=== PATIENT | male | born 1935 | race Caucasian/White ===

== ENCOUNTER 2023-11-26 15:30 | Emergency (ER) | payer MEDICARE, BC, SELFPAY ==
[2023-11-26 15:32] VITALS: BP 153/55
[2023-11-26 15:53] LABS: % Basophils 0.3 % (0-2); % Immature Granulocytes 0.7 % (0-0.5); % Lymphocytes 18.7 % (20.5-51.1); % Monocytes 9.3 % (1.7-9.3); Absolute Eosinophils 0.1 10^3/uL (0-0.7); Absolute Immature Granulocytes 0.1 10^3/uL (0-0.05); Absolute Lymphocytes 1.3 10^3/uL (1.2-3.4); Absolute Monocytes 0.7 10^3/uL (0.1-0.6); Absolute Neutrophils 4.8 10^3/uL (1.4-6.5); Hematocrit 31.2 % (39.0-52.0); Hemoglobin 10.6 g/dL (13.0-18.0); Mean Corpuscular Hgb 34.6 pg (27.0-31.0); Mean Platelet Volume 9.7 fL (7.4-10.4); Nucleated Red Blood Cells % 0 % (-); Platelet Count 159 10^3/uL (130-400); Red Blood Cell Count 3.06 10^6/uL (4.70-6.10); Red Cell Dist. Width 16.3 % (11.5-14.5)
[2023-11-26 16:00] LABS: INR 0.99; PT 12.9 Sec (11.4-14.6)
[2023-11-26 16:01] LABS: APTT 29.1 Sec (23.4-35.0)
[2023-11-26 16:04] LABS: ALT (SGPT) 14 U/L (0-50); AST (SGOT) 22 U/L (17-59); Albumin 3.4 g/dl (3.5-5.0); Alkaline Phosphatase 82 U/L (38-126); Blood Urea Nitrogen 34 mg/dl (9-20); Calcium 9.4 mg/dl (8.4-10.2); Carbon Dioxide 27 mmol/L (22-30); Chloride 105 mmol/L (98-107); Glucose 132 mg/dl (70-99); Potassium 5.3 mmol/L (3.5-5.1); Sodium 138 mmol/L (135-145); Total Bilirubin 0.6 mg/dl (0.2-1.3); Total Protein 5.8 g/dl (6.3-8.2); eGFR > 60.00
--- NOTE | 2023-11-26 17:25 | ED.GENMED ---
History of Present Illness
General
Chief Complaint: Male Genito-Urinary Symptoms
Source: patient
Exam Limitations: none
Time Seen by Provider: 11/26/23 17:23
Nursing documentation reviewed up to this point in time: agreed with
Travel History
Have you had any contact with someone who has COVID-19?: No
Do you have any symptoms of coronavirus? Fever > 100 degrees, chills, cough, shortness of breath, sore throat, loss of taste or smell, muscle aches, or headache?: No
History of Present Illness
History of Present Illness:
The patient is an 88-year-old man who reports he has had ongoing blood in his urine for months. He reports that the bleeding became more consistent and he called his urologist who recommended that he come to the ED. Patient denies dizziness, chest
pain or shortness of breath. He is on Plavix but no other blood thinners. He denies burning or any discomfort with urination. He denies urinary retention.
Past History
Past History
ED Past Medical History: Cancer (Prostate), GERD, HTN, NIDDM, Psychiatric (Anxiety) and Other (Anemia, PVD, BPH)
ED Past Surgical History: Cardiac (CABG, Stents) and Tonsilectomy
Social History
Tobacco: Former smoker
Alcohol: None
Drug: None
Personal:
Living: with family
Employment: Retired
Family History
Family History: Negative Early CAD
Review of Systems
Review of Systems
Allergies reviewed?: Yes
All Other Systems: ROS reviewed and negative except as documented in HPI and ROS
Constitutional: Reports no symptoms
EENT: Reports no symptoms
Respiratory: Reports no symptoms
Cardiac: Reports no symptoms
ABD/GI: Reports no symptoms
: Reports bleeding
Musculoskeletal: Reports no symptoms
Skin: Reports no symptoms
Neurological: Reports no symptoms
Endocrine: Reports no symptoms
Hematologic/Lymphatic: Reports no symptoms
Psychiatric: Reports no symptoms
Phy Exam
Physical Exam
Physical Exam:
Physical Exam
General: no apparent distress, not acutely ill
Neck: supple. no meningeal signs. normal psoterior pharynx
Heart: s1/s2 regular rate and rhythm, no murmur. equal radial pulses.
Lungs: no acute respiratory distress. clear bilaterally
Abdomen: normal bowel sounds. not tender. no CVAT
Neuro: alert and oriented. no focal neurological deficits
Skin: no rash
Psychiatric: well kept. interactive and cooperative
Extremities: no edema. no calf tenderness. negative homans. good distal pulses
Course
Orders/Labs/Results
Orders:
Orders
11/26/23 15:41
Complete Blood Count/With Diff Urgent
Comprehensive Metabolic Panel Urgent
PT/INR [Prothrombin Time] Urgent
PTT Urgent
11/26/23 17:21
Urinalysis Reflex To Culture Urgent
Date Specimen was Collected: 11/26/23
Time Specimen was Collected: 17:19
Urine Microscopic Reflex Cult Urgent
Urine Culture Urgent
FANNIE Source: U
Specimen Description:
Date Specimen was Collected: 11/26/23
Time Specimen was Collected: 17:19
11/26/23 18:38
US Kidneys and US Bladder [US Renal With Bladder] Urgent
Comment:
Reason For Exam: hematuria
Abnormal Lab Results
11/26/23 11/26/23
15:41 17:21
RBC 3.06 L 10^6/uL
(4.70-6.10)
Hgb 10.6 L g/dL
(13.0-18.0)
Hct 31.2 L %
(39.0-52.0)
MCV 102.0 H fL
(80.0-94.0)
MCH 34.6 H pg
(27.0-31.0)
RDW 16.3 H %
(11.5-14.5)
Abs Immat Gran (auto) 0.1 H 10^3/uL
(0-0.05)
Absolute Monos (auto) 0.7 H 10^3/uL
(0.1-0.6)
Immature Gran % 0.7 H %
(0-0.5)
Lymphocytes % 18.7 L %
(20.5-51.1)
Potassium 5.3 H mmol/L
(3.5-5.1)
BUN 34 H mg/dl
(9-20)
Glucose 132 H mg/dl
(70-99)
Total Protein 5.8 L g/dl
(6.3-8.2)
Albumin 3.4 L g/dl
(3.5-5.0)
Ur Occult Blood Reflex 4+ A
(Negative)
Urine Bilirubin 1+ A
(Negative)
Leukocyte Esterase Rfl 1+ A
(Negative)
Urine RBC >100 A /HPF
(0-2)
Urine Bacteria (Reflex) Many A
(Negative)
Urine Albumin (Reflex) 2+ A
(Neg - Trace)
11/26/23 15:41
11/26/23 15:41
Vital Signs
Initial and Last Documented VS:
Initial Vital Signs
Temp Pulse Resp BP Pulse Ox
97.8 F 76 16 153/55 93
11/26/23 15:32 11/26/23 15:32 11/26/23 15:32 11/26/23 15:32 11/26/23 15:32
Last Documented Vital Signs
Temp Pulse Resp BP Pulse Ox
97.8 F 60 16 141/70 93
11/26/23 15:32 11/26/23 18:15 11/26/23 18:15 11/26/23 18:00 11/26/23 18:00
MDM/Problems Addressed
Differential Diagnosis Includes:
Kidney stone, UTI, bladder mass
MDM/Problems Addressed:
Patient presents with subacute hematuria
Chronic conditions affecting care: Cancer (Prostate cancer in the past)
Acute Exacerbation and/or Progression of Chronic Illness: HTN
*Radiology
Radiology exam reviewed: radiology read reviewed
*Pulse Oximetry
Patient hypoxic: no
*EKG
Interpreted by ED Provider?: NA
*Auto Parts Clerk Interpretation
Rate: normal
Interpretation: normal
Rhythm: sinus
*Critical Care Note
Total Time (30-74mins, 75-104mins- exclusive of procedures): Not Applicable
Data Reviewed
Source: patient
Patient Management
Social determinants of health affecting care: Living situation and Strong social support
Escalation/DeEscalation of care consider admission/obs:
Patient is hemodynamically stable and appears well and comfortable. He has no signs or concerns for retention. His urine does not look like there is an infection. His renal function is stable. Case discussed with Dr. Samuel who assured me that
he will make sure that Dr. Pardo is aware that patient is having more frequent bleeding and will make sure to arrange prompt outpatient follow-up. He recommended that the patient hold off on taking Plavix in case he needs an upcoming urological
procedure.
ED Attending Note
-
Portions of this chart may have been created with voice recognition software.� Occasional wrong word or��sound alike� substitutions may have occurred due to the inherent limitations of voice recognition software.
Discharge Plan
Departure
Patient Disposition: Home (Routine Discharge)
Date of Disposition: 11/26/23
Time of Disposition: 20:58
Patient with high blood pressure during this ER visit?: Yes
Condition: Good
Covid-19: Not Applicable
Discharge Problem:
Hematuria
Instructions: Blood in Urine (Hematuria), Adult ED
Prescriptions:
No Action
atorvastatin 40 MG tablet
40 mg PO QPM
clopidogrel 75 MG tablet
75 mg PO DAILY@1500
metformin 500 mg Tablet
500 mg PO TID
omeprazole magnesium [Prilosec OTC] 20 mg Tablet,Delayed Release (Dr/Ec)
40 mg PO DAILY
cholecalciferol (vitamin D3) 50 mcg (2,000 unit) Tablet
50 mcg PO DAILY
polyethylene glycol 3350 [Miralax] 17 gram powder in packet
17 g PO HS
Referrals:
Arturo Pardo MD [Active] - (Call tomorrow to see as soon as possible.)
UNKNOWN - PT DOES,NOT KNOW [Unknown Provider] -
Activity Restrictions/Additional Instructions:
Return for fever or vomiting. Return for dizziness or trouble breathing. It is very important that you DO NOT take your plavix because you may need a urological procedure done with Dr Pardo. Please call Dr Pardo's office tomorrow to see him
within 2-3 days
Interventions
Interventions:
*Risk Screen - Suicide Last Done: 11/26/23 17:22
*General Assessment Last Done: 11/26/23 17:22
*Neglect/Abuse Screening Last Done: 11/26/23 17:22
*ED COVID-19 Vaccine History Last Done: 11/26/23 17:22
ED-Male Genitourinary Assessment Last Done: 11/26/23 17:22
[2023-11-26 17:26] VITALS: BP 151/63
[2023-11-26 17:37] LABS: Urine Albumin 2+ (Neg - Trace); Urine Bilirubin 1+ (Negative); Urine Character Slightly Cloudy (Clear); Urine Color Amber; Urine Glucose Negative (Negative); Urine Ketone Negative (Negative); Urine Leukocyte 1+ (Negative); Urine Nitrite Negative (Negative); Urine Occult Blood 4+ (Negative); Urine Specific Gravity 1.015 (<1.030); Urine Urobilinogen Negative (Neg - 1+)
[2023-11-26 17:46] LABS: Urine Red Blood Cell >100 /HPF (0-2)
[2023-11-26 17:47] LABS: Urine Bacteria Many (Negative)
[2023-11-26 18:00] VITALS: BP 141/70
== END 2023-11-26 23:10 | disposition home or self-care (01) ==
LOC: EMR 15:30
PROVIDERS: Emergency Medicine; EMERGENCY PHYSICIAN Emergency Medicine; FAMILY PHYSICIAN Family Medicine
DX: R31.9 Hematuria, unspecified (principal); K59.00 Constipation, unspecified; E11.51 Type 2 diabetes mellitus with diabetic peripheral angiopathy without gangrene; K21.9 Gastro-esophageal reflux disease without esophagitis; I25.10 Atherosclerotic heart disease of native coronary artery without angina pectoris; E78.5 Hyperlipidemia, unspecified; I34.0 Nonrheumatic mitral (valve) insufficiency; I12.9 Hypertensive chronic kidney disease with stage 1 through stage 4 chronic kidney disease, or unspecified chronic kidney disease; E11.22 Type 2 diabetes mellitus with diabetic chronic kidney disease; N18.9 Chronic kidney disease, unspecified; N40.0 Benign prostatic hyperplasia without lower urinary tract symptoms; F41.9 Anxiety disorder, unspecified; D64.9 Anemia, unspecified; Z95.1 Presence of aortocoronary bypass graft; Z95.5 Presence of coronary angioplasty implant and graft; Z85.46 Personal history of malignant neoplasm of prostate; Z92.3 Personal history of irradiation; Z87.891 Personal history of nicotine dependence; Z79.02 Long term (current) use of antithrombotics/antiplatelets; Z79.84 Long term (current) use of oral hypoglycemic drugs
CPT/HCPCS: 99284; 76770; 80053; 81003; 81015; 85025; 85610; 85730; 87086

== ENCOUNTER 2024-01-25 21:57 | Inpatient (IN) | payer MEDICARE, BC, SELFPAY ==
[2024-01-25] VITALS (16 sets, daily range): BP systolic 64–107; BP diastolic 26–55; BMI 34.1
[2024-01-25 19:53] LABS: % Basophils 0.3 % (0-2); % Eosinophils 1.8 % (0-6); % Immature Granulocytes 1.1 % (0-0.5); % Lymphocytes 12.7 % (20.5-51.1); % Monocytes 11.8 % (1.7-9.3); % Neutrophils 72.3 % (42.2-75.2); Absolute Eosinophils 0.1 10^3/uL (0-0.7); Absolute Immature Granulocytes 0.1 10^3/uL (0-0.05); Absolute Lymphocytes 0.9 10^3/uL (1.2-3.4); Absolute Monocytes 0.9 10^3/uL (0.1-0.6); Absolute Neutrophils 5.3 10^3/uL (1.4-6.5); Mean Corp Hgb Conc. 31.1 g/dL (33.0-37.0); Mean Corpuscular Hgb 30.3 pg (27.0-31.0); Mean Corpuscular Volume 97.6 fL (80.0-94.0); Mean Platelet Volume 9.5 fL (7.4-10.4); Nucleated Red Blood Cells % 0.5 % (-); Platelet Count 223 10^3/uL (130-400); Red Blood Cell Count 1.65 10^6/uL (4.70-6.10); Red Cell Dist. Width 16.4 % (11.5-14.5); White Blood Cell Count 7.4 10^3/uL (4.8-10.8)
[2024-01-25 19:57] LABS: Hematocrit 16.1 % (39.0-52.0)
[2024-01-25 20:05] LABS: ALT (SGPT) 17 U/L (0-50); AST (SGOT) 21 U/L (17-59); Albumin 3.8 g/dl (3.5-5.0); Alkaline Phosphatase 97 U/L (38-126); Blood Urea Nitrogen 37 mg/dl (9-20); Calcium 9.2 mg/dl (8.4-10.2); Carbon Dioxide 22 mmol/L (22-30); Chloride 106 mmol/L (98-107); Glucose 130 mg/dl (70-99); Potassium 5.7 mmol/L (3.5-5.1); Sodium 135 mmol/L (135-145); Total Bilirubin 0.5 mg/dl (0.2-1.3)
--- NOTE | 2024-01-25 21:00 | ED.GENMED ---
History of Present Illness
General
Chief Complaint: Male Genito-Urinary Symptoms
Source: patient
Time Seen by Provider: 01/25/24 20:48
Travel History
Have you had any contact with someone who has COVID-19?: No
Do you have any symptoms of coronavirus? Fever > 100 degrees, chills, cough, shortness of breath, sore throat, loss of taste or smell, muscle aches, or headache?: No
History of Present Illness
History of Present Illness:
88-year-old male presents emergency department with complaints of hematuria that is been going on for some time. He had a cystoscopy about 3 to 4 weeks ago that was essentially unremarkable. Since then, he notes that he has had hematuria with
clots on and off. He presents today because he has not urinated since last night and has a sense of an urge to go. He did pass 2 small clots before arrival here. He also thought he might be constipated although he did have a small 'dark'
nonbloody bowel movement this morning. He denies abdominal pain, chest pain, dyspnea. He does note overall fatigue. He denies fever, chills, severe headache. He denies bleeding elsewhere. Patient was previously on Plavix, was told to
discontinue it which he did. However, yesterday he took a dose because he thought it might help him given his hematuria. He takes an 81 mg aspirin each day, otherwise no anticoagulant/antiplatelet agents.
Past History
Past History
ED Past Medical History: Cancer (Prostate), GERD, HTN, NIDDM, Psychiatric (Anxiety) and Other (Anemia, PVD, BPH)
ED Past Surgical History: Cardiac (CABG, Stents) and Tonsilectomy
Social History
Tobacco: Former smoker
Alcohol: None
Drug: None
Personal:
Living: with family
Employment: Retired
Family History
Family History: Negative Early CAD
Phy Exam
Physical Exam
Physical Exam:
GENERAL: Alert , in no apparent distress
EYE: pupils equal and reactive, conjunctive a pale
NECK: Supple, no significant adenopathy.
ENT: o/p clr, mmm.
CARDIAC: Regular rate and rhythm, systolic murmur noted.
LUNGS: Clear breath sounds bilaterally, no acute respiratory distress, no wheezes/rales/rhonchi
ABDOMEN: Soft, without focal tenderness except discomfort with palpation in the suprapubic area because he feels the need to urinate, no r/g, no cvat
NEUROLOGICAL: Alert and oriented, no focal neuro deficits
SKIN: Warm and dry, skin intact.
MUSCULOSKELETAL: No edema, well perfused.
PSYCH: Normal and appropriate interaction.
Course
Orders/Labs/Results
Orders:
Orders
01/25/24 19:44
Type+Screen Urgent
Complete Blood Count/With Diff Urgent
Comprehensive Metabolic Panel Urgent
01/25/24 20:58
* Blood Bank Products Urgent
Blood Bank Products: *Packed RBC Leuko(PRBC's)
Quantity: 2
Transfuse Today: Yes
Reason: Bleeding
Sams Placement- Treatment ONCE
Reason for insertion: Acute Retention
IV Insert/Care/Rem.- Treatment PRN
US Kidneys and US Bladder [US Renal With Bladder] Urgent
Comment:
Reason For Exam: HEMATURIA
01/25/24 21:25
0.9% Sodium Chloride 250 ml [Nss] 250 ml IV BOLUS
01/25/24 21:40
Admit/Transfer Patient As Directed
Co-Sign Provider:
Level of Care: Inpatient admission
Assign to:: ICU
Physician / Group: [email or web address]
Diagnosis: hematuria complicated with acute clot urinary retentiin
Reason for Hospitalization: Intermittent subacute hematuria complicated with acute clot urinary retention and
ACBLA
Suspect hemorrgaic shock
Expected length of stay greater than two midnights?: Yes
ELOS- Estimated Length of Stay in days: 3
I certify the patient meets the requirements for IP care: Yes
01/25/24 21:41
Code Status As Directed
Resuscitation Status: Full Code
01/26/24 00:00
CefTRIAXone [Rocephin] 1,000 mg IV Q24H
01/26/24 00:14
0.9% Sodium Chloride 1000 ml [Nss] 1,000 ml IV 60 mls/hr
Acetaminophen [Tylenol] 650 mg PO Q4HPRN PRN
Bisacodyl [Dulcolax] 10 mg RECTAL [id number] PRN
Dextrose 50%-Water [Dextrose 50% Syringe] 12.5 grams IV [id number] PRN
Docusate W/Senna [Senokot-S] 1 tablet PO BIDPRN PRN
Glucagon [GlucaGen] 1 mg IM PRN PRN
Polyethylene Glycol Powder [Miralax] 17 grams PO DAILYPRN PRN
01/26/24 00:14
UROLOGY CONSULT Routine
Consulting Provider: Omari Garza
Was physician already notified: Yes
Comment: KERWIN - obstructive nephropathy , Hematuria with clot, ACBLA, hypotension
Activity As Directed
Activity Level: With Assistance
Bedside Glucose Monitoring As Directed
Frequency: AC&HS
Comment: Change to q6h if pt on TPN, tube feeding or not eating
Intake/ Output As Directed
Frequency: Per unit guidelines
Pneumatic Compression Sleeves As Directed
Type: Knee high
Vital Signs As Directed
Frequency: Per unit guidelines
Weight As Directed
Frequency: Daily
DX Deep Vein Thrombosis Video Routine
01/26/24 04:10
Basic Metabolic Panel IN AM
Complete Blood Count/No Diff IN AM
Ferritin IN AM
Glycohemoglobin (HgbA1c) IN AM
TSH IN AM
Vitamin B12 IN AM
01/26/24 Breakfast
Clear Liquid
At Your Request: Full Participation
01/26/24 07:30
Insulin Aspart Corrective Low [Novolog Flexpen-Low Resistance] See Protocol SC AC
01/27/24 04:30
Basic Metabolic Panel IN AM
Complete Blood Count/No Diff IN AM
01/28/24 08:45
Basic Metabolic Panel IN AM
Complete Blood Count/No Diff IN AM
Abnormal Lab Results
01/25/24
19:44
RBC 1.65 L 10^6/uL
(4.70-6.10)
Hgb 5.0 L* g/dL
(13.0-18.0)
Hct 16.1 L* %
(39.0-52.0)
MCV 97.6 H fL
(80.0-94.0)
MCHC 31.1 L g/dL
(33.0-37.0)
RDW 16.4 H %
(11.5-14.5)
Abs Immat Gran (auto) 0.1 H 10^3/uL
(0-0.05)
Absolute Lymphs (auto) 0.9 L 10^3/uL
(1.2-3.4)
Absolute Monos (auto) 0.9 H 10^3/uL
(0.1-0.6)
Immature Gran % 1.1 H %
(0-0.5)
Lymphocytes % 12.7 L %
(20.5-51.1)
Monocytes % 11.8 H %
(1.7-9.3)
Potassium 5.7 H mmol/L
(3.5-5.1)
BUN 37 H mg/dl
(9-20)
Creatinine 1.6 H mg/dL
(0.7-1.3)
Glucose 130 H mg/dl
(70-99)
Total Protein 6.0 L g/dl
(6.3-8.2)
Crossmatch IS Only See Detail
01/25/24 19:44
01/25/24 19:44
Vital Signs
Initial and Last Documented VS:
Initial Vital Signs
Temp Pulse Resp BP Pulse Ox
98.5 F 68 18 107/45 98
01/25/24 19:35 01/25/24 19:35 01/25/24 19:35 01/25/24 19:35 01/25/24 19:35
Last Documented Vital Signs
Temp Pulse Resp BP Pulse Ox
98.9 F 65 20 130/46 94
02/01/24 07:55 02/01/24 07:55 02/01/24 07:55 02/01/24 07:55 02/01/24 07:55
*Critical Care Note
Total Time (30-74mins, 75-104mins- exclusive of procedures): Not Applicable
Update Note
Update Note:
Patient presents to the Emergency Department with ____urinary retention, hematuria
Number and Complexity of Problems Addressed at the Encounter
� Chronic conditions affecting care:
� Acute Exacerbation and/or Progression of Chronic Illness:
� Differential Diagnosis includes: But not limited limited to UTI, bleeding disorder, bladder mass kidney stone, etc. etc.
Amount and/or Complexity of Data to be Reviewed and Analyzed
� I performed an independent evaluation of and my interpretation is:
EKG:
CT:
Xrays:
Laboratory Studies: Hemoglobin 5 today was 10.6 in November, new renal insufficiency noted with a GFR 41.7 today, in November was within normal limits. Mild hyperkalemia noted which has been noted in the past as well
Other:
� Review of other/old records reveals: December 2022 patient admitted with ambulatory dysfunction and low back pain
� Clinical information was obtained by an independent historian: Before patient arrival [place] text from Dr. garza reviewed.
� Prescriptions/Medications Considered but not given:
� Further testing considered but not performed:
Risk of Complications and/or Morbidity or Mortality of Patient Management
� Social determinants of health affecting care:
� Discussion with other providers (PCP, Hospitalists, Consultants, etc):
� Escalation of care including admission/observation vs risk of discharge considered: 9:11 PM RN began to prepare for Sams catheter placement with CBI when patient spontaneously urinated blood-tinged urine, postvoid residual
only 180 mL. Will pause on Sams catheter placement at this time given he is no longer in retention or acutely bleeding. Transfusion ordered, I will discussed with patient risks and benefits and have consent signed. Case discussed with Dr. KENYETTA Sierra
for admission. Dr. Garza updated as well via tt.
ED Attending Note
-
Portions of this chart may have been created with voice recognition software.� Occasional wrong word or��sound alike� substitutions may have occurred due to the inherent limitations of voice recognition software.
Discharge Plan
Departure
Patient Disposition: Admit
Date of Disposition: 01/25/24
Time of Disposition: 21:11
Admit to: ICU
Admit to doctor: mckenzie
Presentation/result/management discussed w/ accepting MD/DO: Hospitalist
Condition: Fair
Discharge Problem:
Hematuria, Anemia, Acute urinary retention
Interventions
Interventions:
*Risk Screen - Suicide Last Done: 01/26/24 00:16
*General Assessment Last Done: 01/25/24 19:35
*Neglect/Abuse Screening Last Done: 01/25/24 19:35
ED- Fall Risk Assessment Last Done: 01/25/24 23:35
*ED COVID-19 Vaccine History Last Done: 01/26/24 00:16
*Nursing Disposition Last Done: 01/25/24 23:35
ED-Male Genitourinary Assessment Last Done: 01/25/24 20:33
Discharge Date and Time
Discharge Date/Time: 01/25/24 23:35
--- NOTE | 2024-01-25 21:34 | HPS.HSE ---
Addendum entered and electronically signed by Clay Wallace MD 01/25/24 23:51:
Renal US
1. Moderate chronic bilateral renal disease.
2. Large postvoid residual in the urinary bladder (203 mL).
3. 3.6 cm layering hyperechoic hemorrhage or debris in the urinary bladder.
Addendum entered and electronically signed by Clay Wallace MD 01/25/24 23:47:
Dump Operator consult ordered
Original Note:
Family Physician
-
Family Physician: NOT KNOW UNKNOWN - PT DOES
Chief Complaint
-
hematuria with clots and unable to pass urine since last night
History of Present Illness
88M HX Prostate CA, BPH, CABG seen at ER for evaluation for hematuria and no urine output
Hematuria:
Today hematuria with intermittent passage of 2 small clots
Urgency last night and unable to pass urine
No lower abdominal pain, N/V
POS Fatigue
Ongoing intermittent hematuria since Nov 2023
Reports unremarkable OP cystoscopy 4 weeks ago
On daily ASA
Prior HX Plavix which was DC'd per Dr sarkar however he took one dose last night to help dissolving clots
Medical History
Past Medical History
Past Medical History: Reports Other ((CAD status post CABG, hypertension, diabetes, GERD, anxiety, anemia, BPH, prostate cancer))
Past Surgical History: Reports None
Social History
Tobacco: Non-smoker
Alcohol: None
Drug: None
Family History
Family History: Not pertinent
Allergies / Home Medications
Allergies reflects when Allergies were last updated in Apprion.
Home Medications with original date entered in Apprion
Allergy/Medication List:
Allergies
Allergy/AdvReac Type Severity Reaction Status Date / Time
No Known Allergies Allergy Verified 11/26/23 15:32
Home Medications
atorvastatin 40 mg tablet 40 mg PO QPM High cholesterol 02/05/17
clopidogrel 75 mg tablet 75 mg PO DAILY@1500 Blood clot prevention/tx 02/05/17
cholecalciferol (vitamin D3) 50 mcg (2,000 unit) tablet 50 mcg PO DAILY 11/26/23
metformin 500 mg tablet 500 mg PO TID 11/26/23
omeprazole magnesium 20 mg tablet,delayed release (Prilosec OTC) 40 mg PO DAILY 11/26/23
polyethylene glycol 3350 17 gram oral powder packet (Miralax) 17 g PO HS 11/26/23
Review of Systems
-
Constitutional: Reports Fatigue
EENT: Reports No Symptoms
Respiratory: Reports No Symptoms
Cardiac: Reports No Symptoms
Abdomen/GI: Reports No Symptoms
: Reports See HPI, Dysuria, Difficulty Voiding and Bleeding
Musculoskeletal: Reports No Symptoms
Skin: Reports No Symptoms
Neurological: Reports No Symptoms
Endocrine: Reports No Symptoms
Hematologic/Lymphatic: Reports No Symptoms
Psych: Reports No Symptoms
Physical Exam
Vital Signs
Vital Signs
Temp Pulse Resp BP Pulse Ox
98.5 F 68 18 107/45 98
01/25/24 19:35 01/25/24 19:35 01/25/24 19:35 01/25/24 19:35 01/25/24 19:35
Physical Exam
General: Well Developed and No Apparent Distress
HEENT: NormoCephalic, Anicteric and Moist mucous membranes
Respiratory: Clear; No Wheezes, Rales, Rhonchi or Crackles
Cardiac: S1/S2 and Regular Rhythm; No Tachycardia
Breast: Deferred by me
GI: Soft, Non Tender and Other (suprapubic disconfort on palpitation )
Rectal: Deferred by Provider
Genito-urinary: Bloody Urine and No costovertebral tender
Musculoskeletal: No Edema
Skin: Warm and Dry
Neuro: AO x 3 and Nonfocal/grossly intact
Psych: Calm
Laboratory Results
-
01/25/24 19:44
01/25/24 19:44
Laboratory Results
Total Bilirubin 0.5 mg/dl (0.2-1.3) 01/25/24 19:44
AST 21 U/L (17-59) 01/25/24 19:44
ALT 17 U/L (0-50) 01/25/24 19:44
Alkaline Phosphatase 97 U/L (38-126) 01/25/24 19:44
Data Reviewed
-
Lab Data: Labs Reviewed by me
Old Records: Reviewed
Impression/Plan
-
Reviewed VS: Afebrile Afebrile BP 107/45 HR 68
Data
nl WCC
Hgb 5.0 - bl 10s
MCV 97 - bl 100s
K 5.7
BUN 37
Cr 1.6 - bl 1.1
eGFR 41- bl > 60
US KUB pending report
Last hospitalist admission: 01/08- 12/31/22
DXS: Ambulatory dysfunction/falls secondary to subacute lower back pain/sciatica , Gum/lip inflammation secondary to recent root canal
ASSESSMENT & PLAN
Intermittent subacute hematuria complicated with acute clot urinary retention and ACBLA
Suspect hemorrhagic shock- with SBP as low as 70 s/p Fluid bolus
Spontaneously urinated and saurated the diaper at ER : felet relived from suprpubic disconfort per patient
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
Fatigue - due to symptomatic anemia
DDX: XRT related cystitis ??
- Held ASA and Plavix
- Blood consented , T & C
- Agree with 2 PRBCs - trend post Tx Hgb
- Empiric IV CFTX
- IVF and Clear in case indication for Urological intervention in AM
- Uro consulted
Associated KERWIN - obstructive nephropathy due to clot urinary retention
Remote HX Prostate CA s/p 40 XRTs then
BPH HX
- Trend Cr
- cont. tamsulosin
T2DM
- Held metformin
- add ISS low
Essential hypertension
- on metoprolol
CAD HX status post CABG
- Held aspirin, Plavix
Hyperlipidemia
- on statin
HX Ambulatory dysfunction/falls s
DVT Px: SCD
Full code
ICU
Total Critical Care Time__45___ minutes.
I was immediately available to the patient and staff. I personally examined, reviewed labs, diagnostic images/reports, interpretations, treatment plans, discussed patient care with other providers and family or caregivers (if patient is unable to
make decisions), entered orders as appropriate and documented the medical record.
[2024-01-25] MEDS: NSS 250 IV (21:53)
[2024-01-26] VITALS (47 sets, daily range): BP systolic 106–142; BP diastolic 52–90; PULSE 67–76; BMI 33.7
--- NOTE | 2024-01-26 00:29 | PTCARENOTE ---
pt received from er via stretcher- pt aox4, able to make needs known. on 2LNC. nsr to sb with 1st degree block and pvcs. unit of blood infusing from er- pt tolerating. bp improved 120s systolic. pt complains of numbness in hands. pt right eye with
difficulty seeing at times at baseline. skin intact. scds on. resting comfortably at this time- denies pain. plan of care discussed with khadar garcia. all safety precautions in place, call lawler within reach.
[2024-01-26] MEDS: ROCEPHIN 1000 MG IV ×2 (01:00→23:10)
[2024-01-26] MEDS: STERILE WATER FOR INJECTION 10 ML IV ×2 (01:00→23:10)
[2024-01-26] MEDS: NSS 1000 IV ×2 (01:00→19:14)
--- NOTE | 2024-01-26 03:55 | PTCARENOTE ---
pt tolerated second unit of blood. able to turn and reposition self in bed. ivf infusing. vitals stable. no change in assessment.
--- NOTE | 2024-01-26 04:27 | PTCARENOTE ---
pt incontinent large amount, hematuria noted. no clots at this time. am care provided. labs sent.
[2024-01-26 04:30] LABS: Hematocrit 21.2 % (39.0-52.0); Mean Corpuscular Hgb 30.4 pg (27.0-31.0); Mean Corpuscular Volume 92.2 fL (80.0-94.0); Mean Platelet Volume 9.7 fL (7.4-10.4); Platelet Count 187 10^3/uL (130-400); Red Cell Dist. Width 17.7 % (11.5-14.5)
[2024-01-26 04:32] LABS: INR 1.13; PT 14.3 Sec (11.4-14.6)
[2024-01-26 04:33] LABS: APTT 29.7 Sec (23.4-35.0)
[2024-01-26 04:49] LABS: Blood Urea Nitrogen 33 mg/dl (9-20); Calcium 8.8 mg/dl (8.4-10.2); Carbon Dioxide 24 mmol/L (22-30); Chloride 108 mmol/L (98-107); Estimated Creatinine Clearance 42 ml/min; Glucose 97 mg/dl (70-99); Phosphorus 4.3 mg/dl (2.5-4.5); Potassium 5.2 mmol/L (3.5-5.1); Sodium 135 mmol/L (135-145); eGFR 45.06
[2024-01-26 05:19] LABS: TSH 1.12 uIU/ml (0.47-4.68)
[2024-01-26 05:24] LABS: Ferritin 17.5 ng/ml (17.9-464.0)
[2024-01-26 05:39] LABS: Vitamin B12 354 pg/ml (239-931)
--- NOTE | 2024-01-26 06:30 | W.PN.HOSP.TC ---
Today's Communication/Plan
-
Monitor H&H
maintain Sams
potassium restricted diet
monitor renal function
trend potassium
Assessment / Plan
Assessment / Plan
Physical Exam
General: Well Developed and No Apparent Distress
HEENT: NormoCephalic, Anicteric and Moist mucous membranes
Respiratory: Clear; No Wheezes, Rales, Rhonchi or Crackles
Cardiac: S1/S2 and Regular Rhythm; No Tachycardia
GI: Soft, Non Tender Bowel Sounds present
Genito-urinary: Bloody Urine and No costovertebral tenderness
Musculoskeletal: No Edema
Skin: Warm and Dry
Neuro: AO x 3
Psych: Calm
88M Prostate Ca BPH CABG p/w with severe anemia hematuria retention.
Intermittent subacute hematuria complicated with acute clot urinary retention and ACBLA
Suspect hemorrhagic shock- with SBP as low as 70 resolved with Fluid bolus and blood transfusions 2PRBC
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
Fatigue - due to symptomatic anemia
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
- Held ASA and Plavix
- s/p 3 PRBCs Hgb 5.0 with subsequent improvement to 8.0
- cont Empiric IV CFTX
- Uro consult appreciated conservative mgmt, diet advanced to Regular with 2g K restriction
Associated KERWIN - obstructive nephropathy due to clot urinary retention
Remote HX Prostate CA s/p 40 XRTs then
BPH HX
- Trend Cr
- cont. tamsulosin
T2DM
- Held metformin
- low dose sliding scale
-A1c 5.7 but unreliable following transfusion
Essential hypertension
- on metoprolol
CAD HX status post CABG
- Held aspirin, Plavix d/t hematuria above
Hyperlipidemia
- on statin
HX Ambulatory dysfunction/falls s
DVT Px: SCD
Full code
Total Critical Care Time__40___ minutes. I was immediately available to the patient and staff. I personally examined, reviewed labs, diagnostic images/reports, interpretations, treatment plans, discussed patient care with other providers and
family or caregivers (if patient is unable to make decisions), entered orders as appropriate and documented the medical record.
Anticipated Discharge: 24 - 48 hours
Subjective/Interval History
-
Date of Service: January 26, 2024
No acute distress resting comfortably in bed. Reports pain free at rest. Tolerating Sams placed earlier. Gross Hematuria noted. Denies nausea vomiting. Requesting advancement in diet from clear liquid.
Objective Data
-
Labs:
Laboratory Results
01/25/24 01/26/24 01/26/24
19:44 04:10 10:00
WBC 7.4 6.0
Hgb 5.0 L* 7.0 L D Pending
Hct 16.1 L* 21.2 L Pending
Plt Count 223 187
PT 14.3
INR 1.13
APTT 29.7
Sodium 135 135
Potassium 5.7 H 5.2 H
Chloride 106 108 H
Carbon Dioxide 22 24
BUN 37 H 33 H
Creatinine 1.6 H 1.5 H
Glucose 130 H 97
Calcium 9.2 8.8
Total Bilirubin 0.5
AST 21
ALT 17
Alkaline Phosphatase 97
01/26/24
18:00
WBC
Hgb Pending
Hct Pending
Plt Count
PT
INR
APTT
Sodium
Potassium
Chloride
Carbon Dioxide
BUN
Creatinine
Glucose
Calcium
Total Bilirubin
AST
ALT
Alkaline Phosphatase
Vital Signs:
Vital Signs
Temp Pulse Resp BP Pulse Ox
98.5 F 62 22 125/72 98
01/26/24 06:00 01/26/24 06:00 01/26/24 06:00 01/26/24 06:00 01/26/24 05:45
I&O
01/24/24 01/25/24 01/26/24
06:59 06:59 06:59
Intake Total 1240 / 1240
Output Total 500 / 500
Balance 740 / 740
--- NOTE | 2024-01-26 06:52 | CON.INTV ---
Consultation
Consultation Request
Date/Time Consultation Requested: 01-26-24
Date/Time Consultation Performed: 01-26-24
Requesting Provider: Hospitalist ad
Performing Provider: Dr Thomason
Reason for Consultation: hematuria
Medical History
-
Chief Complaint: hematuria
History of Present Illness:
Mr Adriel Christensen is an 88/M adm 04-14 h/o hematuria since Nov 2023, received outpatient cystoscopy 3-4 wks HAMMER ADJUSTER reportedly unremarkable.
Urinary retention since night before adm, passed 2 small blood clots HAMMER ADJUSTER to ER.
Previously on plavix, recommended to discontinue, however took one dose on d HAMMER ADJUSTER
Past Medical History
Past Medical History: CAD (CABG, stents), Cancer (prostate), GERD, HTN, NIDDM, Psychiatric (anxiety) and Other (PVD, anemia, BPH)
Social History
Tobacco: Former Smoker
Alcohol: None
Drug: None
Personal:
Living: With Family
Employment: Retired
Family History
Family History: Early CAD
Allergies / Home Medications
Allergies
Allergy/AdvReac Type Severity Reaction Status Date / Time
No Known Allergies Allergy Verified 11/26/23 15:32
Home Medications
�Medication �Instructions �Recorded �Confirmed �Last Taken �Type
atorvastatin 40 mg tablet 40 mg PO QPM High cholesterol 02/05/17 01/26/24 01/24/24 History
clopidogrel 75 mg tablet 75 mg PO DAILY@1500 Blood clot 02/05/17 01/26/24 01/23/24 History
prevention/tx
cholecalciferol (vitamin D3) 50 50 mcg PO DAILY 11/26/23 01/26/24 01/25/24 History
mcg (2,000 unit) tablet
metformin 500 mg tablet 500 mg PO TID 11/26/23 01/26/24 01/25/24 History
omeprazole magnesium 20 mg 40 mg PO DAILY 11/26/23 01/26/24 01/25/24 History
tablet,delayed release (Prilosec
OTC)
polyethylene glycol 3350 17 gram 17 g PO HS 11/26/23 01/26/24 01/25/24 History
oral powder packet (Miralax)
Review of Systems
-
History Source: Patient
All other systems: Negative unless noted
Abdomen/GI: Constipated
: Difficulty Voiding and Bleeding
Vitals / Labs / Diagnostic Testing
Vital Signs
Temp Pulse Resp BP Pulse Ox
98.5 F 62 22 125/72 98
01/26/24 06:00 01/26/24 06:00 01/26/24 06:00 01/26/24 06:00 01/26/24 05:45
Lab Data
01/26/24 04:10
Laboratory Results
01/26/24
04:10
PT 14.3
INR 1.13
APTT 29.7
Diagnostic Testing:
Physical Exam
-
HEENT: Normocephalic and Moist Mucous Membranes
Cardiovascular: Regular Rhythm, Murmur (n), Peripheral Edema (n), Calf Tenderness and JVD
Respiratory: Clear and Non-Labored Respirations
GI: Soft, Non Distended and Non Tender
Neurology: Awake, AO x 3 and No Motor Deficits
Skin: Warm
General: Respiratory Distress (n)
Assessment
-
Assessment:
Mr Adriel Christensen is an 88/M adm 04-14 h/o hematuria since Nov 2023, received outpatient cystoscopy 3-4 wks HAMMER ADJUSTER reportedly unremarkable. Urinary retention since night before adm, passed 2 small blood clots HAMMER ADJUSTER to ER. Previously on plavix,
recommended to discontinue, however took one dose on d HAMMER ADJUSTER
Impression:
Hematuria
Severe anemia
Interim hypotension after adm, resolved
Conditions HAMMER ADJUSTER:
Prostate cancer
HTN
NIDDM
GERD
CAD s/p CABG and stents
Former smoker
Plan:
Subacute unexplained hematuria, negative cystoscopy 3-4 wks HAMMER ADJUSTER
Instructed to hold clopidogrel by urology, but took a dose on d HAMMER ADJUSTER
Severe anemia
Completing 3rd U PRBCs this morning, responding well to PRBCs, Hgb from 5.0 to 8 by mid this morning
Urology consulted
Check UA
Renal/bladder US with large postvoid residual but no HN
Place Sams
Did not require pressors
Follow Hgb
IS
Asp precs
Interim hypotension since adm, now resolved
If remains hemodynamically stable can transfer to [facility] today, will sign off then
Critical care time: 35 min
[2024-01-26] MEDS: NOVOLOG FLEXPEN-LOW RESISTANCE SC ×3 (08:04→17:04)
[2024-01-26 08:15] LABS: Glucose - Point of Care 102 mg/dl (70-99)
--- NOTE | 2024-01-26 08:18 | PTCARENOTE ---
pt wakes to name. states no pain or sob. inc of blood tinged urine with min small clots. no abd pain. prbc running as ordered. skin intact. unable to place condom cath due to anatomy.
[2024-01-26 09:52] LABS: Glycohemoglobin (HgbA1c) 5.7 % (4.0-5.6)
[2024-01-26 10:33] LABS: Hematocrit 24.3 % (39.0-52.0)
--- NOTE | 2024-01-26 11:14 | PTCARENOTE ---
place lion cath as ordered. bloody urine with small clots noted. sample sent. ivf running as ordered.
[2024-01-26 11:22] LABS: Urine Albumin 3+ (Neg - Trace); Urine Bilirubin Negative (Negative); Urine Character Bloody (Clear); Urine Color Red; Urine Glucose Negative (Negative); Urine Ketone Trace (Negative); Urine Leukocyte Trace (Negative); Urine Nitrite Negative (Negative); Urine Occult Blood 4+ (Negative); Urine Specific Gravity 1.015 (<1.030); Urine Urobilinogen Negative (Neg - 1+)
--- NOTE | 2024-01-26 11:47 | CM ---
CM met with pt bedside
Pt resides with his spouse in a [place] with 0STE
Pt notes independence normally with ADLs with use of a WW
Pt has a WC which family push when in the community
Pt is not on home oxygen at home
For the past few months, pt notes increasing weakness/falls at home and requiring assistance
Pt has hx with [facility] and hx at [facility] and [facility]
PCP- Arturo Simpson
Rx- Tonya Fofana
Pt will likely benefit from PT/OT once medically appropriate
CM consult for advanced directives- reviewed with pt
Paperwork and form provided to pt
Discharge Disposition- anticipate home, likely with needs (VN and watch home O2)
[2024-01-26 11:49] LABS: Urine Red Blood Cell >100 /HPF (0-2)
[2024-01-26 11:52] LABS: Urine Bacteria Few (Negative)
[2024-01-26 12:49] LABS: Glucose - Point of Care 120 mg/dl (70-99)
[2024-01-26] MEDS: DILAUDID 0.25 MG IV ×2 (17:04→20:55)
[2024-01-26] MEDS: LIPITOR 40 MG PO (17:04)
[2024-01-26 17:11] LABS: Glucose - Point of Care 119 mg/dl (70-99)
--- NOTE | 2024-01-26 17:13 | PTCARENOTE ---
assisted MD with insertion of three way lion. MD irrigated for multiple small clots. cbi started. draining pink
[2024-01-26 17:18] LABS: Hematocrit 23.2 % (39.0-52.0); Hemoglobin 7.6 g/dL (13.0-18.0)
--- NOTE | 2024-01-26 17:41 | PTCARENOTE ---
latest hgb reported to dr corbett. wants to keep hgb above 7
[2024-01-26] MEDS: MIRALAX 17 GRAMS PO (19:14)
[2024-01-26 19:36] LABS: Glucose - Point of Care 144 mg/dl (70-99)
--- NOTE | 2024-01-26 20:15 | PTCARENOTE ---
pt received from previous rn- aox3, forgetful at times. sinus to sinus paulette on monitor with 1st degree block and pvcs at times. on 2LNC. denies pain at this time. able to turn and reposition self. 3 way lion with cbi- pt with blood clots and pink
to punch color urine. all safety precautions in place. call lawler within reach. able to make needs known.
[2024-01-26 23:17] LABS: Hematocrit 22.3 % (39.0-52.0); Hemoglobin 7.5 g/dL (13.0-18.0)
--- NOTE | 2024-01-26 23:22 | PTCARENOTE ---
pt anxious- mari garcia at bedside. complaints of some discomfort- diluadid given as per order. cbi continues- see flowsheet for i and o. remains punch color. denies bladder spasms or pain. assessment unchanged.
[2024-01-27] VITALS (18 sets, daily range): BP systolic 110–140; BP diastolic 51–86; PULSE 61; O2SAT 95; BMI 33.9
--- NOTE | 2024-01-27 04:35 | PTCARENOTE ---
assessment unchanged. pt resting comfortably at this time.
[2024-01-27 04:44] LABS: Hematocrit 25.2 % (39.0-52.0); Hemoglobin 8.2 g/dL (13.0-18.0); Mean Corp Hgb Conc. 32.5 g/dL (33.0-37.0); Mean Corpuscular Hgb 29.3 pg (27.0-31.0); Mean Platelet Volume 9.6 fL (7.4-10.4); Platelet Count 193 10^3/uL (130-400); Red Cell Dist. Width 18.7 % (11.5-14.5); White Blood Cell Count 7.9 10^3/uL (4.8-10.8)
[2024-01-27 05:05] LABS: Blood Urea Nitrogen 24 mg/dl (9-20); Calcium 8.6 mg/dl (8.4-10.2); Carbon Dioxide 25 mmol/L (22-30); Chloride 107 mmol/L (98-107); Estimated Creatinine Clearance 57 ml/min; Glucose 105 mg/dl (70-99); Potassium 4.7 mmol/L (3.5-5.1); Sodium 134 mmol/L (135-145); eGFR > 60.00
--- NOTE | 2024-01-27 07:05 | W.PN.URO.CBU ---
Today's Communication / Plan
-
pRBC transfusion per Hospital Medicine
Hold ASA 81 mg daily
Continue CBI today - wean as tolerated
Maintain Sams catheter to drainage
OF NOTE - patient took Plavix 75 mg x1 @home before admission to 'help dissolve clots' against medical advice
Will need washout period for clopidogrel and ASA to allow hematuria to improve.
Assessment / Plan
-
Hematuria with clot retention
Acute blood loss anemia
Radiation cystitis
H/o prostate cancer s/p XRT (>15 yrs ago)
Severe phimosis
Hgb improving after pRBC transfusions
14Fr Sams catheter exchanged by Urology @bedside evening of 01/25
New 20Fr 3-way catheter placed after dilation of phimotic foreskin => immediate output of peach-tinged UOP w/ initiation of CBI
Diagnosis
-
Date of Service: January 27, 2024
-
Patient Diagnosis:
Hematuria with clot retention
Acute blood loss anemia
Radiation cystitis
H/o prostate cancer s/p XRT (>15 yrs ago)
Severe phimosis
Subjective
-
Feeling improved after blood transfusions.
Denies penile/suprapubic pain.
Sams catheter with intermittent clots and frankly blood urine.
Objective
-
Vital Signs
Temp Pulse Resp BP Pulse Ox
98.1 F 60 22 124/60 95
01/27/24 04:33 01/27/24 06:00 01/27/24 06:00 01/27/24 06:00 01/27/24 06:00
Intake and Output
01/26/24 01/27/24 01/28/24
06:59 06:59 06:59
Intake Total 1240 / 1240 2009
Output Total 500 / 500 3400 / 3400
Balance 740 / 740 -1390 / -1390
Intake:
Oral fluids 440 / 440
IV fluids (Total) 240 / 240 1320 / 1320
Nss 1,000 ml @ 60 mls/hr IV . 240 / 240 1320 / 1320
[id number] [facility] Rx#:[id number]
Blood Products 500 / 500
Packed red blood cells 500 / 500
Blood Product Amount Infused ( 500 / 500 250 / 250
mL)
Packed Rbc Leukoreduced Unit 250 / 250
[id number]
Packed Rbc Leukoreduced Unit 0 / 0 250 / 250
[id number]
Packed Rbc Leukoreduced Unit 250 / 250
[id number]
Output:
Urine, Sams 900 / 900
Urine, Voided 500 / 500
True Urine Output from CBI 2500 / 2500
Other:
How many times incontinent 2
How many times incontinent 1
MODERATE amount urine
How many times incontinent 1
SATURATED amount urine
Laboratory Results
01/27/24 04:30
Physical Exam
-
General - well developed, well nourished, no acute distress
Abdomen - soft, non-tender
Genitalia - 14Fr Sams catheter with grossly blood drainage
Rectal - deferred
Skin - warm & dry with no rash
Neuro - AOx3, no motor deficits
Extremities - no clubbing, no cyanosis, no edema
Care Review
Data Reviewed
Discussed with: Hospitalist and Nursing
Ultrasound: Report Pers Reviewed and Image Pers Reviewed
Total Time Spent with Patient (in minutes): 55
[2024-01-27 07:49] LABS: Glucose - Point of Care 99 mg/dl (70-99)
--- NOTE | 2024-01-27 07:56 | W.PN.INTV ---
Today's Communication / Plan
Recommendations
Monitor Hgb and hematuria
Reconsult prn
Assessment
-
Assessment:
Mr Adriel Christensen is an 88/M adm 04-14 h/o hematuria since Nov 2023, received outpatient cystoscopy 3-4 wks TRUCK MANAGER reportedly unremarkable. Urinary retention since night before adm, passed 2 small blood clots TRUCK MANAGER to ER. Previously on plavix,
recommended to discontinue, however took one dose on d TRUCK MANAGER
Impression:
Hematuria
Severe anemia
Interim hypotension after adm, resolved
Conditions TRUCK MANAGER:
Prostate cancer
HTN
NIDDM
GERD
CAD s/p CABG and stents
Former smoker
Plan:
Subacute unexplained hematuria, negative cystoscopy 3-4 wks TRUCK MANAGER
Instructed to hold chronic clopidogrel by urology (on plavix after CABG several y ago), but took a dose on d TRUCK MANAGER
Severe anemia
Completed 3 U PRBCs 04-15 AM, responded well to PRBCs, Hgb from 5.0 to 8, interim decrease to 7.5 recovered to 8.2 this morning
Urology consulted and following
Check UA: hematuria, albuminuria, UCx pending
Renal/bladder US with large postvoid residual but no HN
Placed 3-way Sams and started CBI 01-25, continue
Did not require pressors
IS
Asp precs
Interim hypotension since adm, now resolved
Stable can transfer to [facility] today, will sign off
Subjective Dataa
Subjective Data
Date of Service:
Date of Service: January 27, 2024
Chief Complaint: Specimen Preparation Assistant Follow Up
Subjective:
No major events reported
Denies major complaints
Review of Systems
General: Fever (n), Sweats (n), Chills and Satisfactory Appetite
HEENT: Epistaxis (n) and Dysphagia
Cardiopulmonary: Dyspnea (n), Cough, Wheezing (n) and Chest Pain (n)
GI: Abdominal Pain (n), Nausea (n) and Vomiting (n)
Neuro: Weakness
Genitourinary: Hematuria
Objective Data
Data Reviewed
Vital Signs / I&O / Oxygen:
Vital Signs
Temp Pulse Resp BP Pulse Ox
98.1 F 60 22 124/60 95
01/27/24 07:55 01/27/24 06:00 01/27/24 06:00 01/27/24 06:00 01/27/24 06:00
Intake and Output
01/26/24 01/27/24 01/28/24
06:59 06:59 06:59
Intake Total 1240 / 1240 2009
Output Total 500 / 500 3400 / 3400
Balance 740 / 740 -1390 / -1390
SaO2 95
Nasal Cannula flow liters per 2
minute
Physical Exam
General: Comfortable
HEENT: Normocephalic and Moist Mucous Membranes
Cardiovascular: Regular Rhythm, Murmur (n) and Peripheral Edema (n)
Respiratory: Clear and Non-Labored Respirations
GI: Soft, Non Distended and Non Tender
Neurology: Awake, AO x 3 and No Motor Deficits
Skin: Warm
Labs/Micro/Reports
Lab Data
01/27/24 04:30
--- NOTE | 2024-01-27 07:58 | W.PN.HOSP.TC ---
Today's Communication/Plan
-
Stable for Downgrade to Tele
continue antibiotics
monitor H&H
CBI as per urology
ativan prn anxiety
PT/OT
wean O2 supplementation as tolerated
Assessment / Plan
Assessment / Plan
Physical Exam
General: Well Developed and No Apparent Distress
HEENT: NormoCephalic, Anicteric and Moist mucous membranes
Respiratory: Clear; No Wheezes, Rales, Rhonchi or Crackles
Cardiac: S1/S2 and Regular Rhythm; No Tachycardia. Systolic murmur noted 3/6
GI: Soft, Non Tender Bowel Sounds present
Genito-urinary: Bloody Urine and No costovertebral tenderness
Musculoskeletal: No Edema
Skin: Warm and Dry
Neuro: AO x 3
Psych: Calm
88M Prostate Ca BPH CABG p/w with severe anemia hematuria retention.
Intermittent subacute hematuria complicated with acute clot urinary retention and ACBLA
Suspect hemorrhagic shock- with SBP as low as 70 resolved with Fluid bolus and blood transfusions 2PRBC
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
Fatigue - due to symptomatic anemia
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
Severe Phimosis
- Antiplatelet on hold
- s/p 3 PRBCs Hgb 5.0 with subsequent improvement to 8.0
- cont Empiric IV CFTX
- Uro consult appreciated started on CBI, cont, IV transexamic acid 1000 mg once
-Plastic Extrusion Operator eval appreciated
Acute Hypoxic Insufficiency
-wean O2 supplementation as tolerated
Associated KERWIN - obstructive nephropathy due to clot urinary retention
Mild hyperkalemia likely 2/2 to obstruction
Remote HX Prostate CA s/p 40 XRTs then
BPH HX
- Trend Cr resolving
- cont. tamsulosin
-Hyperkalemia resolved, potassium diet restriction lifted
T2DM
- Held metformin
- low dose sliding scale
-A1c 5.7 but unreliable following transfusion
Essential hypertension
- on metoprolol
CAD HX status post CABG
- Antiplatelet on hold d/t severe hematuria as above
Hyperlipidemia
- on statin
Anxiety
po Ativan 0.5 mg TIDPRN
Possible Afib noted on telemonitor self-limited
-discussed with cardio who reviewed monitor strips and ruled out presence of afib
systolic murmur possibly d/t anemia
-check ECHO
HX Ambulatory dysfunction/falls s
PT/OT appreciated SNF rehab
DVT Px: SCD
Full code
Medically stable for downgrade Tele
Discussed with patient at bedside, patient's Mehreen and son Celestine over phone
I spent a total of 50 minutes with the patient or on the floor. More than 50% of this time involved counseling and coordination of care.
Anticipated Discharge: 24 - 48 hours
Subjective/Interval History
-
Date of Service: January 27, 2024
Seen and examined at bedside appears comfortable but anxious. reporting sensations urinary urgency/discomfort while on CBI
Objective Data
-
Labs:
Laboratory Results
01/26/24 01/27/24 01/27/24
23:13 02:00 04:30
WBC 7.9
Hgb 7.5 L Cancelled 8.2 L
Hct 22.3 L Cancelled 25.2 L
Plt Count 193
Sodium 134 L
Potassium 4.7
Chloride 107
Carbon Dioxide 25
BUN 24 H
Creatinine 1.1
Glucose 105 H
Calcium 8.6
01/27/24
10:00
WBC
Hgb Pending
Hct Pending
Plt Count
Sodium
Potassium
Chloride
Carbon Dioxide
BUN
Creatinine
Glucose
Calcium
Vital Signs:
Vital Signs
Temp Pulse Resp BP Pulse Ox
98.1 F 60 22 124/60 95
01/27/24 07:55 01/27/24 06:00 01/27/24 06:00 01/27/24 06:00 01/27/24 06:00
I&O
01/26/24 01/27/24 01/28/24
06:59 06:59 06:59
Intake Total 1240 / 1240 2009
Output Total 500 / 500 3400 / 3400
Balance 740 / 740 -1390 / -1390
[2024-01-27] MEDS: NOVOLOG FLEXPEN-LOW RESISTANCE SC ×3 (08:07→18:18)
[2024-01-27] MEDS: VITAMIN D3 (cholecalciferol) 50 MCG PO (08:07)
[2024-01-27] MEDS: PROTONIX 40 MG PO (08:07)
--- NOTE | 2024-01-27 08:30 | PTCARENOTE ---
Assumed care of pt at 0715 following shift report. Pt awake and resting quietly in bed. Anxious and requiring frequent reassurance, education and emotional support. Pt stating 'I'm going to .' When asked to elaborate what is making him feel this
way, pt stated 'My numbers don't look good'- looking at the monitoring and evaluation advisor. When asked to be specific about what numbers are concerning to him, pt stated 'well, my BP is 129/62'. Attempted to reassure pt that his BP is WNL- pt then began talking
about his Sams 'I can't even pee on my own. I don't know why this happened to me. I always did everything right, every day of my life. I think I need the financial services agent'. Will notify hospital bending press operator of pt's request and pt's need for spiritual support.
Continued emotional support, reassurance and education provided by this RN. CBI running freely w/ punch colored urine w/ occasional blood clot noted. Physical assessment completed and as documented. Menu provided and pt encouraged to order
breakfast. Call nuris w/in pt reach and safe environment maintained. Dr Escobar in room to evaluate pt and aware of pt's anxiety- orders received.
[2024-01-27] MEDS: ATIVAN 0.5 MG PO ×2 (08:58→22:10)
--- NOTE | 2024-01-27 10:50 | PTCARENOTE ---
Pt OOB to chair w/ assist of two staff and use of rolling walker. POx 97% on 2l/min O2 via NC. PT placed on RA w/ POx down to 87% when asleep. O2 replaced at 2l/min via NCand POx improved to mid 90's. Pt denies SOB. PT/OT in room to work w/ pt.
Phone call received from pt's 'Daughter Mini'- updated on pt's present condition/plan of care- questions answered.
--- NOTE | 2024-01-27 11:13 | CM ---
Addendum entered by Klarissa Gannon 01/27/24 14:45:
PT/OT recommending SNF at this time.
Addendum entered by Klarissa Gannon 01/27/24 14:44:
Patient for transfer to [facility] per nursing.
Original Note:
Patient seen at bedside, Patient indicated that he was needing adaptive devices for eating and anticipates seeing PT/OT. Patient plan continues to be going home with VN needs. CM awaiting PT/OT assessment to determine level of care needs. CM will
continue to follow for discharge planning needs.
Plan; home with VN vs SNF; pending PT/OT assessment.
[2024-01-27 12:38] LABS: NT-proBNP 4560 pg/ml
[2024-01-27 12:53] LABS: Hematocrit 25.5 % (39.0-52.0); Hemoglobin 8.2 g/dL (13.0-18.0)
[2024-01-27 12:54] LABS: Glucose - Point of Care 126 mg/dl (70-99)
--- NOTE | 2024-01-27 14:40 | PTCARENOTE ---
Report called to 'Muna' on 4W. Pt to transfer to Rm [id number] w/ personal belongings. No changes noted or complaints received prior to transfer. Pt's and daughter here to visit and present at time of transfer.
--- NOTE | 2024-01-27 16:11 | W.PN.UPDATE ---
Update Note
Progress Note Update
Gross hematuria w/ clot retention
Acute blood loss anemia
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
Severe phimosis
01/25: 14Fr catheter upsized to 20Fr 3-way catheter (by Urology) after dilation of phimotic foreskin
CBI initiated in evening 01/25 => hand irrigation w/ small clots evacuated, immediate lightening of urine to 'punchy'
01/26 AM: Punch-colored urine output w/ intermittent small clots
OF NOTE - patient on ASA until admission, self-administered Plavix x1 dose prior to ER evaluation to 'help dissolve clots'
Plan:
- Continue CBI today pending washout of DAPT required
- Wean CBI as tolerated - expect permissive but improved hematuria in next 24-48 hrs given radiation cystitis
- No indication for surgical intervention at this time
- IV transexamic acid 1000 mg x1 ordered
[2024-01-27 16:12] LABS: Glucose - Point of Care 111 mg/dl (70-99)
[2024-01-27] MEDS: FLUSH (NSS) 1 FLUSH IV (18:18)
[2024-01-27] MEDS: TRANEXAMIC ACID 110 MG IV (18:19)
[2024-01-27] MEDS: LIPITOR 40 MG PO (18:29)
[2024-01-27] MEDS: MIRALAX 17 GRAMS PO (21:10)
[2024-01-27] MEDS: SENOKOT-S 1 TABLET PO (21:10)
[2024-01-27 21:56] LABS: Glucose - Point of Care 262 mg/dl (70-99)
[2024-01-27] MEDS: STERILE WATER FOR INJECTION 10 ML IV (23:07)
[2024-01-27] MEDS: ROCEPHIN 1000 MG IV (23:08)
--- NOTE | 2024-01-28 04:53 | DOWNTIME ---
There was a [employer] Client Compressed Gas Tester Downtime on 01/28/2024 from 0100 to 01/28/2024 at 0439. Downtime documentation of patient's care, including medication administrations, has been reconciled in the electronic record per guidelines. Refer to the
patient's paper chart under the miscellaneous tab to see printed paper medication records and downtime forms.
[2024-01-28 04:55] VITALS: BP 136/59
[2024-01-28 05:03] VITALS: BMI 33.0
--- NOTE | 2024-01-28 07:45 | W.PN.URO.CBU ---
Today's Communication / Plan
-
Discontinue CBI
Maintain Sams catheter to drainage on discharge
F/U for outpatient voiding trial in 1 week (given foreskin/meatal dilation)
Assessment / Plan
-
Hematuria with clot retention
Acute blood loss anemia
Radiation cystitis
H/o prostate cancer s/p XRT (>15 yrs ago)
Severe phimosis
Hgb stable last 24 hrs
Hematuria resolved this AM - CBI clamped
14Fr Sams catheter exchanged by Urology @bedside evening of 01/25
New 20Fr 3-way catheter placed after dilation of phimotic foreskin => immediate output of peach-tinged UOP w/ initiation of CBI
Diagnosis
-
Date of Service: January 28, 2024
-
Patient Diagnosis:
Hematuria with clot retention
Acute blood loss anemia
Radiation cystitis
H/o prostate cancer s/p XRT (>15 yrs ago)
Severe phimosis
Subjective
-
Denies suprapubic pain.
Sams catheter draining clear this AM off CBI.
Objective
-
Vital Signs
Temp Pulse Resp BP Pulse Ox
97.8 F 66 16 112/52 93
01/28/24 07:55 01/28/24 07:55 01/28/24 07:55 01/28/24 07:55 01/28/24 07:55
Intake and Output
01/27/24 01/28/24 01/29/24
06:59 06:59 06:59
Intake Total 2009 1800 / 1800
Output Total 3400 / 3400 1125 / 1125
Balance -1390 / -1330 675 / 675
Intake:
Oral fluids 440 / 440 1680 / 1680
IV fluids (Total) 1320 / 1380 120 / 120
Nss 1,000 ml @ 60 mls/hr IV . 1320 / 1380 120 / 120
[id number] Rx#:[id number]
Blood Product Amount Infused ( 250 / 250
mL)
Packed Rbc Leukoreduced Unit 250 / 250
[id number]
Output:
Urine, Sams 900 / 900
Urine, Voided 150 / 150
True Urine Output from CBI 2500 / 2500 975 / 975
Other:
Number of approximated LARGE 1
amounts of urine
How many times incontinent 1
MODERATE amount urine
Physical Exam
-
General - well developed, well nourished, no acute distress
Abdomen - soft, non-tender
Genitalia - normal, 20Fr 3-way catheter w/ clear UOP (CBI discontinued)
Skin - warm & dry with no rash
Neuro - AOx3, no motor deficits
Extremities - no clubbing, no cyanosis, no edema
Care Review
Data Reviewed
Discussed with: Hospitalist and Nursing
Total Time Spent with Patient (in minutes): 25
[2024-01-28 07:55] VITALS: BP 112/52
[2024-01-28 08:21] LABS: Glucose - Point of Care 116 mg/dl (70-99)
--- NOTE | 2024-01-28 08:39 | W.PN.HOSP.TC ---
Today's Communication/Plan
-
continue antibiotics
monitor H&H
CBI clamp as per urology
ativan prn anxiety
PT/OT
Assessment / Plan
Assessment / Plan
Physical Exam
General: Well Developed and No Apparent Distress
HEENT: NormoCephalic, Anicteric and Moist mucous membranes
Respiratory: Clear; No Wheezes, Rales, Rhonchi or Crackles
Cardiac: S1/S2 and Regular Rhythm; No Tachycardia. Systolic murmur noted 3/6
GI: Soft, Non Tender Bowel Sounds present
Genito-urinary: Bloody Urine and No costovertebral tenderness
Musculoskeletal: No Edema
Skin: Warm and Dry
Neuro: AO x 3
Psych: Calm
88M Prostate Ca BPH CABG p/w with severe anemia hematuria retention.
Intermittent subacute hematuria complicated with acute clot urinary retention and ACBLA
Suspect hemorrhagic shock- with SBP as low as 70 resolved with Fluid bolus and blood transfusions 2PRBC
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
Fatigue - due to symptomatic anemia
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
Severe Phimosis
- Antiplatelet on hold
- s/p 3 PRBCs Hgb 5.0 with subsequent improvement to 8.0
- cont Empiric IV CFTX
- Uro consult appreciated started on CBI, cont, IV transexamic acid 1000 mg once, CBI since discontinued 01/27 monitoring off, con Sams
-Battery Test Engineer eval appreciated
Acute Hypoxic Insufficiency
-wean O2 supplementation as tolerated
-weaned off
Associated KERWIN - obstructive nephropathy due to clot urinary retention
Mild hyperkalemia likely 2/2 to obstruction
Remote HX Prostate CA s/p 40 XRTs then
BPH HX
- Trend Cr resolved
- cont. tamsulosin
-Hyperkalemia resolved, potassium diet restriction lifted
T2DM
- Held metformin
- low dose sliding scale
-A1c 5.7 but unreliable following transfusion
Essential hypertension
- on metoprolol
CAD HX status post CABG
- Antiplatelet on hold d/t severe hematuria as above
Hyperlipidemia
- on statin
Anxiety
po Ativan 0.5 mg TIDPRN
Possible Afib noted on telemonitor [facility]
-discussed with cardio who reviewed monitor strips and ruled out presence of afib
systolic murmur possibly d/t anemia vs moderate aortic stenosis
-ECHO appreciated preserved EF 60-65%, moderate aortic stenosis, noted similar to report of an echocardiogram from [facility] dated 07/09/23
HX Ambulatory dysfunction/falls s
PT/OT appreciated SNF rehab
DVT Px: SCD
Full code
I spent a total of 50 minutes with the patient or on the floor. More than 50% of this time involved counseling and coordination of care.
Anticipated Discharge: 24 - 48 hours
Subjective/Interval History
-
Date of Service: January 28, 2024
Hematuria persists, patient otherwise appears comfortable at this time on room air, stable respiratory status.
Objective Data
-
Labs:
Laboratory Results
01/28/24
06:00
WBC Pending
Hgb Pending
Hct Pending
Plt Count Pending
Sodium Pending
Potassium Pending
Chloride Pending
Carbon Dioxide Pending
BUN Pending
Creatinine Pending
Glucose Pending
Calcium Pending
Vital Signs:
Vital Signs
Temp Pulse Resp BP Pulse Ox
98.5 F 68 18 136/59 92
01/28/24 04:55 01/28/24 04:55 01/28/24 04:55 01/28/24 04:55 01/28/24 04:55
I&O
01/27/24 01/28/24 01/29/24
06:59 06:59 06:59
Intake Total 2009 1800 / 1800
Output Total 3400 / 3400 1125 / 1125
Balance -1390 / -1330 675 / 675
[2024-01-28] MEDS: NOVOLOG FLEXPEN-LOW RESISTANCE SC ×2 (08:40→17:26)
[2024-01-28 08:59] LABS: Hematocrit 24.9 % (39.0-52.0); Mean Corp Hgb Conc. 32.1 g/dL (33.0-37.0); Mean Corpuscular Hgb 29.9 pg (27.0-31.0); Mean Corpuscular Volume 92.9 fL (80.0-94.0); Mean Platelet Volume 9.5 fL (7.4-10.4); Platelet Count 194 10^3/uL (130-400); Red Blood Cell Count 2.68 10^6/uL (4.70-6.10); Red Cell Dist. Width 18.2 % (11.5-14.5)
[2024-01-28] MEDS: VITAMIN D3 (cholecalciferol) 50 MCG PO (09:22)
[2024-01-28] MEDS: PROTONIX 40 MG PO (09:22)
[2024-01-28] MEDS: SENOKOT-S 1 TABLET PO ×2 (09:22→21:07)
[2024-01-28 09:27] LABS: Blood Urea Nitrogen 25 mg/dl (9-20); Calcium 8.6 mg/dl (8.4-10.2); Carbon Dioxide 27 mmol/L (22-30); Chloride 106 mmol/L (98-107); Estimated Creatinine Clearance 57 ml/min; Glucose 101 mg/dl (70-99); Potassium 4.6 mmol/L (3.5-5.1); Sodium 135 mmol/L (135-145); eGFR > 60.00
[2024-01-28 11:00] VITALS: BP 104/56
[2024-01-28 12:45] LABS: Glucose - Point of Care 204 mg/dl (70-99)
[2024-01-28] MEDS: NOVOLOG FLEXPEN-LOW RESISTANCE 2 UNITS SC (12:55)
[2024-01-28 15:27] VITALS: BP 121/62
--- NOTE | 2024-01-28 15:56 | CM ---
Patient seen bedside.
s/p CBI, still with Sams cath.
PT/OT recommending skilled rehab.
Patient has been in [facility] home recently and would like to return there.
Patient had [facility] at home post Skilled rehab.
Plan: skilled rehab when stable.
referral to [facility].
[2024-01-28 17:17] LABS: Glucose - Point of Care 108 mg/dl (70-99)
[2024-01-28] MEDS: LIPITOR 40 MG PO (17:29)
[2024-01-28 19:00] VITALS: BP 111/51
[2024-01-28] MEDS: MIRALAX 17 GRAMS PO (21:07)
[2024-01-28] MEDS: ATIVAN 0.5 MG PO (21:09)
[2024-01-28 21:49] LABS: Glucose - Point of Care 163 mg/dl (70-99)
[2024-01-28 23:00] VITALS: BP 123/51
[2024-01-28] MEDS: ROCEPHIN 1000 MG IV (23:18)
[2024-01-28] MEDS: STERILE WATER FOR INJECTION 10 ML IV (23:18)
[2024-01-29] VITALS (9 sets, daily range): BP systolic 100–148; BP diastolic 48–68; PULSE 62; O2SAT 95; BMI 32.4
[2024-01-29] MEDS: ATIVAN 0.5 MG PO ×2 (01:15→21:40)
--- NOTE | 2024-01-29 07:29 | W.PN.HOSP.TC ---
Today's Communication/Plan
-
continue antibiotics
monitor H&H
maintain Sams
Check nocturnal oxygenation study
PT/OT
Assessment / Plan
Assessment / Plan
Physical Exam
General: Well Developed and No Apparent Distress
HEENT: NormoCephalic, Anicteric and Moist mucous membranes
Respiratory: Clear; No Wheezes, Rales, Rhonchi or Crackles
Cardiac: S1/S2 and Regular Rhythm; No Tachycardia. Systolic murmur noted 3/
GI: Soft, Non Tender Bowel Sounds present
Genito-urinary: Bloody Urine and No costovertebral tenderness
Musculoskeletal: No Edema
Skin: Warm and Dry
Neuro: Lethargic but arousable
Psych: Calm
88M Prostate Ca BPH CABG p/w with severe anemia hematuria retention.
Intermittent subacute hematuria complicated with acute clot urinary retention and ACBLA
Suspect hemorrhagic shock- with SBP as low as 70 resolved with Fluid bolus and blood transfusions 2PRBC
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
Fatigue - due to symptomatic anemia
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
Severe Phimosis
- Antiplatelet on hold
- s/p 3 PRBCs Hgb 5.0 with subsequent improvement to 8.0
- cont Empiric IV CFTX completed 4 days, will completed after 5 days and monitor off
- Uro consult appreciated started on CBI, cont, IV transexamic acid 1000 mg once, CBI since discontinued 01/27 monitoring off, cont Sams
-Concreter eval appreciated patient downgraded from ICU after initial admission for low pressures since resolved without need for pressors
-01/28 stable for discharge from Urologic perspective, maintain Sams, outpt follow up for Trial of Void in 1 week recommended.
Acute Hypoxic Insufficiency
-wean O2 supplementation as tolerated
-weaned off
Lethargy noted during day
01/28 VBG appreciated Respiratory Acidosis with compensated Metabolic Alkalosis
Likely would benefit from OP sleep study
Checking Nocturnal oxygenation study
Associated KERWIN - obstructive nephropathy due to clot urinary retention
Mild hyperkalemia likely 2/2 to obstruction
Remote HX Prostate CA s/p 40 XRTs then
BPH HX
- Trend Cr resolved
- cont. tamsulosin
-Hyperkalemia resolved, potassium diet restriction lifted
T2DM
- Held metformin
- low dose sliding scale
-A1c 5.7 but unreliable following transfusion
Essential hypertension
- on metoprolol
CAD HX status post CABG
- Antiplatelet on hold d/t severe hematuria as above
Hyperlipidemia
- on statin
Anxiety
po Ativan 0.5 mg TIDPRN
Possible Afib noted on telemonitor [facility]
-discussed with cardio who reviewed monitor strips and ruled out presence of afib
systolic murmur possibly d/t anemia vs moderate aortic stenosis
-ECHO appreciated preserved EF 60-65%, moderate aortic stenosis, noted similar to report of an echocardiogram from [facility] dated 07/09/23
HX Ambulatory dysfunction/falls s
PT/OT appreciated SNF rehab
DVT Px: SCD
Full code
Discussed with patient's son Celestine and Mehreen at bedside
I spent a total of 53 minutes with the patient or on the floor. More than 50% of this time involved counseling and coordination of care.
Anticipated Discharge: 24 - 48 hours
Subjective/Interval History
-
Date of Service: January 29, 2024
Lethargic but arousable. Reports poor sleep. Son Celestine and Mehreen present during evaluation
Objective Data
-
Labs:
Laboratory Results
01/29/24
06:00
WBC Pending
Hgb Pending
Hct Pending
Plt Count Pending
Sodium Pending
Potassium Pending
Chloride Pending
Carbon Dioxide Pending
BUN Pending
Creatinine Pending
Glucose Pending
Calcium Pending
Vital Signs:
Vital Signs
Temp Pulse Resp BP Pulse Ox
98.4 F 74 16 142/61 90
01/29/24 03:00 01/29/24 03:00 01/29/24 03:00 01/29/24 03:00 01/29/24 03:00
I&O
01/28/24 01/29/24 01/30/24
06:59 06:59 06:59
Intake Total 1800 / 1800 1200 / 1200
Output Total 1125 / 1125 1600 / 1600
Balance 675 / 675 -400 / -400
--- NOTE | 2024-01-29 08:10 | W.PN.URO.CBU ---
Today's Communication / Plan
-
OK to discharge home from urologic perspective
MAINTAIN Sams catheter on discharge
F/U in 1 week as outpatient for TOV w/ Urology RN in office
Assessment / Plan
-
Hematuria with clot retention
Acute blood loss anemia
Radiation cystitis
H/o prostate cancer s/p XRT (>15 yrs ago)
Severe phimosis
Hgb stable: 8.0 => 8.2
Hematuria resolved 01/27 - CBI clamped x24 hrs
14Fr Sams catheter exchanged by Urology @bedside evening of 01/25
New 20Fr 3-way catheter placed after dilation of phimotic foreskin => immediate output of peach-tinged UOP w/ initiation of CBI
Diagnosis
-
Date of Service: January 29, 2024
-
Patient Diagnosis:
Hematuria with clot retention
Acute blood loss anemia
Radiation cystitis
H/o prostate cancer s/p XRT (>15 yrs ago)
Severe phimosis
Subjective
-
Sams draining clear urine x24 hrs off CBI.
Tolerating diet.
Energy level improved since admission.
Objective
-
Vital Signs
Temp Pulse Resp BP Pulse Ox
98.4 F 74 16 142/61 90
01/29/24 03:00 01/29/24 03:00 01/29/24 03:00 01/29/24 03:00 01/29/24 03:00
Intake and Output
01/28/24 01/29/24 01/30/24
06:59 06:59 06:59
Intake Total 1800 / 1800 1200 / 1200
Output Total 1125 / 1125 1600 / 1600
Balance 675 / 675 -400 / -400
Intake:
Oral fluids 1680 / 1680 1200 / 1200
IV fluids (Total) 120 / 120
Nss 1,000 ml @ 60 mls/hr IV . 120 / 120
[id number] INOCENCIO Rx#:[id number]
Output:
Urine, Sams 800 / 800
Urine, Voided 150 / 150 800 / 800
True Urine Output from CBI 975 / 975
Other:
Number of approximated LARGE 1
amounts of urine
Laboratory Results
01/29/24 07:58
Physical Exam
-
General - well developed, well nourished, no acute distress
Abdomen - soft, non-tender, non-tender
Genitalia - normal, 3-way catheter draining clear urine
Skin - warm & dry with no rash
Neuro - AOx3, no motor deficits
Extremities - no clubbing, no cyanosis, no edema
Care Review
Data Reviewed
Discussed with: Family
Total Time Spent with Patient (in minutes): 25
[2024-01-29 08:26] LABS: Hematocrit 25.4 % (39.0-52.0); Hemoglobin 8.2 g/dL (13.0-18.0); Mean Corp Hgb Conc. 32.3 g/dL (33.0-37.0); Mean Corpuscular Hgb 29.7 pg (27.0-31.0); Mean Platelet Volume 9.6 fL (7.4-10.4); Platelet Count 210 10^3/uL (130-400); Red Blood Cell Count 2.76 10^6/uL (4.70-6.10); Red Cell Dist. Width 17.6 % (11.5-14.5); White Blood Cell Count 8.4 10^3/uL (4.8-10.8)
[2024-01-29 09:17] LABS: Glucose - Point of Care 125 mg/dl (70-99)
[2024-01-29] MEDS: NOVOLOG FLEXPEN-LOW RESISTANCE SC ×2 (09:22→12:26)
[2024-01-29] MEDS: SENOKOT-S 1 TABLET PO (09:23)
[2024-01-29] MEDS: VITAMIN D3 (cholecalciferol) 50 MCG PO (09:23)
[2024-01-29] MEDS: PROTONIX 40 MG PO (09:23)
[2024-01-29 09:28] LABS: Blood Urea Nitrogen 25 mg/dl (9-20); Calcium 8.9 mg/dl (8.4-10.2); Carbon Dioxide 28 mmol/L (22-30); Chloride 103 mmol/L (98-107); Estimated Creatinine Clearance 56 ml/min; Glucose 111 mg/dl (70-99); Magnesium 1.9 mg/dl (1.6-2.3); Phosphorus 3.5 mg/dl (2.5-4.5); Potassium 4.7 mmol/L (3.5-5.1); Sodium 133 mmol/L (135-145); eGFR > 60.00
[2024-01-29 12:26] LABS: Glucose - Point of Care 137 mg/dl (70-99)
[2024-01-29 14:13] LABS: Venous Blood Gas B.E. 3.3 mmol/L (-4 to +4); Venous Blood Gas HCO3 29.4 mmol/L (22-27); Venous Blood Gas pCO2 52 mmHg (35-48); Venous Blood Gas pH 7.36 (7.32-7.43); Venous Blood Gas pO2 32 mmHg (30-50)
--- NOTE | 2024-01-29 15:35 | CM ---
PT/OT recommending skilled rehab.
await skilled bed.
Plan: Skilled rehab when bed available.
[2024-01-29 17:34] LABS: Glucose - Point of Care 191 mg/dl (70-99)
[2024-01-29] MEDS: LIPITOR 40 MG PO (17:44)
[2024-01-29] MEDS: NOVOLOG FLEXPEN-LOW RESISTANCE 1 UNITS SC (17:44)
[2024-01-29] MEDS: SENOKOT-S PO (20:20)
[2024-01-29] MEDS: MIRALAX PO (21:00)
[2024-01-29 21:21] LABS: Glucose - Point of Care 174 mg/dl (70-99)
[2024-01-29] MEDS: ROCEPHIN 1000 MG IV (23:41)
[2024-01-29] MEDS: STERILE WATER FOR INJECTION 10 ML IV (23:41)
[2024-01-30 03:45] VITALS: BP 127/54
[2024-01-30 06:00] VITALS: BMI 32.6
[2024-01-30 07:56] LABS: Hematocrit 25.3 % (39.0-52.0); Hemoglobin 8.1 g/dL (13.0-18.0); Mean Corpuscular Hgb 29.3 pg (27.0-31.0); Mean Corpuscular Volume 91.7 fL (80.0-94.0); Mean Platelet Volume 9.4 fL (7.4-10.4); Platelet Count 222 10^3/uL (130-400); Red Blood Cell Count 2.76 10^6/uL (4.70-6.10); Red Cell Dist. Width 17.4 % (11.5-14.5)
[2024-01-30 07:57] LABS: Glucose - Point of Care 108 mg/dl (70-99)
[2024-01-30 08:18] VITALS: BP 121/55
[2024-01-30 08:38] LABS: Blood Urea Nitrogen 31 mg/dl (9-20); Calcium 8.7 mg/dl (8.4-10.2); Carbon Dioxide 29 mmol/L (22-30); Chloride 103 mmol/L (98-107); Estimated Creatinine Clearance 52 ml/min; Glucose 99 mg/dl (70-99); Magnesium 2.1 mg/dl (1.6-2.3); Phosphorus 4.3 mg/dl (2.5-4.5); Potassium 4.7 mmol/L (3.5-5.1); Sodium 134 mmol/L (135-145); eGFR 58.89
--- NOTE | 2024-01-30 09:37 | W.PN.HOSP.TC ---
Today's Communication/Plan
-
maintain Sams
ativan prn switched to seroquel prn d/t concern oversedation contributing to confusion
possible restart antiplatelet therapy (ASA) in 24-48H
discharge planning SNF rehab
Assessment / Plan
Assessment / Plan
Physical Exam
General: Well Developed and No Apparent Distress
HEENT: NormoCephalic, Anicteric and Moist mucous membranes
Respiratory: Clear; No Wheezes, Rales, Rhonchi or Crackles
Cardiac: S1/S2 and Regular Rhythm; No Tachycardia. Systolic murmur noted 3/6
GI: Soft, Non Tender Bowel Sounds present
Genito-urinary: Bloody Urine and No costovertebral tenderness
Musculoskeletal: No Edema
Skin: Warm and Dry
Neuro: Lethargic but arousable conversant some confusion noted speech some times tangential
Psych: Calm
88M Prostate Ca BPH CABG p/w with severe anemia hematuria retention.
Intermittent subacute hematuria complicated with acute clot urinary retention and ACBLA
Suspect hemorrhagic shock- with SBP as low as 70 resolved with Fluid bolus and blood transfusions 2PRBC
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
Fatigue - due to symptomatic anemia
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
Severe Phimosis
- s/p 3 PRBCs Hgb 5.0 with subsequent improvement to 8.0
- cont Empiric IV CFTX completed 5 days monitor off
- Uro consult appreciated started on CBI, cont, IV transexamic acid 1000 mg once, CBI since discontinued 01/27 monitoring off, cont Sams
-Archives Technician binh appreciated patient downgraded from ICU after initial admission for low pressures since resolved without need for pressors
-stable for discharge from Urologic perspective, maintain Sams, outpt follow up for Trial of Void in 1 week recommended.
Acute Hypoxic Insufficiency
-wean O2 supplementation as tolerated
-weaned off
Lethargy noted during day
Anxiety
po Ativan 0.5 mg TIDPRN discontinued due to concern oversedation contributing to confusion, seroquel prn ordered instead
01/28 VBG appreciated Respiratory Acidosis with compensated Metabolic Alkalosis
Likely would benefit from OP sleep study
Nocturnal oxygenation study appreciated
Associated KERWIN - obstructive nephropathy due to clot urinary retention
Mild hyperkalemia likely 2/2 to obstruction
Remote HX Prostate CA s/p 40 XRTs then
BPH HX
- Trend Cr resolved
- cont. tamsulosin
-Hyperkalemia resolved, potassium diet restriction lifted
T2DM
- Held metformin
- low dose sliding scale
-A1c 5.7 but unreliable following transfusion
Essential hypertension
- on metoprolol
CAD HX status post CABG
- Antiplatelet on held d/t severe hematuria as above
- 01/29 As per Urology, cont to hold home Plavix while Sams is in place, ok to start ASA 24-48H
Hyperlipidemia
- on statin
Possible Afib noted on telemonitor [facility]
-discussed with cardio who reviewed monitor strips and ruled out presence of afib
-EKG 01/29 AM, incongruity in report noting both sinus rhythm with PAC and afib was also discussed with cardio who clarified sinus no afib noted
systolic murmur possibly d/t anemia vs moderate aortic stenosis
-ECHO appreciated preserved EF 60-65%, moderate aortic stenosis, noted similar to report of an echocardiogram from [facility] dated 07/09/23
HX Ambulatory dysfunction/falls s
PT/OT appreciated SNF rehab
DVT Px: SCD
Full code
I spent a total of 55 minutes with the patient or on the floor. More than 50% of this time involved counseling and coordination of care.
Anticipated Discharge: 24 - 48 hours
Subjective/Interval History
-
Date of Service: January 30, 2024
Lethargic but arousable conversant. Some confusion noted. Speech appears tangential at times.
Objective Data
-
Labs:
Laboratory Results
01/30/24
07:39
WBC 7.0
Hgb 8.1 L
Hct 25.3 L
Plt Count 222
Sodium 134 L
Potassium 4.7
Chloride 103
Carbon Dioxide 29
BUN 31 H
Creatinine 1.2
Glucose 99
Calcium 8.7
Vital Signs:
Vital Signs
Temp Pulse Resp BP Pulse Ox
97.6 F 65 16 121/55 92
01/30/24 08:18 01/30/24 08:18 01/30/24 08:18 01/30/24 08:18 01/30/24 08:18
I&O
01/29/24 01/30/24 01/31/24
06:59 06:59 06:59
Intake Total 1200 / 1200 600 / 600 240 / 240
Output Total 1600 / 1600 1200 / 1200 900 / 900
Balance -400 / -400 -600 / -600 -660 / -660
[2024-01-30] MEDS: NOVOLOG FLEXPEN-LOW RESISTANCE SC ×2 (09:42→12:28)
[2024-01-30] MEDS: VITAMIN D3 (cholecalciferol) 50 MCG PO (09:43)
[2024-01-30] MEDS: SENOKOT-S PO (09:44)
[2024-01-30] MEDS: PROTONIX 40 MG PO (09:44)
--- NOTE | 2024-01-30 10:29 | CM ---
Addendum entered by Kirsty Loaiza 01/30/24 14:59:
Transport forms on chart.
Addendum entered by Kirsty Loaiza 01/30/24 14:58:
IMM completed.
Addendum entered by Kirsty Loaiza 01/30/24 14:22:
TC from [facility], updated re d/c tomorrow.
Patient will require ambulance transport.
[facility]
Report# [phone]

Patient will need a Covid test.
Addendum entered by Kirsty Loaiza 01/30/24 14:06:
TT to [facility] to update re no d/c today, should be ready tomrrow.
Original Note:
Patient seen bedside.
Patient accepted by [facility] with skilled rehab.
Plan: [facility] when stable, pending bed availability.
--- NOTE | 2024-01-30 11:36 | PN.CDI ---
CDI
- -
CDI:
Physician Documentation Request
Admit Date: 01/25/24 21:57
Dear Doctor Shawn,
Please review the following and provide your response in the progress notes.
Clinical Indicators:
- Progress notes 'Intermittent subacute hematuria'
- 'Suspect hemorrhagic shock'
- 'Antiplatelet on hold'
- Urology 'OF NOTE - patient took Plavix 75 mg x1 @home before admission to 'help dissolve clots' against medical advice'
- 'washout period for clopidogrel and ASA to allow hematuria to improve'
Laboratory Tests
01/25/24 01/26/24 01/26/24
19:44 10:14 23:13
Hgb 5.0 L* 8.0 L 7.5 L
01/27/24 01/29/24 01/30/24
12:45 07:58 07:39
Hgb 8.2 L 8.2 L 8.1 L
Please clarify the relationship between these conditions:
Yes, _hematuria_ is related to/associated with/exacerbated by _ASA/Plavix__.
No, _hematuria__ is not related to/associated with/due to _ASA/Plavix__ but it is due to . (Please specify)
Unable to determine
Use of terms such as suspected, likely, concern for, or probable (associated with a specific diagnosis that is being evaluated, monitored, or treated as if it exists) are acceptable and can be coded in the inpatient setting, when documented at the
time of discharge.
Thank you,
Kris Cararnza RN
CDI Specialist
Please use your independent medical judgment in providing your response.
[2024-01-30 11:56] VITALS: BP 112/59
--- NOTE | 2024-01-30 12:03 | W.PN.UPDATE ---
Update Note
Progress Note Update
Hematuria with clot retention
Acute blood loss anemia
Radiation cystitis
H/o prostate cancer s/p XRT (>15 yrs ago)
Severe phimosis
14Fr Sams catheter exchanged by Urology @bedside evening of 01/25
New 20Fr 3-way catheter placed after dilation of phimotic foreskin => immediate output of peach-tinged UOP w/ initiation of CBI
Hgb stable x72 hrs
Hematuria resolved 01/27 - CBI clamped x24 hrs
Plan:
- Maintain Sams catheter on discharge
- OK to resume aspirin (not Plavix) in 24-48 hrs
- F/U with Urology RN in 1 week for TOV in office
- Will d/w Dr. Pardo next week
D/w Dr. Escobar.
[2024-01-30 12:07] LABS: Glucose - Point of Care 137 mg/dl (70-99)
[2024-01-30 16:02] VITALS: BP 118/63
[2024-01-30 16:25] LABS: Glucose - Point of Care 162 mg/dl (70-99)
[2024-01-30] MEDS: NOVOLOG FLEXPEN-LOW RESISTANCE 1 UNITS SC (17:32)
[2024-01-30] MEDS: LIPITOR 40 MG PO (17:33)
[2024-01-30 19:00] VITALS: BP 125/59
[2024-01-30] MEDS: MIRALAX 17 GRAMS PO (21:35)
[2024-01-30] MEDS: SENOKOT-S 1 TABLET PO (21:36)
[2024-01-30 21:40] LABS: Glucose - Point of Care 255 mg/dl (70-99)
[2024-01-30 23:00] VITALS: BP 136/49
[2024-01-31] VITALS (12 sets, daily range): BP systolic 106–135; BP diastolic 50–61; BMI 32.2
--- NOTE | 2024-01-31 07:02 | W.PN.HOSP.TC ---
Today's Communication/Plan
-
2L oxygen at bedside
detrol
maintain lion
1PRBC transfusion for goal Hgb 8
follow up post-transfusion H&H with AM lab
Assessment / Plan
Assessment / Plan
Physical Exam
General: Well Developed and No Apparent Distress
HEENT: NormoCephalic, Anicteric and Moist mucous membranes
Respiratory: Clear; No Wheezes, Rales, Rhonchi or Crackles
Cardiac: S1/S2 and Regular Rhythm; No Tachycardia. Systolic murmur noted 3/
GI: Soft, Non Tender Bowel Sounds present
Genito-urinary: Bloody Urine and No costovertebral tenderness
Musculoskeletal: No Edema
Skin: Warm and Dry
Neuro: Alert Conversant Coherent
Psych: Calm
88M Prostate Ca BPH CABG p/w with severe anemia hematuria retention.
Intermittent subacute hematuria complicated with acute clot urinary retention and ACBLA
Suspect hemorrhagic shock- with SBP as low as 70 resolved with Fluid bolus and blood transfusions 2PRBC
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
Fatigue - due to symptomatic anemia
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
Severe Phimosis
- s/p 3 PRBCs Hgb 5.0 with subsequent improvement to 8.0
- cont Empiric IV CFTX completed 5 days monitor off
- Uro consult appreciated started on CBI, cont, IV transexamic acid 1000 mg once, CBI since discontinued 01/27 monitoring off, cont Lion
-Wood Shingle Roofer eval appreciated patient downgraded from ICU after initial admission for low pressures since resolved without need for pressors
-stable for discharge from Urologic perspective, maintain Lion, outpt follow up for Trial of Void in 1 week recommended.
01/30 mild anemia drop Hgb 7.7 transfused 1PRBC for goal 8 due to cardiac history
-Follow up urology eval appreciated no evidence of ongoing bleeding at this time
-Detrol started d/t reports dysuria on Lion suspect overactive bladder
Acute Hypoxic Insufficiency
-wean O2 supplementation as tolerated
-weaned off
Lethargy noted during day
Anxiety
po Ativan 0.5 mg TIDPRN discontinued due to concern oversedation contributing to confusion, seroquel prn ordered instead
01/28 VBG appreciated Respiratory Acidosis with compensated Metabolic Alkalosis
Likely would benefit from OP sleep study
Nocturnal oxygenation study appreciated accumulated desaturation time >5 min, 2L bedtime oxygen recommended
Associated KERWIN - obstructive nephropathy due to clot urinary retention
Mild hyperkalemia likely 2/2 to obstruction
Remote HX Prostate CA s/p 40 XRTs then
BPH HX
- Trend Cr resolved
- cont. tamsulosin
-Hyperkalemia resolved, potassium diet restriction lifted
T2DM
- Held metformin
- low dose sliding scale
-A1c 5.7 but unreliable following transfusion
Essential hypertension
- on metoprolol
CAD HX status post CABG
- Antiplatelet on held d/t severe hematuria as above
- 01/29 As per Urology, cont to hold home Plavix while Lion is in place, ok to start ASA 24-48H
Hyperlipidemia
- on statin
Possible Afib noted on telemonitor [facility]
-discussed with cardio who reviewed monitor strips and ruled out presence of afib
-EKG 01/29 AM, incongruity in report noting both sinus rhythm with PAC and afib was also discussed with cardio who clarified sinus no afib noted
systolic murmur possibly d/t anemia vs moderate aortic stenosis
-ECHO appreciated preserved EF 60-65%, moderate aortic stenosis, noted similar to report of an echocardiogram from [facility] dated 07/09/23
HX Ambulatory dysfunction/falls s
PT/OT appreciated SNF rehab
DVT Px: SCD
Full code
I spent a total of 55 minutes with the patient or on the floor. More than 50% of this time involved counseling and coordination of care.
Anticipated Discharge: Within 24 hours
Subjective/Interval History
-
Date of Service: January 31, 2024
More alert awake. reports dysuria burning sensation with Lion. Overnight events noted required hand irrigation to expel clots
Objective Data
-
Labs:
Laboratory Results
01/31/24
06:00
WBC Pending
Hgb Pending
Hct Pending
Plt Count Pending
Sodium Pending
Potassium Pending
Chloride Pending
Carbon Dioxide Pending
BUN Pending
Creatinine Pending
Glucose Pending
Calcium Pending
Vital Signs:
Vital Signs
Temp Pulse Resp BP Pulse Ox
98.1 F 72 20 135/58 95
01/31/24 03:00 01/31/24 03:00 01/31/24 03:00 01/31/24 03:00 01/31/24 03:00
I&O
01/30/24 01/31/24 02/01/24
06:59 06:59 06:59
Intake Total 600 / 600 480 / 480
Output Total 1200 / 1200 2750 / 2750
Balance -600 / -600 -2270 / -2270
[2024-01-31 08:10] LABS: Glucose - Point of Care 131 mg/dl (70-99)
[2024-01-31 08:30] LABS: Hemoglobin 7.7 g/dL (13.0-18.0); Mean Corp Hgb Conc. 32.1 g/dL (33.0-37.0); Mean Corpuscular Hgb 29.2 pg (27.0-31.0); Mean Corpuscular Volume 90.9 fL (80.0-94.0); Mean Platelet Volume 9.4 fL (7.4-10.4); Platelet Count 243 10^3/uL (130-400); Red Blood Cell Count 2.64 10^6/uL (4.70-6.10); Red Cell Dist. Width 17.3 % (11.5-14.5); White Blood Cell Count 7.9 10^3/uL (4.8-10.8)
[2024-01-31 08:38] LABS: Blood Urea Nitrogen 33 mg/dl (9-20); Calcium 8.8 mg/dl (8.4-10.2); Carbon Dioxide 27 mmol/L (22-30); Chloride 103 mmol/L (98-107); Estimated Creatinine Clearance 56 ml/min; Glucose 113 mg/dl (70-99); Magnesium 2.1 mg/dl (1.6-2.3); Phosphorus 3.9 mg/dl (2.5-4.5); Potassium 4.8 mmol/L (3.5-5.1); Sodium 134 mmol/L (135-145); eGFR > 60.00
[2024-01-31] MEDS: NOVOLOG FLEXPEN-LOW RESISTANCE SC ×2 (08:54→17:30)
[2024-01-31] MEDS: SENOKOT-S 1 TABLET PO ×2 (08:55→21:25)
[2024-01-31] MEDS: VITAMIN D3 (cholecalciferol) 50 MCG PO (08:55)
[2024-01-31] MEDS: PROTONIX 40 MG PO (08:55)
[2024-01-31 10:06] LABS: COVID-19 Antigen Negative (Negative)
--- NOTE | 2024-01-31 11:26 | W.PN.URO.CBU ---
Today's Communication / Plan
-
continue lion
Assessment / Plan
-
Hematuria with clot retention
Acute blood loss anemia
Radiation cystitis
H/o prostate cancer s/p XRT (>15 yrs ago)
Severe phimosis
Hgb stable: 8.0 => 8.2
Hematuria resolved 01/27 - CBI clamped x24 hrs
14Fr Lion catheter exchanged by Urology @bedside evening of 01/25
New 20Fr 3-way catheter placed after dilation of phimotic foreskin => immediate output of peach-tinged UOP w/ initiation of CBI
pt's urine by report has generally been clear- now with some old clot- hand irrigated- urine appears clear-NO EVIDENCE OF ONGOING BLEEDING AT THIS TIME
pt is being transfused for slight drop in hgb
continue observation and prn hand irrigation- but suspect last night and this am represents old lysing clot and not active bleeding
eventual plan is for discharge with lion- hold of blood thinners- and outpt follow up with dr russell
Diagnosis
-
Date of Service: January 31, 2024
-
Patient Diagnosis:
Hematuria with clot retention
Acute blood loss anemia
Radiation cystitis
H/o prostate cancer s/p XRT (>15 yrs ago)
Severe phimosis
Subjective
-
pt has been off cbi
had episode of bladder spasms last night- cath hand irrigated with some clot
cath has been draining- urine jorge- some old clot sediment in tube
cath hand irrigated- small capacity bladder/ some old clot/no evid of active bleeding
Objective
-
Vital Signs
Temp Pulse Resp BP Pulse Ox
97.5 F 69 18 127/52 95
01/31/24 07:06 01/31/24 07:06 01/31/24 07:06 01/31/24 07:06 01/31/24 07:06
Intake and Output
01/30/24 01/31/24 02/01/24
06:59 06:59 06:59
Intake Total 600 / 600 480 / 480
Output Total 1200 / 1200 2750 / 2750
Balance -600 / -600 -2270 / -2270
Intake:
Oral fluids 600 / 600 480 / 480
Output:
Urine, Lion 1200 / 1200 2750 / 2750
Laboratory Results
01/31/24 07:38
01/31/24 07:38
Physical Exam
-
General - no acute distress
Abdomen - obese- nontender
Genitalia - buried penis with phimotic foreskin/small [address]
[2024-01-31 11:55] LABS: Glucose - Point of Care 188 mg/dl (70-99)
[2024-01-31] MEDS: NOVOLOG FLEXPEN-LOW RESISTANCE 1 UNITS SC (12:33)
[2024-01-31 16:57] LABS: Glucose - Point of Care 105 mg/dl (70-99)
[2024-01-31] MEDS: LIPITOR 40 MG PO (17:29)
[2024-01-31] MEDS: DETROL 2 MG PO (17:29)
[2024-01-31] MEDS: GLUCOPHAGE 500 MG PO (17:29)
[2024-01-31] MEDS: SEROQUEL 25 MG PO (21:25)
[2024-01-31] MEDS: MIRALAX 17 GRAMS PO (21:25)
[2024-01-31 22:07] LABS: Glucose - Point of Care 148 mg/dl (70-99)
[2024-02-01 03:32] VITALS: BP 121/57
[2024-02-01 06:00] VITALS: BMI 31.8
--- NOTE | 2024-02-01 06:35 | W.PN.HOSP.TC ---
Today's Communication/Plan
-
lion exchange CBI as per Urology
monitor H&H
diet as per Urology
possible Cystoscopy Tue
Assessment / Plan
Assessment / Plan
Physical Exam
General: Well Developed and No Apparent Distress
HEENT: NormoCephalic, Anicteric and Moist mucous membranes
Respiratory: Clear; No Wheezes, Rales, Rhonchi or Crackles
Cardiac: S1/S2 and Regular Rhythm; No Tachycardia. Systolic murmur noted 3/6
GI: Soft, Non Tender Bowel Sounds present
Genito-urinary: Bloody Urine and No costovertebral tenderness
Musculoskeletal: No Edema
Skin: Warm and Dry
Neuro: Alert Conversant Coherent
Psych: Calm
88M Prostate Ca BPH CABG p/w with severe anemia hematuria retention.
Intermittent subacute hematuria complicated with acute clot urinary retention, acute blood loss anemia, exacerbated by antiplatelet use
Suspect hemorrhagic shock- with SBP as low as 70 resolved with Fluid bolus and blood transfusions 2PRBC
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
Fatigue - due to symptomatic anemia
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
Severe Phimosis
- s/p 3 PRBCs Hgb 5.0 with subsequent improvement to 8.0
- cont Empiric IV CFTX completed 5 days monitor off
- Uro consult appreciated started on CBI, cont, IV transexamic acid 1000 mg once, CBI since discontinued 01/27 monitoring off, cont Lion
-Needle Punch Machine Operator eval appreciated patient downgraded from ICU after initial admission for low pressures since resolved without need for pressors
-stable for discharge from Urologic perspective, maintain Lion, outpt follow up for Trial of Void in 1 week recommended.
01/30 mild anemia drop Hgb 7.7 transfused 1PRBC for goal 8 due to cardiac history
-Follow up urology eval appreciated no evidence of ongoing bleeding at this time
-Detrol started d/t reports dysuria on Lion suspect overactive bladder
01/31 Patient exhibited good transfusion response Hgb 7.7 to 9.2
However new hematuria, patient's Lion Exchanged and CBI restarted as per Urology, possible Cysto Tues
Acute Hypoxic Insufficiency
-wean O2 supplementation as tolerated
-weaned off
Lethargy noted during day
Anxiety
po Ativan 0.5 mg TIDPRN discontinued due to concern oversedation contributing to confusion, seroquel prn ordered instead
01/28 VBG appreciated Respiratory Acidosis with compensated Metabolic Alkalosis
Likely would benefit from OP sleep study
Nocturnal oxygenation study appreciated accumulated desaturation time >5 min, 2L bedtime oxygen recommended
Associated KERWIN - obstructive nephropathy due to clot urinary retention
Mild hyperkalemia likely 2/2 to obstruction
Remote HX Prostate CA s/p 40 XRTs then
BPH HX
- Trend Cr resolved
- cont. tamsulosin
-Hyperkalemia resolved, potassium diet restriction lifted
T2DM
- Held metformin
- low dose sliding scale
-A1c 5.7 but unreliable following transfusion
Essential hypertension
- on metoprolol
CAD HX status post CABG
- Antiplatelet on hold d/t severe hematuria as above
- 01/29 As per Urology, cont to hold home Plavix while Lion is in place, can consider substitution with ASA when clear as per Urology
Hyperlipidemia
- on statin
Possible Afib noted on telemonitor self-limited
-discussed with cardio who reviewed monitor strips and ruled out presence of afib
-EKG 01/29 AM, incongruity in report noting both sinus rhythm with PAC and afib was also discussed with cardio who clarified sinus no afib noted
systolic murmur possibly d/t anemia vs moderate aortic stenosis
-ECHO appreciated preserved EF 60-65%, moderate aortic stenosis, noted similar to report of an echocardiogram from [facility] dated 07/09/23
HX Ambulatory dysfunction/falls s
PT/OT appreciated SNF rehab
DVT Px: SCD
Full code
Discussed with patient's son Celestine over phone
I spent a total of 55 minutes with the patient or on the floor. More than 50% of this time involved counseling and coordination of care.
Anticipated Discharge: 24 - 48 hours
Subjective/Interval History
-
Date of Service: February 01, 2024
New onset hematuria. Patient no acute distress resting comfortably in bed. Urology at bedside in preparations to change Lion and restart CBI
Objective Data
-
Labs:
Laboratory Results
02/01/24
06:00
WBC Pending
Hgb Pending
Hct Pending
Plt Count Pending
Sodium Pending
Potassium Pending
Chloride Pending
Carbon Dioxide Pending
BUN Pending
Creatinine Pending
Glucose Pending
Calcium Pending
Vital Signs:
Vital Signs
Temp Pulse Resp BP Pulse Ox
97.4 F 77 18 121/57 93
02/01/24 03:32 02/01/24 03:32 02/01/24 03:32 02/01/24 03:32 02/01/24 03:32
I&O
01/30/24 01/31/24 02/01/24
06:59 06:59 06:59
Intake Total 600 / 600 480 / 480 730 / 730
Output Total 1200 / 1200 2750 / 2750
Balance -600 / -600 -2270 / -2270 730 / 730
[2024-02-01 07:45] LABS: Hematocrit 28.4 % (39.0-52.0); Hemoglobin 9.2 g/dL (13.0-18.0); Mean Corp Hgb Conc. 32.4 g/dL (33.0-37.0); Mean Corpuscular Hgb 29.3 pg (27.0-31.0); Mean Corpuscular Volume 90.4 fL (80.0-94.0); Mean Platelet Volume 9.4 fL (7.4-10.4); Platelet Count 234 10^3/uL (130-400); Red Blood Cell Count 3.14 10^6/uL (4.70-6.10); Red Cell Dist. Width 17.2 % (11.5-14.5); White Blood Cell Count 7.3 10^3/uL (4.8-10.8)
[2024-02-01 07:55] VITALS: BP 130/46
[2024-02-01 08:15] LABS: Blood Urea Nitrogen 37 mg/dl (9-20); Carbon Dioxide 25 mmol/L (22-30); Chloride 104 mmol/L (98-107); Estimated Creatinine Clearance 51 ml/min; Glucose 106 mg/dl (70-99); Iron 45 ug/dl (49-181); Magnesium 2.1 mg/dl (1.6-2.3); Phosphorus 3.7 mg/dl (2.5-4.5); Sodium 134 mmol/L (135-145); eGFR 58.89
[2024-02-01 08:25] LABS: Percent Saturation 13 % (20-50); Total Iron Binding Capacity 330 ug/dl (261-462)
[2024-02-01 08:28] LABS: Glucose - Point of Care 99 mg/dl (70-99)
[2024-02-01] MEDS: NOVOLOG FLEXPEN-LOW RESISTANCE SC ×3 (08:42→17:14)
[2024-02-01] MEDS: VITAMIN D3 (cholecalciferol) 50 MCG PO (09:30)
[2024-02-01] MEDS: DETROL 2 MG PO ×2 (09:30→21:23)
[2024-02-01] MEDS: SENOKOT-S 1 TABLET PO ×2 (09:30→21:23)
[2024-02-01] MEDS: GLUCOPHAGE 500 MG PO (09:30)
[2024-02-01] MEDS: PROTONIX 40 MG PO (09:31)
[2024-02-01] MEDS: DILAUDID 0.5 MG IV (09:37)
--- NOTE | 2024-02-01 10:21 | W.PN.URO.CBU ---
Today's Communication / Plan
-
resume cbi
track hgb
Assessment / Plan
-
Hematuria with clot retention
Acute blood loss anemia
Radiation cystitis
H/o prostate cancer s/p XRT (>15 yrs ago)
Severe phimosis
Hgb stable: 8.0 => 8.2
Hematuria resolved 01/27 - CBI clamped x24 hrs
14Fr Sams catheter exchanged by Urology @bedside evening of 01/25
over this weekend- urine has become bloody- cath exchanged to [address]- old clot irrigated/cbi restarted
hgb stable after 1 unit yesterday
my sense it that current hematuria due to lysing clot
will continue cbi today and reassess- if urine not clear- then possible OR on friday for cysto
Diagnosis
-
Date of Service: February 01, 2024
-
Patient Diagnosis:
Hematuria with clot retention
Acute blood loss anemia
Radiation cystitis
H/o prostate cancer s/p XRT (>15 yrs ago)
Severe phimosis
Subjective
-
pt's urine became bloody overnight
[address] would not irrigate
[address] without difficulty
old clot irrigated out- cbi restarted- clear to light pink on light drip cbi
hgb stable
more comfortable after cath exchange
Objective
-
Vital Signs
Temp Pulse Resp BP Pulse Ox
98.9 F 65 20 130/46 94
02/01/24 07:55 02/01/24 07:55 02/01/24 07:55 02/01/24 07:55 02/01/24 07:55
Intake and Output
01/31/24 02/01/2424
06:59 06:59 06:59
Intake Total 480 / 480 730 / 730 480 / 480
Output Total 2750 / 2750 1100 / 1100
Balance -2270 / -2270 730 / 730 -620 / -620
Intake:
Oral fluids 480 / 480 480 / 480 480 / 480
Blood Product Amount Infused ( 250 / 250
mL)
Packed Rbc Leukoreduced Unit 250 / 250
[id number]
Output:
Urine, Sams 2750 / 2750 1100 / 1100
Other:
How many times incontinent 2
MODERATE amount urine
Laboratory Results
02/01/24 07:06
02/01/24 07:06
Physical Exam
-
General - no acute distress
Abdomen - soft, non-tender
Genitalia - buried penis with phimosis- but gland and meatus visualize
[2024-02-01 11:43] VITALS: BP 111/63
[2024-02-01 11:52] LABS: Glucose - Point of Care 92 mg/dl (70-99)
[2024-02-01 15:04] VITALS: BP 129/68
[2024-02-01 17:10] LABS: Glucose - Point of Care 108 mg/dl (70-99)
[2024-02-01] MEDS: LIPITOR 40 MG PO (17:25)
[2024-02-01 19:46] VITALS: BP 122/61
[2024-02-01 21:20] LABS: Glucose - Point of Care 120 mg/dl (70-99)
[2024-02-01] MEDS: MIRALAX 17 GRAMS PO (21:23)
[2024-02-01 23:19] VITALS: BP 127/67
[2024-02-02 03:58] VITALS: BP 116/47
[2024-02-02 03:59] VITALS: BMI 32.2
[2024-02-02 07:43] LABS: Glucose - Point of Care 115 mg/dl (70-99)
[2024-02-02] MEDS: NOVOLOG FLEXPEN-LOW RESISTANCE SC ×2 (07:44→17:16)
[2024-02-02 07:56] VITALS: BP 123/96
[2024-02-02] MEDS: SENOKOT-S 1 TABLET PO ×2 (08:56→22:05)
[2024-02-02] MEDS: VITAMIN D3 (cholecalciferol) 50 MCG PO (08:56)
[2024-02-02] MEDS: DETROL 2 MG PO ×2 (08:56→22:10)
[2024-02-02] MEDS: PROTONIX 40 MG PO (08:56)
--- NOTE | 2024-02-02 08:56 | W.PN.URO.CBU ---
Today's Communication / Plan
-
OR tomorrow
Assessment / Plan
-
Hematuria with clot retention
Acute blood loss anemia
Radiation cystitis
H/o prostate cancer s/p XRT (>15 yrs ago)
Severe phimosis
Hgb stable: 8.0 => 8.2
Hematuria resolved 01/27 - CBI clamped x24 hrs
14Fr Sams catheter exchanged by Urology @bedside evening of 01/25
over this weekend- urine has become bloody- cath exchanged to [address]- old clot irrigated/cbi restarted
hgb stable after 1 unit yesterday
reviewed with dr russell
plan for OR tomorrow for cysto and possible dorsal sli
ct today
npo after midnight
dr russell to review with pt and family today
Diagnosis
-
Date of Service: February 02, 2024
-
Patient Diagnosis:
Hematuria with clot retention
Acute blood loss anemia
Radiation cystitis
H/o prostate cancer s/p XRT (>15 yrs ago)
Severe phimosis
Subjective
-
pt asleep
urine generally clear on cbi- but hematuria recurrs when stopped
Objective
-
Vital Signs
Temp Pulse Resp BP Pulse Ox
97.8 F 80 18 123/96 96
02/02/24 07:56 02/02/24 07:56 02/02/24 07:56 02/02/24 07:56 02/02/24 07:56
Intake and Output
02/01/24 02/02/24 02/03/24
06:59 06:59 06:59
Intake Total 730 / 730 480 / 480
Output Total 3725 / 3725
Balance 730 / 730 -3245 / -3245
Intake:
Oral fluids 480 / 480 480 / 480
Blood Product Amount Infused ( 250 / 250
mL)
Packed Rbc Leukoreduced Unit 250 / 250
[id number]
Output:
Urine, Sams 1100 / 1100
True Urine Output from CBI 2624 / 2624
Other:
How many times incontinent 2
MODERATE amount urine
Physical Exam
-
General - no acute distress
[2024-02-02 09:23] LABS: Hematocrit 30.3 % (39.0-52.0); Hemoglobin 9.7 g/dL (13.0-18.0); Mean Corpuscular Hgb 29.9 pg (27.0-31.0); Mean Corpuscular Volume 93.5 fL (80.0-94.0); Mean Platelet Volume 9.5 fL (7.4-10.4); Platelet Count 245 10^3/uL (130-400); Red Blood Cell Count 3.24 10^6/uL (4.70-6.10); White Blood Cell Count 7.5 10^3/uL (4.8-10.8)
[2024-02-02 10:06] LABS: Blood Urea Nitrogen 30 mg/dl (9-20); Calcium 9.3 mg/dl (8.4-10.2); Carbon Dioxide 29 mmol/L (22-30); Chloride 101 mmol/L (98-107); Estimated Creatinine Clearance 51 ml/min; Glucose 103 mg/dl (70-99); Magnesium 2.1 mg/dl (1.6-2.3); Phosphorus 3.9 mg/dl (2.5-4.5); Potassium 4.9 mmol/L (3.5-5.1); Sodium 135 mmol/L (135-145); eGFR 58.89
--- NOTE | 2024-02-02 11:07 | CM ---
Patient seen bedside.
Patient back on CBI.
For CT scan today, probable cysto tomorrow.
Patient would like to go to [facility]'s home when stable.
Plan: probable skilled rehab when medically stable.
--- NOTE | 2024-02-02 11:43 | W.PN.HOSP.TC ---
Today's Communication/Plan
-
Or tomm
CBI
Urology recs
npo pmn
ct abd/pelvis pending
Assessment / Plan
Assessment / Plan
Physical Exam
General: Well Developed and No Apparent Distress
HEENT: NormoCephalic, Anicteric and Moist mucous membranes
Respiratory: Clear; No Wheezes, Rales, Rhonchi or Crackles
Cardiac: S1/S2 and Regular Rhythm; No Tachycardia. Systolic murmur noted 3/6
GI: Soft, Non Tender Bowel Sounds present
Genito-urinary: Bloody Urine and CBI restarted
Musculoskeletal: No Edema
Skin: Warm and Dry
Neuro: Alert Conversant Coherent
Psych: Calm
88M Prostate Ca BPH CABG p/w with severe anemia hematuria retention.
Intermittent subacute hematuria complicated with acute clot urinary retention, acute blood loss anemia, exacerbated by antiplatelet use
Suspect hemorrhagic shock- with SBP as low as 70 resolved with Fluid bolus and blood transfusions 2PRBC
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
Fatigue - due to symptomatic anemia
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
Severe Phimosis
- s/p 3 PRBCs Hgb 5.0 with subsequent improvement to 8.0
- cont Empiric IV CFTX completed 5 days monitor off
- Uro consult appreciated started on CBI, cont, IV transexamic acid 1000 mg once, CBI since discontinued 01/27 monitoring off, cont Sams
-Patent Solicitor eval appreciated patient downgraded from ICU after initial admission for low pressures since resolved without need for pressors
-stable for discharge from Urologic perspective, maintain Sams, outpt follow up for Trial of Void in 1 week recommended.
01/30 mild anemia drop Hgb 7.7 transfused 1PRBC for goal 8 due to cardiac history
-Follow up urology eval appreciated no evidence of ongoing bleeding at this time
-Detrol started d/t reports dysuria on Sams suspect overactive bladder
Patient exhibited good transfusion response Hgb 7.7 to 9.7
However new hematuria, patient's Sams Exchanged and CBI restarted as per Urology
OR tomm
CT abd/pelvis ordered per urology-pending
Acute Hypoxic Insufficiency
-wean O2 supplementation as tolerated
-weaned off
Lethargy noted during day
Anxiety
po Ativan 0.5 mg TIDPRN discontinued due to concern oversedation contributing to confusion, seroquel prn ordered instead
01/28 VBG appreciated Respiratory Acidosis with compensated Metabolic Alkalosis
Likely would benefit from OP sleep study
Nocturnal oxygenation study appreciated accumulated desaturation time >5 min, 2L bedtime oxygen recommended
Associated KERWIN - obstructive nephropathy due to clot urinary retention
Mild hyperkalemia likely 2/2 to obstruction
Remote HX Prostate CA s/p 40 XRTs then
BPH HX
- Trend Cr resolved
- cont. tamsulosin
-Hyperkalemia resolved, potassium diet restriction lifted
T2DM
- Held metformin
- low dose sliding scale
-A1c 5.7 but unreliable following transfusion
Essential hypertension
- on metoprolol
CAD HX status post CABG
- Antiplatelet on hold d/t severe hematuria as above
- 01/29 As per Urology, cont to hold home Plavix while Sams is in place, can consider substitution with ASA when clear as per Urology
Hyperlipidemia
- on statin
Possible Afib noted on telemonitor self-limited
-discussed with cardio who reviewed monitor strips and ruled out presence of afib
-EKG 01/29 AM, incongruity in report noting both sinus rhythm with PAC and afib was also discussed with cardio who clarified sinus no afib noted
systolic murmur possibly d/t anemia vs moderate aortic stenosis
-ECHO appreciated preserved EF 60-65%, moderate aortic stenosis, noted similar to report of an echocardiogram from [facility] dated 07/09/23
HX Ambulatory dysfunction/falls s
PT/OT appreciated SNF rehab
DVT Px: SCD in setting of hematuria
Full code
Anticipated Discharge: > 48 hours
Subjective/Interval History
-
Date of Service: February 02, 2024
calm this morning
Objective Data
-
Labs:
Laboratory Results
02/02/24
08:39
WBC 7.5
Hgb 9.7 L
Hct 30.3 L
Plt Count 245
Sodium 135
Potassium 4.9
Chloride 101
Carbon Dioxide 29
BUN 30 H
Creatinine 1.2
Glucose 103 H
Calcium 9.3
Vital Signs:
Vital Signs
Temp Pulse Resp BP Pulse Ox
97.8 F 80 18 123/96 96
02/02/24 07:56 02/02/24 07:56 02/02/24 07:56 02/02/24 07:56 02/02/24 07:56
I&O
02/01/24 02/02/24 02/03/24
06:59 06:59 06:59
Intake Total 730 / 730 480 / 480
Output Total 3725 / 3725
Balance 730 / 730 -3245 / -3245
Data Reviewed
-
Total Time Spent with Patient (in minutes): 56
[2024-02-02 12:14] LABS: Glucose - Point of Care 227 mg/dl (70-99)
[2024-02-02 12:22] VITALS: BP 129/63
[2024-02-02] MEDS: NOVOLOG FLEXPEN-LOW RESISTANCE 2 UNITS SC (13:31)
[2024-02-02 16:12] VITALS: BP 118/63
[2024-02-02 16:49] LABS: Glucose - Point of Care 146 mg/dl (70-99)
[2024-02-02] MEDS: LIPITOR 40 MG PO (17:37)
[2024-02-02 19:15] VITALS: BP 116/53
[2024-02-02 21:20] LABS: Glucose - Point of Care 135 mg/dl (70-99)
[2024-02-02] MEDS: MIRALAX 17 GRAMS PO (22:05)
[2024-02-02] MEDS: SEROQUEL 25 MG PO (22:24)
[2024-02-02 23:40] VITALS: BP 139/73
[2024-02-03] VITALS (15 sets, daily range): BP systolic 102–147; BP diastolic 45–81; BMI 31.3
[2024-02-03 08:35] LABS: Hematocrit 30.1 % (39.0-52.0); Hemoglobin 9.5 g/dL (13.0-18.0); Mean Corp Hgb Conc. 31.6 g/dL (33.0-37.0); Mean Corpuscular Hgb 28.9 pg (27.0-31.0); Mean Corpuscular Volume 91.5 fL (80.0-94.0); Mean Platelet Volume 9.3 fL (7.4-10.4); Platelet Count 246 10^3/uL (130-400); Red Blood Cell Count 3.29 10^6/uL (4.70-6.10); Red Cell Dist. Width 16.7 % (11.5-14.5); White Blood Cell Count 6.5 10^3/uL (4.8-10.8)
[2024-02-03 09:25] LABS: Blood Urea Nitrogen 26 mg/dl (9-20); Calcium 9.3 mg/dl (8.4-10.2); Carbon Dioxide 28 mmol/L (22-30); Chloride 103 mmol/L (98-107); Estimated Creatinine Clearance 50 ml/min; Glucose 97 mg/dl (70-99); Magnesium 2.2 mg/dl (1.6-2.3); Potassium 4.7 mmol/L (3.5-5.1); Sodium 135 mmol/L (135-145); eGFR 58.89
[2024-02-03] MEDS: NOVOLOG FLEXPEN-LOW RESISTANCE SC ×3 (10:01→17:59)
[2024-02-03 10:02] LABS: Glucose - Point of Care 104 mg/dl (70-99)
[2024-02-03] MEDS: VITAMIN D3 (cholecalciferol) 50 MCG PO (10:02)
[2024-02-03] MEDS: PROTONIX 40 MG PO (10:02)
[2024-02-03] MEDS: DETROL 2 MG PO ×2 (10:02→21:29)
[2024-02-03] MEDS: SENOKOT-S 1 TABLET PO ×2 (10:02→20:22)
--- NOTE | 2024-02-03 11:12 | W.PN.HOSP.TC ---
Today's Communication/Plan
-
OR today
urology recs
CBI in the interim
Assessment / Plan
Assessment / Plan
Physical Exam
General: Well Developed and No Apparent Distress
HEENT: NormoCephalic, Anicteric and Moist mucous membranes
Respiratory: Clear; No Wheezes, Rales, Rhonchi or Crackles
Cardiac: S1/S2 and Regular Rhythm; No Tachycardia. Systolic murmur noted 3/
GI: Soft, Non Tender Bowel Sounds present
Genito-urinary: Bloody Urine and CBI restarted
Musculoskeletal: No Edema
Skin: Warm and Dry
Neuro: Alert Conversant Coherent
Psych: Calm
88M Prostate Ca BPH CABG p/w with severe anemia hematuria retention.
Intermittent subacute hematuria complicated with acute clot urinary retention, acute blood loss anemia, exacerbated by antiplatelet use
Suspect hemorrhagic shock- with SBP as low as 70 resolved with Fluid bolus and blood transfusions 2PRBC
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
Fatigue - due to symptomatic anemia
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
Severe Phimosis
- s/p 3 PRBCs Hgb 5.0 with subsequent improvement to 8.0
- cont Empiric IV CFTX completed 5 days monitor off
- Uro consult appreciated started on CBI, cont, IV transexamic acid 1000 mg once, CBI since discontinued 01/27 monitoring off, cont Sasm
-Shift Engineer eval appreciated patient downgraded from ICU after initial admission for low pressures since resolved without need for pressors
-stable for discharge from Urologic perspective, maintain Sams, outpt follow up for Trial of Void in 1 week recommended.
01/30 mild anemia drop Hgb 7.7 transfused 1PRBC for goal 8 due to cardiac history
-Follow up urology eval appreciated no evidence of ongoing bleeding at this time
-Detrol started d/t reports dysuria on Sams suspect overactive bladder
Patient exhibited good transfusion response Hgb 7.7 to 9.5
However new hematuria, patient's Sams Exchanged and CBI restarted as per Urology
OR today. Started on Levaquin per urology.
Acute Hypoxic Insufficiency
-wean O2 supplementation as tolerated
-weaned off
Lethargy noted during day
Anxiety
po Ativan 0.5 mg TIDPRN discontinued due to concern oversedation contributing to confusion, seroquel prn ordered instead
01/28 VBG appreciated Respiratory Acidosis with compensated Metabolic Alkalosis
Likely would benefit from OP sleep study
Nocturnal oxygenation study appreciated accumulated desaturation time >5 min, 2L bedtime oxygen recommended
Associated KERWIN - obstructive nephropathy due to clot urinary retention
Mild hyperkalemia likely 2/2 to obstruction
Remote HX Prostate CA s/p 40 XRTs then
BPH HX
- Trend Cr resolved
- cont. tamsulosin
-Hyperkalemia resolved, potassium diet restriction lifted
T2DM
- Held metformin
- low dose sliding scale
-A1c 5.7 but unreliable following transfusion
Essential hypertension
- on metoprolol
CAD HX status post CABG
- Antiplatelet on hold d/t severe hematuria as above
- 01/29 As per Urology, cont to hold home Plavix while Sams is in place, can consider substitution with ASA when clear as per Urology
Hyperlipidemia
- on statin
Possible Afib noted on telemonitor self-limited
-discussed with cardio who reviewed monitor strips and ruled out presence of afib
-EKG 01/29 AM, incongruity in report noting both sinus rhythm with PAC and afib was also discussed with cardio who clarified sinus no afib noted
systolic murmur possibly d/t anemia vs moderate aortic stenosis
-ECHO appreciated preserved EF 60-65%, moderate aortic stenosis, noted similar to report of an echocardiogram from [facility] dated 07/09/23
HX Ambulatory dysfunction/falls s
PT/OT appreciated SNF rehab
DVT Px: SCD in setting of hematuria
Full code
Anticipated Discharge: > 48 hours
Subjective/Interval History
-
Date of Service: February 03, 2024
remains on CBI
Urine color clear on cbi
Objective Data
-
Labs:
Laboratory Results
02/03/24
07:40
WBC 6.5
Hgb 9.5 L
Hct 30.1 L
Plt Count 246
Sodium 135
Potassium 4.7
Chloride 103
Carbon Dioxide 28
BUN 26 H
Creatinine 1.2
Glucose 97
Calcium 9.3
Vital Signs:
Vital Signs
Temp Pulse Resp BP Pulse Ox
97.8 F 69 16 147/66 95
02/03/24 08:04 02/03/24 08:04 02/03/24 08:04 02/03/24 08:04 02/03/24 08:04
I&O
02/02/24 02/03/24 02/04/24
06:59 06:59 06:59
Intake Total 480 / 480 2580 / 2580
Output Total 3725 / 3725 2700 / 2700 1800 / 1800
Balance -3245 / -3245 -120 / -120 -1800 / -1800
[2024-02-03 11:29] LABS: Glucose - Point of Care 100 mg/dl (70-99)
--- NOTE | 2024-02-03 12:01 | CM ---
Addendum entered by Kirsty Loaiza 02/03/24 12:42:
Patient was accepted by [facility] if bed available day of d/c.
No auth needed.
Original Note:
Patient for Cysto today.
Plan: skilled rehab when stable.
[2024-02-03] MEDS: LEVAQUIN 100 IV (13:58)
--- NOTE | 2024-02-03 14:31 | W.SUR.POST ---
Surgical Immediate Post Op
Note
Pre Op Diagnosishematuria lot retntion phimosis:
Post Op Diagnosis: rdiation cystiis clot retention phimosis
Procedure Performedcysto vacuation clot dorsal slit circumcision:
Primary Surgeon: drew
Secondary Surgeons:
Anesthesia: genral wit 7 cc local 1/4 per cent marcaibr plain
Estimated Blood Loss: 5
Fluids: nss
Drains/Shunts:
[address] lion
Specimens/Cultures:
Doppler/Duplex/Angio (Y/N):
Complications: 0
Operative Findings:
lg clots in bladder multiple irradiatiobleeding sites fugeratedand clots emoved did dorsal slit
[2024-02-03 14:47] LABS: Glucose - Point of Care 119 mg/dl (70-99)
--- NOTE | 2024-02-03 15:55 | PTCARENOTE ---
Spoke to Sumi on 4W and patient's tele pack tubed back to 4W from OR/PACU. Patient to go to [address] [place] [id number]
[2024-02-03] MEDS: Pyridium 200 MG PO (15:58)
[2024-02-03 16:53] LABS: Glucose - Point of Care 115 mg/dl (70-99)
[2024-02-03] MEDS: TYLENOL 650 MG PO (18:03)
[2024-02-03] MEDS: LIPITOR 40 MG PO (18:04)
[2024-02-03] MEDS: MIRALAX 17 GRAMS PO (21:29)
[2024-02-03] MEDS: POLYSPORIN OINTMENT 1 APPLIC TOPICAL (21:29)
[2024-02-03 21:40] LABS: Glucose - Point of Care 221 mg/dl (70-99)
[2024-02-04] VITALS (7 sets, daily range): BP systolic 107–127; BP diastolic 46–63; PULSE 63–72; O2SAT 96; BMI 31.6
[2024-02-04] MEDS: EMLA CREAM 1 GRAM TOPICAL ×2 (01:25→19:20)
[2024-02-04] MEDS: TYLENOL 650 MG PO ×2 (01:33→19:23)
[2024-02-04] MEDS: SEROQUEL 25 MG PO ×2 (01:39→23:52)
[2024-02-04] MEDS: DILAUDID 0.5 MG IV (04:53)
[2024-02-04 07:02] LABS: Hematocrit 32.3 % (39.0-52.0); Hemoglobin 10.2 g/dL (13.0-18.0); Mean Corp Hgb Conc. 31.6 g/dL (33.0-37.0); Mean Corpuscular Hgb 29.4 pg (27.0-31.0); Mean Corpuscular Volume 93.1 fL (80.0-94.0); Mean Platelet Volume 9.5 fL (7.4-10.4); Platelet Count 280 10^3/uL (130-400); Red Blood Cell Count 3.47 10^6/uL (4.70-6.10); Red Cell Dist. Width 16.6 % (11.5-14.5); White Blood Cell Count 7.4 10^3/uL (4.8-10.8)
[2024-02-04 07:34] LABS: Blood Urea Nitrogen 34 mg/dl (9-20); Calcium 9.3 mg/dl (8.4-10.2); Carbon Dioxide 28 mmol/L (22-30); Chloride 102 mmol/L (98-107); Estimated Creatinine Clearance 44 ml/min; Glucose 140 mg/dl (70-99); Magnesium 2.3 mg/dl (1.6-2.3); Phosphorus 4.1 mg/dl (2.5-4.5); Potassium 5.4 mmol/L (3.5-5.1); Sodium 134 mmol/L (135-145); eGFR 48.95
[2024-02-04 07:44] LABS: Glucose - Point of Care 164 mg/dl (70-99)
[2024-02-04] MEDS: LOKELMA 10 GRAM PO (08:01)
[2024-02-04] MEDS: NOVOLOG FLEXPEN-LOW RESISTANCE 1 UNITS SC (08:15)
[2024-02-04] MEDS: POLYSPORIN OINTMENT 1 APPLIC TOPICAL ×3 (08:15→21:07)
--- NOTE | 2024-02-04 09:16 | W.PN.URO.CBU ---
Today's Communication / Plan
-
d/c foely voiding trial possible d/c to assisted of stable today
Assessment / Plan
-
Hematuria with clot retention
Acute blood loss anemia
Radiation cystitis
H/o prostate cancer s/p XRT (>15 yrs ago)
Severe phimosis
Hgb stable: 8.0 => 8.2
Hematuria resolved 01/27 - CBI clamped x24 hrs
14Fr Sams catheter exchanged by Urology @bedside evening of 01/25
over this weekend- urine has become bloody- cath exchanged to [address]- old clot irrigated/cbi restarted
hgb stable after 1 unit yesterday
hgb up today s/p fulgeration and clot evac and dorsal slit for voiding trial today possible nhp
Diagnosis
-
Date of Service: February 04, 2024
-
Patient Diagnosis:
Post Op Day:
Patient Diagnosis:
Hematuria with clot retention
Acute blood loss anemia
Radiation cystitis
H/o prostate cancer s/p XRT (>15 yrs ago)
Severe phimosis
Subjective
-
post op itching
Objective
-
Vital Signs
Temp Pulse Resp BP Pulse Ox
97.7 F 72 18 125/46 95
02/04/24 07:55 02/04/24 07:55 02/04/24 07:55 02/04/24 07:55 02/04/24 07:55
Intake and Output
02/03/24 02/04/24 02/05/24
06:59 06:59 06:59
Intake Total 2580 / 2580 340 / 340
Output Total 2700 / 2700 3600 / 3600 500 / 500
Balance -120 / -120 -3260 / -3260 -500 / -500
Intake:
Oral fluids 2580 / 2580 240 / 240
IV fluids (Total) 100 / 100
Normosol 100 / 100
Output:
True Urine Output from CBI 2700 / 2700 3600 / 3600 500 / 500
Laboratory Results
02/04/24 06:08
02/04/24 06:08
Review of Systems
-
: Dark Urine
Physical Exam
-
General - well developed, well nourished, no acute distress
Chest - clear bilaterally
Abdomen - soft, non-tender, positive bowel sounds, no CVAT, no incisional pain or distention
Genitalia - normal
Rectal - normal
Skin - warm & dry with no rash
Neuro - AOx3, no motor deficits
Extremities - no clubbing, no cyanosis, no edema
Incision - clean, dry
Dressing - clean, dry, intact
Counseling
-
voiding tril
Care Review
Data Reviewed
Discussed with: Internal Medicine and Nursing
[2024-02-04] MEDS: DETROL 2 MG PO (09:54)
[2024-02-04] MEDS: PROTONIX 40 MG PO (09:55)
[2024-02-04] MEDS: SENOKOT-S 1 TABLET PO ×2 (09:55→19:23)
[2024-02-04] MEDS: VITAMIN D3 (cholecalciferol) 50 MCG PO (09:55)
--- NOTE | 2024-02-04 11:40 | W.PN.HOSP.TC ---
Today's Communication/Plan
-
TOV today
lokelma
start dispo planning
Assessment / Plan
Assessment / Plan
Physical Exam
General: Well Developed and No Apparent Distress
HEENT: NormoCephalic, Anicteric and Moist mucous membranes
Respiratory: Clear; No Wheezes, Rales, Rhonchi or Crackles
Cardiac: S1/S2 and Regular Rhythm; No Tachycardia. Systolic murmur noted 3/6
GI: Soft, Non Tender Bowel Sounds present
Genito-urinary: Bloody Urine in lion bag noted
Musculoskeletal: No Edema
Skin: Warm and Dry
Neuro: Alert Conversant Coherent
Psych: Calm
88M Prostate Ca BPH CABG p/w with severe anemia hematuria retention.
Intermittent subacute hematuria complicated with acute clot urinary retention, acute blood loss anemia, exacerbated by antiplatelet use
Suspect hemorrhagic shock- with SBP as low as 70 resolved with Fluid bolus and blood transfusions 2PRBC
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
Fatigue - due to symptomatic anemia
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
Severe Phimosis
- s/p 4 PRBCs so far
- cont Empiric IV CFTX completed 5 days monitor off
- Uro consult appreciated started on CBI, cont, IV transexamic acid 1000 mg once, CBI since discontinued 01/27 monitoring off, cont Lion
-Scrum Project Manager binh appreciated patient downgraded from ICU after initial admission for low pressures since resolved without need for pressors
Patient exhibited good transfusion response. Hgb at 10.2
However new hematuria, patient's Lion Exchanged and CBI restarted as per Urology
Status post cystoscopy with evacuation of clot, fulguration of multiple bleeding sites dorsal slit circumcision. CBI stopped and plan to removee lion.
TOV today.
Acute Hypoxic Insufficiency
-wean O2 supplementation as tolerated
-weaned off
Lethargy noted during day
Anxiety
po Ativan 0.5 mg TIDPRN discontinued due to concern oversedation contributing to confusion, seroquel prn ordered instead
01/28 VBG appreciated Respiratory Acidosis with compensated Metabolic Alkalosis
Likely would benefit from OP sleep study
Nocturnal oxygenation study appreciated accumulated desaturation time >5 min, 2L bedtime oxygen recommended
Associated KERWIN - obstructive nephropathy due to clot urinary retention
Mild hyperkalemia likely 2/2 to obstruction
Remote HX Prostate CA s/p 40 XRTs then
BPH HX
- Trend Cr resolved
- cont. tamsulosin
--lokelma x 1 dose today. K restriction diet.
T2DM
- Held metformin
- low dose sliding scale
-A1c 5.7 but unreliable following transfusion
Essential hypertension
- on metoprolol
CAD HX status post CABG
- Antiplatelet on hold d/t severe hematuria as above
- 01/29 As per Urology, cont to hold home Plavix while Lion is in place, can consider substitution with ASA when clear as per Urology. Prior neurology significantly high risk to restart her Plavix as patient would be extremely high risk for
hematuria. Okay to be placed on aspirin till outpatient evaluation by urology.
Hyperlipidemia
- on statin
Possible Afib noted on telemonitor self-limited
-discussed with cardio who reviewed monitor strips and ruled out presence of afib
-EKG 01/29 AM, incongruity in report noting both sinus rhythm with PAC and afib was also discussed with cardio who clarified sinus no afib noted
systolic murmur possibly d/t anemia vs moderate aortic stenosis
-ECHO appreciated preserved EF 60-65%, moderate aortic stenosis, noted similar to report of an echocardiogram from [facility] dated 07/09/23
HX Ambulatory dysfunction/falls s
PT/OT appreciated SNF rehab
DVT Px: SCD in setting of hematuria
Full code
Anticipated Discharge: Within 24 hours
Subjective/Interval History
-
Date of Service: February 04, 2024
Lion catheter with mild.
Denies penile pain status post surgery yesterday
Objective Data
-
Labs:
Laboratory Results
02/04/24
06:08
WBC 7.4
Hgb 10.2 L
Hct 32.3 L
Plt Count 280
Sodium 134 L
Potassium 5.4 H
Chloride 102
Carbon Dioxide 28
BUN 34 H
Creatinine 1.4 H
Glucose 140 H
Calcium 9.3
Vital Signs:
Vital Signs
Temp Pulse Resp BP Pulse Ox
98.1 F 60 18 117/61 95
02/04/24 11:15 02/04/24 11:15 02/04/24 11:15 02/04/24 11:15 02/04/24 11:15
I&O
02/03/24 02/04/24 02/05/24
06:59 06:59 06:59
Intake Total 2580 / 2580 340 / 340
Output Total 2700 / 2700 3600 / 3600 500 / 500
Balance -120 / -120 -3260 / -3260 -500 / -500
Data Reviewed
-
Total Time Spent with Patient (in minutes): 55
[2024-02-04] MEDS: NOVOLOG FLEXPEN-LOW RESISTANCE 2 UNITS SC (12:58)
[2024-02-04 12:59] LABS: Glucose - Point of Care 208 mg/dl (70-99)
--- NOTE | 2024-02-04 15:40 | CM ---
Reviewed the chart notes and spoke with the patient at the bedside. IMM signed and placed on chart. CM spoke with Care Welfare Director [facility]. Admission will need to be tomorrow. Covid screen will be required. Patient's lion removed
and is due to due a trial void. Attending and RN updated on above. CM continues to be available to patient/family and is monitoring medical plan for needs at discharge.
Plan: Discharge to [facility] when medically stable. Covid Screen due day of d/c. No precert required.
[2024-02-04 16:57] LABS: Glucose - Point of Care 142 mg/dl (70-99)
[2024-02-04] MEDS: NOVOLOG FLEXPEN-LOW RESISTANCE SC (17:07)
[2024-02-04] MEDS: LIPITOR 40 MG PO (17:37)
--- NOTE | 2024-02-04 18:32 | PTCARENOTE ---
Patient was DTV by 1545. Bladder scna at 1600 was 25ml. Patient did not urge to urinate at that time. Patient given water to drink. At 1720 patient voided 50 ml of brownish red urine with no clots. PVR was [address] Pedroza made aware and
instructed RN to speak with Dr. Pardo. Relayed information to Dr. Pardo who stated to give the patient more time and if patient is have a lot of pain and can't pee or bladder scan exceeds 400 mls, replace lion catheter. Will let hourly shift
nurse know of this information.
[2024-02-04] MEDS: MIRALAX 17 GRAMS PO (21:07)
[2024-02-04 21:21] LABS: Glucose - Point of Care 158 mg/dl (70-99)
[2024-02-05 03:16] VITALS: BMI 31.3
--- NOTE | 2024-02-05 05:34 | PTCARENOTE ---
Addendum entered by Karsten Murillo RN 02/05/24 06:09:
Pt voided 200 ml of bloody tinged and pass two small clots. no pain voiding.
Original Note:
Pt voided ~575 ml with a few incontinence episodes of urine. Urine has been a bloody tinged color without any clots. No c/o pain when urinating.
[2024-02-05 06:41] LABS: Hematocrit 27.5 % (39.0-52.0); Hemoglobin 8.7 g/dL (13.0-18.0); Mean Corp Hgb Conc. 31.6 g/dL (33.0-37.0); Mean Corpuscular Hgb 29.5 pg (27.0-31.0); Mean Corpuscular Volume 93.2 fL (80.0-94.0); Mean Platelet Volume 9.7 fL (7.4-10.4); Platelet Count 249 10^3/uL (130-400); Red Blood Cell Count 2.95 10^6/uL (4.70-6.10); Red Cell Dist. Width 16.5 % (11.5-14.5); White Blood Cell Count 7.2 10^3/uL (4.8-10.8)
[2024-02-05 07:09] LABS: Blood Urea Nitrogen 44 mg/dl (9-20); Carbon Dioxide 30 mmol/L (22-30); Chloride 101 mmol/L (98-107); Estimated Creatinine Clearance 38 ml/min; Glucose 108 mg/dl (70-99); Magnesium 2.2 mg/dl (1.6-2.3); Phosphorus 4.2 mg/dl (2.5-4.5); Potassium 4.7 mmol/L (3.5-5.1); Sodium 135 mmol/L (135-145)
[2024-02-05 07:35] VITALS: BP 94/61
[2024-02-05 07:35] LABS: Glucose - Point of Care 114 mg/dl (70-99)
[2024-02-05] MEDS: NOVOLOG FLEXPEN-LOW RESISTANCE SC (07:46)
[2024-02-05] MEDS: POLYSPORIN OINTMENT 1 APPLIC TOPICAL ×3 (08:05→21:15)
[2024-02-05] MEDS: SENOKOT-S 1 TABLET PO ×2 (08:05→19:45)
[2024-02-05] MEDS: VITAMIN D3 (cholecalciferol) 50 MCG PO (08:05)
[2024-02-05] MEDS: PROTONIX 40 MG PO (08:05)
[2024-02-05 10:05] LABS: Urine Sodium 46 mmol/L (30-90)
--- NOTE | 2024-02-05 10:51 | CM ---
Reviewed the chart notes. Per attending, patient not ready for discharge today. Covid screen will be required. CM continues to be available to patient/family and is monitoring medical plan for needs at discharge.
Plan: Discharge to [facility] when medically stable. Covid Screen due day of d/c. No precert required.
--- NOTE | 2024-02-05 11:24 | PTCARENOTE ---
Last BM documented 01/30. PRN suppository encouraged, pt refusing. Education provided, pt continuing to decline. Dr Pedroza notified. See new orders.
[2024-02-05] MEDS: DULCOLAX 10 MG PO (12:04)
--- NOTE | 2024-02-05 12:05 | W.PN.URO.CBU ---
Today's Communication / Plan
-
home when ok by hpospitalist
Assessment / Plan
-
Hematuria with clot retention
Acute blood loss anemia
Radiation cystitis
H/o prostate cancer s/p XRT (>15 yrs ago)
Severe phimosis
Hgb stable: 8.0 => 8.2
Hematuria resolved 01/27 - CBI clamped x24 hrs
14Fr Sams catheter exchanged by Urology @bedside evening of 01/25
over this weekend- urine has become bloody- cath exchanged to 22[address] 3way- old clot irrigated/cbi restarted
hgb stable after 1 unit yesterday
hgb up today s/p fulgeration and clot evac and dorsal slit for voiding trial today possible nhp
Diagnosis
-
Date of Service: February 05, 2024
-
Patient Diagnosis:
Post Op Day:
Patient Diagnosis:
Post Op Day:
Patient Diagnosis:
Hematuria with clot retention
Acute blood loss anemia
Radiation cystitis
H/o prostate cancer s/p XRT (>15 yrs ago)
Severe phimosis
Subjective
-
voiding with urgency but to completion
Objective
-
Vital Signs
Temp Pulse Resp BP Pulse Ox
97.9 F 57 17 94/61 92
02/05/24 07:35 02/05/24 07:35 02/05/24 07:35 02/05/24 07:35 02/05/24 07:35
Intake and Output
02/04/24 02/05/24 02/06/24
06:59 06:59 06:59
Intake Total 340 / 340 840 / 840
Output Total 3600 / 3600 1275 / 1275
Balance -3260 / -3260 -435 / -435
Intake:
Oral fluids 240 / 240 840 / 840
IV fluids (Total) 100 / 100
Normosol 100 / 100
Output:
Urine, Voided 775 / 775
True Urine Output from CBI 3600 / 3600 500 / 500
Other:
How many times incontinent 1
SMALL amount urine
How many times incontinent 1
MODERATE amount urine
Laboratory Results
02/05/24 06:04
02/05/24 06:05
Review of Systems
-
: Frequency and Urgency
Physical Exam
-
General - well developed, well nourished, no acute distress
Chest - clear bilaterally
Abdomen - soft, non-tender, positive bowel sounds, no CVAT, no incisional pain or distention
Genitalia - normal
Rectal - normal
Skin - warm & dry with no rash
Neuro - AOx3, no motor deficits
Extremities - no clubbing, no cyanosis, no edema
Incision - clean, dry
Dressing - clean, dry, intact
Counseling
-
nhp when clear ed by hospitalist
Care Review
Data Reviewed
Discussed with: Nursing
--- NOTE | 2024-02-05 12:41 | W.PN.HOSP.TC ---
Today's Communication/Plan
-
bowel regimen
IVF x 1L
trend Cr
monitor BP
Assessment / Plan
Assessment / Plan
Physical Exam
General: Well Developed and No Apparent Distress
HEENT: NormoCephalic, Anicteric and Moist mucous membranes
Respiratory: Clear; No Wheezes, Rales, Rhonchi or Crackles
Cardiac: S1/S2 and Regular Rhythm; No Tachycardia. Systolic murmur noted 3/
GI: Soft, Non Tender Bowel Sounds present
Genito-urinary: no lion
Musculoskeletal: No Edema
Skin: Warm and Dry
Neuro: Alert Conversant Coherent
Psych: Calm
88M Prostate Ca BPH CABG p/w with severe anemia hematuria retention.
Intermittent subacute hematuria complicated with acute clot urinary retention, acute blood loss anemia, exacerbated by antiplatelet use
Suspect hemorrhagic shock- with SBP as low as 70 resolved with Fluid bolus and blood transfusions 2PRBC
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
Fatigue - due to symptomatic anemia
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
Severe Phimosis
- s/p 4 PRBCs so far
- cont Empiric IV CFTX completed 5 days monitor off
- Uro consult appreciated started on CBI, cont, IV transexamic acid 1000 mg once, CBI since discontinued 01/27 monitoring off, cont Lion
-Pediatric Urologist binh appreciated patient downgraded from ICU after initial admission for low pressures since resolved without need for pressors
However new hematuria, patient's Lion Exchanged and CBI restarted as per Urology
Status post cystoscopy with evacuation of clot, fulguration of multiple bleeding sites dorsal slit circumcision. CBI stopped and lion removed.
Voiding urine.
Acute Hypoxic Insufficiency
-wean O2 supplementation as tolerated
-weaned off
Lethargy noted during day
Anxiety
po Ativan 0.5 mg TIDPRN discontinued due to concern oversedation contributing to confusion, seroquel prn ordered instead
01/28 VBG appreciated Respiratory Acidosis with compensated Metabolic Alkalosis
Likely would benefit from OP sleep study
Nocturnal oxygenation study appreciated accumulated desaturation time >5 min, 2L bedtime oxygen recommended
Associated KERWIN - obstructive nephropathy due to clot urinary retention
Mild hyperkalemia likely 2/2 to obstruction
Remote HX Prostate CA s/p 40 XRTs then
BPH HX
- Trend Cr
- cont. tamsulosin
--k normalized.
-FENA with indeterminate. BUN elevated. Will give dose of IVF x 1L.
Mild soft BP
-IVF.
-trend for now. Not on any anti-htn meds
T2DM
- Held metformin
- low dose sliding scale
-A1c 5.7 but unreliable following transfusion
CAD HX status post CABG
- Antiplatelet on hold d/t severe hematuria as above
- 01/29 As per Urology, cont to hold home Plavix while Lion is in place, can consider substitution with ASA when clear as per Urology. Prior neurology significantly high risk to restart her Plavix as patient would be extremely high risk for
hematuria. Okay to be placed on aspirin till outpatient evaluation by urology.
Hyperlipidemia
- on statin
Possible Afib noted on telemonitor self-limited
-discussed with cardio who reviewed monitor strips and ruled out presence of afib
-EKG 01/29 AM, incongruity in report noting both sinus rhythm with PAC and afib was also discussed with cardio who clarified sinus no afib noted
systolic murmur possibly d/t anemia vs moderate aortic stenosis
-ECHO appreciated preserved EF 60-65%, moderate aortic stenosis, noted similar to report of an echocardiogram from [facility] dated 07/09/23
HX Ambulatory dysfunction/falls s
PT/OT appreciated SNF rehab
DVT Px: SCD in setting of hematuria
Full code
Anticipated Discharge: Within 24 hours
Subjective/Interval History
-
Date of Service: February 05, 2024
States of mild dysuria
Patient continued to be pass urine
Not with significant urinary retention
Objective Data
-
Labs:
Laboratory Results
02/05/24 02/05/24
06:04 06:05
WBC 7.2
Hgb 8.7 L
Hct 27.5 L
Plt Count 249
Sodium 135
Potassium 4.7
Chloride 101
Carbon Dioxide 30
BUN 44 H
Creatinine 1.6 H
Glucose 108 H
Calcium 9.0
Vital Signs:
Vital Signs
Temp Pulse Resp BP Pulse Ox
97.9 F 57 17 94/61 92
02/05/24 07:35 02/05/24 07:35 02/05/24 07:35 02/05/24 07:35 02/05/24 07:35
I&O
02/04/24 02/05/24 02/06/24
06:59 06:59 06:59
Intake Total 340 / 340 840 / 840
Output Total 3600 / 3600 1275 / 1275
Balance -3260 / -3260 -435 / -435
Data Reviewed
-
Total Time Spent with Patient (in minutes): 55
[2024-02-05 12:58] LABS: Glucose - Point of Care 154 mg/dl (70-99)
[2024-02-05] MEDS: LR 1000 IV (13:32)
[2024-02-05] MEDS: NOVOLOG FLEXPEN-LOW RESISTANCE 1 UNITS SC (13:32)
[2024-02-05] MEDS: DULCOLAX 10 MG RECTAL (15:42)
[2024-02-05 17:00] VITALS: BP 125/62
[2024-02-05 17:15] LABS: Glucose - Point of Care 257 mg/dl (70-99)
[2024-02-05] MEDS: NOVOLOG FLEXPEN-LOW RESISTANCE 3 UNITS SC (17:33)
[2024-02-05] MEDS: LIPITOR 40 MG PO (17:33)
[2024-02-05] MEDS: MILK OF MAGNESIA 30 ML PO (17:33)
[2024-02-05] MEDS: EMLA CREAM 1 GRAM TOPICAL (19:44)
[2024-02-05] MEDS: MIRALAX 17 GRAMS PO (21:15)
[2024-02-05 21:33] LABS: Glucose - Point of Care 148 mg/dl (70-99)
[2024-02-05] MEDS: SEROQUEL 25 MG PO (22:45)
[2024-02-05 23:30] VITALS: BP 124/59
[2024-02-06 03:37] VITALS: BMI 31.6
[2024-02-06 06:36] LABS: Blood Urea Nitrogen 50 mg/dl (9-20); Carbon Dioxide 30 mmol/L (22-30); Chloride 101 mmol/L (98-107); Estimated Creatinine Clearance 47 ml/min; Glucose 114 mg/dl (70-99); Potassium 4.8 mmol/L (3.5-5.1); Sodium 134 mmol/L (135-145)
[2024-02-06 07:37] LABS: Glucose - Point of Care 118 mg/dl (70-99)
[2024-02-06] MEDS: NOVOLOG FLEXPEN-LOW RESISTANCE SC (07:45)
[2024-02-06 08:02] VITALS: BP 134/65
[2024-02-06] MEDS: POLYSPORIN OINTMENT 1 APPLIC TOPICAL (08:16)
[2024-02-06] MEDS: PROTONIX 40 MG PO (08:17)
[2024-02-06] MEDS: VITAMIN D3 (cholecalciferol) 50 MCG PO (08:17)
[2024-02-06] MEDS: SENOKOT-S 1 TABLET PO (08:17)
[2024-02-06 11:02] LABS: COVID-19 Antigen Negative (Negative)
--- NOTE | 2024-02-06 11:37 | CM ---
Per Hospitalist, patient clear for discharge. CM spoke with Joanie from [facility] admissions, able to accept patient, requesting a covid test. Patient seen bedside, IMM signed placed in chart. CM spoke with patients Gopal, provided update with
ambulance transportation scheduled for 3:30 p.m. CM provided update to Joanie at SNF with transport time and nursing report number. TT sent to nurse and Hospitalist with transport time. CM will continue to follow for discharge planning needs.
Plan; [facility] SNF, 3:30 p.m. ambulance transport.
[facility]:
Report: [phone]
[2024-02-06 11:52] LABS: Glucose - Point of Care 170 mg/dl (70-99)
[2024-02-06] MEDS: NOVOLOG FLEXPEN-LOW RESISTANCE 1 UNITS SC (12:07)
--- NOTE | 2024-02-06 12:15 | W.PN.HOSP.TC ---
Today's Communication/Plan
-
dc to snf
op urology f/u
Hemoglobin stable
Assessment / Plan
Assessment / Plan
Physical Exam
General: Well Developed and No Apparent Distress
HEENT: NormoCephalic, Anicteric and Moist mucous membranes
Respiratory: Clear; No Wheezes, Rales, Rhonchi or Crackles
Cardiac: S1/S2 and Regular Rhythm; No Tachycardia. Systolic murmur noted 3/
GI: Soft, Non Tender Bowel Sounds present
Genito-urinary: no lion
Musculoskeletal: No Edema
Skin: Warm and Dry
Neuro: Alert Conversant Coherent
Psych: Calm
88M Prostate Ca BPH CABG p/w with severe anemia hematuria retention.
Intermittent subacute hematuria complicated with acute clot urinary retention, acute blood loss anemia, exacerbated by antiplatelet use
Suspect hemorrhagic shock- with SBP as low as 70 resolved with Fluid bolus and blood transfusions 2PRBC
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
Fatigue - due to symptomatic anemia
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
Severe Phimosis
s/p 4 PRBCs so far
cont Empiric IV CFTX completed 5 days monitor off
Uro consult appreciated started on CBI, cont, IV transexamic acid 1000 mg once, CBI since discontinued 01/27 monitoring off, cont Lion
Contract Administration Manager binh appreciated patient downgraded from ICU after initial admission for low pressures since resolved without need for pressors
However new hematuria, patient's Lion Exchanged and CBI restarted as per Urology
Status post cystoscopy with evacuation of clot, fulguration of multiple bleeding sites dorsal slit circumcision. CBI stopped and lion removed.
Voiding urine. Patient hemoglobin up trended to 9.2. Additional dose of TXA. Per, Dr. Pardo patient with chronic hematuria. Urology also recommended to stop all antiplatelet agent as significant risk of rebleeding. Even recommended against
restarting on aspirin.
DC to SNF with outpatient follow-up
Acute Hypoxic Insufficiency
-wean O2 supplementation as tolerated
-weaned off
Lethargy noted during day
Anxiety
po Ativan 0.5 mg TIDPRN discontinued due to concern oversedation contributing to confusion, seroquel prn ordered instead
01/28 VBG appreciated Respiratory Acidosis with compensated Metabolic Alkalosis
Likely would benefit from OP sleep study
Nocturnal oxygenation study appreciated accumulated desaturation time >5 min, 2L bedtime oxygen recommended
Associated KERWIN - obstructive nephropathy due to clot urinary retention
Mild hyperkalemia likely 2/2 to obstruction
Remote HX Prostate CA s/p 40 XRTs then
BPH HX
-Trend Cr
-cont. tamsulosin
-K normalized.
-FENA with indeterminate. Cr improved s/p NS 1L NS.
Mild soft BP
-IVF.
-trend for now. Not on any anti-htn meds
T2DM
- Held metformin
- low dose sliding scale
-A1c 5.7 but unreliable following transfusion
CAD HX status post CABG
- Antiplatelet on hold d/t severe hematuria as above
Carotid artery stenosis status post CEA
Hyperlipidemia
- on statin
Possible Afib noted on telemonitor self-limited
-discussed with cardio who reviewed monitor strips and ruled out presence of afib
-EKG 01/29 AM, incongruity in report noting both sinus rhythm with PAC and afib was also discussed with cardio who clarified sinus no afib noted
systolic murmur possibly d/t anemia vs moderate aortic stenosis
-ECHO appreciated preserved EF 60-65%, moderate aortic stenosis, noted similar to report of an echocardiogram from [facility] dated 07/09/23
HX Ambulatory dysfunction/falls s
PT/OT appreciated SNF rehab
DVT Px: SCD in setting of hematuria
Full code
d/w with urology.
More than 30 minutes spent in discharge including
Final examination of the patient
Summarizing hospital stay
Instructions for continuing care to all relevant caregivers
Preparation of discharge records, prescriptions, and referral forms
Total time spent (in minutes): 52
Anticipated Discharge: Today
Subjective/Interval History
-
Date of Service: February 06, 2024
No overnight events
afebrile
tolerating diet
had bm
Objective Data
-
Labs:
Laboratory Results
02/06/24
05:44
Sodium 134 L
Potassium 4.8
Chloride 101
Carbon Dioxide 30
BUN 50 H
Creatinine 1.3
Glucose 114 H
Calcium 9.0
Vital Signs:
Vital Signs
Temp Pulse Resp BP Pulse Ox
98.4 F 66 16 134/65 96
02/06/24 08:02 02/06/24 08:02 02/06/24 08:02 02/06/24 08:02 02/06/24 08:02
I&O
02/05/24 02/06/24 02/07/24
06:59 06:59 06:59
Intake Total 840 / 840 1920 / 1920
Output Total 1275 / 1275 950 / 950
Balance -435 / -435 970 / 970
--- NOTE | 2024-02-06 12:26 | PTCARENOTE ---
Pt saturating the bed with bloody urine and passing small clots. Dr Pedroza and Dr Pardo notified. Care remains ongoing.
--- NOTE | 2024-02-06 12:41 | W.PN.URO.CBU ---
Today's Communication / Plan
-
hgb and tanexamic acid
Assessment / Plan
-
Hematuria with clot retention
Acute blood loss anemia
Radiation cystitis
H/o prostate cancer s/p XRT (>15 yrs ago)
Severe phimosis
hematuria await am hgb but if droppoing will start tranexamic acid and transfuse prn hold asa
Diagnosis
-
Date of Service: February 06, 2024
-
Patient Diagnosis:
Post Op Day:
Patient Diagnosis:
Post Op Day:
Patient Diagnosis:
Post Op Day:
Patient Diagnosis:
Hematuria with clot retention
Acute blood loss anemia
Radiation cystitis
H/o prostate cancer s/p XRT (>15 yrs ago)
Severe phimosis
Subjective
-
feels like emptied but hematuria
Objective
-
Vital Signs
Temp Pulse Resp BP Pulse Ox
98.4 F 66 16 134/65 96
02/06/24 08:02 02/06/24 08:02 02/06/24 08:02 02/06/24 08:02 02/06/24 08:02
Intake and Output
02/05/24 02/06/24 02/07/24
06:59 06:59 06:59
Intake Total 840 / 840 1920 / 1920
Output Total 1275 / 1275 950 / 950
Balance -435 / -435 970 / 970
Intake:
Oral fluids 840 / 840 720 / 720
IV fluids (Total) 1200 / 1200
Output:
Urine, Voided 775 / 775 950 / 950
True Urine Output from CBI 500 / 500
Other:
Number of approximated MODERATE 1
amounts of urine
How many times incontinent 1
SMALL amount urine
How many times incontinent 1
MODERATE amount urine
How many times incontinent 4
SATURATED amount urine
Laboratory Results
02/06/24 05:44
Review of Systems
-
: Dysuria, Frequency, Urgency and Dark Urine
Physical Exam
-
General - well developed, well nourished, no acute distress
Chest - clear bilaterally
Abdomen - soft, non-tender, positive bowel sounds, no CVAT, no incisional pain or distention
Genitalia - normal
Rectal - normal
Skin - warm & dry with no rash
Neuro - AOx3, no motor deficits
Extremities - no clubbing, no cyanosis, no edema
Incision - clean, dry
Dressing - clean, dry, intact
Care Review
Data Reviewed
Discussed with: Hospitalist and Nursing
[2024-02-06 12:52] LABS: Hematocrit 29.4 % (39.0-52.0); Hemoglobin 9.2 g/dL (13.0-18.0)
[2024-02-06] MEDS: TRANEXAMIC ACID 100 IV (13:04)
--- NOTE | 2024-02-06 13:28 | W.DCSUMMARY ---
Discharge Summary
Discharge Data
Date of Admission: 01/25/24
Date of Discharge: 02/06/24
-
Pending Results: No
Hospital Course
88 male past medical history of prostate cancer, BPH, CAD status post CABG, anemia, diabetes mellitus, CAD status post CEA, diabetes mellitus, hyperlipidemia, chronic hematuria, ambulatory dysfunction who is presented with hematuria and retention.
Patient was found to be in severe hemorrhagic shock and received PRBC transfusion x 4 units. Patient with appropriate response to hemoglobin. Blood pressure stabilized. Patient was transferred out of medical ICU and did not require pressors.
Oxygen was weaned off. Patient required 2 L of oxygen at bedtime per nocturnal study. Patient also had KERWIN which resolved. Hyperkalemia resolved. Patient received 5 days of IV antibiotics and completed course. Patient was eval by urology.
Patient was started on CBI. Patient underwent to the operating room for cystoscopy with evacuation of clot, fulguration of multiple bleeding sites dorsal slit circumcision. CBI stopped and lion removed and was voiding. Patient received TXA and
by Dr. Pardo patient with chronic hematuria and post Lion catheter voiding with hematuria and clot is expectant management. Outpatient follow-up with urology. Patient with physical and Occupational Therapy evaluation.
Discharge Plan
-
Patient Disposition: Usp/SNF
Discharge Diagnosis/Procedures: Intermittent subacute hematuria complicated with acute clot urinary retention, acute blood loss anemia, exacerbated by antiplatelet use
Suspect hemorrhagic shock- with SBP as low as 70 resolved with Fluid bolus and blood transfusions 2PRBC
Associated acute blood loss anemia
Fatigue - due to symptomatic anemia
Possible radiation related cystitis
Severe Phimosis
status post cystoscopy, evacuation of clot, fulguration of multiple bleeding sites, dorsal slit circumcision.
Acute kidney injury
Hyperkalemia
Condition: Fair
Diet: As tolerated and Low Fat
Activity: With assistance and As tolerated
Driving Restrictions: Not until seen by your Dr
Blood Work: CBC and BMP in 1 week via primary doctor.
Activity Restrictions/Additional Instructions:
Also please call and follow-up to make appointment with Dr. Pardo in 2 to 3 weeks to look at circumcision site.
Nocturnal oxygenation study appreciated accumulated desaturation time >5 min, 2L bedtime oxygen recommended at bedtime and while asleep
Referrals:
Arturo Pardo MD [Active] - in two to three weeks
()
Arturo Simpson DO [Family Provider] - in less than 1 week
Additional Discharge Medication Instructions: Plavix was discontinued due to significant high risk of hematuria.
Prescriptions:
New
Polysporin 500-10,000 unit/gram Ointment In Packet
1 applic topical TID 10 Days Qty: 1 0RF
phenazopyridine 200 mg Tablet
200 mg PO Q8HPRN PRN (Reason: URETHRAL BURNING) 7 Days Qty: 21 0RF
Continued
atorvastatin 40 MG tablet
40 mg PO QPM
omeprazole magnesium [Prilosec OTC] 20 mg Tablet,Delayed Release (Dr/Ec)
40 mg PO DAILY
cholecalciferol (vitamin D3) 50 mcg (2,000 unit) Tablet
50 mcg PO DAILY
polyethylene glycol 3350 [Miralax] 17 gram powder in packet
17 g PO HS
Changed
metformin 500 mg Tablet
500 mg PO BID Qty: 0 0RF
Discontinued
clopidogrel 75 MG tablet
75 mg PO DAILY@1500
Discharge Orders:
Discharge Patient (As Directed); Ordered 02/06/24
Ordered By: Jose Ramon Pedroza
Discharge Date and Time
Print Language: [place]
[2024-02-06 15:00] VITALS: BP 131/57
--- NOTE | 2024-02-06 15:02 | WOUNDNOTE ---
[facility] RN NOTE: Patient visited for new right buttock stage 2 PI noted on HAP report. Chart reviewed prior to assessment. Sacrum and buttocks with frictions appearing skin and MASD likely caused by frequent incontinence. No open wound noted.Spoke to RN
Aylin who explained condom cath not possible due to patients anatomy and prior surgery. Patient is on a [employer] Accumax and turns with assistance. He ate 100% of lunch and will be discharged to SNF later today. Continue frequent continence care
and skin protective measures.
== END 2024-02-06 16:00 | DRG 662 ==
LOC: 2 SOUTH 21:57
PROVIDERS: Internal Medicine; Internal Medicine Critical Care Medicine; Nurse Practitioner Family; Specialist; Student in an Organized Health Care Education/Training Program; ADMITTING PHYSICIAN Internal Medicine; ATTENDING PHYSICIAN Hospitalist; EMERGENCY PHYSICIAN Emergency Medicine; FAMILY PHYSICIAN Family Medicine; OTHER PHYSICIAN Internal Medicine Pulmonary Disease
PROC: 30233N1 Transfusion of Nonautologous Red Blood Cells into Peripheral Vein, Percutaneous Approach (ICD-10-PCS; 2024-01-25)
PROC: 0VTTXZZ Resection of Prepuce, External Approach (ICD-10-PCS; 2024-02-03)
PROC: 0W3R8ZZ Control Bleeding in Genitourinary Tract, Via Natural or Artificial Opening Endoscopic (ICD-10-PCS; 2024-02-03)
PROC: 0TCD8ZZ Extirpation of Matter from Urethra, Via Natural or Artificial Opening Endoscopic (ICD-10-PCS; 2024-02-03)
DX: N30.41 Irradiation cystitis with hematuria (principal); R57.8 Other shock; D62 Acute posthemorrhagic anemia; N17.9 Acute kidney failure, unspecified; D68.32 Hemorrhagic disorder due to extrinsic circulating anticoagulants; N13.8 Other obstructive and reflux uropathy; Z79.82 Long term (current) use of aspirin; Z87.891 Personal history of nicotine dependence; N47.1 Phimosis; E11.51 Type 2 diabetes mellitus with diabetic peripheral angiopathy without gangrene; I10 Essential (primary) hypertension; I25.10 Atherosclerotic heart disease of native coronary artery without angina pectoris; Z95.1 Presence of aortocoronary bypass graft; E78.5 Hyperlipidemia, unspecified; C61 Malignant neoplasm of prostate; K21.9 Gastro-esophageal reflux disease without esophagitis; F41.9 Anxiety disorder, unspecified; E87.5 Hyperkalemia; N40.0 Benign prostatic hyperplasia without lower urinary tract symptoms
CPT/HCPCS: 71045; 74176; 76770; 80048; 80053; 81003; 81015; 82570; 82607; 82728; 82805; 82962; 83036; 83540; 83550; 83735; 83880; 84100; 84300; 84443; 85014; 85018; 85025; 85027; 85610; 85730; 86850; 86900; 86901; 86920; 87811; 93005; 93306; 94762; 97116; 97163; 97167; 97530; 97535; 99285; P9016

== ENCOUNTER 2024-02-10 23:33 | Inpatient (IN) | payer MEDICARE, BC, SELFPAY ==
[2024-02-10 19:13] VITALS: BMI 34.7
[2024-02-10 19:14] VITALS: BP 134/85
--- NOTE | 2024-02-10 20:07 | ED.GENMED ---
History of Present Illness
<Lee Chester MD - Last Filed: 02/12/24 12:35>
General
Chief Complaint: Male Genito-Urinary Symptoms
Source: patient
Exam Limitations: none
Time Seen by Provider: 02/10/24 19:24
Nursing documentation reviewed up to this point in time: agreed with
Travel History
Have you had any contact with someone who has COVID-19?: No
Do you have any symptoms of coronavirus? Fever > 100 degrees, chills, cough, shortness of breath, sore throat, loss of taste or smell, muscle aches, or headache?: No
History of Present Illness
History of Present Illness:
Patient status post cystoscopy with evacuation of clot, fulguration of multiple bleeding sites dorsal slit circumcision 1 week ago, presents to ED from skilled nursing secondary to continual penile pain after discharge with ongoing difficulty with
urination. In addition, patient has had difficult time with bowel movement despite receiving enema. Denies fever or chills. Denies abdominal pain. Denies nausea or vomiting. Denies loss of appetite.
Past History
<Lee Chester MD - Last Filed: 02/12/24 12:35>
Past History
ED Past Medical History: Cancer (Prostate), GERD, HTN, NIDDM, Psychiatric (Anxiety) and Other (Anemia, PVD, BPH)
ED Past Surgical History: Cardiac (CABG, Stents) and Tonsilectomy
Social History
Tobacco: Former smoker
Alcohol: None
Drug: None
Personal:
Living: with family
Employment: Retired
Family History
Family History: Negative Early CAD
Review of Systems
<Lee Chester MD - Last Filed: 02/12/24 12:35>
Review of Systems
Allergies reviewed?: Yes
All Other Systems: ROS reviewed and negative except as documented in HPI and ROS
Constitutional: Reports no symptoms; Denies fever
ABD/GI: Reports no symptoms; Denies abdominal pain
: Reports difficulty voiding
Musculoskeletal: Reports no symptoms
Skin: Reports no symptoms
Neurological: Reports no symptoms
Phy Exam
<Lee Chester MD - Last Filed: 02/12/24 12:35>
Physical Exam
Physical Exam:
Physical Exam
General: mild distress, not acutely ill. afebrile
Head: nc/at. eomi
Neck: supple. no meningeal signs.
Abdomen: normal bowel sounds. not tender.
: dorsal slit of penile shaft noted, without sig. swelling
Neuro: alert and oriented. no focal neurological deficits
Skin: no rash
Psychiatric: well kept. interactive and cooperative
Extremities: no edema. no calf tenderness.
Course
<Lee Chester MD - Last Filed: 02/12/24 12:35>
Orders/Labs/Results
Orders:
Orders
02/10/24 19:24
Bladder Scan- Treatment ONCE
02/10/24 19:54
Sams Placement- Treatment ONCE
Reason for insertion: Acute Retention
02/10/24 20:40
CR Abdomen - 1 View Urgent
Comment:
Reason For Exam: constipation
02/10/24 20:48
Basic Metabolic Panel Urgent
Complete Blood Count/With Diff Urgent
Urinalysis Reflex To Culture Urgent
Date Specimen was Collected: 02/10/24
Time Specimen was Collected: 20:47
Urine Microscopic Reflex Cult Urgent
Urine Culture Urgent
FANNIE Source: U
Specimen Description:
Date Specimen was Collected: 02/10/24
Time Specimen was Collected: 20:47
02/10/24 21:28
0.9% Sodium Chloride 500 ml [Nss] 500 ml IV BOLUS
02/10/24 21:44
Magnesium Citrate [Citroma] 300 ml PO ONCE ONE
02/10/24 21:47
Sodium Zirconium Cyclosilicate [Lokelma] 10 gram PO NOW STA
02/10/24 23:00
Flush (0.9% Sodium Chloride) [Flush (Nss)] See Dose Instructions IV PER PROTOCOL
02/10/24 23:04
Consult Urology [UROLOGY CONSULT] Routine
Consulting Provider: Omari Garza
Was physician already notified: Yes
02/10/24 23:30
Lidocaine 2% [Lidocaine Uro-Jet 2%] 1 syringe TOPICAL NOW STA
02/10/24 23:32
HYDROmorphone [Dilaudid] 0.5 mg IV Q4HPRN PRN
Ondansetron Injectable [Zofran] 4 mg IV Q6HPRN PRN
Abnormal Lab Results
02/10/24
20:48
RBC 3.13 L 10^6/uL
(4.70-6.10)
Hgb 9.2 L g/dL
(13.0-18.0)
Hct 28.7 L %
(39.0-52.0)
MCHC 32.1 L g/dL
(33.0-37.0)
RDW 16.7 H %
(11.5-14.5)
Abs Immat Gran (auto) 0.1 H 10^3/uL
(0-0.05)
Absolute Monos (auto) 0.7 H 10^3/uL
(0.1-0.6)
Immature Gran % 1.3 H %
(0-0.5)
Lymphocytes % 18.8 L %
(20.5-51.1)
Monocytes % 10.2 H %
(1.7-9.3)
Potassium 5.6 H mmol/L
(3.5-5.1)
BUN 43 H mg/dl
(9-20)
Glucose 110 H mg/dl
(70-99)
Urine Ketones 1+ A
(Negative)
Ur Occult Blood Reflex 4+ A
(Negative)
Urine Bilirubin 1+ A
(Negative)
Leukocyte Esterase Rfl Trace A
(Negative)
Urine RBC 90-100 A /HPF
(0-2)
Urine Bacteria (Reflex) Moderate A
(Negative)
Urine Albumin (Reflex) 3+ A
(Neg - Trace)
02/10/24 20:48
02/10/24 20:48
Vital Signs
Initial and Last Documented VS:
Initial Vital Signs
Pulse Resp BP Pulse Ox
66 16 134/85 98
02/10/24 19:14 02/10/24 19:14 02/10/24 19:14 02/10/24 19:14
Last Documented Vital Signs
Temp Pulse Resp BP Pulse Ox
98.2 F 57 16 135/67 95
02/12/24 11:33 02/12/24 11:33 02/12/24 11:33 02/12/24 11:33 02/12/24 11:33
<Alex Langley, DO - Last Filed: 02/10/24 23:08>
Orders/Labs/Results
Orders:
Orders
02/10/24 19:24
Bladder Scan- Treatment ONCE
02/10/24 19:54
Sams Placement- Treatment ONCE
Reason for insertion: Acute Retention
02/10/24 20:40
CR Abdomen - 1 View Urgent
Comment:
Reason For Exam: constipation
02/10/24 20:48
Basic Metabolic Panel Urgent
Complete Blood Count/With Diff Urgent
Urinalysis Reflex To Culture Urgent
Date Specimen was Collected: 02/10/24
Time Specimen was Collected: 20:47
Urine Microscopic Reflex Cult Urgent
Urine Culture Urgent
FANNIE Source: U
Specimen Description:
Date Specimen was Collected: 02/10/24
Time Specimen was Collected: 20:47
02/10/24 21:28
0.9% Sodium Chloride 500 ml [Nss] 500 ml IV BOLUS
02/10/24 21:44
Magnesium Citrate [Citroma] 300 ml PO ONCE ONE
02/10/24 21:47
Sodium Zirconium Cyclosilicate [Lokelma] 10 gram PO NOW STA
02/10/24 23:00
Flush (0.9% Sodium Chloride) [Flush (Nss)] See Dose Instructions IV PER PROTOCOL
02/10/24 23:04
Consult Urology [UROLOGY CONSULT] Routine
Consulting Provider: Omari Garza
Was physician already notified: Yes
02/10/24 23:30
Lidocaine 2% [Lidocaine Uro-Jet 2%] 1 syringe TOPICAL NOW STA
02/10/24 23:32
HYDROmorphone [Dilaudid] 0.5 mg IV Q4HPRN PRN
Ondansetron Injectable [Zofran] 4 mg IV Q6HPRN PRN
Abnormal Lab Results
02/10/24
20:48
RBC 3.13 L 10^6/uL
(4.70-6.10)
Hgb 9.2 L g/dL
(13.0-18.0)
Hct 28.7 L %
(39.0-52.0)
MCHC 32.1 L g/dL
(33.0-37.0)
RDW 16.7 H %
(11.5-14.5)
Abs Immat Gran (auto) 0.1 H 10^3/uL
(0-0.05)
Absolute Monos (auto) 0.7 H 10^3/uL
(0.1-0.6)
Immature Gran % 1.3 H %
(0-0.5)
Lymphocytes % 18.8 L %
(20.5-51.1)
Monocytes % 10.2 H %
(1.7-9.3)
Potassium 5.6 H mmol/L
(3.5-5.1)
BUN 43 H mg/dl
(9-20)
Glucose 110 H mg/dl
(70-99)
Urine Ketones 1+ A
(Negative)
Ur Occult Blood Reflex 4+ A
(Negative)
Urine Bilirubin 1+ A
(Negative)
Leukocyte Esterase Rfl Trace A
(Negative)
Urine RBC 90-100 A /HPF
(0-2)
Urine Bacteria (Reflex) Moderate A
(Negative)
Urine Albumin (Reflex) 3+ A
(Neg - Trace)
02/10/24 20:48
02/10/24 20:48
Vital Signs
Initial and Last Documented VS:
Initial Vital Signs
Pulse Resp BP Pulse Ox
66 16 134/85 98
02/10/24 19:14 02/10/24 19:14 02/10/24 19:14 02/10/24 19:14
Last Documented Vital Signs
Temp Pulse Resp BP Pulse Ox
98.2 F 57 16 135/67 95
02/12/24 11:33 02/12/24 11:33 02/12/24 11:33 02/12/24 11:33 02/12/24 11:33
<Lee Chester MD - Last Filed: 02/12/24 12:35>
MDM/Problems Addressed
MDM/Problems Addressed:
Discussed with , on-call urology. Recommends insertion of 20 Armenian three-way Sams catheter for CBI. If afterwards, urine is draining freely, patient can be discharged back to skilled nursing on leg bag, with outpatient follow-up at urology
office.
Abdominal x-ray noted. Will administer magnesium citrate.
<Lee Chester MD - Last Filed: 02/12/24 12:35>
*Critical Care Note
Total Time (30-74mins, 75-104mins- exclusive of procedures): Not Applicable
<Alex Langley DO - Last Filed: 02/10/24 23:08>
Update Note
Update Note:
11 PM care of patient was transitioned pending evaluation of urine after beginning of CBI. After 1 bag of CBI, patient still has dark red urine. Urology made aware again. Urology believes this is related to his friable urine from prior radiation.
Plan is to hold any anticoagulation, continue CBI overnight and admit
ED Attending Note
<Lee Chester MD - Last Filed: 02/12/24 12:35>
-
Portions of this chart may have been created with voice recognition software.� Occasional wrong word or��sound alike� substitutions may have occurred due to the inherent limitations of voice recognition software.
Discharge Plan
Departure
Patient Disposition: Admit
Date of Disposition: 02/10/24
Time of Disposition: 23:08
Admit to: Med/Surg
Presentation/result/management discussed w/ accepting MD/DO: Hospitalist
Discharge Problem:
Hyperkalemia, Hematuria, Acute urinary retention
Interventions
Interventions:
*Risk Screen - Suicide Last Done: 02/10/24 19:14
*General Assessment Last Done: 02/10/24 19:14
*Neglect/Abuse Screening Last Done: 02/10/24 19:14
ED- Fall Risk Assessment Last Done: 02/10/24 19:14
*ED COVID-19 Vaccine History Last Done: 02/10/24 19:14
*Nursing Disposition Last Done: 02/11/24 01:45
ED-Male Genitourinary Assessment Last Done: 02/10/24 23:25
Discharge Date and Time
Discharge Date/Time: 02/11/24 01:45
[2024-02-10 20:54] LABS: % Basophils 0.6 % (0-2); % Eosinophils 2.9 % (0-6); % Immature Granulocytes 1.3 % (0-0.5); % Lymphocytes 18.8 % (20.5-51.1); % Monocytes 10.2 % (1.7-9.3); % Neutrophils 66.2 % (42.2-75.2); Absolute Eosinophils 0.2 10^3/uL (0-0.7); Absolute Immature Granulocytes 0.1 10^3/uL (0-0.05); Absolute Lymphocytes 1.3 10^3/uL (1.2-3.4); Absolute Monocytes 0.7 10^3/uL (0.1-0.6); Absolute Neutrophils 4.6 10^3/uL (1.4-6.5); Hematocrit 28.7 % (39.0-52.0); Hemoglobin 9.2 g/dL (13.0-18.0); Mean Corp Hgb Conc. 32.1 g/dL (33.0-37.0); Mean Corpuscular Hgb 29.4 pg (27.0-31.0); Mean Corpuscular Volume 91.7 fL (80.0-94.0); Mean Platelet Volume 9.5 fL (7.4-10.4); Nucleated Red Blood Cells % 0 % (-); Platelet Count 290 10^3/uL (130-400); Red Blood Cell Count 3.13 10^6/uL (4.70-6.10); Red Cell Dist. Width 16.7 % (11.5-14.5)
[2024-02-10 20:58] LABS: Urine Albumin 3+ (Neg - Trace); Urine Bilirubin 1+ (Negative); Urine Character Slightly Cloudy (Clear); Urine Color Brown; Urine Glucose Negative (Negative); Urine Ketone 1+ (Negative); Urine Leukocyte Trace (Negative); Urine Nitrite Negative (Negative); Urine Occult Blood 4+ (Negative); Urine Specific Gravity 1.015 (<1.030); Urine Urobilinogen Negative (Neg - 1+); Urine pH 6.5 (5.0-9.0)
[2024-02-10 21:17] LABS: Blood Urea Nitrogen 43 mg/dl (9-20); Calcium 9.2 mg/dl (8.4-10.2); Carbon Dioxide 26 mmol/L (22-30); Chloride 101 mmol/L (98-107); Estimated Creatinine Clearance 48 ml/min; Glucose 110 mg/dl (70-99); Potassium 5.6 mmol/L (3.5-5.1); Sodium 135 mmol/L (135-145)
[2024-02-10 21:20] LABS: Urine Red Blood Cell 90-100 /HPF (0-2); Urine Squamous Cell 0-2 /LPF (Few); Urine White Cell 0-2 /HPF (0-5)
[2024-02-10 21:21] LABS: Urine Bacteria Moderate (Negative)
[2024-02-10] MEDS: CITROMA 300 ML PO (21:54)
[2024-02-10] MEDS: NSS 500 IV (21:55)
[2024-02-10 22:06] VITALS: BP 156/61
[2024-02-10] MEDS: LOKELMA 10 GRAM PO (22:18)
[2024-02-10 23:00] VITALS: BP 120/55
--- NOTE | 2024-02-10 23:17 | HPS.HSE ---
Family Physician
-
Family Physician: Logan Burks MD
Chief Complaint
-
Debility urinate, constipation
History of Present Illness
88-year-old male from senior care with inability to urinate and constipation despite receiving enema. He required Sams catheter which showed hematuria ongoing despite CBI. He states he has been constipated since discharge he had enema yesterday
without relief. The patient denies fever, chills, chest pain, palpitations, shortness of breath, cough, nausea, vomiting, diarrhea
He had a recent admission for hematuria complicated with clot urinary retention blood loss anemia hemorrhagic shock requiring 4 units blood transfusion. 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
history severe phimosis. He is status post cystoscopy, evacuation of clot, fulguration of multiple bleeding sites and dorsal slit circumcision by Dr. Pardo. He completed 5-day course of IV ceftriaxone
He has past medical history of prostate cancer with radiation, BPH, CAD status post CABG, anemia, DM2, CAD, CEA, HLD, chronic hematuria, chronic ambulatory dysfunction.
Medical History
Past Medical History
Past Medical History: Reports Other (CAD status post CABG, hypertension, diabetes, GERD, anxiety, anemia, BPH, prostate cancer status post radiation, hematuria with clot retention January 2024, severe phimosis status post circumcision January 2024)
Past Surgical History: Reports Other ( cystoscopy, evacuation of clot, fulguration of multiple bleeding sites and dorsal slit circumcision by Dr. Pardo. 02/03/2024, CEA)
Social History
Tobacco: Non-smoker
Alcohol: None
Drug: None
Family History
Family History: Not pertinent
Allergies / Home Medications
Allergies reflects when Allergies were last updated in [facility].
Home Medications with original date entered in [facility]
Allergy/Medication List:
Allergies
Allergy/AdvReac Type Severity Reaction Status Date / Time
No Known Allergies Allergy Verified 11/26/23 15:32
Home Medications
atorvastatin 40 mg tablet 40 mg PO HS High cholesterol 02/05/17
cholecalciferol (vitamin D3) 50 mcg (2,000 unit) tablet 50 mcg PO DAILY Supplement 11/26/23
omeprazole magnesium 20 mg tablet,delayed release (Prilosec OTC) 40 mg PO DAILY Gastrointestinal Issue 11/26/23
polyethylene glycol 3350 17 gram oral powder packet (Miralax) 17 g PO HS Constipation 11/26/23
metformin 500 mg tablet 500 mg PO BID Diabetes #0 tabs 02/06/24
phenazopyridine 200 mg tablet 200 mg PO Q8HPRN PRN URETHRAL BURNING 7 days #21 tabs 02/06/24
acetaminophen 500 mg tablet (Tylenol Extra Strength) 1,000 mg PO Q8HPRN PRN MILD PAIN 02/10/24
bacitracin zinc 500 unit-polymyxin B 10,000 unit/gram top oint packet (Polysporin) 1 applic topical TID PENIS-SUTURED AREA 02/10/24
bisacodyl 10 mg rectal suppository (Dulcolax (bisacodyl)) 10 mg WI DAILYPRN PRN IF NO BM AFTR MOM 02/10/24
magnesium hydroxide 400 mg/5 mL oral suspension (Milk of Magnesia) 2,400 mg PO [id number] PRN IF NO BM BY 2ND DAY 02/10/24
sennosides 8.6 mg tablet (senna) 17.2 mg PO HS 02/10/24
sodium phosphates 19 gram-7 gram/118 mL enema (Fleet Enema) 118 ml WI DAILYPRN PRN IF NO BM AFTR DULCOLAX 02/10/24
Review of Systems
-
History Source: Patient
A 12 point ROS was completed and negative except as noted: Yes
Constitutional: Denies Fever or Chills
EENT: Denies Sore Throat or Runny Nose
Respiratory: Denies Cough or Trouble Breathing
Cardiac: Denies Chest Pain, Palpitations or Syncope
Abdomen/GI: Reports Abdominal Pain (Suprapubic secondary to urinary retention), Constipated and Bloody Stools (When Sams catheter inserted); Denies Nausea, Vomiting, Diarrhea or Black Stools
: Reports Dysuria, Difficulty Voiding and Other (Penile pain, sutures in place from recent circumcision)
Musculoskeletal: Denies Joint Pain or Edema
Skin: Reports Other (Right lower extremity abrasion present on admission); Denies Itching or Rash
Neurological: Denies Dizzy or Headache
Endocrine: Reports No Symptoms
Hematologic/Lymphatic: Reports No Symptoms
Psych: Reports Calm
Physical Exam
Vital Signs
Vital Signs
Temp Pulse Resp BP Pulse Ox
97 F 66 19 156/61 96
02/10/24 19:19 02/10/24 22:06 02/10/24 22:06 02/10/24 22:06 02/10/24 22:06
Physical Exam
General: Conversant and Pain; No Fever or Chills
HEENT: NormoCephalic, Anicteric, Moist mucous membranes, PERRLA, [place] Conjunctivae, No Ptosis and Other (Chronic right eye strabismus)
Respiratory: Clear; No Wheezes, Rales or Rhonchi
Cardiac: S1/S2, Regular Rhythm and Murmur (3/6 systolic); No Rub, Gallop or Peripheral Edema
Breast: Deferred by me
GI: Soft, Non Distended, Normal Bowel Sounds and Tender (Suprapubic)
Rectal: Deferred by Provider
Genito-urinary: Sams (CBI draining strawberry in color) and Other (Glans of penis intact with surrounding sutures intact no current drainage patient is status post circumcision)
Musculoskeletal: No Clubbing, No Cyanosis and No Edema
Skin: Warm, Dry and Other (Right lower extremity abrasion present on admission)
Neuro: AO x 3, No Motor Deficits, Nonfocal/grossly intact, Cranial Nerves Intact and No Sensory Deficits; No Slurred Speech, Facial Droop or Tremors
Psych: Calm
Laboratory Results
-
02/10/24 20:48
02/10/24 20:48
Impression/Plan
-
Impression/plan:
Admit to telemetry
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
#Prostate CA status post radiation
-02/03/24 Status post circumcision for severe phimosis, post cystoscopy evacuation of clot, fulguration multiple bleeding sites
Hgb 9.2 stable from DC on 02/06/2024
-Continue to apply Polysporin to penis sutured area status post circumcision
-Lidocaine topical for penile pain
-N.p.o.
-H&H every 8 hours
-CBI
-IV Rocephin
-Consult urology
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
#BPH Hx
-Current Sams catheter and monitor output
#Acute hyperkalemia
K5.6
-Patient given Lokelma and mag citrate
-Follow BMP
#Acute constipation
-Patient given mag citrate in ER, monitor bowel movements if no improvement mag citrate may give repeat enema
-Continue bowel regimen MiraLAX daily, 17.2 mg senna, milk of mag every 48 H
Abdominal x-ray, large stool burden
#Right lower extremity skin abrasion present on admission
-No surrounding erythema
-Consult wound care
#CKD stage III
Creat 1.3, CrCl 48
Follow BMP
#Cardiac murmur, known aortic stenosis
#CAD status post CABG x 4 vessel 15 years ago
-Continue statin
#DM2
-Accu-Cheks with SSI
-Hold metformin
#HLD
-Continue atorvastatin 40 mg at bedtime
#GERD
-Continue Prilosec
#Hx carotid stenosis status post CEA right
DVT prophylaxis
SCDs
Full code
--- NOTE | 2024-02-10 23:38 | W.PN.UPDATE ---
Update Note
Progress Note Update
This is an addendum to the H&P written by Natalie Arrington on 02/10/2024.
Patient seen and examined independently with DIRECT SERVICE PROVIDER. 88-year-old male past medical history of prostate cancer status post radiation, radiation cystitis, BPH, phimosis, CAD status post CABG, moderate aortic stenosis, anxiety, diabetes, carotid stenosis
status post CEA, hyperlipidemia, who was recently admitted for hematuria and retention/hemorrhagic shock requiring blood transfusion x 4 units. Patient underwent CBI and went to the operating room for cystoscopy with clot evacuation, fulguration of
multiple bleeding sites and dorsal slit circumcision for severe phimosis.
He presents again for ongoing difficulty with urination and penile pain. Urology recommended CBI which is resulting in hematuria. Labs show hyperkalemia likely secondary to constipation/urinary retention. Abdominal x-ray shows large stool burden.
Patient has not had bowel movement since he was last hospitalized. Enema attempted in [facility] and milk of magnesia given in ER today.
Empiric ceftriaxone. Continue CBI. Urology consulted. NPO. Lokelma given for hyperkalemia. Milk of Magnesia given in ER. Continue bowel regimen, and if no further bowel movement then consider repeat enema tomorrow.
[2024-02-11] VITALS (9 sets, daily range): BP systolic 111–152; BP diastolic 49–87; BMI 33.4
[2024-02-11] MEDS: LIDOCAINE URO-JET 2% 1 SYRINGE TOPICAL (00:08)
[2024-02-11] MEDS: ROCEPHIN 1000 MG IV ×2 (00:51→23:08)
[2024-02-11] MEDS: STERILE WATER FOR INJECTION 10 ML IV ×2 (00:52→23:08)
[2024-02-11] MEDS: NSS 1000 IV ×2 (02:24→15:18)
[2024-02-11 05:44] LABS: Glucose - Point of Care 110 mg/dl (70-99)
[2024-02-11 06:14] LABS: % Basophils 0.5 % (0-2); % Eosinophils 3.1 % (0-6); % Immature Granulocytes 0.9 % (0-0.5); % Lymphocytes 18.2 % (20.5-51.1); % Monocytes 9.5 % (1.7-9.3); % Neutrophils 67.8 % (42.2-75.2); Absolute Eosinophils 0.2 10^3/uL (0-0.7); Absolute Immature Granulocytes 0.1 10^3/uL (0-0.05); Absolute Lymphocytes 1.2 10^3/uL (1.2-3.4); Absolute Monocytes 0.6 10^3/uL (0.1-0.6); Absolute Neutrophils 4.4 10^3/uL (1.4-6.5); Hematocrit 25.5 % (39.0-52.0); Hemoglobin 8.2 g/dL (13.0-18.0); Mean Corp Hgb Conc. 32.2 g/dL (33.0-37.0); Mean Corpuscular Hgb 29.3 pg (27.0-31.0); Mean Corpuscular Volume 91.1 fL (80.0-94.0); Mean Platelet Volume 9.7 fL (7.4-10.4); Nucleated Red Blood Cells % 0 % (-); Platelet Count 269 10^3/uL (130-400); White Blood Cell Count 6.5 10^3/uL (4.8-10.8)
[2024-02-11 07:02] LABS: Blood Urea Nitrogen 35 mg/dl (9-20); Calcium 8.7 mg/dl (8.4-10.2); Carbon Dioxide 30 mmol/L (22-30); Chloride 104 mmol/L (98-107); Estimated Creatinine Clearance 51 ml/min; Glucose 95 mg/dl (70-99); Potassium 5.3 mmol/L (3.5-5.1); Sodium 136 mmol/L (135-145); eGFR 58.89
--- NOTE | 2024-02-11 07:15 | W.PN.UPDATE ---
Update Note
Progress Note Update
88M recently discharged 02/01 to [facility] presents w/ acute urinary retention and profound constipation.
Has not had BM since discharge (~1 week).
Admitted 01/25/24 w/ gross hematuria w/ clot retention - required 4u pRBCs during admission.
02/02: s/p cystoscopy, clot evacuation, fulguration multiple small bleeding sites (bladder), dorsal slit circumcision.
Noted to be voiding but w/ mild hematuria post-op prior to discharge.
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
24Fr 3-way catheter placement advised by Urology in ER last night (2-way catheter placed initially).
Hgb 9.2 => 8.2
Cr @baseline
Significant punchy urine o/n moderately improved to pink this AM on high rate CBI.
Plan:
- Continue CBI to keep urine light pink to clear and clot-free
- Tranexamic acid 1000 mg x1 this AM
- NPO for now - consider diet later in day if urine continues improving
- Transfusion indications per Hospitalist (H/H stable today)
D/w Dr. Dietrich.
D/w RN.
D/w patient at bedside.
[2024-02-11] MEDS: TRANEXAMIC ACID 110 MG IV (08:19)
[2024-02-11] MEDS: POLYSPORIN OINTMENT 1 APPLIC TOPICAL ×3 (08:20→21:04)
[2024-02-11] MEDS: PROTONIX 40 MG PO (08:20)
[2024-02-11] MEDS: VITAMIN D3 (cholecalciferol) 50 MCG PO (08:21)
--- NOTE | 2024-02-11 08:42 | W.PN.HOSP.TC ---
Today's Communication/Plan
-
see A/P
Assessment / Plan
Assessment / Plan
88-year-old male past medical history of prostate cancer status post radiation, radiation cystitis, BPH, phimosis, CAD status post CABG, moderate aortic stenosis, anxiety, diabetes, carotid stenosis status post CEA, hyperlipidemia, who was recently
admitted for hematuria and retention/hemorrhagic shock requiring blood transfusion x 4 units. Patient underwent CBI and went to the operating room for cystoscopy with clot evacuation, fulguration of multiple bleeding sites and dorsal slit
circumcision for severe phimosis.
He presented again for ongoing difficulty with urination and penile pain. Urology recommended CBI.
Abdominal x-ray shows large stool burden. Patient has not had bowel movement since he was last hospitalized. Enema attempted in [facility] and milk of magnesia given in ER.
A/P:
# Recurrent hematuria/clot and urinary retention, likely related to prior radiation cystitis
# Prostate CA status post radiation
s/p circumcision for severe phimosis, post cystoscopy evacuation of clot, fulguration multiple bleeding sites 02/03/24
Hgb 8.2 today from 9.2 on admission
Cont CBI
Continue to apply Polysporin to penis sutured area status post circumcision
Lidocaine topical for penile pain
Cover with IV Rocephin
Follow urine Cx
Consult urology
# BPH Hx
Current Sams catheter and monitor output
# Mild acute hyperkalemia
s/p Lokelma and mag citrate
Follow BMP
# Acute constipation
Abdominal x-ray, large stool burden
Patient given mag citrate in ER, monitor bowel movements, if no improvement mag citrate may give repeat enema
Continue bowel regimen MiraLAX daily, 17.2 mg senna, milk of mag every 48 H
# Right lower extremity skin abrasion present on admission
No surrounding erythema
Consult wound care
# CKD stage III
Creat 1.3, CrCl 48
Follow BMP
# Cardiac murmur, known aortic stenosis
# CAD status post CABG x 4 vessel 15 years ago
Continue statin
# DM2
Accu-Cheks with SSI
Hold metformin
# HLD
Continue atorvastatin 40 mg at bedtime
# GERD
Continue Prilosec
# Hx carotid stenosis status post CEA right
DVT prophylaxis: SCDs
Full code
Anticipated Discharge: > 48 hours
Subjective/Interval History
-
Date of Service: February 11, 2024
Objective Data
-
Labs:
Laboratory Results
02/10/24 02/11/24 02/11/24
20:48 05:48 13:00
WBC 7.0 6.5
Hgb 9.2 L 8.2 L Pending
Hct 28.7 L 25.5 L Pending
Plt Count 290 269
Sodium 135 136
Potassium 5.6 H 5.3 H
Chloride 101 104
Carbon Dioxide 26 30
BUN 43 H 35 H
Creatinine 1.3 1.2
Glucose 110 H 95
Calcium 9.2 8.7
02/11/24
21:00
WBC
Hgb Pending
Hct Pending
Plt Count
Sodium
Potassium
Chloride
Carbon Dioxide
BUN
Creatinine
Glucose
Calcium
Vital Signs:
Vital Signs
Temp Pulse Resp BP Pulse Ox
36.4 C 66 18 128/60 99
02/11/24 03:57 02/11/24 03:57 02/11/24 03:57 02/11/24 03:57 02/11/24 03:57
I&O
02/10/24 02/11/24 02/12/24
06:59 06:59 06:59
Intake Total 250 / 250 110 / 110
Output Total 2900 / 2900
Balance -2650 / -2650 110 / 110
Review of Systems
-
Genitourinary: Reports Other (hematuria)
Physical Exam
-
General: Well Developed, No Apparent Distress and Comfortable
HEENT: Normocephalic, Atraumatic and Moist Mucous Membranes
Respiratory: Clear to Auscultation and Non Labored Respirations; Negative Accessory Resp Muscle Use
Cardiac: Regular Rhythm and S1/S2; Negative Murmur, Rub or Gallop
GI: Soft, Nontender, Nondistended and Normal Bowel Sounds; Negative Organomegaly
Rectal: Deferred by Provider
Genito-urinary: Sams, Continuous Bladder Irrigation and Other (examined with syrup mixer assistant)
Musculoskeletal: No Clubbing, No Cyanosis and No Edema
Skin: Negative Rash
Neuro: Awake and Alert
Psych: Calm and Intact Judgement/Insight
Data Reviewed
-
Labs: Labs Reviewed by me
[2024-02-11] MEDS: DILAUDID 0.5 MG IV ×3 (10:59→20:35)
--- NOTE | 2024-02-11 11:00 | WOUNDNOTE ---
R FLANK/CHEST (LATERAL)
--- NOTE | 2024-02-11 11:00 | WOUNDNOTE ---
[facility] RN note: Patient admitted with recurrent retention, hematuria, constipation. Patient admitted from SNF.
See H&P for complete history.
PMH: 01/25/24-02/06/24 hematuria/retention, anemia, radiation induced cystitis, history of severe phimosis s/p cystoscopy, prostate ca with radiation therapy, BPH, CABG, DM, ambulation dysfunction, CKD3, L CEA for carotid stenosis.
Wound Location and type/assessment: Patient admitted with: Superficial dermal abrasions R morton. Coccyx/R buttocks with almost healed stage 2 pressure/friction related injuries. R heel blanchable red/boggy.
Appetite: currently NPO.
Pressure redistribution devices in place: [employer] Accumax. Patient turns with minimal assistance.
Plan: R morton silicone border foam maintained. Silicone border foam applied to R sacral/buttocks. Protective foam applied to R heel. Heels off bed with air chair cushion. Patient turned to L semi side lying position with help from MONO Garcia. Radha to
consider air bed if patient not turning/repositioning enough. Discussed with MONO Garcia.
Care plan to be updated and will follow as needed.
--- NOTE | 2024-02-11 12:00 | CONS.URO ---
Consultation
-
Date/Time Consultation Requested: 02/11/24
Date/Time Consultation Performed: 02/11/24 0730
Requesting Provider: Hospitalist
Performing Provider: Kayla
Reason for Consultation: hematuria w/ clot retention
Medical History
History of Present Illness
88M recently discharged 02/01 to [facility] presents w/ acute urinary retention and profound constipation.
Has not had BM since discharge (~1 week).
Admitted 01/25/24 w/ gross hematuria w/ clot retention - required 4u pRBCs during admission.
02/02: s/p cystoscopy, clot evacuation, fulguration multiple small bleeding sites (bladder), dorsal slit circumcision.
Noted to be voiding but w/ mild hematuria post-op prior to discharge.
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
24Fr 3-way catheter placement advised by Urology in ER last night (2-way catheter placed initially).
Hgb 9.2 => 8.2
Cr @baseline
Significant punchy urine o/n moderately improved to pink this AM on high rate CBI.
Past Medical History
Past Medical History: CAD, GERD, HTN, NIDDM and Other (anxiety, anemia, BPH, prostate cancer s/p XRT, radiation cystitis, severe phimosis)
Past Surgical History: Cardiac (CABG), Urological (cysto/clot evac/fulguration/dorsal slit 02/03/24) and Other (CEA)
Social History
Tobacco: Non-smoker
Alcohol: None
Drug: None
Personal:
Living: With Family
Employment: Retired
Family History
Family History: Reviewed & Not Pertinent
Allergies/Home Medications
Allergies
Allergy/AdvReac Type Severity Reaction Status Date / Time
No Known Allergies Allergy Verified 11/26/23 15:32
Home Medications
�Medication �Instructions �Recorded �Confirmed �Type
atorvastatin 40 mg tablet 40 mg PO HS High cholesterol 04/26/17 04/30/24 History
cholecalciferol (vitamin D3) 50 50 mcg PO DAILY Supplement 11/26/23 02/10/24 History
mcg (2,000 unit) tablet
omeprazole magnesium 20 mg 40 mg PO DAILY Gastrointestinal 11/26/23 02/10/24 History
tablet,delayed release (Prilosec Issue
OTC)
polyethylene glycol 3350 17 gram 17 g PO HS Constipation 11/26/23 02/10/24 History
oral powder packet (Miralax)
metformin 500 mg tablet 500 mg PO BID Diabetes #0 tabs 02/06/24 02/10/24 Rx
phenazopyridine 200 mg tablet 200 mg PO Q8HPRN PRN URETHRAL 02/06/24 02/10/24 Rx
BURNING 7 days #21 tabs
acetaminophen 500 mg tablet 1,000 mg PO Q8HPRN PRN MILD PAIN 02/10/24 02/10/24 History
(Tylenol Extra Strength)
bacitracin zinc 500 unit-polymyxin 1 applic topical TID PENIS-SUTURED 02/10/24 02/10/24 History
B 10,000 unit/gram top oint packet AREA
(Polysporin)
bisacodyl 10 mg rectal suppository 10 mg VT DAILYPRN PRN IF NO BM 02/10/24 02/10/24 History
(Dulcolax (bisacodyl)) AFTR MOM
magnesium hydroxide 400 mg/5 mL 2,400 mg PO [id number] PRN IF NO BM 02/10/24 02/10/24 History
oral suspension (Milk of Magnesia) BY 2ND DAY
sennosides 8.6 mg tablet (senna) 17.2 mg PO HS Constipation 02/10/24 02/10/24 History
sodium phosphates 19 gram-7 118 ml VT DAILYPRN PRN IF NO BM 02/10/24 02/10/24 History
gram/118 mL enema (Fleet Enema) AFTR DULCOLAX
Review of Systems
-
History Source: Patient
A 12 point Review of Systems was completed except as noted: Yes
Physical Exam
Vital Signs
Vital Signs
Temp Pulse Resp BP Pulse Ox
97.7 F 72 16 137/67 97
02/11/24 07:30 02/11/24 11:35 02/11/24 11:35 02/11/24 11:35 02/11/24 11:35
Lab / Testing Results
Laboratory Results
02/11/24 21:00
02/11/24 05:48
Physical Exam
General: Well Developed, Well Nourished, No Apparent Distress and Comfortable
HEENT: Normocephalic and Anicteric
Respiratory: Non Labored Respirations
Cardiac: S1/S2
Breast: N/A
GI: Soft and Non Tender
Rectal: Deferred by Provider
Genito-urinary: Bloody Urine and Sams Catheter
Musculoskeletal: No Edema
Skin: Warm and Dry
Neuro: AO x 3, No Motor Deficits and Nonfocal/Grossly Intact
Hematologic/Lymphatic: No Lymphadenopathy
Psych: Calm and Intact Judgement
Assessment / Plan
-
Recurrent hemorrhagic cystitis
Hematuria w/ clot retention
Prostate cancer s/p XRT
Hgb 8.2 (9.2)
Cr WNL
- Hold anti-platelet therapy
- Continue CBI to keep urine light pink to clear and clot-free
- Aggressive bowel regimen
- Tranexamic acid 1000 mg x1 this AM
- Diet OK - no indication for uro-surgical intervention at this time
- Transfusion indication per Hospitalist (H/H stable today)
D/w Dr. Dietrich.
D/w RN.
D/w patient at bedside.
Data Reviewed
-
Total Time Spent with Patient (in minutes): 40
Lab Data: Labs Reviewed, Discussed with Physician and Discussed with Patient
Old Records: Reviewed
[2024-02-11 12:37] LABS: Glucose - Point of Care 106 mg/dl (70-99)
--- NOTE | 2024-02-11 12:48 | CM ---
Attempted to meet with patient; recently medicated and was sound asleep
Contacted via phone; she asked me to call her son, Celestine, to complete initial assessment
Prior to last hospital admission, patient lived with his in a one floor rancher; 1 step to enter; home bathroom has a stall shower
Son reported that his father was somewhat independent but needed assistance with ADLs; was receiving home PT/OT services
After recent [facility] stay, patient was discharged to [facility]
Per son, the [facility] bed is on hold; Per son, father was able to ambulate 100 feet with walker before current admission; was able to feed self; and needed assistance with ADLs
Plan: return to [facility] when medically stable; will continue to follow and coordinate transport back to SNF
--- NOTE | 2024-02-11 13:27 | PTCARENOTE ---
upon entering room, large amount of pink liquid noted on the floor. Sams drainage bag was not clamped and leaked all over the floor. CBI running wide open-light pink output noted in catheter tubing. pt sleeping soundly. will observe.
[2024-02-11] MEDS: TYLENOL 650 MG PO (15:44)
[2024-02-11 17:51] LABS: Glucose - Point of Care 114 mg/dl (70-99)
[2024-02-11] MEDS: SENOKOT 17.1999999999999993 MG PO (21:03)
[2024-02-11] MEDS: LIPITOR 40 MG PO (21:03)
[2024-02-11] MEDS: MIRALAX 17 GRAMS PO (21:05)
[2024-02-11 21:09] LABS: Glucose - Point of Care 118 mg/dl (70-99)
[2024-02-12] VITALS (10 sets, daily range): BP systolic 99–145; BP diastolic 45–67; PULSE 52; O2SAT 97; BMI 33.6
[2024-02-12] MEDS: NSS 1000 IV ×2 (02:28→14:29)
[2024-02-12] MEDS: PROTONIX 40 MG PO (07:34)
[2024-02-12] MEDS: POLYSPORIN OINTMENT 1 APPLIC TOPICAL ×3 (07:34→21:38)
[2024-02-12] MEDS: VITAMIN D3 (cholecalciferol) 50 MCG PO (07:34)
[2024-02-12 07:36] LABS: Hematocrit 24.1 % (39.0-52.0); Hemoglobin 7.5 g/dL (13.0-18.0); Mean Corp Hgb Conc. 31.1 g/dL (33.0-37.0); Mean Corpuscular Hgb 29.4 pg (27.0-31.0); Mean Corpuscular Volume 94.5 fL (80.0-94.0); Mean Platelet Volume 9.7 fL (7.4-10.4); Platelet Count 230 10^3/uL (130-400); Red Blood Cell Count 2.55 10^6/uL (4.70-6.10); Red Cell Dist. Width 16.8 % (11.5-14.5); White Blood Cell Count 8.1 10^3/uL (4.8-10.8)
[2024-02-12 07:54] LABS: Blood Urea Nitrogen 25 mg/dl (9-20); Calcium 8.5 mg/dl (8.4-10.2); Carbon Dioxide 28 mmol/L (22-30); Chloride 107 mmol/L (98-107); Estimated Creatinine Clearance 55 ml/min; Glucose 97 mg/dl (70-99); Potassium 5.5 mmol/L (3.5-5.1); Sodium 135 mmol/L (135-145); eGFR > 60.00
[2024-02-12 08:06] LABS: Glucose - Point of Care 111 mg/dl (70-99)
--- NOTE | 2024-02-12 08:43 | W.PN.URO.CBU ---
Today's Communication / Plan
-
slow down cbi and try stopping
Assessment / Plan
-
urinary retentio in pt with 6 days constipation now resolved Hemturia has resolvd will try an stop cbi today and if rmains clear and hgb renaons stable would do voiding trual friday
Diagnosis
-
Date of Service: February 12, 2024
-
Patient Diagnosis:radiation cystitis with hematuria and urinary retention also constpation rsolved
Post Op Day:
Subjective
-
nogu or gi complaints
Objective
-
Vital Signs
Temp Pulse Resp BP Pulse Ox
98.1 F 56 16 131/51 95
02/12/24 07:15 02/12/24 07:15 02/12/24 07:15 02/12/24 07:15 02/12/24 07:15
Intake and Output
02/11/24 02/12/24 02/13/24
06:59 06:59 06:59
Intake Total 250 / 250 2750 / 2750
Output Total 2900 / 2900 245 / 245
Balance -2650 / -2650 2505 / 2505
Intake:
Oral fluids 0 / 0 720 / 720
IV fluids (Total) 250 / 250 1920 / 1920
IV piggybacks 0 / 0 110 / 110
Output:
Urine, Sams 1750 / 1750
True Urine Output from CBI 1150 / 1150 245 / 245
True urine output from hand 0 / 0
irrigation
Laboratory Results
02/12/24 06:38
02/12/24 06:38
Review of Systems
-
: No Symptoms
Physical Exam
-
General - well developed, well nourished, no acute distress
Chest - clear bilaterally
Abdomen - soft, non-tender, positive bowel sounds, no CVAT, no incisional pain or distention
Genitalia - normal
Rectal - normal
Skin - warm & dry with no rash
Neuro - AOx3, no motor deficits
Extremities - no clubbing, no cyanosis, no edema
Incision - clean, dry
Dressing - clean, dry, intact
Care Review
Data Reviewed
Discussed with: Nursing
[2024-02-12] MEDS: DILAUDID 0.5 MG IV (10:43)
--- NOTE | 2024-02-12 11:11 | W.PN.HOSP.TC ---
Addendum entered and electronically signed by Ena Bustamante MD 02/12/24 15:29:
# Coccyx/R buttocks with almost healed stage 2 pressure/friction related injuries.
Original Note:
Today's Communication/Plan
-
see A/P
Assessment / Plan
Assessment / Plan
88-year-old male past medical history of prostate cancer status post radiation, radiation cystitis, BPH, phimosis, CAD status post CABG, moderate aortic stenosis, anxiety, diabetes, carotid stenosis status post CEA, hyperlipidemia, who was recently
admitted for hematuria and retention/hemorrhagic shock requiring blood transfusion x 4 units. Patient underwent CBI and went to the operating room for cystoscopy with clot evacuation, fulguration of multiple bleeding sites and dorsal slit
circumcision for severe phimosis.
He presented again for ongoing difficulty with urination and penile pain. Urology recommended CBI.
Abdominal x-ray shows large stool burden. Patient has not had bowel movement since he was last hospitalized. Enema attempted in residential and milk of magnesia given in ER.
A/P:
# Recurrent hematuria/clot and urinary retention, likely related to prior radiation cystitis
# Acute blood loss anemia due to hematuria and dilutional anemia from IVF
# Prostate CA status post radiation
s/p circumcision for severe phimosis, post cystoscopy evacuation of clot, fulguration multiple bleeding sites 02/03/24
Hgb 7.5 from 9.2 on admission, transfuse 1 unit PRBC
Uro on board, CBI to be DCed by Uro today, and Uro consider voiding trial Friday if Hgb remain stable
Urine Cx no growth, will stop empiric Rocephin
Urology on board
# BPH Hx
Uro consider voiding trial Friday if Hgb remain stable
# Mild hyperkalemia
K level 5.5 today, Follow BMP
# Acute constipation, resolved
Abdominal x-ray, large stool burden
Continue bowel regimen MiraLAX daily, 17.2 mg senna, milk of mag every 48 H, constipation has resolved
# Right lower extremity skin abrasion present on admission
No surrounding erythema
Consult wound care
# CKD stage III
Creat 1.3, CrCl 48
Follow BMP
# Cardiac murmur, known aortic stenosis
# CAD status post CABG x 4 vessel 15 years ago
Continue statin
# DM2
Accu-Cheks with SSI
Hold metformin
# HLD
Continue atorvastatin 40 mg at bedtime
# GERD
Continue Prilosec
# Hx carotid stenosis status post CEA right
DVT prophylaxis: SCDs
Full code
DW RN
Anticipated Discharge: 24 - 48 hours
Subjective/Interval History
-
Date of Service: February 12, 2024
Objective Data
-
Labs:
Laboratory Results
02/12/24
06:38
WBC 8.1
Hgb 7.5 L
Hct 24.1 L
Plt Count 230
Sodium 135
Potassium 5.5 H
Chloride 107
Carbon Dioxide 28
BUN 25 H
Creatinine 1.1
Glucose 97
Calcium 8.5
Vital Signs:
Vital Signs
Temp Pulse Resp BP Pulse Ox
36.7 C 56 16 131/51 95
02/12/24 07:15 02/12/24 07:15 02/12/24 07:15 02/12/24 07:15 02/12/24 08:00
I&O
02/11/24 02/12/24 02/13/24
06:59 06:59 06:59
Intake Total 250 / 250 2750 / 2750
Output Total 2900 / 2900 245 / 245
Balance -2650 / -2650 2505 / 2505
Review of Systems
-
Genitourinary: Reports Other (hematuria has much improved)
Physical Exam
-
General: Well Developed, No Apparent Distress, Comfortable and Appears Chronically Ill
HEENT: Normocephalic, Atraumatic and Moist Mucous Membranes
Respiratory: Clear to Auscultation and Non Labored Respirations; Negative Accessory Resp Muscle Use
Cardiac: Regular Rhythm and S1/S2; Negative Murmur, Rub or Gallop
GI: Soft, Nontender, Nondistended and Normal Bowel Sounds; Negative Organomegaly
Rectal: Deferred by Provider
Genito-urinary: Sams and Continuous Bladder Irrigation
Musculoskeletal: No Clubbing, No Cyanosis and No Edema
Skin: Negative Rash
Neuro: Awake and Alert
Psych: Calm and Intact Judgement/Insight
Data Reviewed
-
Labs: Labs Reviewed by me
[2024-02-12 11:44] LABS: Glucose - Point of Care 110 mg/dl (70-99)
[2024-02-12] MEDS: VALIUM INJECTION 2.5 MG IV ×3 (12:18→22:48)
[2024-02-12] MEDS: TYLENOL 650 MG PO ×2 (13:34→22:51)
[2024-02-12] MEDS: MORPHINE SULFATE 1 MG IV ×3 (14:49→23:43)
--- NOTE | 2024-02-12 14:53 | CM ---
Reviewed the chart notes and spoke with the patient's son Celestine via telephone. Per Celestine, family has not paid to hold bed. Per Celestine, he was told that they ([facility]) would hold the bed. Patient's son to reach out to [facility]. Referral sent
with POOJA to [facility]. Anticipate discharge tomorrow. CM continues to be available to patient/family and is monitoring medical plan for needs at discharge.
Plan: Discharge back hopefully to [facility] when medically stable. No precert required.
--- NOTE | 2024-02-12 15:20 | PN.CDI ---
CDI
- -
CDI:
Physician Documentation Request
Admit Date: 02/10/24 23:33
Dear Doctor Dianna,
Please review the following and provide your response in the progress notes.
Clinical Indicators:
02/11/24 11:00 (created 02/11/24 12:19) - Wound Note
#Wound Location and type/assessment:
#Patient admitted with: Superficial dermal abrasions R morton.
#Coccyx/R buttocks with almost healed stage 2 pressure/friction related injuries.
Physician documentation of the type and location of wounds is required for compliant documentation. Based on the above clinical findings and your assessment, please provide the following in your progress note:
Yes, Stage 2 healing coccyx/right buttock PI, POA
No, Stage 2 healing coccyx/right buttock PI
Other (please specify)
1. Location of the ulcer/wound, including laterality.
2. Type (etiology) of ulcer/wound:
- Diabetic ulcer
- Arterial (ischemic) ulcer
- Traumatic wound
- Venous stasis ulcer
- Pressure (decubitus) ulcer
3. If a pressure ulcer, please also include the stage* of the ulcer:
- Stage 1 - Skin intact, non-blanchable redness
- Stage 2 - Partial thickness loss of dermis, includes intact or open blister
- Stage 3 - Full thickness tissue not including bone, tendon or muscle
- Stage 4 - Full thickness tissue loss, including exposed bone, tendon or muscle
Use of terms such as suspected, likely, concern for, or probable (associated with a specific diagnosis that is being evaluated, monitored, or treated as if it exists) are acceptable and can be coded in the inpatient setting, when documented at the
time of discharge.
Thank you,
Chaya Harrington RN BSN CCDS
CDI Specialist
please contact via tiger text
Please use your independent medical judgment in providing your response.
*Source: National Pressure Ulcer Advisory Panel (NPUAP)
--- NOTE | 2024-02-12 15:44 | PTCARENOTE ---
Patient complaining of increased pain and bladder spasms following sitting at edge of bed with physical therapy; 3-Way Sams Catheter hand irrigated twice due to sluggish output; First hand irrigation yielded two very small clots, second hand
irrigation did not yield any clots; Color initially red punch, now clear; See MAR for medications given
[2024-02-12 17:01] LABS: Glucose - Point of Care 118 mg/dl (70-99)
--- NOTE | 2024-02-12 18:03 | PTCARENOTE ---
CBI clamped at 1800 per order; Urine clear; No clots present at this time
[2024-02-12] MEDS: SENOKOT 17.1999999999999993 MG PO (21:37)
[2024-02-12] MEDS: LIPITOR 40 MG PO (21:37)
[2024-02-12] MEDS: MIRALAX 17 GRAMS PO (21:37)
[2024-02-12 22:04] LABS: Glucose - Point of Care 142 mg/dl (70-99)
[2024-02-13] MEDS: MORPHINE SULFATE 1 MG IV ×3 (04:43→21:53)
[2024-02-13] MEDS: NSS 1000 IV (04:44)
[2024-02-13 04:45] VITALS: BP 124/56
[2024-02-13 06:25] LABS: Hematocrit 24.8 % (39.0-52.0); Hemoglobin 8.1 g/dL (13.0-18.0); Mean Corp Hgb Conc. 32.7 g/dL (33.0-37.0); Mean Corpuscular Hgb 29.2 pg (27.0-31.0); Mean Corpuscular Volume 89.5 fL (80.0-94.0); Mean Platelet Volume 9.6 fL (7.4-10.4); Platelet Count 218 10^3/uL (130-400); Red Blood Cell Count 2.77 10^6/uL (4.70-6.10); Red Cell Dist. Width 17.8 % (11.5-14.5); White Blood Cell Count 6.2 10^3/uL (4.8-10.8)
[2024-02-13 06:58] LABS: Blood Urea Nitrogen 21 mg/dl (9-20); Calcium 8.6 mg/dl (8.4-10.2); Carbon Dioxide 21 mmol/L (22-30); Chloride 108 mmol/L (98-107); Estimated Creatinine Clearance 51 ml/min; Glucose 85 mg/dl (70-99); Potassium 4.9 mmol/L (3.5-5.1); Sodium 134 mmol/L (135-145); eGFR 58.89
[2024-02-13 07:30] VITALS: BP 138/66
[2024-02-13 07:31] LABS: Glucose - Point of Care 126 mg/dl (70-99)
--- NOTE | 2024-02-13 08:24 | W.PN.URO.CBU ---
Today's Communication / Plan
-
discussed with nursing
Assessment / Plan
-
urinary retentio in pt with 6 days constipation now resolved Hemturia has resolvd will try an stop cbi today and if rmains clear and hgb renaons stable would do voiding trual friday
Diagnosis
-
Date of Service: February 13, 2024
-
Patient Diagnosis:
Post Op Day:
Patient Diagnosis:radiation cystitis with hematuria and urinary retention also constpation rsolved
Post Op Day:
Subjective
-
light hematuria no clots usual amopiunt dysuria
Objective
-
Vital Signs
Temp Pulse Resp BP Pulse Ox
98.6 F 50 16 138/66 96
02/13/24 07:30 02/13/24 07:30 02/13/24 07:30 02/13/24 07:30 02/13/24 07:30
Intake and Output
02/12/24 02/13/24 02/14/24
06:59 06:59 06:59
Intake Total 2750 / 2750 2546 / 2546
Output Total 245 / 245 2500 / 2500
Balance 2505 / 2505 46 / 46
Intake:
Oral fluids 720 / 720 360 / 360
IV fluids (Total) 1920 / 1920 1680 / 1680
IV piggybacks 110 / 110
Blood products 256 / 256
Blood Product Amount Infused ( 250 / 250
mL)
Packed Rbc Leukoreduced Unit 250 / 250
[id number]
Output:
True Urine Output from CBI 245 / 245 2500 / 2500
True urine output from hand 0 / 0
irrigation
Laboratory Results
02/13/24 04:43
02/13/24 04:43
Review of Systems
-
: Difficulty Voiding
Physical Exam
-
General - well developed, well nourished, no acute distress
Chest - clear bilaterally
Abdomen - soft, non-tender, positive bowel sounds, no CVAT, no incisional pain or distention
Genitalia - normal
Rectal - normal
Skin - warm & dry with no rash
Neuro - AOx3, no motor deficits
Extremities - no clubbing, no cyanosis, no edema
Incision - clean, dry
Dressing - clean, dry, intact
Counseling
-
hand irrigate lion then aaliyah bladder 100- 200cc cbi fluid then remove lion call me if no void ty expect somwe blood dysuria and small clots
[2024-02-13] MEDS: PROTONIX 40 MG PO (09:53)
[2024-02-13] MEDS: VITAMIN D3 (cholecalciferol) 50 MCG PO (09:53)
[2024-02-13] MEDS: POLYSPORIN OINTMENT 1 APPLIC TOPICAL ×3 (09:53→21:26)
[2024-02-13 11:08] VITALS: BP 135/65
--- NOTE | 2024-02-13 12:15 | W.PN.HOSP.TC ---
Today's Communication/Plan
-
off CBI and off lion for voiding trial today
Assessment / Plan
Assessment / Plan
88-year-old male past medical history of prostate cancer status post radiation, radiation cystitis, BPH, phimosis, CAD status post CABG, moderate aortic stenosis, anxiety, diabetes, carotid stenosis status post CEA, hyperlipidemia, who was recently
admitted for hematuria and retention/hemorrhagic shock requiring blood transfusion x 4 units. Patient underwent CBI and went to the operating room for cystoscopy with clot evacuation, fulguration of multiple bleeding sites and dorsal slit
circumcision for severe phimosis.
He presented again for ongoing difficulty with urination and penile pain. Urology recommended CBI.
Abdominal x-ray shows large stool burden. Patient has not had bowel movement since he was last hospitalized. Enema attempted in senior care and milk of magnesia given in ER.
A/P:
# Recurrent hematuria/clot and urinary retention, likely related to prior radiation cystitis
# Acute blood loss anemia due to hematuria and dilutional anemia from IVF
# Prostate CA status post radiation
# BPH Hx
s/p circumcision for severe phimosis, post cystoscopy evacuation of clot, fulguration multiple bleeding sites 02/03/24
Hgb 7.5 from 9.2 on admission, transfused 1 unit PRBC 5/ and Hgb improved to 8.1 today
Uro on board, off CBI and off lion for voiding trial today
Urine Cx no growth, stopped empiric Rocephin
Urology on board
# Mild hyperkalemia, resolved
K level 4.9 today
# Acute constipation, resolved
Abdominal x-ray, large stool burden
Continue bowel regimen MiraLAX daily, 17.2 mg senna, milk of mag every 48 H
constipation has resolved
# Right lower extremity skin abrasion present on admission
No surrounding erythema
Consult wound care
# CKD stage III
Creat 1.3, CrCl 48
Follow BMP
# Cardiac murmur, known aortic stenosis
# CAD status post CABG x 4 vessel 15 years ago
Continue statin
# DM2
Accu-Cheks with SSI
Hold metformin
# HLD
Continue atorvastatin 40 mg at bedtime
# GERD
Continue Prilosec
# Hx carotid stenosis status post CEA right
DVT prophylaxis: SCDs
Full code
Dispo: PT OT recc SNF
DW RN
Anticipated Discharge: 24 - 48 hours
Subjective/Interval History
-
Date of Service: February 13, 2024
Objective Data
-
Labs:
Laboratory Results
02/13/24
04:43
WBC 6.2
Hgb 8.1 L
Hct 24.8 L
Plt Count 218
Sodium 134 L
Potassium 4.9
Chloride 108 H
Carbon Dioxide 21 L
BUN 21 H
Creatinine 1.2
Glucose 85
Calcium 8.6
Vital Signs:
Vital Signs
Temp Pulse Resp BP Pulse Ox
36.6 C 66 18 135/65 96
02/13/24 11:08 02/13/24 11:08 02/13/24 11:08 02/13/24 11:08 02/13/24 11:08
I&O
02/12/24 02/13/24 02/14/24
06:59 06:59 06:59
Intake Total 2750 / 2750 2546 / 2546
Output Total 245 / 245 2500 / 2500 150 / 150
Balance 2505 / 2505 46 / 46 -150 / -150
Review of Systems
-
All other systems: Reviewed and negative
Physical Exam
-
General: Well Developed, No Apparent Distress, Comfortable and Appears Chronically Ill
HEENT: Normocephalic, Atraumatic and Moist Mucous Membranes
Respiratory: Clear to Auscultation and Non Labored Respirations; Negative Accessory Resp Muscle Use
Cardiac: Regular Rhythm and S1/S2; Negative Murmur, Rub or Gallop
GI: Soft, Nontender, Nondistended and Normal Bowel Sounds; Negative Organomegaly
Rectal: Deferred by Provider
Genito-urinary: Negative Lion or Continuous Bladder Irrigation
Musculoskeletal: No Clubbing, No Cyanosis and No Edema
Skin: Negative Rash
Neuro: Awake and Alert
Psych: Calm and Intact Judgement/Insight
Data Reviewed
-
Labs: Labs Reviewed by me
[2024-02-13 12:55] LABS: Glucose - Point of Care 143 mg/dl (70-99)
[2024-02-13 15:45] VITALS: BP 112/61
--- NOTE | 2024-02-13 16:01 | CM ---
Reviewed the chart notes and spoke with the patient's son via telephone. IMM reviewed. CM continues to be available to patient/family and is monitoring medical plan for needs at discharge.
Plan: Discharge to [facility] when medically stable.
[2024-02-13 16:17] LABS: Glucose - Point of Care 122 mg/dl (70-99)
[2024-02-13] MEDS: MIRALAX 17 GRAMS PO (17:14)
[2024-02-13] MEDS: TRANEXAMIC ACID 100 IV (17:14)
[2024-02-13] MEDS: MILK OF MAGNESIA PO (17:14)
[2024-02-13] MEDS: VALIUM INJECTION 2.5 MG IV ×2 (17:21→21:25)
[2024-02-13 19:20] VITALS: BP 107/51
[2024-02-13] MEDS: LIPITOR 40 MG PO (21:25)
[2024-02-13 21:26] LABS: Glucose - Point of Care 108 mg/dl (70-99)
[2024-02-13] MEDS: SENOKOT-S 1 TABLET PO (21:26)
[2024-02-14] MEDS: LIDOCAINE URO-JET 2% 1 SYRINGE TOPICAL (00:53)
[2024-02-14] MEDS: TYLENOL 650 MG PO (00:56)
--- NOTE | 2024-02-14 01:30 | W.PN.UPDATE ---
Update Note
Progress Note Update
Per nursing patient having spasm, 10/10 pain despite valium and morphine. Patient s/p CBI catheter removal earlier today, last bladder scanned for 90cc approximately 2200. Patient assessed at the bedside; upon visit patient sitting up in gerichair,
reports unable to void due to pain to his urethra/meatus area. Area noted to be reddened, edematous and inflamed. Maroon color urine also noted on patient's brief. Lower abdomen nondistended, patient denies pain/cramps to lower abdomen. Rx topical
Lidocaine gel. Continue current medication regimen and monitor output.
[2024-02-14] MEDS: VALIUM INJECTION 2.5 MG IV ×2 (01:47→12:30)
[2024-02-14] MEDS: MORPHINE SULFATE 1 MG IV ×3 (01:53→15:30)
[2024-02-14 03:03] VITALS: BP 124/73
[2024-02-14 07:23] LABS: Glucose - Point of Care 120 mg/dl (70-99)
[2024-02-14 07:47] VITALS: BP 147/57
[2024-02-14 09:01] LABS: Hematocrit 26.7 % (39.0-52.0); Hemoglobin 9.3 g/dL (13.0-18.0); Mean Corp Hgb Conc. 34.8 g/dL (33.0-37.0); Mean Corpuscular Hgb 29.9 pg (27.0-31.0); Mean Corpuscular Volume 85.9 fL (80.0-94.0); Mean Platelet Volume 9.9 fL (7.4-10.4); Platelet Count 253 10^3/uL (130-400); Red Blood Cell Count 3.11 10^6/uL (4.70-6.10); White Blood Cell Count 8.4 10^3/uL (4.8-10.8)
[2024-02-14 09:44] LABS: Blood Urea Nitrogen 24 mg/dl (9-20); Carbon Dioxide 24 mmol/L (22-30); Chloride 106 mmol/L (98-107); Estimated Creatinine Clearance 51 ml/min; Glucose 136 mg/dl (70-99); Potassium 4.7 mmol/L (3.5-5.1); Sodium 134 mmol/L (135-145); eGFR 58.89
[2024-02-14] MEDS: POLYSPORIN OINTMENT 1 APPLIC TOPICAL ×2 (10:08→14:37)
[2024-02-14] MEDS: MILK OF MAGNESIA PO (10:09)
[2024-02-14] MEDS: PROTONIX 40 MG PO (10:10)
[2024-02-14] MEDS: VITAMIN D3 (cholecalciferol) 50 MCG PO (10:10)
[2024-02-14] MEDS: MIRALAX 17 GRAMS PO (10:10)
[2024-02-14] MEDS: SENOKOT-S 1 TABLET PO (10:11)
--- NOTE | 2024-02-14 10:59 | W.PN.URO.CBU ---
Today's Communication / Plan
-
contijue pe=resent care
Assessment / Plan
-
urinary retentioresolved pvr 36cc in pt with 6 days constipation now resolved Hemturia has resolvd home when medically stable and if hgb stable
Diagnosis
-
Date of Service: February 14, 2024
-
Patient Diagnosis:
Post Op Day:
Patient Diagnosis:
Post Op Day:
Patient Diagnosis:radiation cystitis with hematuria and urinary retention also constpation rsolved
Post Op Day:
Subjective
-
cosytantpressurebut defecaton is wnl
Objective
-
Vital Signs
Temp Pulse Resp BP Pulse Ox
97.9 F 61 16 147/57 92
02/14/24 07:47 02/14/24 07:47 02/14/24 07:47 02/14/24 07:47 02/14/24 07:47
Intake and Output
02/13/24 02/14/24 02/15/24
06:59 06:59 06:59
Intake Total 2546 / 2546 2640 / 2640
Output Total 2500 / 2500 150 / 150
Balance 46 / 46 2490 / 2490
Intake:
Oral fluids 360 / 360 1380 / 1380
IV fluids (Total) 1680 / 1680 960 / 960
IV piggybacks 100 / 100
Sams intermittent irrigation 200 / 200
Blood products 256 / 256
Blood Product Amount Infused ( 250 / 250
mL)
Packed Rbc Leukoreduced Unit 250 / 250
[id number]
Output:
True Urine Output from CBI 2500 / 2500 150 / 150
Other:
How many times incontinent 3 2
SMALL amount urine
How many times incontinent 1
MODERATE amount urine
How many times incontinent 2 1
SATURATED amount urine
Laboratory Results
02/14/24 08:47
02/14/24 08:47
Review of Systems
-
: Dysuria, Frequency, Difficulty Voiding and Urgency
Physical Exam
-
General - well developed, well nourished, no acute distress
Chest - clear bilaterally
Abdomen - soft, non-tender, positive bowel sounds, no CVAT, no incisional pain or distention
Genitalia - normal
Rectal - normal
Skin - warm & dry with no rash
Neuro - AOx3, no motor deficits
Extremities - no clubbing, no cyanosis, no edema
Incision - clean, dry
Dressing - clean, dry, intact
Care Review
Data Reviewed
Discussed with: Hospitalist and Nursing
[2024-02-14 12:10] LABS: Glucose - Point of Care 149 mg/dl (70-99)
[2024-02-14 12:16] VITALS: BP 152/79
--- NOTE | 2024-02-14 12:19 | W.PN.HOSP.TC ---
Addendum entered and electronically signed by Ena Bustamante MD 02/14/24 14:58:
total DC time 35 min
Original Note:
Today's Communication/Plan
-
DC to [facility] today
Assessment / Plan
Assessment / Plan
88-year-old male past medical history of prostate cancer status post radiation, radiation cystitis, BPH, phimosis, CAD status post CABG, moderate aortic stenosis, anxiety, diabetes, carotid stenosis status post CEA, hyperlipidemia, who was recently
admitted for hematuria and retention/hemorrhagic shock requiring blood transfusion x 4 units. Patient underwent CBI and went to the operating room for cystoscopy with clot evacuation, fulguration of multiple bleeding sites and dorsal slit
circumcision for severe phimosis.
He presented again for ongoing difficulty with urination and penile pain. Urology recommended CBI.
Abdominal x-ray shows large stool burden. Patient has not had bowel movement since he was last hospitalized. Enema attempted in usp and milk of magnesia given in ER.
A/P:
# Recurrent hematuria/clot and urinary retention, related to prior radiation cystitis
# Acute blood loss anemia due to hematuria and dilutional anemia from IVF
# Prostate CA status post radiation
# BPH Hx
s/p circumcision for severe phimosis, post cystoscopy evacuation of clot, fulguration multiple bleeding sites 02/03/24
transfused 1 unit PRBC 02/11 and Hgb improved to 9.3 today
Uro on board, off CBI and off lion for voiding trial (pt has been incontinent, without further retention on bladder scan per RN)
Urine Cx no growth, stopped empiric Rocephin
Urology on board
# Mild hyperkalemia, resolved
K level 4.7 today
# Acute constipation, resolved
repeat AXR 02/12, still noted moderate amount of feces throughout the colon, no bowel dilatation to suggest obstruction.
Continue bowel regimen Senokot-S BID, MiraLAX daily, milk of mag daily, Dulcolax and mag citrate PRN
constipation has resolved per RN
# Right lower extremity skin abrasion present on admission
No surrounding erythema
Consult wound care
# CKD stage III
Creat 1.2, CrCl 48
Follow BMP
# Cardiac murmur, known aortic stenosis
# CAD status post CABG x 4 vessel 15 years ago
Continue statin
# DM2
Accu-Cheks with SSI
Hold metformin during hospital stay
# HLD
Continue atorvastatin 40 mg at bedtime
# GERD
Continue Prilosec
# Hx carotid stenosis status post CEA right
DVT prophylaxis: SCDs
Full code
Dispo: PT OT recc SNF
DW RN
DW Uro
updated on the phone
updated son on the phone
Anticipated Discharge: Today
Subjective/Interval History
-
Date of Service: February 14, 2024
Objective Data
-
Labs:
Laboratory Results
02/14/24
08:47
WBC 8.4
Hgb 9.3 L
Hct 26.7 L
Plt Count 253
Sodium 134 L
Potassium 4.7
Chloride 106
Carbon Dioxide 24
BUN 24 H
Creatinine 1.2
Glucose 136 H
Calcium 9.0
Vital Signs:
Vital Signs
Temp Pulse Resp BP Pulse Ox
36.4 C 69 16 152/79 98
02/14/24 12:16 02/14/24 12:16 02/14/24 12:16 02/14/24 12:16 02/14/24 12:16
I&O
02/13/24 02/14/24 02/15/24
06:59 06:59 06:59
Intake Total 2546 / 2546 2640 / 2640
Output Total 2500 / 2500 150 / 150
Balance 46 / 46 2490 / 2490
Review of Systems
-
History Source: Other (pt c/o urinary retension and constipation which are all NOT true according to RN )
Physical Exam
-
General: Well Developed, No Apparent Distress, Comfortable and Appears Chronically Ill
HEENT: Normocephalic, Atraumatic and Moist Mucous Membranes
Respiratory: Clear to Auscultation and Non Labored Respirations; Negative Accessory Resp Muscle Use
Cardiac: Regular Rhythm and S1/S2; Negative Murmur, Rub or Gallop
GI: Soft, Nontender, Nondistended and Normal Bowel Sounds; Negative Organomegaly
Rectal: Deferred by Provider
Genito-urinary: Negative Lion or Continuous Bladder Irrigation
Musculoskeletal: No Clubbing, No Cyanosis and No Edema
Skin: Negative Rash
Neuro: Awake and Alert
Psych: Calm
Data Reviewed
-
Labs: Labs Reviewed by me
[2024-02-14] MEDS: MILK OF MAGNESIA 30 ML PO ×2 (12:20→13:17)
--- NOTE | 2024-02-14 13:46 | CM ---
CM following re: discharge planning.
Reviewed pt's chart, met with pt and left a message to pt's spouse.
Discharge order noted. Pt is aware, expressed his disappointed feelings regarding discharge stating: 'i thought I will be discharged tomorrow. IMM reviewed, placed on chart, pt has a copy.
Pt is admitted from [facility] where he was for a short term rehab and has bed hold status.
A referral to [facility] made, spoke to nursing clerk Elinor and she confirmed that pt is accepted for admission today.
to arrange transportation, BLS. [facility] completed and left with [facility] nursing report: [phone]
Discharge instructions fax: [phone]
D/C plan: [facility].
--- NOTE | 2024-02-14 14:31 | W.DCSUMMARY ---
Discharge Summary
Discharge Data
Date of Admission: 02/10/24
Date of Discharge: 02/14/24
-
Pending Results: No
Hospital Course
Principal Diagnosis:
Recurrent hematuria/clot and urinary retention, related to prior radiation cystitis
Acute constipation, resolved
Chronic Diagnoses:�
Prostate cancer status post radiation
Radiation cystitis
Benign prostate hypertrophy/phimosis
Right lower extremity skin abrasion present on admission
Chronic kidney disease stage III
Cardiac murmur, known aortic stenosis
Coronary artery disease status post bypass surgery 15 years ago
Diabetes type 2
Hyperlipidemia
Gastroesophageal reflux disease
History of carotid stenosis status post carotid endarterectomy on the right
Consultations:�
Urology
Procedures:�
None
Clinical course:�
This is a 88-year-old male with past medical history as stated above, who presented with recurrent hematuria.
Of note, he was recently admitted for acute urinary retention and hemorrhagic shock requiring blood transfusion x 4 units due to gross hematuria.
He underwent cystoscopy with clot evacuation, fulguration of multiple bleeding sites and dorsal slit circumcision for severe phimosis from last admission.
Problem 1:
Recurrent hematuria with clot on admission. This was treated with CBI.
Per urology, it is expected that the patient will have ongoing hematuria due to his underlying radiation cystitis.
It was mentioned by the urologist Dr. Pardo that should the family wishes, they could take the patient for a second opinion at [place].
The patient did receive 1 unit PRBC transfusion this admission on 02/12/2024, and his hemoglobin improved from 7.5 to 9.3 on the day of discharge.
His Lion catheter was removed and he passed voiding trial.
His urine culture showed no growth, and empiric antibiotic Rocephin was discontinued.
Problem 2:
Acute constipation, resolved.
He can continue with bowel regimen with Senokot-S BID, MiraLAX daily, milk of mag daily, Dulcolax and mag citrate PRN.
As for the rest of his medical problems, they were stable during his hospital stay.
Discharge Plan
-
Patient Disposition: Senior Living/SNF
Discharge Diagnosis/Procedures: Recurrent hematuria/clot related to prior radiation cystitis and lion catheter; resolved urinary retension (lion removed this admission)
Condition: Fair
Diet: As tolerated
Activity: As tolerated
Driving Restrictions: As prior to admission
Wound Care: Wound Care Instructions:
R morton abrasion-clean with saline, silicone border foam, change q 3 days and prn loosened dressing.
Coccyx/R buttocks-clean with saline, silicone border foam, change q 3 days and prn loosened dressing. If foam ineffective, apply zinc barrier ointment BID instead.
Elevate heels off bed with pillow/s and or air chair cushion
Pressure redistributinc chair cushion (i.e. Air chair cushion).
Follow up at wound care center if needed, call for an appointment.
Referrals:
Logan Burks MD [Family Provider] - in less than 1 week
Additional Discharge Medication Instructions: Continue bowel regimen Senokot-S twice daily, MiraLAX daily, milk of mag daily, Dulcolax and mag citrate as needed
Can decrease bowel regimen in a few days if diarrhea starts to occur
Prescriptions:
New
sennosides-docusate sodium [Stool Softener-Stimulant Laxat] 8.6-50 mg Tablet
1 tab PO BID Qty: 60 0RF
magnesium citrate Solution
300 ml PO ONCE PRN (Reason: constipation) Qty: 296 0RF
Continued
atorvastatin 40 MG tablet
40 mg PO HS
omeprazole magnesium [Prilosec OTC] 20 mg Tablet,Delayed Release (Dr/Ec)
40 mg PO DAILY
cholecalciferol (vitamin D3) 50 mcg (2,000 unit) Tablet
50 mcg PO DAILY
polyethylene glycol 3350 [Miralax] 17 gram powder in packet
17 g PO HS
phenazopyridine 200 mg Tablet
200 mg PO Q8HPRN PRN (Reason: URETHRAL BURNING) 7 Days Qty: 21 0RF
metformin 500 mg Tablet
500 mg PO BID Qty: 0 0RF
acetaminophen [Tylenol Extra Strength] 500 mg Tablet
1,000 mg PO Q8HPRN PRN (Reason: MILD PAIN)
bisacodyl [Dulcolax (bisacodyl)] 10 mg Suppository
[address] DAILYPRN PRN (Reason: IF NO BM AFTR MOM)
Polysporin 500-10,000 unit/gram ointment in packet
1 applic topical TID
Changed
magnesium hydroxide [Milk of Magnesia] 400 mg/5 mL Suspension
2,400 mg PO DAILY Qty: 0 0RF
Discontinued
sennosides [senna] 8.6 mg Tablet
17.2 mg PO HS
Fleet Enema 19-7 gram/118 mL Enema
[address] DAILYPRN PRN (Reason: IF NO BM AFTR DULCOLAX)
Discharge Orders:
Discharge Patient (As Directed); Ordered 02/14/24
Ordered By: Ena Bustamante
Discharge Date and Time
Print Language: CAMBODIAN
[2024-02-14] MEDS: CITROMA 300 ML PO (14:37)
[2024-02-14 16:50] VITALS: BP 140/75
--- NOTE | 2024-02-14 17:14 | PTCARENOTE ---
BS pt 702mls retrieved 850mls. TT with Dr. Pardo he advised to place Lion prior to d/c to [facility] since still having clots. 16 fr lion replace. Advised nurse at [facility] to call Dr. Pardo for verbal order.
== END 2024-02-14 16:57 | DRG 699 ==
LOC: 2 SOUTH 23:33
PROVIDERS: Clinical Nurse Specialist Family Health; ADMITTING PHYSICIAN Hospitalist; ATTENDING PHYSICIAN Internal Medicine; CONSULT PHYSICIAN Surgery; EMERGENCY PHYSICIAN Emergency Medicine; FAMILY PHYSICIAN Family Medicine
PROC: 30233N1 Transfusion of Nonautologous Red Blood Cells into Peripheral Vein, Percutaneous Approach (ICD-10-PCS; 2024-02-12)
DX: N30.41 Irradiation cystitis with hematuria (principal); D62 Acute posthemorrhagic anemia; E87.5 Hyperkalemia; N30.01 Acute cystitis with hematuria; I12.9 Hypertensive chronic kidney disease with stage 1 through stage 4 chronic kidney disease, or unspecified chronic kidney disease; E11.22 Type 2 diabetes mellitus with diabetic chronic kidney disease; N18.30 Chronic kidney disease, stage 3 unspecified; E78.5 Hyperlipidemia, unspecified; K21.9 Gastro-esophageal reflux disease without esophagitis; N40.1 Benign prostatic hyperplasia with lower urinary tract symptoms; Z92.3 Personal history of irradiation; L89.312 Pressure ulcer of right buttock, stage 2; L89.152 Pressure ulcer of sacral region, stage 2
CPT/HCPCS: 74018; 80048; 81003; 81015; 82962; 85025; 85027; 86850; 86900; 86901; 86920; 87070; 87086; 96360; 97116; 97163; 97167; 97530; 99285; P9016

== ENCOUNTER 2024-02-15 23:27 | Inpatient (IN) | payer MEDICARE, BC, SELFPAY ==
[2024-02-15 19:42] VITALS: BP 113/57
[2024-02-15 20:00] VITALS: BP 113/57
--- NOTE | 2024-02-15 20:41 | ED.GENMED ---
History of Present Illness
General
Chief Complaint: Catheter/Tube Problem
Time Seen by Provider: 02/15/24 20:11
Travel History
Have you had any contact with someone who has COVID-19?: No
Do you have any symptoms of coronavirus? Fever > 100 degrees, chills, cough, shortness of breath, sore throat, loss of taste or smell, muscle aches, or headache?: No
History of Present Illness
History of Present Illness:
HPI: The patient was recently admitted here with urinary retention on CBI/gross hematuria he was at [facility] and had leakage around the Sams catheter and was unable to be manually irrigated here and CBI was again placed. He has radiation
cystitis related to prior diagnosis of prior cancer. He required blood transfusions last admission. He states he is no longer on Plavix.
EXAM:
GENERAL: Patient appears somewhat chronically
HEENT: Moist oral mucosa
CARDIOVASCULAR: No murmurs, normal heart rate, regular rhythm, No chest wall tenderness
PULMONARY: No respiratory distress, breath sounds are clear and equal
ABDOMEN: Soft with no peritoneal signs, no tenderness
NEUROLOGIC: Excellent strength all extremities, no coordination deficits
PSYCHIATRIC: Appropriate mental status, normal insight and judgement
EXTREMITIES: Nontender, no edema, moves all extremities equally
SKIN: Pale
TIME OF INITIAL ENCOUNTER: 8:20 PM
NUMBER AND COMPLEXITY OF PROBLEMS ADDRESSED AT THE ENCOUNTER
� Chronic conditions affecting care: Prostate cancer, CKD, aortic stenosis, CAD, diabetes
� Acute Exacerbation and/or Progression of Chronic Illness: This is a recurring problem
� Differential Diagnosis includes: Gross hematuria
AMOUNT AND/OR COMPLEXITY OF DATA TO BE REVIEWED AND ANALYZED
� I performed an independent evaluation of and my interpretation is:
EKG:
CT:
X-rays:
Laboratory Studies: White count 5.6, hemoglobin 7.6, renal function normal
Other:
� Review of other/old records: I reviewed notes from [facility]; I also reviewed discharge summary
� Clinical information was obtained by an independent historian: Spoke to family member at bedside
� Prescriptions/Medications Considered but not given:
� Further testing considered but not performed:
RISK OF COMPLICATIONS AND/OR MORBIDITY OR MORTALITY OF PATIENT MANAGEMENT
� Social determinants of health affecting care: Came in from [facility]
� Discussion with other providers: Notified Dr. Flores; Dr. Hutton for admission
� Escalation of care including admission/observation vs risk of discharge considered: The patient has recurrent gross hematuria. He was switched to CBI tonight and is more anemic than prior�will plan 1 unit of blood transfusion.
Past History
Past History
ED Past Medical History: Cancer (Prostate), GERD, HTN, NIDDM, Psychiatric (Anxiety) and Other (Anemia, PVD, BPH)
ED Past Surgical History: Cardiac (CABG, Stents) and Tonsilectomy
Social History
Tobacco: Former smoker
Alcohol: None
Drug: None
Personal:
Living: with family
Employment: Retired
Family History
Family History: Negative Early CAD
Phy Exam
Physical Exam
Physical Exam:
See HPI
Course
Orders/Labs/Results
Orders:
Orders
02/15/24 20:39
0.9% Sodium Chloride 500 ml [Nss] 500 ml IV BOLUS
02/15/24 20:40
CBI- Treatment PRN
Solution: saline
Irrigate to Clear?: Yes
Sams Placement- Treatment ONCE
Reason for insertion: Acute Retention
02/15/24 21:16
Basic Metabolic Panel Urgent
Complete Blood Count/With Diff Urgent
02/15/24 22:43
Type+Screen Urgent
Urinalysis Reflex To Culture Urgent
02/15/24 22:48
* Blood Bank Products Urgent
Blood Bank Products: *Packed RBC Leuko(PRBC's)
Quantity: 1
Transfuse Today: Yes
Reason: Anemia
02/15/24 23:11
Admit/Transfer Patient As Directed
Co-Sign Provider:
Level of Care: Inpatient admission
Assign to:: Medical/Surgical
Physician / Group: Dr Platt
Diagnosis: Hematuria
Reason for Hospitalization: pte p/w gross hematuria
Expected length of stay greater than two midnights?: Yes
ELOS- Estimated Length of Stay in days: 2
I certify the patient meets the requirements for IP care: Yes
02/15/24 23:12
Code Status As Directed
Resuscitation Status: Full Code
02/15/24 23:14
UROLOGY CONSULT Routine
Consulting Provider: Alex Flores
Was physician already notified: Yes
Comment: Hematuria
02/15/24 23:15
Blood Culture Q30M
FANNIE Source: Blood/Venous
Specimen Description:
Continous Bladder Irrigation As Directed
Solution: Normal Saline
Comment: Irriagate and flush 4-6 cc normal saline as needed
Keep urine: Clear
02/15/24 23:45
Blood Culture Q30M
FANNIE Source: Blood/Venous
Specimen Description:
Abnormal Lab Results
02/15/24
21:16
RBC 2.56 L 10^6/uL
(4.70-6.10)
Hgb 7.6 L g/dL
(13.0-18.0)
Hct 24.1 L %
(39.0-52.0)
MCV 94.1 H fL
(80.0-94.0)
MCHC 31.5 L g/dL
(33.0-37.0)
RDW 17.8 H %
(11.5-14.5)
Abs Immat Gran (auto) 0.1 H 10^3/uL
(0-0.05)
Absolute Lymphs (auto) 1.0 L 10^3/uL
(1.2-3.4)
Immature Gran % 1.1 H %
(0-0.5)
Lymphocytes % 17.4 L %
(20.5-51.1)
BUN 25 H mg/dl
(9-20)
Glucose 135 H mg/dl
(70-99)
Calcium 8.3 L mg/dl
(8.4-10.2)
02/15/24 21:16
02/15/24 21:16
Vital Signs
Initial and Last Documented VS:
Initial Vital Signs
Pulse Resp BP Pulse Ox
70 20 113/57 96
02/15/24 19:42 02/15/24 19:42 02/15/24 19:42 02/15/24 19:42
Last Documented Vital Signs
Temp Pulse Resp BP Pulse Ox
97.8 F 60 13 122/64 93
02/15/24 23:10 02/15/24 23:00 02/15/24 23:00 02/15/24 23:00 02/15/24 23:00
*Critical Care Note
Total Time (30-74mins, 75-104mins- exclusive of procedures): Not Applicable
ED Attending Note
-
Portions of this chart may have been created with voice recognition software.� Occasional wrong word or��sound alike� substitutions may have occurred due to the inherent limitations of voice recognition software.
Discharge Plan
Interventions
Interventions:
*Risk Screen - Suicide Last Done: 02/15/24 19:47
*General Assessment Last Done: 02/15/24 19:47
*Neglect/Abuse Screening Last Done: 02/15/24 19:47
ED- Fall Risk Assessment Last Done: 02/15/24 19:51
*ED COVID-19 Vaccine History Last Done: 02/15/24 19:51
VV-Ffckjf-[id number] Assessment Last Done: 02/15/24 19:51
ED-Male Genitourinary Assessment Last Done: 02/15/24 19:51
[2024-02-15 21:00] VITALS: BP 107/54
[2024-02-15] MEDS: NSS 500 IV (21:17)
[2024-02-15 21:18] VITALS: BMI 31.9
[2024-02-15 21:24] LABS: % Basophils 0.4 % (0-2); % Eosinophils 4.8 % (0-6); % Immature Granulocytes 1.1 % (0-0.5); % Lymphocytes 17.4 % (20.5-51.1); % Monocytes 8.9 % (1.7-9.3); % Neutrophils 67.4 % (42.2-75.2); Absolute Eosinophils 0.3 10^3/uL (0-0.7); Absolute Immature Granulocytes 0.1 10^3/uL (0-0.05); Absolute Monocytes 0.5 10^3/uL (0.1-0.6); Absolute Neutrophils 3.8 10^3/uL (1.4-6.5); Hematocrit 24.1 % (39.0-52.0); Hemoglobin 7.6 g/dL (13.0-18.0); Mean Corp Hgb Conc. 31.5 g/dL (33.0-37.0); Mean Corpuscular Hgb 29.7 pg (27.0-31.0); Mean Corpuscular Volume 94.1 fL (80.0-94.0); Mean Platelet Volume 9.5 fL (7.4-10.4); Nucleated Red Blood Cells % 0 % (-); Platelet Count 203 10^3/uL (130-400); Red Blood Cell Count 2.56 10^6/uL (4.70-6.10); Red Cell Dist. Width 17.8 % (11.5-14.5); White Blood Cell Count 5.6 10^3/uL (4.8-10.8)
[2024-02-15 21:44] LABS: Blood Urea Nitrogen 25 mg/dl (9-20); Calcium 8.3 mg/dl (8.4-10.2); Carbon Dioxide 28 mmol/L (22-30); Chloride 107 mmol/L (98-107); Estimated Creatinine Clearance 46 ml/min; Glucose 135 mg/dl (70-99); Potassium 4.9 mmol/L (3.5-5.1); Sodium 135 mmol/L (135-145)
[2024-02-15 22:00] VITALS: BP 120/52
[2024-02-15 23:00] VITALS: BP 122/64
--- NOTE | 2024-02-15 23:16 | HPS.HSE ---
Family Physician
-
Family Physician: Logan Burks MD
Chief Complaint
-
Hematuria
History of Present Illness
Patient 88-year-old male with history of CAD, hypertension, diabetes mellitus, GERD, anemia, BPH, prostate cancer, recurrent hematuria, severe phimosis s/p circumcision, presented to the hospital with recurrent hematuria. He was recently admitted
here with urinary retention and gross hematuria and was sent to [place] and had leakage around the Sams catheter was unable to manually irrigated and CBI was placed again. Patient had some abdominal discomfort. He denies any chest pain or
shortness of breath. Denies any fevers or chills. In the ER his hemoglobin was noted to be 7.6. His last hemoglobin was 5.3 back in February 2024. He was continued on continuous bladder irrigation and he was also ordered a unit of blood in the ER and
he was referred to hospitalist service for further evaluation.
Medical History
Past Medical History
Past Medical History: Reports Other (CAD status post CABG, hypertension, diabetes, GERD, anxiety, anemia, BPH, prostate cancer status post radiation, hematuria with clot retention January 2024, severe phimosis status post circumcision January 2024)
Past Surgical History: Reports Other (cystoscopy, evacuation of clot, fulguration of multiple bleeding sites and dorsal slit circumcision)
Social History
Tobacco: Non-smoker
Alcohol: None
Drug: None
Family History
Family History: Not pertinent
Allergies / Home Medications
Allergies reflects when Allergies were last updated in [employer].
Home Medications with original date entered in [employer]
Allergy/Medication List:
Allergies
Allergy/AdvReac Type Severity Reaction Status Date / Time
No Known Allergies Allergy Verified 02/15/24 23:11
Home Medications
atorvastatin 40 mg tablet 40 mg PO HS High cholesterol 02/05/17
cholecalciferol (vitamin D3) 50 mcg (2,000 unit) tablet 50 mcg PO DAILY Supplement 11/26/23
omeprazole magnesium 20 mg tablet,delayed release (Prilosec OTC) 40 mg PO DAILY Gastrointestinal Issue 11/26/23
polyethylene glycol 3350 17 gram oral powder packet (Miralax) 17 g PO HS Constipation 11/26/23
metformin 500 mg tablet 500 mg PO BID Diabetes #0 tabs 02/06/24
phenazopyridine 200 mg tablet 200 mg PO Q8HPRN PRN URETHRAL BURNING 7 days #21 tabs 02/06/24
acetaminophen 500 mg tablet (Tylenol Extra Strength) 1,000 mg PO Q8HPRN PRN MILD PAIN 02/10/24
bacitracin zinc 500 unit-polymyxin B 10,000 unit/gram top oint packet (Polysporin) 1 applic topical TID PENIS-SUTURED AREA 02/10/24
bisacodyl 10 mg rectal suppository (Dulcolax (bisacodyl)) 10 mg IN DAILYPRN PRN IF NO BM AFTR MOM 02/10/24
magnesium citrate 300 ml PO ONCE PRN constipation #296 mL 02/14/24
magnesium hydroxide 400 mg/5 mL oral suspension (Milk of Magnesia) 2,400 mg (30 mL) PO DAILY IF NO BM BY 2ND DAY #0 mL 02/14/24
sennosides 8.6 mg-docusate sodium 50 mg tablet (Stool Softener-Stimulant Laxative) 1 tab PO BID #60 tabs 02/14/24
lidocaine HCl 2 % mucosal jelly in applicator (Glydo) 1 applic topical TID penile pain 02/15/24
sodium phosphates 19 gram-7 gram/118 mL enema (Fleet Enema) 118 ml IN PRN PRN if no BM after suppository 02/15/24
Review of Systems
-
A 12 point ROS was completed and negative except as noted: Yes
Physical Exam
Vital Signs
Vital Signs
Temp Pulse Resp BP Pulse Ox
97.8 F 60 13 122/64 93
02/15/24 23:10 02/15/24 23:00 02/15/24 23:00 02/15/24 23:00 02/15/24 23:00
Physical exam:
General: Acute on chronically ill
HEENT: Normocephalic, Atraumatic and Moist Mucous Membranes
Respiratory: Clear to Auscultation; Negative Wheezes, Rales or Rhonchi
Cardiac: Regular Rhythm and S1/S2
GI: Soft, Nontender and Nondistended
: Sams catheter in place with CBI and hematuria present
Musculoskeletal: No Clubbing, No Cyanosis and No Edema
Neuro: Awake, Alert and Oriented
Psych: Calm
Physical Exam
General: Other
Laboratory Results
-
02/15/24 21:16
02/15/24 21:16
Impression/Plan
-
IMPRESSION:
Patient 88-year-old male with multiple comorbidities came into the hospital with recurrent hematuria. Patient increased risk morbidity and mortality due to acute presentation and multiple comorbidities therefore he will need to be treated in the
hospital and manage accordingly and monitor for progress and or toxicity.
Impression:
Gross hematuria
Acute blood loss
Conditions prior to presentation:
Hypertension
Hyperlipidemia
Diabetes mellitus
CKD
GERD
Prostate cancer
Peripheral vascular disease
PLAN:
CBI
Gentle hydration
Blood cultures and empiric Rocephin 1 g IV daily
Plan for blood transfusion today
Monitor hemoglobin closely
Insulin sliding scale
Continue home medications
Urology consult ([place] text urology today)
SCDs for DVT prophylaxis
CODE STATUS full code
Total time spent on today's encounter was 75 minutes which included time spent in counseling the patient/family regarding diagnosis and treatment plan as listed above, goals of care, and symptom management. Case was discussed with nursing staff,
specialists, and care coordinators/case management. All labs and imaging personally reviewed by me. Remainder the time spent in detailed review of previous records, lab data, imaging, and other medical provider documentation.
[2024-02-16] VITALS (17 sets, daily range): BP systolic 97–129; BP diastolic 43–79; BMI 4572.5
[2024-02-16] MEDS: NSS 1000 IV ×2 (00:17→16:42)
[2024-02-16] MEDS: ROCEPHIN 1000 MG IV ×2 (00:18→23:47)
[2024-02-16] MEDS: STERILE WATER FOR INJECTION 10 ML IV ×2 (00:18→23:47)
[2024-02-16] MEDS: MORPHINE SULFATE 2 MG IV ×2 (03:56→14:13)
--- NOTE | 2024-02-16 05:04 | PTCARENOTE ---
Pt admitted to room 2135,aaox3 with some forgetfulness, oriented to room and call light. 1 unit of PRBC was initiated in ED and infusing via gravity, tolerated well, VSS on completion. CBI initiated on ED, continues with bright red hematuria,
flushed x1 with 5cc NSS. Medicated for pain to pubic area x1 with + effect, will continue to monitor.
[2024-02-16 06:38] LABS: Hematocrit 24.4 % (39.0-52.0); Hemoglobin 7.8 g/dL (13.0-18.0)
[2024-02-16 06:41] LABS: Hematocrit 24.9 % (39.0-52.0); Hemoglobin 7.9 g/dL (13.0-18.0); Mean Corp Hgb Conc. 31.7 g/dL (33.0-37.0); Mean Corpuscular Hgb 29.4 pg (27.0-31.0); Mean Corpuscular Volume 92.6 fL (80.0-94.0); Mean Platelet Volume 9.5 fL (7.4-10.4); Platelet Count 193 10^3/uL (130-400); Red Blood Cell Count 2.69 10^6/uL (4.70-6.10); Red Cell Dist. Width 17.2 % (11.5-14.5); White Blood Cell Count 6.1 10^3/uL (4.8-10.8)
--- NOTE | 2024-02-16 06:58 | CONS.URO ---
Consultation
-
Date/Time Consultation Performed: 02/19/24 0640
Performing Provider: Mark
Reason for Consultation: Radiation-induced, Intractable Hemorrhagic Cystitis
Medical History
History of Present Illness
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
Admitted 01/25/24 w/ gross hematuria w/ clot retention - required 4u pRBCs during admission.
02/02: s/p cystoscopy, clot evacuation, fulguration multiple small bleeding sites (bladder), dorsal slit circumcision by Dr Pardo
Noted to be voiding but w/ mild hematuria post-op prior to discharge.
Past Medical History
Past Medical History: Other (CAD, GERD, HTN, NIDDM, anxiety, anemia, prostate cancer s/p XRT, radiation cystitis, phimosis)
Past Surgical History: Urological (02/03/24 cystoscopy, clot evacuation and fulguration; dorsal slit) and Other (CABG)
Allergies/Home Medications
Allergies
Allergy/AdvReac Type Severity Reaction Status Date / Time
No Known Allergies Allergy Verified 02/15/24 23:11
Home Medications
�Medication �Instructions �Recorded �Confirmed �Type
atorvastatin 40 mg tablet 40 mg PO HS High cholesterol 02/05/17 02/15/24 History
cholecalciferol (vitamin D3) 50 50 mcg PO DAILY Supplement 11/26/23 02/15/24 History
mcg (2,000 unit) tablet
omeprazole magnesium 20 mg 40 mg PO DAILY Gastrointestinal 11/26/23 02/15/24 History
tablet,delayed release (Prilosec Issue
OTC)
polyethylene glycol 3350 17 gram 17 g PO HS Constipation 11/26/23 02/15/24 History
oral powder packet (Miralax)
metformin 500 mg tablet 500 mg PO BID Diabetes #0 tabs 02/06/24 02/15/24 Rx
phenazopyridine 200 mg tablet 200 mg PO Q8HPRN PRN URETHRAL 02/06/24 02/15/24 Rx
BURNING 7 days #21 tabs
acetaminophen 500 mg tablet 1,000 mg PO Q8HPRN PRN MILD PAIN 02/10/24 02/15/24 History
(Tylenol Extra Strength)
bacitracin zinc 500 unit-polymyxin 1 applic topical TID PENIS-SUTURED 02/10/24 02/15/24 History
B 10,000 unit/gram top oint packet AREA
(Polysporin)
bisacodyl 10 mg rectal suppository 10 mg VT DAILYPRN PRN IF NO BM 02/10/24 02/15/24 History
(Dulcolax (bisacodyl)) AFTR MOM
magnesium citrate 300 ml PO ONCE PRN constipation 02/14/24 02/15/24 Rx
#296 mL
magnesium hydroxide 400 mg/5 mL 2,400 mg (30 mL) PO DAILY IF NO BM 02/14/24 02/15/24 Rx
oral suspension (Milk of Magnesia) BY 2ND DAY #0 mL
sennosides 8.6 mg-docusate sodium 1 tab PO BID #60 tabs 02/14/24 02/15/24 Rx
50 mg tablet (Stool
Softener-Stimulant Laxative)
lidocaine HCl 2 % mucosal jelly in 1 applic topical TID penile pain 02/15/24 02/15/24 History
applicator (Glydo)
sodium phosphates 19 gram-7 118 ml VT PRN PRN if no BM after 02/15/24 02/15/24 History
gram/118 mL enema (Fleet Enema) suppository
Physical Exam
Vital Signs
Vital Signs
Temp Pulse Resp BP Pulse Ox
97.5 F 55 18 101/62 97
02/16/24 03:34 02/16/24 03:34 02/16/24 03:34 02/16/24 03:34 02/16/24 03:34
Physical Exam
elderly male
General: No Apparent Distress
GI: Soft and Non Tender
Genito-urinary: Sams Catheter (3-way with CBI: pale outflow)
Neuro: Awake, Alert and Oriented
Psych: Calm
Assessment / Plan
-
Gross Hematuria due to Radiation-induced, Intractable Hemorrhagic Cystitis
Degree of hematuria with slow CBI is modest
Rec: CBI for now
Radiation Oncology consultation to consider how to address late effects of therapeutic radiation
Urologically, cystectomy and urinary diversion, though extreme, might ultimately be the best option to address this intractable problem
Data Reviewed
-
Lab Data: Labs Reviewed
Old Records: Reviewed
[2024-02-16 07:03] LABS: Blood Urea Nitrogen 23 mg/dl (9-20); Calcium 8.3 mg/dl (8.4-10.2); Carbon Dioxide 27 mmol/L (22-30); Chloride 109 mmol/L (98-107); Estimated Creatinine Clearance -3 ml/min; Glucose 91 mg/dl (70-99); Potassium 5.1 mmol/L (3.5-5.1); Sodium 136 mmol/L (135-145); eGFR 58.89
--- NOTE | 2024-02-16 08:00 | PTCARENOTE ---
Patient with urine draining from lion catheter and c/o super pubic discomfort. Catheter hand irrigated with sterile solution and a large clot removed. Lion now draining blood tinged urine, patient comfortable, CBI infusing WNL.
[2024-02-16 08:33] LABS: Glucose - Point of Care 87 mg/dl (70-99)
--- NOTE | 2024-02-16 09:02 | W.PN.HOSP.TC ---
Today's Communication/Plan
-
Continue CBI. Plan for blood transfusion. IV Lasix after transfusion.
Assessment / Plan
Assessment / Plan
Physical exam:
General: Acute on chronically ill
HEENT: Normocephalic, Atraumatic and Moist Mucous Membranes
Respiratory: Clear to Auscultation; Negative Wheezes, Rales or Rhonchi
Cardiac: Regular Rhythm and S1/S2, systolic ejection murmur
GI: Soft, Nontender and Nondistended
: Sams catheter in place with CBI and hematuria present
Musculoskeletal: No Clubbing, No Cyanosis and some trace bilateral edema
Neuro: Awake, Alert and Oriented
Psych: Calm
A/P:
Impression:
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
Acute blood loss anemia
Moderate aortic stenosis
Conditions prior to presentation:
Hypertension
Hyperlipidemia
Diabetes mellitus
CKD
GERD
Prostate cancer
Peripheral vascular disease
CAD
PLAN:
CBI
Transfuse another unit of blood today
Gentle hydration but given blood transfusion and aortic stenosis will give IV Lasix today.
Obtain twelve-lead EKG today for preop evaluation and reviewed latest echocardiogram from January this year. Continue cardiac monitoring and monitor volume status. Will reevaluate preop risk if definitive surgery planned.
Urology will call radiation oncology for any alternative of treatments but ultimately might need cystectomy and urinary diversion.
Blood cultures pending and continue empiric Rocephin 1 g IV daily
Monitor hemoglobin closely
Insulin sliding scale
Continue home medications including metformin, atorvastatin, Protonix, bowel regimen.
Urology consult appreciated
SCDs for DVT prophylaxis
CODE STATUS full code
Total time spent on today's encounter was 52 minutes which included time spent in counseling the patient/family regarding diagnosis and treatment plan as listed above, goals of care, and symptom management. Case was discussed with nursing staff,
specialists, and care coordinators/case management. All labs and imaging personally reviewed by me. Remainder the time spent in detailed review of previous records, lab data, imaging, and other medical provider documentation.
Anticipated Discharge: > 48 hours
Subjective/Interval History
-
Date of Service: February 16, 2024
Patient continues to have hematuria, some clots irrigated this morning. On CBI. No nausea or vomiting. Afebrile. No chest pain or shortness of breath
Objective Data
-
Labs:
Laboratory Results
02/15/24 02/16/24 02/16/24
21:16 05:58 05:58
WBC 5.6 6.1
Hgb 7.6 L 7.8 L 7.9 L
Hct 24.1 L 24.4 L
Plt Count 203
Sodium 135
Potassium 4.9
Chloride 107
Carbon Dioxide 28
BUN 25 H
Creatinine 1.3
Glucose 135 H
Calcium 8.3 L
02/16/24
05:58
WBC
Hgb
Hct 24.9 L
Plt Count 193
Sodium 136
Potassium 5.1
Chloride 109 H
Carbon Dioxide 27
BUN 23 H
Creatinine 1.2
Glucose 91
Calcium 8.3 L
Vital Signs:
Vital Signs
Temp Pulse Resp BP Pulse Ox
97.7 F 60 20 126/50 99
02/16/24 08:11 02/16/24 08:11 02/16/24 08:11 02/16/24 08:11 02/16/24 08:11
I&O
02/15/24 02/16/24 02/17/24
06:59 06:59 06:59
Intake Total 880 / 880
Output Total 300 / 300
Balance 580 / 580
[2024-02-16] MEDS: PROTONIX 40 MG PO (10:31)
[2024-02-16] MEDS: VITAMIN D3 (cholecalciferol) 50 MCG PO (10:31)
[2024-02-16] MEDS: SENOKOT-S 1 TABLET PO ×2 (10:32→20:13)
[2024-02-16] MEDS: GLUCOPHAGE 500 MG PO ×2 (10:32→20:13)
[2024-02-16 12:15] LABS: Glucose - Point of Care 76 mg/dl (70-99)
[2024-02-16] MEDS: LIDOCAINE URO-JET 2% 1 SYRINGE TOPICAL ×3 (14:05→21:52)
--- NOTE | 2024-02-16 14:24 | CM ---
Reviewed the chart notes. Patient was recently hospitalized (02/09-02/13) and discharged to [facility]. The patient prior to hospitalizations resided with his spouse in a one story home with one step to enter. The patient uses a rolling walker.
The patient's pharmacy of choice is the [facility]. CM continues to be available to patient/family and is monitoring medical plan for needs at discharge.
Plan: Discharge plans will depend on the patient's progress. Most likely SNF.
--- NOTE | 2024-02-16 15:21 | WOUNDNOTE ---
RAMONE RN note: Patient admitted with recurrent retention, hematuria, acute anemia.
Patient admitted from [facility] [place]'s home. See H&P for complete history.
PMH: 01/25/24-02/06/24 hematuria/retention, anemia, radiation induced cystitis, history of severe phimosis s/p cystoscopy, prostate ca with radiation therapy, BPH, CABG, DM, ambulation dysfunction, CKD3, L CEA for carotid stenosis.
Wound Location and type/assessment: Patient seen recently on 02/11/24 for superficial dermal abrasions R morton. Coccyx/R buttocks with almost healed stage 2 pressure/friction related injuries. Now R morton nearly healed, no drainage. R buttock with scar
and residual dried piece of skin, blanchable red surrounding. Heels blanchable red. Patient able to turn self to side and sit at side of bed with minimal assist.
Stoma sited patient as requested. Avoided creases and scars. RUQ marked 6cm from midline and 6.5cm proximal from umbilical line. RLQ marked 2cm distal from midline and 6.5cm from midline. Answered all questions and will follow post op for ostomy
care and teaching if needed.
Appetite: currently NPO.
Pressure redistribution devices in place: [employer] Accumax. Patient turns with minimal assistance. Pillow under heels.
Plan: R morton applied skin prep and left open to air. Silicone border foam changed to R sacral/buttocks. Heels off bed with pillow under calves. Patient pulled up in bed to finish eating with assist from nurse Dominguez who was updated on care. Will
confirm orders with hospitalist. Care plan to be updated and will follow as needed.
[2024-02-16] MEDS: LASIX 20 MG IV (16:44)
[2024-02-16 17:19] LABS: Glucose - Point of Care 148 mg/dl (70-99)
[2024-02-16 19:11] LABS: Urine Albumin 1+ (Neg - Trace); Urine Bilirubin Negative (Negative); Urine Character Very Cloudy (Clear); Urine Color Red; Urine Glucose Negative (Negative); Urine Ketone Trace (Negative); Urine Leukocyte 1+ (Negative); Urine Nitrite Positive (Negative); Urine Occult Blood 4+ (Negative); Urine Urobilinogen Negative (Neg - 1+)
[2024-02-16 19:17] LABS: Urine Red Blood Cell >100 /HPF (0-2); Urine Squamous Cell 0-2 /LPF (Few)
[2024-02-16] MEDS: LIPITOR 40 MG PO (21:52)
[2024-02-16] MEDS: MIRALAX 17 GRAMS PO (21:52)
[2024-02-16 22:04] LABS: Glucose - Point of Care 182 mg/dl (70-99)
[2024-02-17] MEDS: MORPHINE SULFATE 2 MG IV ×3 (01:14→20:20)
[2024-02-17 03:45] VITALS: BP 123/51
[2024-02-17] MEDS: NSS IV (05:23)
[2024-02-17 06:00] VITALS: BMI 4574.5
[2024-02-17 07:03] LABS: % Basophils 0.4 % (0-2); % Eosinophils 4.7 % (0-6); % Lymphocytes 19.6 % (20.5-51.1); % Monocytes 8.1 % (1.7-9.3); % Neutrophils 66.2 % (42.2-75.2); Absolute Eosinophils 0.3 10^3/uL (0-0.7); Absolute Immature Granulocytes 0.1 10^3/uL (0-0.05); Absolute Lymphocytes 1.4 10^3/uL (1.2-3.4); Absolute Monocytes 0.6 10^3/uL (0.1-0.6); Absolute Neutrophils 4.7 10^3/uL (1.4-6.5); Hemoglobin 8.7 g/dL (13.0-18.0); Mean Corp Hgb Conc. 32.2 g/dL (33.0-37.0); Mean Corpuscular Hgb 29.8 pg (27.0-31.0); Mean Corpuscular Volume 92.5 fL (80.0-94.0); Mean Platelet Volume 9.8 fL (7.4-10.4); Nucleated Red Blood Cells % 0.3 % (-); Platelet Count 186 10^3/uL (130-400); Red Blood Cell Count 2.92 10^6/uL (4.70-6.10); Red Cell Dist. Width 17.2 % (11.5-14.5)
[2024-02-17 07:23] LABS: Blood Urea Nitrogen 21 mg/dl (9-20); Calcium 8.4 mg/dl (8.4-10.2); Carbon Dioxide 24 mmol/L (22-30); Chloride 108 mmol/L (98-107); Estimated Creatinine Clearance -3 ml/min; Glucose 103 mg/dl (70-99); Potassium 4.9 mmol/L (3.5-5.1); Sodium 137 mmol/L (135-145); eGFR 58.89
[2024-02-17 07:45] VITALS: BP 120/49
[2024-02-17 08:01] LABS: Glucose - Point of Care 95 mg/dl (70-99)
[2024-02-17] MEDS: LIDOCAINE URO-JET 2% 1 SYRINGE TOPICAL ×3 (08:31→22:15)
[2024-02-17] MEDS: SENOKOT-S 1 TABLET PO ×2 (08:31→19:57)
[2024-02-17] MEDS: VITAMIN D3 (cholecalciferol) 50 MCG PO (08:31)
[2024-02-17] MEDS: PROTONIX 40 MG PO (08:31)
[2024-02-17] MEDS: GLUCOPHAGE 500 MG PO ×2 (08:32→19:57)
--- NOTE | 2024-02-17 08:54 | W.PN.HOSP.TC ---
Addendum entered and electronically signed by Keith Platt MD 02/17/24 17:46:
Right buttock pressure injury, stage II POA
Original Note:
Today's Communication/Plan
-
Change IV antibiotics. Cardiology for preop eval.
Assessment / Plan
Assessment / Plan
Physical exam:
General: Acute on chronically ill
HEENT: Normocephalic, Atraumatic and Moist Mucous Membranes
Respiratory: Clear to Auscultation; Negative Wheezes, Rales or Rhonchi
Cardiac: Regular Rhythm and S1/S2, systolic ejection murmur
GI: Soft, Nontender and Nondistended
: Sams catheter in place with CBI and hematuria present
Musculoskeletal: No Clubbing, No Cyanosis and some trace bilateral edema
Neuro: Awake, Alert and Oriented
Psych: Calm
A/P:
Impression:
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
Acute blood loss anemia
UTI
Conditions prior to presentation:
Moderate aortic stenosis
Hypertension
Hyperlipidemia
Diabetes mellitus
CKD
GERD
Prostate cancer
Peripheral vascular disease
CAD
PLAN:
CBI
Transfuse another unit of blood yesterday along with Lasix and hemoglobin up to 8.7 today
Stop IV fluids today. Restart if needed.
Obtained twelve-lead EKG today for preop evaluation--> sinus bradycardia 50 bpm first-degree AV block no significant ST-T changes abnormalities and some APCs. Also, reviewed latest echocardiogram from January this year. Might need cardiac monitoring
and monitor volume status. Cardiac eval for preop evaluation given his multiple cardiac risk factors.
Urology will call radiation oncology for any alternative of treatments but ultimately might need cystectomy and urinary diversion-possible surgery for this coming .
Blood cultures no growth
Urine culture positive with Enterococcus--> change Rocephin to IV ampicillin. Definitely needs treatment since he is going for operation.
Monitor hemoglobin closely
Insulin sliding scale
Continue home medications including metformin, atorvastatin, Protonix, bowel regimen.
Urology consult appreciated
SCDs for DVT prophylaxis
CODE STATUS full code
Total time spent on today's encounter was 52 minutes which included time spent in counseling the patient/family regarding diagnosis and treatment plan as listed above, goals of care, and symptom management. Case was discussed with nursing staff,
specialists, and care coordinators/case management. All labs and imaging personally reviewed by me. Remainder the time spent in detailed review of previous records, lab data, imaging, and other medical provider documentation.
Anticipated Discharge: > 48 hours
Subjective/Interval History
-
Date of Service: February 17, 2024
Patient denies any chest pain or shortness of breath. Remains with hematuria and CBI. Afebrile
Objective Data
-
Labs:
Laboratory Results
02/17/24
06:28
WBC 7.0
Hgb 8.7 L
Hct 27.0 L
Plt Count 186
Sodium 137
Potassium 4.9
Chloride 108 H
Carbon Dioxide 24
BUN 21 H
Creatinine 1.2
Glucose 103 H
Calcium 8.4
Vital Signs:
Vital Signs
Temp Pulse Resp BP Pulse Ox
97.9 F 54 18 120/49 94
02/17/24 07:45 02/17/24 07:45 02/17/24 07:45 02/17/24 07:45 02/17/24 07:45
I&O
02/16/24 02/17/24 02/18/24
06:59 06:59 06:59
Intake Total 880 / 880 1580 / 1580 1125 / 1125
Output Total 300 / 300 2800 / 2800
Balance 580 / 580 -1220 / -1220 1125 / 9268
--- NOTE | 2024-02-17 10:05 | PN.CDI ---
CDI
- -
CDI:
Physician Documentation Request
Admit Date: 02/15/24 23:27
Dear Doctor Platt,
Please review the following and provide your response in the progress notes.
Clinical Indicators:
Pt admitted on 02/14 with Hematuria
RN noted Right buttock pressure injury, stage 2 POA
02/15 box finisher Note: 'Coccyx/R buttocks with almost healed stage 2 pressure/friction related injuries'
Physician documentation of the type and location of wounds is required for compliant documentation. Based on the above clinical findings and your assessment, please provide the following in your progress note:
Location of the ulcer/wound, including laterality.
Type (etiology) of ulcer/wound:
- Pressure (decubitus) ulcer
- Other
If a pressure ulcer, please also include the stage* of the ulcer:
- Stage 1 - Skin intact, non-blanchable redness
- Stage 2 - Partial thickness loss of dermis, includes intact or open blister
- Stage 3 - Full thickness tissue not including bone, tendon or muscle
- Stage 4 - Full thickness tissue loss, including exposed bone, tendon or muscle
Use of terms such as suspected, likely, concern for, or probable (associated with a specific diagnosis that is being evaluated, monitored, or treated as if it exists) are acceptable and can be coded in the inpatient setting, when documented at the
time of discharge.
Thank you,
Vikki Willis RN, BSN
CDI Specialist
Available via [employer]
Please use your independent medical judgment in providing your response.
*Source: National Pressure Ulcer Advisory Panel (NPUAP)
[2024-02-17 12:10] LABS: Glucose - Point of Care 111 mg/dl (70-99)
--- NOTE | 2024-02-17 14:30 | W.PN.URO.CBU ---
Today's Communication / Plan
-
recurent radaition cystitis hematuira failed multple intevrntin s Duscussed with hospialist y juanall in agreement to p[reform urostomy with removal as much as bladder as safely possible Scheduled for WOC Marked icu
notified clear liquods started
Diagnosis
-
Date of Service: February 17, 2024
-
Patient Diagnosis:radiatioon cystitis with hematuria recurrent
Post Op Day:
Subjective
-
still bleeding
Objective
-
Vital Signs
Temp Pulse Resp BP Pulse Ox
97.9 F 54 18 120/49 94
02/17/24 07:45 02/17/24 07:45 02/17/24 07:45 02/17/24 07:45 02/17/24 07:45
Intake and Output
02/16/24 02/17/24 02/18/24
06:59 06:59 06:59
Intake Total 880 / 880 1580 / 1580 1125 / 1125
Output Total 300 / 300 2800 / 2800
Balance 580 / 580 -1220 / -1220 1125 / 1125
Intake:
Oral fluids 120 / 120 480 / 480 250 / 250
IV fluids (Total) 260 / 260 600 / 600 875 / 875
Blood products 250 / 250 250 / 250
Blood Product Amount Infused ( 250 / 250 250 / 250
mL)
Packed Rbc Leukoreduced Unit 250 / 250
[id number]
Packed Rbc Leukoreduced Unit 250 / 250
[id number]
Output:
True Urine Output from CBI 300 / 300 2800 / 2800
Laboratory Results
02/17/24 06:28
02/17/24 06:28
Review of Systems
-
: Difficulty Voiding and Bleeding
Physical Exam
-
General - well developed, well nourished, no acute distress
Chest - clear bilaterally
Abdomen - soft, non-tender, positive bowel sounds, no CVAT, no incisional pain or distention
Genitalia - normal
Rectal - normal
Skin - warm & dry with no rash
Neuro - AOx3, no motor deficits
Extremities - no clubbing, no cyanosis, no edema
Incision - clean, dry
Dressing - clean, dry, intact
Counseling
-
clear liquids npo wed for op room
Care Review
Data Reviewed
Discussed with: Hospitalist, Nursing and Family
--- NOTE | 2024-02-17 14:41 | CM ---
Reviewed the chart notes and spoke with the patient at the bedside. Per uro notes, due to perform an urostomy with removal as much as bladder as safely possible on . CM continues to be available to patient/family and is monitoring medical
plan for needs at discharge.
Plan: Discharge plans will depend on the patient's progress.
[2024-02-17 15:45] VITALS: BP 123/58
--- NOTE | 2024-02-17 15:51 | CON.CAR ---
Addendum entered and electronically signed by Ryland Hutson DO 02/17/24 18:20:
I saw and examined the patient.
The [facility] Nurse's note was reviewed and I agree with the note.
Comment:
Plan:
Asked to see patient for perioperative risk assessment.
Recent echo with preserved LV function. With moderate aortic stenosis would avoid large fluid shifts. Moderate aortic stenosis is not prohibitive for surgery.
He was recently cleared for surgery by his primary rn clinical review prior to CEA which she tolerated in October 2023. Requested records including recent stress testing and echocardiogram.
He appears compensated for surgery and does not require additional testing prior to surgery. He has moderate cardiovascular risk given need for surgery and his comorbidities but acceptable risk as he appears compensated.
Original Note:
Consultation
Consultation Request
Date/Time Consultation Performed: 02/17/24
Requesting Provider: Dr. Platt
Performing Provider: Eden Bennett PA-C for Dr. Hutson
Reason for Consultation: preop eval
Medical History
-
Chief Complaint: hematuria
History of Present Illness:
Patient is an 88 yo M with PMH of prostate cancer s/p radiation with subsequent radiation cystitis. He has history of CABG and is followed by Dr. Alex Pink of [facility]. Most recently he underwent L CEA 10/2023. Post he had issues with urinary
retention and hematuria requiring CBI. He has been at [facility] for rehab the last month. He presents back due to recurrent hematuria. He states he has not been on plavix, although then states he had his meds changed so many times 'I am not sure
what I am supposed to be taking.' Last admission he required blood transfusion. Hgb on arrival was 7.6 and required transfusion. Urology following, and patient was offered cystectomy and urinary diversion, planned for 02/18. Cardiology
consulted for preop evalution. It appears he was cleared by Dr. Pink prior to L CEA procedure after echo and stress testing. He denies CP or SOB. Denies syncope or presyncope. He reports his activity has been limited due to deconditioning from
recent admissions as well as back pain.
PMH:
CAD with CABG
Mod
HTN
HLD
DM
CKD
History of prostate cancer s/p radiation with subsequent radiation cystitis/hematuria
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
GERD
PVD
Past Medical History
Past Medical History: Other (in HPI)
Social History
Tobacco: Non-Smoker
Personal:
Living: With Family (however most recently at [facility] for rehab)
Employment: Retired
Allergies / Home Medications
Allergy/AdvReac Type Severity Reaction Status Date / Time
No Known Allergies Allergy Verified 02/15/24 23:11
�Medication �Instructions �Recorded �Confirmed �Type
atorvastatin 40 mg tablet 40 mg PO HS High cholesterol 02/05/17 02/15/24 History
cholecalciferol (vitamin D3) 50 50 mcg PO DAILY Supplement 11/26/23 02/15/24 History
mcg (2,000 unit) tablet
omeprazole magnesium 20 mg 40 mg PO DAILY Gastrointestinal 11/26/23 02/15/24 History
tablet,delayed release (Prilosec Issue
OTC)
polyethylene glycol 3350 17 gram 17 g PO HS Constipation 11/26/23 02/15/24 History
oral powder packet (Miralax)
metformin 500 mg tablet 500 mg PO BID Diabetes #0 tabs 02/06/24 02/15/24 Rx
phenazopyridine 200 mg tablet 200 mg PO Q8HPRN PRN URETHRAL 02/06/24 02/15/24 Rx
BURNING 7 days #21 tabs
acetaminophen 500 mg tablet 1,000 mg PO Q8HPRN PRN MILD PAIN 02/10/24 02/15/24 History
(Tylenol Extra Strength)
bacitracin zinc 500 unit-polymyxin 1 applic topical TID PENIS-SUTURED 02/10/24 02/15/24 History
B 10,000 unit/gram top oint packet AREA
(Polysporin)
bisacodyl 10 mg rectal suppository 10 mg MT DAILYPRN PRN IF NO BM 02/10/24 02/15/24 History
(Dulcolax (bisacodyl)) AFTR MOM
magnesium citrate 300 ml PO ONCE PRN constipation 02/14/24 02/15/24 Rx
#296 mL
magnesium hydroxide 400 mg/5 mL 2,400 mg (30 mL) PO DAILY IF NO BM 02/14/24 02/15/24 Rx
oral suspension (Milk of Magnesia) BY 2ND DAY #0 mL
sennosides 8.6 mg-docusate sodium 1 tab PO BID #60 tabs 02/14/24 02/15/24 Rx
50 mg tablet (Stool
Softener-Stimulant Laxative)
lidocaine HCl 2 % mucosal jelly in 1 applic topical TID penile pain 02/15/24 02/15/24 History
applicator (Glydo)
sodium phosphates 19 gram-7 118 ml MT PRN PRN if no BM after 02/15/24 02/15/24 History
gram/118 mL enema (Fleet Enema) suppository
Review of Systems
-
History Source: Patient
All other systems: Negative unless noted
Physical Exam
Vital Signs
Temp Pulse Resp BP Pulse Ox
97.9 F 54 18 120/49 94
02/17/24 07:45 02/17/24 07:45 02/17/24 07:45 02/17/24 07:45 02/17/24 07:45
Lab Results
02/17/24 06:28
02/17/24 06:28
Physical Exam
General: No Apparent Distress and Comfortable
HEENT: Normocephalic, Anicteric and Moist Mucous Membranes
Respiratory: Clear and Non Labored Respirations
Cardiac: S1/S2, Regular Rhythm and Murmur
GI: Soft and Normal Bowel Sounds
Genito-urinary: Other (CBI with punch colored urine)
Musculoskeletal: No Clubbing, No Cyanosis and No Edema
Skin: Warm and Dry
Neuro: AO x 3
Impression / Plan
-
Primary Medical Lab Technician: Dr. Alex Pink of [facility]
Assessment:
Recurrent hematuria
Anemia requiring transfusion
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
CAD with CABG
Mod
HTN
HLD
DM
CKD
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
GERD
PVD
ECHO 01/28/24: EF 60 to 65%, mild concentric LVH, mild MR, moderate AAS with peak/mean gradients 53/27 mmHg, MARISA 0.9 cm�, mild AR
Plan:
-Patient presents with recurrent hematuria in the setting of radiation cystitis from prior prostate cancer treatment
-He is tentatively planned for cystectomy and urinary diversion surgery on 02/19/2024 per urology
-Cardiology consulted for preoperative evaluation
-He is without chest pain or shortness of breath or syncope/presyncope
-EKG sinus bradycardia with 1st degree av block without acute ischemic change
-Recent echo with results as above, EF preserved, mod
-He was cleared 10/2023 for CEA by his primary rn clinical review after echo and stress testing. Records requested
-Given above comorbidities, he is at moderately elevated cardiovascular risk for planned surgical procedure, however given necessity of procedure this risk is not prohibitive. Likely no further testing required at this point
-Discussed with nursing
Data Reviewed
-
EKG: Tracing Personally Visualized and interpreted
Medical Tests (Nuc Med, Echo etc): Report Reviewed by me
Labs: Labs Reviewed by me
Old Records: Requested and Reviewed
[2024-02-17 16:39] LABS: Glucose - Point of Care 116 mg/dl (70-99)
--- NOTE | 2024-02-17 17:22 | W.PN.UPDATE ---
Update Note
Progress Note Update
Met with patient today in anticipation of the planned partial cystectomy with ileal loop urine diversion 02/19/24 for management of recurrent/refractory gross hematuria secondary to irradiation cystitis
Discussed his prior surgical history (CABG and left CEA): he reports no abdominal surgery
Discussed the surgery, the postoperative recovery with likely week-long hospital stay with 1 or 2 nights in the ICU
Discussed the preop preparation: clear liquids, TEDS/SCDs, prophylactic antibiotic
---
Exam:
Abdomen soft and non-tender
No CVAT or SP pain
Stoma markings in place
Ext genitalia notable for and 3 way Sams draining light punch colored urine on moderate drip CBI
Plan:
Re-visit in AM to answer questions and prepare for surgery
[2024-02-17] MEDS: AMPICILLIN 108 MG IV (19:40)
[2024-02-17 19:53] VITALS: BP 122/52
[2024-02-17 22:00] LABS: Glucose - Point of Care 132 mg/dl (70-99)
[2024-02-17] MEDS: MIRALAX 17 GRAMS PO (22:14)
[2024-02-17] MEDS: LIPITOR 40 MG PO (22:14)
[2024-02-17 23:41] VITALS: BP 118/63
[2024-02-18] VITALS (14 sets, daily range): BP systolic 104–167; BP diastolic 46–85; BMI 32.0; BMI 34.2
[2024-02-18] MEDS: AMPICILLIN 108 MG IV ×3 (00:17→12:35)
[2024-02-18 06:44] LABS: Hematocrit 28.1 % (39.0-52.0); Mean Corpuscular Hgb 29.8 pg (27.0-31.0); Mean Platelet Volume 9.6 fL (7.4-10.4); Platelet Count 177 10^3/uL (130-400); Red Blood Cell Count 3.02 10^6/uL (4.70-6.10); Red Cell Dist. Width 17.1 % (11.5-14.5); White Blood Cell Count 8.1 10^3/uL (4.8-10.8)
[2024-02-18 07:15] LABS: Blood Urea Nitrogen 16 mg/dl (9-20); Calcium 8.7 mg/dl (8.4-10.2); Carbon Dioxide 25 mmol/L (22-30); Chloride 106 mmol/L (98-107); Estimated Creatinine Clearance 63 ml/min; Glucose 92 mg/dl (70-99); Potassium 4.9 mmol/L (3.5-5.1); Sodium 136 mmol/L (135-145); eGFR > 60.00
[2024-02-18 07:53] LABS: Glucose - Point of Care 86 mg/dl (70-99)
--- NOTE | 2024-02-18 08:33 | W.PN.HOSP.TC ---
Today's Communication/Plan
-
Pain control. CBI. Plan for surgery tomorrow
Assessment / Plan
Assessment / Plan
Physical exam:
General: Acute on chronically ill
HEENT: Normocephalic, Atraumatic and Moist Mucous Membranes
Respiratory: Clear to Auscultation; Negative Wheezes, Rales or Rhonchi
Cardiac: Regular Rhythm and S1/S2, systolic ejection murmur
GI: Soft, Nontender and Nondistended
: Sams catheter in place with CBI and hematuria present
Musculoskeletal: No Clubbing, No Cyanosis and some trace bilateral edema
Neuro: Awake, Alert and Oriented
Psych: Calm
A/P:
Impression:
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
Acute blood loss anemia
UTI
Conditions prior to presentation:
Moderate aortic stenosis
Hypertension
Hyperlipidemia
Diabetes mellitus
CKD
GERD
Prostate cancer
Peripheral vascular disease
CAD
PLAN:
Increased pain medications today
Plan for surgery tomorrow
CBI
Hemoglobin 9 today
Urology planning surgery tomorrow
Appreciate cardiology preop evaluation.
Blood cultures no growth
Urine culture positive with Enterococcus--> continue IV ampicillin. Definitely needs treatment since he is going for operation.
Monitor hemoglobin closely
Insulin sliding scale
Continue home medications including metformin, atorvastatin, Protonix, bowel regimen.
SCDs for DVT prophylaxis
CODE STATUS full code
Anticipated Discharge: > 48 hours
Subjective/Interval History
-
Date of Service: February 18, 2024
Patient continues with hematuria. Complains of significant penile pain and abdominal discomfort. No chest pain or shortness of breath.
Objective Data
-
Labs:
Laboratory Results
02/18/24
06:06
WBC 8.1
Hgb 9.0 L
Hct 28.1 L
Plt Count 177
Sodium 136
Potassium 4.9
Chloride 106
Carbon Dioxide 25
BUN 16
Creatinine 1.0
Glucose 92
Calcium 8.7
Vital Signs:
Vital Signs
Temp Pulse Resp BP Pulse Ox
98.0 F 65 18 133/62 96
02/18/24 03:18 02/18/24 03:18 02/18/24 03:18 02/18/24 03:18 02/18/24 03:18
I&O
02/17/24 02/18/24 02/19/24
06:59 06:59 06:59
Intake Total 1580 / 1580 1725 / 1725
Output Total 2800 / 2800 8200 / 8200
Balance -1220 / -1220 -6475 / -6475
Review of Systems
-
All other systems: Reviewed and negative
[2024-02-18] MEDS: SENOKOT-S 1 TABLET PO (08:35)
[2024-02-18] MEDS: PROTONIX 40 MG PO (08:35)
[2024-02-18] MEDS: VITAMIN D3 (cholecalciferol) 50 MCG PO (08:35)
[2024-02-18] MEDS: GLUCOPHAGE 500 MG PO (08:36)
[2024-02-18] MEDS: LIDOCAINE URO-JET 2% 1 SYRINGE TOPICAL ×2 (08:36→18:01)
[2024-02-18] MEDS: MORPHINE SULFATE 2 MG IV (08:38)
--- NOTE | 2024-02-18 09:24 | W.PN.CARDCBS ---
Addendum entered and electronically signed by Tristan Troy MD 02/18/24 10:35:
I saw and examined the patient.
The [employer]'s note was reviewed and I agree with the note.
Comment:
GEN: Anxious. In pain.
HEENT: supple, anicteric, mmm
LUNGS: CTA, no wheezes/rales
CV: Reg, S1/S2, 2/6 syst LSB, no gallop
ABD: soft, BS+, diffuse abd tend
EXT: No edema
NEURO: Gross non-focal
SKIN: No rash
Plan:
He is stable to proceed with cystectomy. He will be moderate risk based on his aortic stenosis and coronary artery disease. He is no current unstable cardiac syndromes.
Continue with antibiotics and pain control.
Would try and avoid hypotension with his moderate to severe aortic stenosis.
Original Note:
Today's Communication / Plan
-
at moderately elevated cardiovascular risk for planned surgical procedure, however this risk is not prohibitive as appears compensated from cardiac standpoint
records requested for review
Impression / Plan
-
Primary Crime Scene Evidence Technician: Dr. Alex Pink of [facility]
Assessment:
Recurrent hematuria
Anemia requiring transfusion
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
CAD with CABG
Mod
HTN
HLD
DM
CKD
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
GERD
PVD
ECHO 01/28/24: EF 60 to 65%, mild concentric LVH, mild MR, moderate AAS with peak/mean gradients 53/27 mmHg, MARISA 0.9 cm�, mild AR
Plan:
-Patient presents with recurrent hematuria in the setting of radiation cystitis from prior prostate cancer treatment
-He is tentatively planned for cystectomy and urinary diversion surgery on 02/19/2024 per urology
-Cardiology consulted for preoperative evaluation
-He is without chest pain or shortness of breath or syncope/presyncope.
-reports significant pain in abd and penis at present. continue pain control
-EKG sinus bradycardia with 1st degree av block without acute ischemic change. tele overnight reviewed, SR with occasional PVCs, occasional vent bigeminy. K stable. check mag
-Recent echo 01/2024 with results as above, EF preserved, mod
-He was cleared 10/2023 for CEA by his primary workforce development assistant after echo and stress testing. Records requested for review
-Given above comorbidities, he is at moderately elevated cardiovascular risk for planned surgical procedure, however given necessity of procedure this risk is not prohibitive. no further testing required at this point. avoid hypotension and large
fluid shifts as able given
-Discussed with nursing
Progress Note - Crime Scene Evidence Technician
Subjective
Date of Service: February 18, 2024
reports significant pain in abd and penis at present
Objective
Labs:
02/18/24 06:06
02/18/24 06:06
Labs
Hgb 9.0 g/dL (13.0-18.0) L 02/18/24 06:06
Hct 28.1 % (39.0-52.0) L 02/18/24 06:06
Plt Count 177 10^3/uL (130-400) 02/18/24 06:06
Sodium 136 mmol/L (135-145) 02/18/24 06:06
Potassium 4.9 mmol/L (3.5-5.1) 02/18/24 06:06
BUN 16 mg/dl (9-20) 02/18/24 06:06
Creatinine 1.0 mg/dL (0.7-1.3) 02/18/24 06:06
Glucose 92 mg/dl (70-99) 02/18/24 06:06
Vital Signs and I&O:
Vital Signs
Temp Pulse Resp BP Pulse Ox
97.5 F 66 16 120/55 95
02/18/24 07:45 02/18/24 07:45 02/18/24 07:45 02/18/24 07:45 02/18/24 07:45
Vital Signs
Temp Pulse Resp BP Pulse Ox
97.5 F 66 16 120/55 95
02/18/24 07:45 02/18/24 07:45 02/18/24 07:45 02/18/24 07:45 02/18/24 07:45
Intake & Output
02/16/24 02/17/24 02/18/24 02/19/24
07:59 07:59 07:59 07:59
Intake Total 880 / 880 2705 / 2705 600 / 600
Output Total 300 / 300 2800 / 2800 8200 / 8200
Balance 580 / 580 -95 / -95 -7600 / -7600
Physical Exam
Physical Exam
GEN: awake, alert, oriented x3. uncomfortable
HEENT: supple, anicteric, mmm, eomi
LUNGS: CTA B/L, no wheezes/rales
CV: Reg, S1/S2, 2/6 syst LSB
ABD: soft, BS+, NT/ND
EXT: No cyanosis, clubbing, edema
NEURO: Gross non-focal
SKIN: Warm, pink, dry. No rash
: CBI with punch colored output in lion bag
[2024-02-18] MEDS: DILAUDID 0.25 MG IV ×2 (09:38→18:16)
--- NOTE | 2024-02-18 10:35 | PTCARENOTE ---
Patient verbalizes extreme penile pain / spasms. Pain scale 10. Dr. russell aware. ordered Valium 5mg Iv Now and q6hr prn spasms. order verified and in place.
[2024-02-18] MEDS: DILAUDID 1 MG IV (10:52)
--- NOTE | 2024-02-18 11:02 | W.PN.URO.CBU ---
Today's Communication / Plan
-
Again discussed at length with the patient tomorrow's plans for partial cystectomy and ileal loop urine diversion
Risk of ileus, bowel leak and rectal injury, in addition to the usual risks of bleeding, infection and the attendant risks of general anesthesia reviewed with patient
He will spend at least 24 hours in the ICU
TEDS and SCDs preop op along with a gram of Rocephin IV
---
Written and verbal consent for surgery provided
Assessment / Plan
-
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
Diagnosis
-
Date of Service: February 18, 2024
-
Patient Diagnosis:
Irradiation cystitis
Intractable gross hematuria
Clot urine retention
Bladder pain
Subjective
-
c/o ongoing pain despite CBI and hand irrigation of clots
Objective
-
Vital Signs
Temp Pulse Resp BP Pulse Ox
97.5 F 66 16 120/55 95
02/18/24 07:45 02/18/24 07:45 02/18/24 07:45 02/18/24 07:45 02/18/24 07:45
Intake and Output
02/17/24 02/18/24 02/19/24
06:59 06:59 06:59
Intake Total 1580 / 1580 1725 / 1725
Output Total 2800 / 2800 8200 / 8200
Balance -1220 / -1220 -6475 / -6475
Intake:
Oral fluids 480 / 480 850 / 850
IV fluids (Total) 600 / 600 875 / 875
Blood products 250 / 250
Blood Product Amount Infused ( 250 / 250
mL)
Packed Rbc Leukoreduced Unit 250 / 250
[id number]
Output:
Urine, Sams 6600 / 6600
True Urine Output from CBI 2800 / 2800 1600 / 1600
Laboratory Results
02/18/24 06:06
02/18/24 06:06
Review of Systems
-
Constitutional: Fatigue
Respiratory: No Symptoms
Cardiac: No Symptoms
Abdomen/GI: No Symptoms
: Difficulty Voiding and Bleeding
Physical Exam
-
General - well nourished, acute distress due to bladder pain (requiring narcotic)
Abdomen - soft, non-tender, positive bowel sounds, no CVAT, stoma marking x 2
Genitalia - normal with Sams draining minimally bloody urine with rapid drip CBI
Skin - warm & dry with no rash
--- NOTE | 2024-02-18 11:15 | WOUNDNOTE ---
WOC RN note: WOC RN Loyda requested this remote mortgage underwriter to check stoma rao RUQ and RLQ. Agree RUQ preferred stoma site. Patient in semi rivera's position. Patient's nurse Jewell requested not to disturb his position at this time d/t he is finally in a
good position from a pain perspective. Elevated heels off bed with air chair cushion. Patient at risk for post op peristomal skin creases from the surgery itself d/t his body habitus.
--- NOTE | 2024-02-18 11:41 | CM ---
Reviewed the chart notes. Patient scheduled tomorrow for partial cystectomy and ileal loop urine diversion. CM continues to be available to patient/family and is monitoring medical plan for needs at discharge.
Plan: Discharge plans will depend on the patient's progress.
[2024-02-18 11:58] LABS: Glucose - Point of Care 155 mg/dl (70-99)
[2024-02-18] MEDS: VALIUM INJECTION 5 MG IV ×2 (12:46→20:57)
[2024-02-18 16:27] LABS: Glucose - Point of Care 132 mg/dl (70-99)
--- NOTE | 2024-02-18 17:39 | PTCARENOTE ---
Noted patient Sams was leaking, irrigated prn through out the shift. clots noted with each irrigation. urology at bedside and also updated by nursing through out shift. pain medication ordered and given. Plan for surgery tomorrow.
[2024-02-18] MEDS: UNASYN IV (18:17)
--- NOTE | 2024-02-18 19:20 | W.PN.UPDATE ---
Update Note
Progress Note Update
Reported by the nursing staff that the patient is hypoxic SPO2 in 70s was placed on 4 L of O2 and SPo2 up to 90s. Patient denied SOB/chest pain but he seems to making effort for breathing. LT lung sound with expiratory wheezing, RT side diminished.
Temp is 102.2, hr 97. Hr 40s. Stat cbc, bmp, mag, covid, flu, abg, Pro BNP, Procalcitonin and chest x-ray.
-Due neb added for SOB/ Wheezing.
Lab result reviewed
-Flu and covid neg.
-WBC is 13.3
ProBNP today 2610, previously 4560
-Abg ph 7.36, pco2 52, HCO3 23.2, ABG O2 86.4
-Chest x-ray with The lungs appear hypoinflated.
Mild patchy parenchymal opacity within both lower lungs, most likely atelectasis.
Patient most likely sepsis, after discussion with the hospitalist
Will add one dose of vancomycin, repeat blood cultures and urine culture.
With given medical history and current symptoms will transfer the patient to ICU.
[2024-02-18 19:45] LABS: % Basophils 0.2 % (0-2); % Immature Granulocytes 0.6 % (0-0.5); % Lymphocytes 3.2 % (20.5-51.1); % Monocytes 5.2 % (1.7-9.3); % Neutrophils 90.8 % (42.2-75.2); Absolute Immature Granulocytes 0.1 10^3/uL (0-0.05); Absolute Lymphocytes 0.4 10^3/uL (1.2-3.4); Absolute Monocytes 0.7 10^3/uL (0.1-0.6); Absolute Neutrophils 12.1 10^3/uL (1.4-6.5); Hematocrit 29.4 % (39.0-52.0); Hemoglobin 9.6 g/dL (13.0-18.0); Mean Corp Hgb Conc. 32.7 g/dL (33.0-37.0); Mean Corpuscular Hgb 29.8 pg (27.0-31.0); Mean Corpuscular Volume 91.3 fL (80.0-94.0); Mean Platelet Volume 9.4 fL (7.4-10.4); Nucleated Red Blood Cells % 0 % (-); Platelet Count 190 10^3/uL (130-400); Red Blood Cell Count 3.22 10^6/uL (4.70-6.10); Red Cell Dist. Width 17.2 % (11.5-14.5); White Blood Cell Count 13.3 10^3/uL (4.8-10.8)
[2024-02-18 19:58] LABS: COVID-19 Antigen Negative (Negative)
[2024-02-18 20:02] LABS: Blood Urea Nitrogen 16 mg/dl (9-20); Carbon Dioxide 25 mmol/L (22-30); Chloride 109 mmol/L (98-107); Estimated Creatinine Clearance 57 ml/min; Glucose 132 mg/dl (70-99); Magnesium 1.6 mg/dl (1.6-2.3); Potassium 4.7 mmol/L (3.5-5.1); Sodium 135 mmol/L (135-145); eGFR > 60.00
[2024-02-18 20:10] LABS: B.E. -2.1 mmol/L; HCO3 23.2 mmol/L (21-28); O2 Saturation % 86.4 % (94-98); PCO2 41 mmHg (35-48); pH 7.36 (7.35-7.45)
[2024-02-18] MEDS: DUONEB 3 ML INH (20:11)
[2024-02-18 20:12] LABS: PO2 52 mmHg (83-108)
[2024-02-18] MEDS: TYLENOL 1000 MG PO (20:36)
[2024-02-18 21:09] LABS: Glucose - Point of Care 150 mg/dl (70-99)
[2024-02-18 21:12] LABS: NT-proBNP 2610 pg/ml
--- NOTE | 2024-02-18 21:30 | PTCARENOTE ---
After report pt noted to be tachypneic-resp rate 40 and febrile with temp 102.2. Pt hot to touch, lethargic and legs mottled. Room air sat 70s. Placed on O2 4L N[place] with sat up to 91%. House FIRE PREVENTION OFFICER notified. Swabs done for covid /flu-all negative. Blood
work, ABG and CXR done. Lion continues to leak but punch colored urine also coming through tube. After pt cleaned up from leaking lion- lion blocked- no urine through or around tube. Irrigated for about 20 minutes by 2 different nurses and
copious amt of clots retrieved and lino then flowing. CBI opened wide to prevent clotting off. Pt med with valium for bladder spasms during irrigation. Tylenol given for fever. Neb treatment also given. Report given to Shobha VILLAREAL in ICU and pt
transported to ICU via bed.
--- NOTE | 2024-02-18 22:01 | W.PN.UPDATE ---
Update Note
Progress Note Update
2134- Updated Dr. Pardo, urologist, about transfer of patient to ICU and new fever spike 102.2. Vital sign HR 80s SBP 120s, current on nasal cannula 4 L for PO2 52 noted on ABG. CBI flushed vigorously for clots and prn valium given for bladder
spasms/pain. Recommendations received will order Tranexamic acid 1gm IV now for bleeding and follow closely for signs/symptoms of septic shock, continue current antibiotics as ordered, and flush continuous bladder irrigation. Family updated,
patient's Louis and son Celestine, answered all questions and updated them procedure tomorrow may have to be reschedule but determination will be made by urologist tomorrow.
[2024-02-18] MEDS: TRANEXAMIC ACID 100 IV (22:14)
[2024-02-19] VITALS (16 sets, daily range): BP systolic 94–156; BP diastolic 45–66; BMI 33.9
--- NOTE | 2024-02-19 | PTCARENOTE ---
Rec'd patient from around 2129. CBI clotted off. Hand irrigation performed from 2129 until 2299. Copious amounts of blood clots removed. Urology aware. Tranexamic acid administered. CBI flowing wide open. VSS. Full assessment and care as charted
on worklist.
[2024-02-19] MEDS: LIPITOR 40 MG PO (00:20)
[2024-02-19] MEDS: GLUCOPHAGE PO ×2 (00:20→08:24)
[2024-02-19] MEDS: MIRALAX 17 GRAMS PO (00:20)
[2024-02-19] MEDS: SENOKOT-S 1 TABLET PO (00:20)
[2024-02-19] MEDS: LIDOCAINE URO-JET 2% 1 SYRINGE TOPICAL ×3 (00:21→22:13)
[2024-02-19 00:23] LABS: INR 1.13; PT 14.5 Sec (11.4-14.6)
[2024-02-19 00:24] LABS: APTT 31.4 Sec (23.4-35.0)
[2024-02-19 00:26] LABS: Lactic Acid 3.4 mmol/L (0.7-2.0)
[2024-02-19] MEDS: VANCOCIN 540 MG IV (00:34)
[2024-02-19] MEDS: UNASYN IV ×5 (00:45→23:37)
[2024-02-19 00:57] LABS: Procalcitonin 22.62 ng/ml (0.0-0.25)
[2024-02-19] MEDS: VALIUM INJECTION 5 MG IV (03:25)
[2024-02-19 04:12] LABS: Hematocrit 26.3 % (39.0-52.0); Hemoglobin 8.6 g/dL (13.0-18.0); Mean Corp Hgb Conc. 32.7 g/dL (33.0-37.0); Mean Corpuscular Volume 91.6 fL (80.0-94.0); Mean Platelet Volume 9.4 fL (7.4-10.4); Platelet Count 182 10^3/uL (130-400); Red Blood Cell Count 2.87 10^6/uL (4.70-6.10); Red Cell Dist. Width 17.2 % (11.5-14.5); White Blood Cell Count 12.7 10^3/uL (4.8-10.8)
--- NOTE | 2024-02-19 04:23 | PTCARENOTE ---
No further clots noted in CBI. Flow decreased. Patient tolerating. Output clear/pink tinged. VSS. AM labs sent.
[2024-02-19 04:37] LABS: Lactic Acid 2.5 mmol/L (0.7-2.0)
[2024-02-19 04:38] LABS: Blood Urea Nitrogen 16 mg/dl (9-20); Calcium 7.7 mg/dl (8.4-10.2); Carbon Dioxide 19 mmol/L (22-30); Chloride 112 mmol/L (98-107); Estimated Creatinine Clearance 59 ml/min; Glucose 108 mg/dl (70-99); Sodium 138 mmol/L (135-145); eGFR > 60.00
--- NOTE | 2024-02-19 06:53 | CON.INTV ---
Consultation
Consultation Request
Date/Time Consultation Requested: 02/18
Date/Time Consultation Performed: 02/18
Reason for Consultation: Critical care
Medical History
-
History of Present Illness:
History obtained from the chart and some history obtained from the patient the patient very forthcoming with regards to details. 88-year-old male with history of diabetes, coronary disease, hypertension, prostate cancer who presents to [facility] on 02/14 with recurrent hematuria. He has history of severe phimosis status postcircumcision. He has a history of gross hematuria in the past. In the ED on admission hemoglobin was 7.6. He was transfused, had continuous bladder
irrigations. Creatinine was 1.3. Hospital course was reviewed. Patient was suspected to have radiation cystitis. Plan for urostomy with removal partial cystectomy was planned. Patient was seen by cardiology and deemed moderate risk with history
of aortic stenosis for surgery. Patient developed fevers and hypoxia and transferred to ICU. We are asked to help from critical care standpoint 02/19/2024
Presently, patient appears to be comfortable. He is without pulmonary complaints, respiratory rate about 25, saturation 95% on 3 L
It is noted that his respiratory rate was as high as 41 overnight in the setting of fevers
.
PMH: Hypertension, hyperlipidemia, coronary disease, aortic stenosis, anxiety diabetes, chronic kidney disease, GERD, history of prostate cancer with radiation 2004, peripheral vascular disease, history of recurrent hematuria with clot retention
January 2024, severe phimosis status post circumcision January 2024. History of left carotid endarterectomy 2022, bypass surgery 2004, back surgery. History of multiple falls
Past Medical History
Past Medical History: None (See above)
Past Surgical History: None (See above)
Social History
Tobacco: Former Smoker (Quit many years ago)
Alcohol: None
Drug: None
Personal:
Living: With Family
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
Family History
Family History: Other (Father from cardiac disease)
Allergies / Home Medications
Allergies
Allergy/AdvReac Type Severity Reaction Status Date / Time
No Known Allergies Allergy Verified 02/15/24 23:11
Home Medications
�Medication �Instructions �Recorded �Confirmed �Last Taken �Type
atorvastatin 40 mg tablet 40 mg PO HS High cholesterol 02/05/17 02/15/24 01/24/24 History
cholecalciferol (vitamin D3) 50 50 mcg PO DAILY Supplement 11/26/23 02/15/24 01/25/24 History
mcg (2,000 unit) tablet
omeprazole magnesium 20 mg 40 mg PO DAILY Gastrointestinal 11/26/23 02/15/24 01/25/24 History
tablet,delayed release (Prilosec Issue
OTC)
polyethylene glycol 3350 17 gram 17 g PO HS Constipation 11/26/23 02/15/24 01/25/24 History
oral powder packet (Miralax)
metformin 500 mg tablet 500 mg PO BID Diabetes #0 tabs 02/06/24 02/15/24 01/25/24 Rx
phenazopyridine 200 mg tablet 200 mg PO Q8HPRN PRN URETHRAL 02/06/24 02/15/24 Unknown Rx
BURNING 7 days #21 tabs
acetaminophen 500 mg tablet 1,000 mg PO Q8HPRN PRN MILD PAIN 02/10/24 02/15/24 Unknown History
(Tylenol Extra Strength)
bacitracin zinc 500 unit-polymyxin 1 applic topical TID PENIS-SUTURED 02/10/24 02/15/24 Unknown History
B 10,000 unit/gram top oint packet AREA
(Polysporin)
bisacodyl 10 mg rectal suppository 10 mg IL DAILYPRN PRN IF NO BM 02/10/24 02/15/24 Unknown History
(Dulcolax (bisacodyl)) AFTR MOM
magnesium citrate 300 ml PO ONCE PRN constipation 02/14/24 02/15/24 Unknown Rx
#296 mL
magnesium hydroxide 400 mg/5 mL 2,400 mg (30 mL) PO DAILY IF NO BM 02/14/24 02/15/24 Unknown Rx
oral suspension (Milk of Magnesia) BY 2ND DAY #0 mL
sennosides 8.6 mg-docusate sodium 1 tab PO BID #60 tabs 02/14/24 02/15/24 Unknown Rx
50 mg tablet (Stool
Softener-Stimulant Laxative)
lidocaine HCl 2 % mucosal jelly in 1 applic topical TID penile pain 02/15/24 02/15/24 Unknown History
applicator (Glydo)
sodium phosphates 19 gram-7 118 ml IL PRN PRN if no BM after 02/15/24 02/15/24 Unknown History
gram/118 mL enema (Fleet Enema) suppository
Review of Systems
-
Unable to Obtain full review of systems at this time due to: Acuity
All other systems: Negative unless noted
Vitals / Labs / Diagnostic Testing
Vital Signs
Temp Pulse Resp BP Pulse Ox
100.1 F 90 36 125/57 96
02/19/24 03:00 02/19/24 06:00 02/19/24 06:00 02/19/24 06:00 02/19/24 04:45
Lab Data
02/19/24 03:54
02/19/24 03:54
Laboratory Results
02/18/24 02/19/24
20:05 00:01
PT 14.5
INR 1.13
APTT 31.4
pH 7.36
pCO2 41
pO2 52 L*
HCO3 23.2
O2 Delivery Level
Microbiology
02/16/24 05:58 Blood/Venous Blood Culture - Preliminary
No Growth in 72 hours- Final report to follow
02/15/24 23:50 Blood/Venous Blood Culture - Preliminary
No Growth in 72 hours- Final report to follow
02/15/24 23:50 Blood/Venous Blood Culture - Preliminary
No Growth in 72 hours- Final report to follow
02/18/24 19:38 Nasal Swab Influenza Types A & B (KEIKO) - Final
Negative for Influenza A & B, NAAT
Negative results must be combined with clinical observations
and patient history.
Nucleic Acid Amplification test (NAAT)performed on the
[employer] platform.
02/16/24 17:54 Blood/Venous Blood Culture - Preliminary
No Growth in 48 hours- Final report to follow
02/16/24 18:58 Urine Urine Culture - Final
Enterococcus faecalis
02/16/24 03:54 Nose MRSA Screen - Final
No Methicillin Resistant Staphylococcus aureus isolated.
Diagnostic Testing:
Physical Exam
-
HEENT: Normocephalic, Anicteric and Other (Dry mucosa)
Cardiovascular: S1/S2, Regular Rhythm and Murmur (2/6 systolic murmur)
Respiratory: Wheeze (mild), Rales (n), Rhonchi (few) and Non-Labored Respirations
GI: Soft, Distended and Tender (Mild tenderness, no rebound or guarding)
Neurology: Awake, Alert, Oriented (To hospital) and No Motor Deficits (Moving all extremities)
Skin: Good Color (Mild pallor)
General: Comfortable and Other (CBI, clear urine)
Assessment
-
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
cystitis, presents with recurrent hematuria with clots. Plan for partial cystectomy and ileal loop urine diversion for 02/18. Patient transferred to ICU 02/17 because of fevers, tachycardia, shortness of breath
Recurrent hematuria, clots requiring CBI
Admitted 02/15/2024
Tx to ICU 02/19/2024 for fevers, shortness of breath
Sams catheter with CBI, now clear urine
Fevers
Tachycardia, improved
Hypoxia, 70%, now improved with nasal cannula urine culture positive for Enterococcus
UTI, positive Enterococcus faecalis
Conditions present prior to admission
S/p LCEA 07/22/23
History of falls, syncope
History of coronary disease
Bypass surgery 2004 at [place]
Hypercholesterolemia
History of prostate cancer with radiation
Diabetes
Distant tobacco history
Plan/recommendations
At this time, patient appears to be comfortable.
Tachycardia improved, hypoxia improved, respiratory status appears to be improved
Symptoms likely in the setting of fevers
Patient currently on Unasyn therapy
Urine culture noted
Moving forward
He appears to be improved overall, with management of fever
CBI also continues, now clear urine
EKG with sinus bradycardia 02/16/2024
Bradycardia is chronic per family and had to been worked up as outpatient by his semiconductor wafers etch operator (Dr. Arnold)
Patient has history of syncope in the past, falls, none recent
Chest x-ray with what appears to be either pulm edema or mild interstitial changes, or poor inspiratory film
chest exam much improved when compared to overnight
Echocardiogram 01/28/2024 shows normal biventricular function, moderate AAS, valve 0.9 cm�
Continue with supportive care
Follow blood sugars
Continue DuoNebs as needed
Doubt acute Pulmonary process
Await decision on OR per urology
I spoke with urology, and we do have a window here to address recurrent urological issues.
Okay from the OR from critical care standpoint. Note that patient tolerated carotid endarterectomy in July 2023 without any complications
Urology to discuss with family and cardiology
Reviewed with critical care nursing
We will follow
TCCT 31 min
--- NOTE | 2024-02-19 08:19 | W.PN.URO.CBU ---
Today's Communication / Plan
-
pt at risk v=cva etc spoke with son james and outpilned tx options after 20 min discusion ans discussion with local company hazmat driver tis to go forward with procedure f]granted that anesthesia can administer adequate anesthesia
Assessment / Plan
-
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
Diagnosis
-
Date of Service: February 19, 2024
-
Patient Diagnosis:
Post Op Day:
Patient Diagnosis:
Irradiation cystitis
Intractable gross hematuria
Clot urine retention
Bladder pain
Subjective
-
had fever last pm hematura stped pt witj sob but stable
Objective
-
Vital Signs
Temp Pulse Resp BP Pulse Ox
98.2 F 90 37 131/57 95
02/19/24 08:07 02/19/24 07:30 02/19/24 07:30 02/19/24 07:00 02/19/24 07:30
Intake and Output
02/18/24 02/19/24 02/20/24
06:59 06:59 06:59
Intake Total 1725 / 1725 750 / 750
Output Total 8200 / 8200 -6400 / -6400 -1275 / -1275
Balance -6475 / -6475 7150 / 7150 1275 / 1275
Intake:
Oral fluids 850 / 850 240 / 240
IV fluids (Total) 875 / 875
IV piggybacks 510 / 510
Output:
Urine, Sams 6600 / 6600
True Urine Output from CBI 1600 / 1600 -6400 / -6400 -1275 / -1275
Laboratory Results
02/19/24 03:54
02/19/24 03:54
Review of Systems
-
: Difficulty Voiding
Physical Exam
-
General - well developed, well nourished, no acute distress
Chest - clear bilaterally
Abdomen - soft, non-tender, positive bowel sounds, no CVAT, no incisional pain or distention
Genitalia - normal
Rectal - normal
Skin - warm & dry with no rash
Neuro - AOx3, no motor deficits
Extremities - no clubbing, no cyanosis, no edema
Incision - clean, dry
Dressing - clean, dry, intact
Counseling
-
to oip room
Care Review
Data Reviewed
Discussed with: Internal Medicine, Nursing and Family
[2024-02-19] MEDS: SENOKOT-S PO ×2 (08:23→19:58)
[2024-02-19] MEDS: VITAMIN D3 (cholecalciferol) PO (08:23)
[2024-02-19] MEDS: PROTONIX PO (08:24)
[2024-02-19] MEDS: TYLENOL 1000 MG PO (08:30)
--- NOTE | 2024-02-19 08:45 | W.PN.CARDCBS ---
Today's Communication / Plan
-
Events overnight noted. Continue antibiotics.
Lasix 20 mg IV now
Check EKG and troponin.
If lab work is overall unremarkable would be high but acceptable risk for operating room
Impression / Plan
-
Primary Emissions Inspector: Dr. Alex Pink of [facility]
Assessment:
Recurrent hematuria
Anemia requiring transfusion
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
fevers/elev WBC
CAD with CABG
Mod
HTN
HLD
DM
CKD
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
GERD
PVD
ECHO 01/28/24: EF 60 to 65%, mild concentric LVH, mild MR, moderate AAS with peak/mean gradients 53/27 mmHg, MARISA 0.9 cm�, mild AR
Plan:
-Events overnight noted. Had episode of fever and tachycardia requiring transfer to intensive care unit. Procalcitonin markedly elevated. Continue antibiotics
-Check EKG and troponin.
-proBNP is improved. Will give Lasix 20 mg IV now. However with aortic stenosis would avoid marked hypotension.
-Hemoglobin at 8.6. Will continue to follow and have low threshold to transfuse.
-If EKG and troponin are overall stable is reasonable for him to proceed to operating room today. Clearly he will be moderate to high risk for complications. He is also at risk for requiring ventilation for a period of time.
-Blood pressure is currently stable.
-CC time 32 min
-Discussed with nursing
Progress Note - Emissions Inspector
Subjective
Date of Service: February 19, 2024
Events overnight noted. Had episode of fever and shortness of breath. He is afebrile now and overall feels better. He denies any chest pains.
Objective
Labs:
02/19/24 03:54
02/19/24 03:54
Labs
Hgb 8.6 g/dL (13.0-18.0) L 02/19/24 03:54
Hct 26.3 % (39.0-52.0) L 02/19/24 03:54
Plt Count 182 10^3/uL (130-400) 02/19/24 03:54
PT 14.5 Sec (11.4-14.6) 02/19/24 00:01
INR 1.13 02/19/24 00:01
APTT 31.4 Sec (23.4-35.0) 02/19/24 00:01
Sodium 138 mmol/L (135-145) 02/19/24 03:54
Potassium 5.0 mmol/L (3.5-5.1) 02/19/24 03:54
BUN 16 mg/dl (9-20) 02/19/24 03:54
Creatinine 1.1 mg/dL (0.7-1.3) 02/19/24 03:54
Glucose 108 mg/dl (70-99) H 02/19/24 03:54
Vital Signs and I&O:
Vital Signs
Temp Pulse Resp BP Pulse Ox
98.2 F 90 37 131/57 95
02/19/24 08:07 02/19/24 07:30 02/19/24 07:30 02/19/24 07:00 02/19/24 07:30
Vital Signs
Temp Pulse Resp BP Pulse Ox
98.2 F 90 37 131/57 95
02/19/24 08:07 02/19/24 07:30 02/19/24 07:30 02/19/24 07:00 02/19/24 07:30
Intake & Output
02/17/24 02/18/24 02/19/24 02/20/24
06:59 06:59 06:59 06:59
Intake Total 1580 / 1580 1725 / 1725 750 / 750
Output Total 2800 / 2800 8200 / 8200 -6400 / -6400 -1275 / -1275
Balance -1220 / -1220 -6475 / -6475 7150 / 7150 1275 / 1275
Physical Exam
Physical Exam
GEN: No distress, awake, Ox3
HEENT: supple, anicteric, mmm
LUNGS: scatt rhonchi
CV: Reg, S1/S2, 2/6 syst LSB, no gallop
ABD: soft, BS+, + tenderness
EXT: No edema
NEURO: Gross non-focal
SKIN: No rash
[2024-02-19] MEDS: LASIX 20 MG IV (09:26)
--- NOTE | 2024-02-19 09:46 | W.PN.HOSP.TC ---
Addendum entered and electronically signed by Keith Platt MD 02/19/24 14:51:
updated son over the phone
Original Note:
Today's Communication/Plan
-
IV antibiotics. Plan for urological surgery today.
Assessment / Plan
Assessment / Plan
Physical exam:
General: Acute on chronically ill
HEENT: Normocephalic, Atraumatic and Moist Mucous Membranes
Respiratory: Decreased breath sounds bilateral; Negative Wheezes, Rales or Rhonchi
Cardiac: Regular Rhythm and S1/S2, systolic ejection murmur
GI: Soft, Tender and Nondistended
: Sams catheter in place with CBI and hematuria present
Musculoskeletal: No Clubbing, No Cyanosis and some trace bilateral edema
Neuro: Lethargic, generalized weakness, no gross neuro-deficits noted.
Psych: Calm
A/P:
Gross hematuria:
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
On CBI
Multiple attempts of treatment have failed so now plan for cystectomy today/urinary diversion.
Overnight transfer for fevers, tachycardia, shortness of breath. Evaluated by pulmonary and cardiology and myself today. High risk for procedure but needs surgical intervention otherwise high risk morbidity mortality either or.
Acute hypoxic respiratory insufficiency:
Supplemental oxygen
Might require mechanical ventilation perioperatively
Elevated troponin:
Elevated troponin due to non-ischemic myocardial injury
Cardiology on consult
Cardiology okay to proceed for surgery
Concerns for pneumonia:
Currently on IV Unasyn
Enterococcal UTI:
On IV Ampicillin and now on IV ampicillin/sulbactam.
Acute blood loss anemia:
Continue to monitor Hb
Hemoglobin 8.6 today
Blood transfusion as needed
CAD/PVD:
Chest pain-free but elevated Trop
Continue cardiac monitoring
Moderate aortic stenosis:
Monitor volume status and keep on cardiac monitoring
Hypertension:
Monitor blood pressure and medications accordingly
Hyperlipidemia:
Will resume statins when able
Diabetes mellitus type 2:
Appears to be diet controlled
CKD stage III:
Monitor renal function
GERD:
On PPI
DVT prophylaxis:
SCDs
CODE STATUS:
Full code
Total time spent on today's encounter was 52 minutes which included time spent in counseling the patient/family regarding diagnosis and treatment plan as listed above, goals of care, and symptom management. Case was discussed with nursing staff,
specialists, and care coordinators/case management. All labs and imaging personally reviewed by me. Remainder the time spent in detailed review of previous records, lab data, imaging, and other medical provider documentation.
Anticipated Discharge: > 48 hours
Subjective/Interval History
-
Date of Service: February 19, 2024
Patient got worse overnight and transferred to ICU. Seen preop in ICU today. He looks worse overall. Frail
Objective Data
-
Labs:
Laboratory Results
02/19/24 02/19/24
00:01 03:54
WBC 12.7 H
Hgb 8.6 L
Hct 26.3 L
Plt Count 182
PT 14.5
INR 1.13
APTT 31.4
Sodium 138
Potassium 5.0
Chloride 112 H
Carbon Dioxide 19 L
BUN 16
Creatinine 1.1
Glucose 108 H
Calcium 7.7 L
Vital Signs:
Vital Signs
Temp Pulse Resp BP Pulse Ox
98.2 F 73 30 111/53 98
02/19/24 08:07 02/19/24 09:30 02/19/24 09:30 02/19/24 09:26 02/19/24 09:30
I&O
02/18/24 02/19/24 02/20/24
06:59 06:59 06:59
Intake Total 1725 / 1725 750 / 750
Output Total 8200 / 8200 -6400 / -6400 -825 / -825
Balance -6475 / -6475 7150 / 7150 825 / 825
[2024-02-19] MEDS: MAGNESIUM SULFATE 50 IV (10:29)
[2024-02-19 10:32] LABS: Lactic Acid 2.5 mmol/L (0.7-2.0)
--- NOTE | 2024-02-19 10:40 | PTCARENOTE ---
report to OR, taken to OR holding area via bed on monitor. groggy. Awakens with stimuli, spoke with family by phone prior to transporting to OR. Mag sulfate rider infusing as ordered. CBI continues.
[2024-02-19 10:48] LABS: Troponin I 0.212 ng/ml
--- NOTE | 2024-02-19 10:56 | W.PN.UPDATE ---
Update Note
Progress Note Update
Events of the last 12 hours have been noted and reviewed with the other treating providers
Despite his clinical decline and elevated troponin level he is cleared for surgery this morning
Have discussed the case with Dr. Mcrae regarding intraoperative and postoperative care concerns
Have met with the patient's , son and daughter at the bedside
They understand the significant risks involved with surgery and anesthesia and that the patient is at risk for intraoperative KY and that he will likely be left mechanically ventilated post operatively
Given the fact that the patient has no good path forward w/o surgical intervention all agree with proceeding as planned
[2024-02-19 13:48] LABS: Glucose - Point of Care 136 mg/dl (70-99)
[2024-02-19 13:53] LABS: B.E. - POC -5.2 mmol/L; Glucose - POC 148 mg/dl (65-99); HCO3 - POC 21 mmol/L (21-29); Hematocrit - POC 33 % PCV (42-52); Hemodilution- POC Yes; Hemoglobin Calculated - POC 11.1; Lactate - POC 1.67 mmol/L (0.36-0.75); O2 Saturation %Calculated-POC 98.7 5 (92-96); PCO2 - POC 40 mmHg (35-45); PO2 - POC 131 mmHg (80-100); Potassium - POC 4.8 mmol/L (3.6-5.0); Sodium - POC 142 mmol/L (135-145); pH - POC 7.32 (7.35-7.45)
--- NOTE | 2024-02-19 14:20 | CM ---
CM following re: discharge planning.
Discussed in Rounds, reviewed pt's chart, met with pt. per Rounds meeting, pt to OR today for ileal loop urine diversion.
Pt is admitted from [facility] where he was for a short term rehab and had private bed hold before.
CM spoke to [facility] finance administrator Elinor and she confirmed that pt is no longer on bed hold and a bed will be offered based on bed availability on the day of discharge. CM will make a referral to [facility] when appropriate.
D/C plan: [facility] when medically stable.
CM will follow with discharge plan updates as hospitalization progresses
--- NOTE | 2024-02-19 14:31 | W.IMMPOSTOP ---
Surgical Immed Post Op Note
-
Primary Surgeon: Lori
Assisting Surgeon: Jimmie
Pre-op Diagnosis: Radiation cystitis, intractable gross hematuria, clot urine retention
Post-op Diagnosis: same
Procedure Performed: partial cystectomy, ileal loop urine diversion
Anesthesia Type: GET
Specimen / Cultures: bladder dome
Estimated Blood Loss: 150 ml
Complications: None
--- NOTE | 2024-02-19 15:10 | PTCARENOTE ---
1510 recd from OR via bed, anesthesia in attendance, report obtained bedside. settled in room, art line zero and elton, good waveform, levophed off almost immediately. rest of assessment as documented.
[2024-02-19] MEDS: DILAUDID 0.25 MG IV (15:20)
[2024-02-19] MEDS: NSS 1000 IV ×2 (15:21→23:00)
[2024-02-19] MEDS: LIDOCAINE URO-JET 2% TOPICAL (15:25)
--- NOTE | 2024-02-19 15:25 | W.PN.UPDATE ---
Addendum entered and electronically signed by Cyndi Manning MD 02/19/24 15:58:
reviewed CXR and rev with radiologist
ETT on carson
Pulled back 1 cm
Original Note:
Update Note
Progress Note Update
Evaluated patient upon return from the OR. Sedated on mechanical ventilation.
Airway pressures adequate. Chest exam is clear. Abdominal dressing in place, mild oozing, drain in place, serosanguineous drainage noted
Blood pressure 150s/80s, 100% saturation on 60%
Patient was on norepinephrine, currently off
Moving forward
Chest x-ray, EKG
Blood work at 6 PM including ABG
Vent settings will continue, wean FiO2
Presently appears to be comfortable
Propofol if needed, fentanyl as needed
Would like to minimize sedation but maintain comfort while on ventilator, RASS 0
Reviewed with critical care nursing, respiratory care
Reviewed with anesthesia
[2024-02-19] MEDS: DIPRIVAN 100 IV ×2 (15:36→22:26)
--- NOTE | 2024-02-19 16:51 | PTCARENOTE ---
family in and out, updated. I/O in progress, urostomy draining clear yellow, dressing with drainage, marked. IV fluids as ordered, med for pain and diprivan infusing as ordered, pt comfortable.
[2024-02-19 17:47] LABS: % Basophils 0.3 % (0-2); % Immature Granulocytes 1.1 % (0-0.5); % Lymphocytes 2.1 % (20.5-51.1); % Monocytes 2.5 % (1.7-9.3); Absolute Immature Granulocytes 0.2 10^3/uL (0-0.05); Absolute Lymphocytes 0.3 10^3/uL (1.2-3.4); Absolute Monocytes 0.3 10^3/uL (0.1-0.6); Absolute Neutrophils 12.3 10^3/uL (1.4-6.5); B.E. -2.7 mmol/L; HCO3 20.6 mmol/L (21-28); Hematocrit 28.9 % (39.0-52.0); Hemoglobin 9.9 g/dL (13.0-18.0); Mean Corp Hgb Conc. 34.3 g/dL (33.0-37.0); Mean Corpuscular Hgb 30.3 pg (27.0-31.0); Mean Corpuscular Volume 88.4 fL (80.0-94.0); Mean Platelet Volume 9.2 fL (7.4-10.4); Nucleated Red Blood Cells % 0 % (-); O2 Saturation % 98.7 % (94-98); PCO2 31 mmHg (35-48); PO2 101 mmHg (83-108); Platelet Count 146 10^3/uL (130-400); Red Blood Cell Count 3.27 10^6/uL (4.70-6.10); Red Cell Dist. Width 16.6 % (11.5-14.5); White Blood Cell Count 13.1 10^3/uL (4.8-10.8); pH 7.43 (7.35-7.45)
[2024-02-19 17:58] LABS: Lactic Acid 2.1 mmol/L (0.7-2.0)
[2024-02-19 18:07] LABS: ALT (SGPT) 14 U/L (0-50); AST (SGOT) 25 U/L (17-59); Albumin 2.1 g/dl (3.5-5.0); Alkaline Phosphatase 71 U/L (38-126); Blood Urea Nitrogen 16 mg/dl (9-20); Calcium 7.9 mg/dl (8.4-10.2); Carbon Dioxide 21 mmol/L (22-30); Chloride 110 mmol/L (98-107); Estimated Creatinine Clearance 65 ml/min; Glucose 154 mg/dl (70-99); Potassium 4.4 mmol/L (3.5-5.1); Sodium 133 mmol/L (135-145); Total Bilirubin 1.1 mg/dl (0.2-1.3); Total Protein 4.3 g/dl (6.3-8.2); Triglycerides 97 mg/dl (10-149); eGFR > 60.00
[2024-02-19 18:14] LABS: Troponin I 0.171 ng/ml
[2024-02-19] MEDS: NOVOLOG FLEXPEN-MODERATE RESISTANCE 1 UNITS SC (18:24)
--- NOTE | 2024-02-19 18:34 | PTCARENOTE ---
Dr. Sandoval in to visit, pt remains as noted, edema t/o. abd dressing bloody area slight increase, urostomy pouch re-sealed. denies pain, nodded head no to question. I/O collected.
--- NOTE | 2024-02-19 20:30 | PTCARENOTE ---
Rec'd care of patient at 1900. Patient intubated and sedated. NSR/SB on tele monitor. +Murmur. +1 anasarca. Palpable pulses. #8 ett @ 24 cm. Repositioned to the left. A/C 16/550/5/40%. Pulse ox 99-100%. ETT suctioned for thick [place]/white secretions.
Lung sounds coarse/diminished throughout. Crackles auscultated 1/2 up on the left. +BS (hypo). No BMs. NPO. Urostomy draining pink tinged/jorge output. Stents flushed per MD order. Sams in place for drainage. Minimal output. Midline dressing with
drainage. Left REAGAN drain putting out sanguinous drainage. VSS. Right radial a-line leveled and zeroed. IVFs and Propofol gtts infusing through peripheral sites.
[2024-02-19] MEDS: LIPITOR PO (21:52)
[2024-02-19] MEDS: MIRALAX PO (21:52)
[2024-02-19 22:41] LABS: Lactic Acid 2.1 mmol/L (0.7-2.0)
[2024-02-19] MEDS: NOVOLOG FLEXPEN-MODERATE RESISTANCE SC (23:36)
[2024-02-19 23:47] LABS: Glucose - Point of Care 135 mg/dl (70-99)
[2024-02-20] VITALS (12 sets, daily range): BP systolic 95–156; BP diastolic 45–82; BMI 34.5
--- NOTE | 2024-02-20 | PTCARENOTE ---
Assessment unchanged. VSS.
[2024-02-20 03:56] LABS: B.E. -2.5 mmol/L; HCO3 21.1 mmol/L (21-28); O2 Saturation % 99.2 % (94-98); PCO2 31 mmHg (35-48); PO2 90 mmHg (83-108); Potassium 4.3 mMOL/L (3.5-5.1); Sodium 136 mMOL/L (136-145); pH 7.44 (7.35-7.45)
[2024-02-20 03:58] LABS: Hematocrit 27.2 % (39.0-52.0); Hemoglobin 9.3 g/dL (13.0-18.0); Mean Corp Hgb Conc. 34.2 g/dL (33.0-37.0); Mean Corpuscular Hgb 29.7 pg (27.0-31.0); Mean Corpuscular Volume 86.9 fL (80.0-94.0); Mean Platelet Volume 9.5 fL (7.4-10.4); Nucleated Red Blood Cells % 0 % (-); Platelet Count 148 10^3/uL (130-400); Red Blood Cell Count 3.13 10^6/uL (4.70-6.10); Red Cell Dist. Width 16.7 % (11.5-14.5); White Blood Cell Count 14.3 10^3/uL (4.8-10.8)
[2024-02-20 03:59] LABS: O2 Therapy 60
[2024-02-20 04:19] LABS: Lactic Acid 1.6 mmol/L (0.7-2.0)
[2024-02-20 04:23] LABS: ALT (SGPT) 13 U/L (0-50); AST (SGOT) 25 U/L (17-59); Alkaline Phosphatase 72 U/L (38-126); Blood Urea Nitrogen 19 mg/dl (9-20); Carbon Dioxide 21 mmol/L (22-30); Chloride 112 mmol/L (98-107); Estimated Creatinine Clearance 65 ml/min; Glucose 141 mg/dl (70-99); Magnesium 1.7 mg/dl (1.6-2.3); Potassium 4.3 mmol/L (3.5-5.1); Sodium 136 mmol/L (135-145); Total Bilirubin 0.7 mg/dl (0.2-1.3); eGFR > 60.00
--- NOTE | 2024-02-20 04:30 | PTCARENOTE ---
No changes in assessment. Weaning Propofol gtt as tolerated. VSS.
[2024-02-20] MEDS: DIPRIVAN 100 IV (05:08)
[2024-02-20 05:21] LABS: Absolute Neutrophils -Man Diff 12.8 10^3/uL (1.4-6.5); Atypical Lymphocytes 2 %; Band Neutrophils 31 % (0-3); Lymphocytes 4 % (20-51); Metamyelocytes 1 % (-); Monocytes 3 % (2-9); Platelets Checked Yes; Segmented Neutrophils 59 % (42-75)
[2024-02-20 05:24] LABS: Anisocytosis 1+; Normal RBC Morphology No; Ovalocytes 1+; Total Cells Counted 100
[2024-02-20] MEDS: UNASYN IV ×3 (05:53→17:27)
[2024-02-20] MEDS: NOVOLOG FLEXPEN-MODERATE RESISTANCE SC ×3 (05:56→16:51)
[2024-02-20] MEDS: SUBLIMAZE 50 MCG IV ×2 (06:00→11:13)
[2024-02-20 06:46] LABS: Glucose - Point of Care 135 mg/dl (70-99)
--- NOTE | 2024-02-20 07:41 | W.PN.INTV ---
Today's Communication / Plan
Recommendations
SBT, extubate as able
Lasix therapy this morning for cardiology
Pain control
Mechanical DVT prophylaxis. Add pharmacological when okay per urology
Remains on Unasyn
Follow blood sugars
Assessment
-
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
cystitis, presents with recurrent hematuria with clots. Plan for partial cystectomy and ileal loop urine diversion for 02/18. Patient transferred to ICU 02/17 because of fevers, tachycardia, shortness of breath
Recurrent hematuria, clots requiring CBI
Admitted 02/15/2024
Tx to ICU 02/19/2024 for fevers, shortness of breath
S/p Partial cystectomy with ileal loop urine diversion, 02/18
VDRF post op, intubated 02/18
Fevers
Tachycardia, improved
Hypoxia, 70%, now improved with nasal cannula urine culture positive for Enterococcus
UTI, positive Enterococcus faecalis
Moderate aortic stenosis
valve area 0.9 cm�
Normal biventricular function, normal PA pressure
Conditions present prior to admission
S/p LCEA 07/22/23
History of falls, syncope
History of coronary disease
Bypass surgery 2004 at [facility]
Hypercholesterolemia
History of prostate cancer with radiation
Diabetes
Distant tobacco history
Plan/recommendations
At this time, patient remains critically ill but stable. Remains on mechanical ventilation
Minimal secretions per ET tube
Tolerating ventilator wean, sedation wean
Tachycardia improved, hypoxia improved, respiratory status appears to be improved
Symptoms likely in the setting of fevers
Patient currently on Unasyn therapy
Status post partial cystectomy with ileal urinary diversion 02/18 without complication
Received 2 units of blood intraoperatively
Moving forward
Will pursue SBT, transition to CPAP as able
Minimal pain requirements, fentanyl as needed for now
Overnight, on AC 16/500/5/40%
PP 24, peak plateau 18
Tidal volume adjusted due to to respiratory alkalemia
Hold for possible extubation later today
Await response to diuresis
EKG with nonspecific changes, mildly elevated troponin
EKG with sinus bradycardia 02/16/2024
Bradycardia is chronic per family and had to been worked up as outpatient by his preparole counseling aide (Dr. Arnold)
Patient has history of syncope in the past, falls, none recent
noted
Lasix therapy per cardiology today, hope for extubation
Follow blood sugars
Hope to advance nutrition postextubation
Patient on metformin, insulin
Continue DuoNebs as needed
Doubt acute Pulmonary process
DVT prophylaxis: Mechanical, add pharmacological when okay per urology
GI prophylaxis: Remains on Protonix
Reviewed with critical care nursing
We will follow
TCCT 35 min
Subjective Dataa
Subjective Data
Date of Service:
Date of Service: February 20, 2024
Subjective:
Patient remains critically ill, has not required pressors. Significant increase in weight noted. Urostomy output greater than 600. Remains on volume-cycled ventilation, airway pressures adequate. Chest x-ray adequate
Objective Data
Data Reviewed
Vital Signs / I&O / Oxygen:
Vital Signs
Temp Pulse Resp BP Pulse Ox
98.3 F 69 16 127/58 100
02/20/24 07:19 02/20/24 06:15 02/20/24 06:15 02/19/24 20:12 02/20/24 06:15
Intake and Output
02/19/24 02/20/24 02/21/24
06:59 06:59 06:59
Intake Total 750 / 750 2003.6 / 2002.6
Output Total -6400 / -6400 320 / 320
Balance 7150 / 7150 1683.6 / 1683.6
SaO2 [A/C] 100
SaO2 100
Nasal Cannula flow liters per 3
minute
Physical Exam
General: Comfortable and Other (Upper extremity A-line)
HEENT: Normocephalic, Anicteric and Other (Large neck)
Cardiovascular: S1-S2, Regular Rhythm, Murmur (2/6 systolic murmur) and Peripheral Edema (2+)
Respiratory: Wheeze (n), Crackles (Few bibasilar), Rhonchi (n), Non-Labored Respirations and ET Tube
GI: Soft, Non Distended (Obese) and Other (Abdominal dressing in place. REAGAN drain, pelvic drain, urostomy intact)
Neurology: Awake, Alert and No Motor Deficits (Moves all extremities)
Skin: Cyanosis (n), Jaundice (n) and Rash (n)
Labs/Micro/Reports
Lab Data
02/20/24 03:40
02/20/24 03:40
Laboratory Results
02/19/24 02/20/24
17:39 03:40
pH 7.43 7.44
pCO2 31 L 31 L
pO2 101 90
HCO3 20.6 L 21.1
O2 Delivery Level 60
Microbiology
02/16/24 05:58 Blood/Venous Blood Culture - Preliminary
No Growth in 4 days- Final report to follow
02/19/24 00:42 Blood/Venous Blood Culture - Preliminary
No Growth in 24 hours- Final report to follow
02/19/24 00:42 Blood/Venous Blood Culture - Preliminary
No Growth in 24 hours- Final report to follow
02/15/24 23:50 Blood/Venous Blood Culture - Preliminary
No Growth in 4 days- Final report to follow
02/15/24 23:50 Blood/Venous Blood Culture - Preliminary
No Growth in 4 days- Final report to follow
02/16/24 17:54 Blood/Venous Blood Culture - Preliminary
No Growth in 72 hours- Final report to follow
02/18/24 19:38 Nasal Swab Influenza Types A & B (KEIKO) - Final
Negative for Influenza A & B, NAAT
Negative results must be combined with clinical observations
and patient history.
Nucleic Acid Amplification test (NAAT)performed on the
[employer] platform.
02/16/24 18:58 Urine Urine Culture - Final
Enterococcus faecalis
02/16/24 03:54 Nose MRSA Screen - Final
No Methicillin Resistant Staphylococcus aureus isolated.
[2024-02-20] MEDS: SENOKOT-S PO (07:50)
[2024-02-20] MEDS: LIDOCAINE URO-JET 2% TOPICAL ×4 (07:50→21:57)
[2024-02-20] MEDS: PROTONIX IV 40 MG IV (07:50)
[2024-02-20] MEDS: VITAMIN D3 (cholecalciferol) PO (07:50)
[2024-02-20] MEDS: NSS (PRESERVATIVE FREE) 10 ML IV (07:50)
--- NOTE | 2024-02-20 08:06 | W.PN.ANS.POP ---
Anesthesia Post Operative
- Anesthesia Post Op Note
Vital Signs Stable-See Nursing Note: Yes
Airway Patent: Yes
Adequate Pain Control: Yes
Change in Mental Status: No
Current Postoperative Nausea & Vomiting: No
Anesthesia Complications: No
General Anesthetic Recall: No
Unplanned Admission: No
Post Op Hydration Adequate: Yes
--- NOTE | 2024-02-20 08:31 | PTCARENOTE ---
recd pt, weaning and dcd propofol, placed on SBT cp/ps wean, tolerating, awakens, cooperative. Seen by Lori Guzman, and WOC RN. remains restrained, IV fluids infuse, lion/deep pelvic drain remains, REAGAN and abd dressing intact, wet, to be
changed to DSD. skin pale, dry, cooperative, no distress, R Radial art line intact, correllates, zeroed. comfortable.
--- NOTE | 2024-02-20 08:45 | WOUNDNOTE ---
[facility] RN note: Patient's urostomy appliance is leaking. Stoma budded and oval. There is a deep skin deep/crease at 3 o'clock. Stoma stents in place. Peristomal skin red at [address] Sandoval was in and evaluated patient while wafer was
off. He stated can remove wet post op incisional dressing and apply dry gauze with non occlusive tape. Applied new ostomy appliance using [place]line wafer # [id number], Celi seal with extra piece medially and [employer]restline pouch # [id number]. Pouch connected to
straight drainage. Confirmed with Dr. Sandoval can use convex wafer if needed. Ostomy supplies left at bedside. Assisted MONO Grady with abdominal and REAGAN dressing change. Small silicone border foam applied to adhesive skin tear distal lateral to REAGAN
insertion site. Patient turned to R semi side lying position with help from MONO Grady. Heels off bed with pillow. R buttocks with stage 2 pressure injury (not new). Next appliance change due Friday or sooner if leaks. Nursing can change appliance
if needed.
--- NOTE | 2024-02-20 08:45 | WOUNDNOTE ---
[facility] RN note: Patient's urostomy appliance is leaking. Stoma budded and oval. There is a deep skin deep/crease at 3 o'clock. Stoma stents in place. Peristomal skin red at [address] Sandoval was in and evaluated patient while wafer was
off. He stated can remove wet post op incisional dressing and apply dry gauze with non occlusive tape. Applied new ostomy appliance using Franklin wafer # [id number], Celi seal with extra piece medially and [employer] pouch # [id number]. Pouch connected to
straight drainage. Confirmed with Dr. Sandoval can use convex wafer if needed. Ostomy supplies left at bedside. Assisted MONO Grady with abdominal and REAGAN dressing change. Small silicone border foam applied to adhesive skin tear distal lateral to REAGAN
insertion site. Patient turned to R semi side lying position with help from MONO Grady. Heels off bed with pillow. R buttocks with stage 2 pressure injury (not new). Next appliance change due Friday or sooner if leaks. Nursing can change appliance
if needed.
--- NOTE | 2024-02-20 08:47 | W.PN.HOSP.TC ---
Addendum entered and electronically signed by Keith Platt MD 02/20/24 11:17:
Acute respiratory failure
Yes, UTIs related to/associated with/due to chronic Sams catheter POA
Original Note:
Today's Communication/Plan
-
IV antibiotics. Mechanical ventilation.
Assessment / Plan
Assessment / Plan
Physical exam:
General: Acute on chronically ill
HEENT: Normocephalic, Atraumatic and Moist Mucous Membranes
Respiratory: Decreased breath sounds bilateral; Negative Wheezes, Rales or Rhonchi
Cardiac: Regular Rhythm and S1/S2, systolic ejection murmur
GI: Soft, Tender and Nondistended
: Sams catheter deep pelvic drain and REAGAN to bulb suction and urinary diversion stents to gravity
Musculoskeletal: No Clubbing, No Cyanosis and some trace bilateral edema
Neuro: Sedated on the vent
A/P:
Gross hematuria:
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
S/P partial cystectomy and ileal loop urine diversion on 02/18
[facility]
Critical care following
Elevated troponin:
Elevated troponin due to non-ischemic myocardial injury
Cardiology on consult
Cardiology okay'd to proceed for surgery
Concerns for pneumonia:
Currently on IV Unasyn
Enterococcal UTI:
On IV Ampicillin and now on IV ampicillin/sulbactam.
Leukocytosis:
WBC 14.3 today
Trend
Acute blood loss anemia:
Continue to monitor Hb
Hemoglobin 9.3 today
Blood transfusion as needed
CAD/PVD:
Chest pain-free but elevated Trop
Continue cardiac monitoring
Moderate aortic stenosis:
Monitor volume status and keep on cardiac monitoring
Hypertension:
Monitor blood pressure and medications accordingly
Hyperlipidemia:
Will resume statins when able
Diabetes mellitus type 2:
Appears to be diet controlled
HBA1c on 01/25 was 5.7
CKD stage III:
Monitor renal function
GERD:
On PPI
DVT prophylaxis:
SCDs
CODE STATUS:
Full code
Total time spent on today's encounter was 52 minutes which included time spent in counseling the patient/family regarding diagnosis and treatment plan as listed above, goals of care, and symptom management. Case was discussed with nursing staff,
specialists, and care coordinators/case management. All labs and imaging personally reviewed by me. Remainder the time spent in detailed review of previous records, lab data, imaging, and other medical provider documentation.
Anticipated Discharge: > 48 hours
Subjective/Interval History
-
Date of Service: February 20, 2024
Patient seen and examined.
Objective Data
-
Labs:
Laboratory Results
02/20/24
03:40
WBC 14.3 H
Hgb 9.3 L
Hct 27.2 L
Plt Count 148
HCO3 21.1
Sodium 136
Potassium 4.3
Chloride 112 H
Carbon Dioxide 21 L
BUN 19
Creatinine 1.0
Glucose 141 H
Calcium 8.0 L
Total Bilirubin 0.7
AST 25
ALT 13
Alkaline Phosphatase 72
Vital Signs:
Vital Signs
Temp Pulse Resp BP Pulse Ox
98.3 F 76 19 124/51 100
02/20/24 07:19 02/20/24 08:30 02/20/24 08:30 02/20/24 06:31 02/20/24 08:30
I&O
02/19/24 02/20/24 02/21/24
06:59 06:59 06:59
Intake Total 750 / 750 2003.6 / 2106.8 203.2 / 203.2
Output Total -6400 / -6400 320 / 320
Balance 7150 / 7150 1683.6 / 1786.8 203.2 / 203.2
--- NOTE | 2024-02-20 09:00 | WOUNDNOTE ---
R BUTTOCKS (with photo flash)
--- NOTE | 2024-02-20 09:25 | W.PN.URO.CBU ---
Today's Communication / Plan
-
Keep REAGAN to bulb suction and urinary diversion stents to gravity
Remove Sams (deep pelvic drain)
Patient is stable and on ventilator wean
Clear liquids/gum chewing when extubated
Assessment / Plan
-
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
---
s/p partial cystectomy will ileal loop urine diversion 02/19/24
Diagnosis
-
Date of Service: February 20, 2024
-
Patient Diagnosis:
Irradiation cystitis
Intractable gross hematuria
Clot urine retention
Bladder pain
---
s/p partial cystectomy with ileal loop urinary diversion 02/19/24
Subjective
-
Intubated
Alert
Objective
-
Vital Signs
Temp Pulse Resp BP Pulse Ox
98.3 F 76 19 124/51 100
02/20/24 07:19 02/20/24 08:30 02/20/24 08:30 02/20/24 06:31 02/20/24 08:30
Intake and Output
02/19/24 02/20/24 02/21/24
06:59 06:59 06:59
Intake Total 750 / 750 2002.6 / 2106.8 203.2 / 203.2
Output Total -6400 / -6400 320 / 320
Balance 7150 / 7150 1683.6 / 1786.8 203.2 / 203.2
Intake:
Oral fluids 240 / 240
IV fluids (Total) 1753.6 / 1856.8 203.2 / 203.2
Nss 1,000 ml @ 100 mls/hr IV . 1600 / 1700 200 / 200
Q10H INOCENCIO Rx#:[id number]
propofol 153.6 / 156.8 3.2 / 3.2
IV piggybacks 510 / 510 240 / 240
Amount instilled into Urinary
Drain (Total)
Ureteral stent A
Ureteral stent B
Output:
Drain Output (Total) 220 /
Left Laron-Lebron /
Urine, Sams 300 / 300
Urostomy output 625 / 625
True Urine Output from CBI -6400 / -6400 -825 / -825
Laboratory Results
02/20/24 03:40
02/20/24 03:40
Review of Systems
-
Unable to obtain full review of systems at this time due to: Patient Intubation
Physical Exam
-
General - no acute distress
Abdomen - stoma healthy, dressings changed, incision clean and dry, clear urine from urostomy
Genitalia - normal with Sams, scrotal edema improved
[2024-02-20 09:29] LABS: B.E. -2.2 mmol/L; HCO3 22.3 mmol/L (21-28); O2 Saturation % 99.6 % (94-98); PCO2 36 mmHg (35-48); PO2 120 mmHg (83-108)
[2024-02-20] MEDS: NSS 1000 IV (09:55)
--- NOTE | 2024-02-20 10:26 | PN.CDI ---
CDI
- -
CDI:
Physician Documentation Request
Admit Date: 02/15/24 23:27
Dear Doctor Giulia,
Please review the following and provide your response in the progress notes.
Clinical Indicators:
02/14: Pt admitted with cystitis with Hematuria and blood loss anemia
02/14 ER note: 'The patient was recently admitted here with urinary retention on CBI/gross hematuria he was at [facility] and had leakage around the Sams catheter and was unable to be manually irrigated here and CBI was again placed.'
02/16 PN: 'UTI'
The following conditions now have an assumed link:
UTI is assumed to be related to/associated with/due to Chronic Sams catheter POA.
Please clarify the relationship between these conditions:
Yes, UTI is related to/associated with/due to Chronic Sams Catheter POA.
No, UTI is not related to/associated with/due to Chronic Sams Catheter but it is due to ___. (Please specify)
Other
Use of terms such as suspected, likely, concern for, or probable (associated with a specific diagnosis that is being evaluated, monitored, or treated as if it exists) are acceptable and can be coded in the inpatient setting, when documented at the
time of discharge.
Thank you,
Vikki Willis RN, BSN
CDI Specialist
Available via [place] [employer]
Please use your independent medical judgment in providing your response.
[2024-02-20] MEDS: LASIX 20 MG IV (10:29)
--- NOTE | 2024-02-20 10:44 | PTCARENOTE ---
remains comfortable on wean, given lasix as ordered, IV fluids capped. ABG to Dr Manning.
--- NOTE | 2024-02-20 10:45 | CM ---
Patient seen at bedside. Patient in process of weaning. Patient from [facility] no bed hold per chart review will need to send updated clinicals closer to discharge. CM will continue to follow for discharge planning needs.
Plan; SNF pending assessment
--- NOTE | 2024-02-20 10:54 | PN.CDI ---
CDI
- -
CDI:
Physician Documentation Request
Admit Date: 02/15/24 23:27
Dear Doctor Giulia,
Please review the following and provide your response in the progress notes.
Clinical Indicators:
5/5 Pt admitted with cystitis with hematuria and blood loss anemia
5/8 ORACLE APPLICATIONS ANALYST note: ' current on nasal cannula 4 L for PO2 52 noted on ABG.'
Selected Entries
02/18/24
22:30 02/18/24
23:30 02/19/24
00:00
Resp Rate 34 36 32
Selected Entries
02/18/24
20:14 02/18/24
22:00
Nasal Cannula flow liters per minute 4 6
Laboratory Tests
02/18/24
20:05
pH 7.36
pCO2 41
pO2 52 L*
HCO3 23.2
Base Excess -2.1
ABG O2 Sat (Measured) 86.4 L
Clarify which of the following accurately represents the patient's respiratory status:
Acute respiratory failure
Acute Respiratory Insufficiency
Hypoxia
Other
Additional information for Respiratory Failure:
Recognized criteria for Respiratory Failure (Source: [employer] Hospitalist Aug 2013)
ABGs: (1 or more) Symptoms Please indicate type if known
1. p)2 <60 or RA SPO2 <91% on RA 1. Tachypnea, SOB, dyspnea Hypoxic
2. pCO2 50 and pH <7.35 2. Use of accessory muscles Hypercapnic
3. pO2 decrease of pCO2 increase by 3. Pallor or cyanosis Hypoxic and Hypercapnic
10 mmHg from baseline if known 4. Anxiety or restlessness Unable to determine
5. Unable to speak in full sentences
Supplemental O2 of > 40% (5LPM) Intubation is not required
Use of terms such as suspected, likely, concern for, or probable (associated with a specific diagnosis that is being evaluated, monitored, or treated as if it exists) are acceptable and can be coded in the inpatient setting, when documented at the
time of discharge.
Thank you,
Vikki Willis RN BSN
CDI Specialist
Available via [place] Text
Please use your independent medical judgment in providing your response.
--- NOTE | 2024-02-20 10:56 | W.PN.CARDCBS ---
Today's Communication / Plan
-
Stop IV fluids and give Lasix 20 mg IV now.
Will start Lasix 40 mg daily.
Hemoglobin and creatinine are normal. Continue antibiotics and supportive care.
Impression / Plan
-
Primary Assembler Musical Instruments: Dr. Alex Pink of [facility]
Assessment:
PO #1 cystectomy
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
fevers/elev WBC
CAD with CABG
Mod
HTN
HLD
DM
CKD
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
GERD
PVD
ECHO 01/28/24: EF 60 to 65%, mild concentric LVH, mild MR, moderate AAS with peak/mean gradients 53/27 mmHg, MARISA 0.9 cm�, mild AR
Plan:
-He overall did well status post cystectomy yesterday. He remains intubated but hopeful to extubate today. He remains in sinus rhythm.
Will give Lasix 20 mg IV now and stop IV fluids. Continue to wean from ventilator and hope to extubate if possible.
Will start Lasix 40 mg IV daily tomorrow.
Continue to follow hemoglobin and transfuse as needed.
Hg stable at 9.3
Creat stable
Continue pain control and postop care.
-CC time 32 min
-Discussed with nursing
Progress Note - Assembler Musical Instruments
Subjective
Date of Service: February 20, 2024
remains intubated status post cystectomy. Had fever overnight but now afebrile.
Objective
Labs:
02/20/24 03:40
02/20/24 03:40
Labs
Hgb 9.3 g/dL (13.0-18.0) L 02/20/24 03:40
Hct 27.2 % (39.0-52.0) L 02/20/24 03:40
Plt Count 148 10^3/uL (130-400) 02/20/24 03:40
PT 14.5 Sec (11.4-14.6) 02/19/24 00:01
INR 1.13 02/19/24 00:01
APTT 31.4 Sec (23.4-35.0) 02/19/24 00:01
Sodium 136 mmol/L (135-145) 02/20/24 03:40
Potassium 4.3 mmol/L (3.5-5.1) 02/20/24 03:40
BUN 19 mg/dl (9-20) 02/20/24 03:40
Creatinine 1.0 mg/dL (0.7-1.3) 02/20/24 03:40
Glucose 141 mg/dl (70-99) H 02/20/24 03:40
Troponins
02/19/24 02/19/24 02/19/24
08:53 09:19 17:39
Troponin I Cancelled 0.212 H* 0.171 H*
Vital Signs and I&O:
Vital Signs
Temp Pulse Resp BP Pulse Ox
98.3 F 83 21 161/70 100
02/20/24 07:19 02/20/24 10:30 02/20/24 10:30 02/20/24 10:29 02/20/24 10:30
Vital Signs
Temp Pulse Resp BP Pulse Ox
98.3 F 83 21 161/70 100
02/20/24 07:19 02/20/24 10:30 02/20/24 10:30 02/20/24 10:29 02/20/24 10:30
Intake & Output
02/18/24 02/19/24 02/20/24 02/21/24
06:59 06:59 06:59 06:59
Intake Total 1725 / 1725 750 / 750 2003.6 / 2106.8 328.2 / 328.2
Output Total 8200 / 8200 -6400 / -6400 320 / 320 280 / 280
Balance -6475 / -6475 7150 / 7150 1683.6 / 1786.8 48.2 / 48.2
Physical Exam
Physical Exam
GEN: No distress, on vent
HEENT: supple, anicteric, mmm, ET tube
LUNGS: scatt rhochi
CV: Reg, with ectopy, S1/S2, 1/6 syst LSB, no gallop
ABD: soft, BS+, NT/ND
EXT: No edema
NEURO: Gross non-focal
SKIN: No rash
--- NOTE | 2024-02-20 12:15 | RESPNOTE ---
pt extubated to 4 lpm. sats of 97% noted
[2024-02-20 12:18] LABS: Glucose - Point of Care 115 mg/dl (70-99)
--- NOTE | 2024-02-20 14:00 | PTCARENOTE ---
extubated smoothly 1215 to 4l nc. comfortable. talkative. family presently visiting. seen by Dr. Pardo. No other change. HOB up, brightly awake, no resp distress.
--- NOTE | 2024-02-20 15:00 | PTCARENOTE ---
occas monitor with bursts afib, predominantly sinus rhythm, see strips.
--- NOTE | 2024-02-20 15:13 | WOUNDNOTE ---
WO RN note: Patient's urostomy appliance intact without leakage. Soft convex wafers #[id number] and urostomy teaching folder left in room. visiting in wheelchair who wants to be present during teaching sessions if possible. stated SNF rehab
then hopefully home after that is the tentative plan for when discharged.
[2024-02-20] MEDS: DILAUDID 0.25 MG IV ×2 (15:48→22:26)
--- NOTE | 2024-02-20 16:13 | PTCARENOTE ---
warm blanket, pain med, family heading home, support given. occas with tangential questions but pleasant and appreciative. positioned for comfort. art line removed per order, diet to clear liquids.
[2024-02-20 17:02] LABS: Glucose - Point of Care 144 mg/dl (70-99)
--- NOTE | 2024-02-20 18:29 | PTCARENOTE ---
fed dinner. appetite fair. turned and positioned for comfort. c/o cool, spandage cap given.
[2024-02-20] MEDS: SENOKOT-S 1 TABLET PO (21:32)
[2024-02-20] MEDS: TYLENOL 1000 MG PO (21:32)
[2024-02-20] MEDS: LIPITOR 40 MG PO (21:32)
[2024-02-20] MEDS: MIRALAX PO (21:57)
--- NOTE | 2024-02-20 22:01 | PTCARENOTE ---
Pt is Alert and oriented but very forgetful. Pt c/o pain in his legs and lower back, Tylenol given for now. NSR, but also in and out of AFIB with frequent PVCs. 4lit oxygen sats 98%, crackles in bases of lungs. Pt has +2/3 Anasarca. Abdomen is soft
non-tender. Walt drain on left with seriosangouns output. Urostomy on right draining jorge urine. Urostomy stents flushed and patent. Protective foams in place, Stage 2 on sacrum with foam intact. Pt Swallowed pills whole with water. Q2hour turns with
pills, SCDs are on. Pt refused Topical lidocaine, is not experiencing any penile pain, also refused Miralax.
[2024-02-20 23:12] LABS: Glucose - Point of Care 115 mg/dl (70-99)
[2024-02-21] VITALS (23 sets, daily range): BP systolic 85–125; BP diastolic 38–59; BMI 33.9
[2024-02-21] MEDS: UNASYN IV ×4 (00:39→17:12)
--- NOTE | 2024-02-21 00:57 | PTCARENOTE ---
Gave pt PRN Dilaudid c/o 05/22 pain in his abdomen. Currently asleep, assessment unchanged.
[2024-02-21 05:54] LABS: Hematocrit 26.9 % (39.0-52.0); Hemoglobin 9.1 g/dL (13.0-18.0); Mean Corp Hgb Conc. 33.8 g/dL (33.0-37.0); Mean Corpuscular Hgb 30.2 pg (27.0-31.0); Mean Corpuscular Volume 89.4 fL (80.0-94.0); Mean Platelet Volume 9.8 fL (7.4-10.4); Platelet Count 151 10^3/uL (130-400); Red Blood Cell Count 3.01 10^6/uL (4.70-6.10); Red Cell Dist. Width 16.9 % (11.5-14.5); White Blood Cell Count 13.4 10^3/uL (4.8-10.8)
--- NOTE | 2024-02-21 06:13 | W.PN.INTV ---
Today's Communication / Plan
Recommendations
Continue Unasyn
Lasix therapy, follow blood pressures, creatinine
Postoperative care per urology
Follow blood sugars
Mechanical DVT prophylaxis. Restart pharmacological prophylaxis when okay per urology
Assessment
-
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
cystitis, presents with recurrent hematuria with clots. Plan for partial cystectomy and ileal loop urine diversion for 02/18. Patient transferred to ICU 02/17 because of fevers, tachycardia, shortness of breath
Recurrent hematuria, clots requiring CBI
Admitted 02/15/2024
Tx to ICU 02/19/2024 for fevers, shortness of breath
S/p Partial cystectomy with ileal loop urine diversion, 02/18
VDRF post op, intubated 02/18
Extubated 02/19
Fevers
Tachycardia, improved
Hypoxia, 70%, now improved with nasal cannula urine culture positive for Enterococcus
UTI, positive Enterococcus faecalis
Moderate aortic stenosis
valve area 0.9 cm�
Normal biventricular function, normal PA pressure
Conditions present prior to admission
S/p LCEA 07/22/23
History of falls, syncope
History of coronary disease
Bypass surgery 2004 at [facility]
Hypercholesterolemia
History of prostate cancer with radiation
Diabetes
Distant tobacco history
Plan/recommendations
At this time, patient remains critically ill but stable.
Marginal blood pressures noted, has not required pressors
Received Lasix yesterday, negative fluid status noted. 99% on 4 L
Patient currently on Unasyn therapy
Status post partial cystectomy with ileal urinary diversion 02/18 without complication
Received 2 units of blood intraoperatively
Moving forward
Continue with diuresis per cardiology
Lasix 20 mg
EKG with nonspecific changes, mildly elevated troponin
EKG with sinus bradycardia 02/16/2024
Bradycardia is chronic per family and had to been worked up as outpatient by his sand buffer (Dr. Arnold)
Patient has history of syncope in the past, falls, none recent
Follow blood pressures
Follow blood sugars
Advance diet per urology
Patient on metformin, insulin
Remains on Unasyn therapy. Blood cultures negative to date.
Continue DuoNebs as needed
Doubt acute Pulmonary process
Aspiration precautions
DVT prophylaxis: Mechanical, add pharmacological when okay per urology
GI prophylaxis: Remains on Protonix
Reviewed with critical care nursing
TCCT 31 min
Subjective Dataa
Subjective Data
Date of Service:
Date of Service: February 21, 2024
Subjective:
Patient with uneventful night, marginal blood pressure noted. Has not required pressors. Hemoglobin 9.1. Urine output adequate, via urostomy. Negative fluid status with Lasix. 99% on 4 L
Objective Data
Data Reviewed
Vital Signs / I&O / Oxygen:
Vital Signs
Temp Pulse Resp BP Pulse Ox
98.0 F 72 22 95/41 96
02/21/24 03:26 02/21/24 05:15 02/21/24 05:15 02/21/24 05:00 02/21/24 05:15
Intake and Output
02/19/24 02/20/24 02/21/24
06:59 06:59 06:59
Intake Total 750 / 750 2003.6 / 2106.8 1343.2 / 1343.2
Output Total -6400 / -6400 320 / 320 3370 / 3370
Balance 7150 / 7150 1683.6 / 1786.8 -202.8 / -2025.8
SaO2 [CPAP/PSV] 100
SaO2 [A/C] 100
SaO2 96
Nasal Cannula flow liters per 4
minute
Physical Exam
General: Comfortable and Other (Upper extremity A-line)
HEENT: Normocephalic, Anicteric and Other (Large neck)
Cardiovascular: S1-S2, Regular Rhythm, Murmur (2/6 systolic murmur) and Peripheral Edema (2+)
Respiratory: Wheeze (n), Crackles (Few bibasilar), Rhonchi (n), Non-Labored Respirations and Stridor (N)
GI: Soft, Non Distended (Obese) and Other (Abdominal dressing in place. REAGAN drain, urostomy intact)
Neurology: Awake, Alert and No Motor Deficits (Moves all extremities)
Skin: Cyanosis (n), Jaundice (n) and Rash (n)
Labs/Micro/Reports
Lab Data
02/21/24 05:09
Laboratory Results
02/20/24
09:22
pH 7.40
pCO2 36
pO2 120 H
HCO3 22.3
O2 Delivery Level
Microbiology
02/19/24 00:42 Blood/Venous Blood Culture - Preliminary
No Growth in 48 hours- Final report to follow
02/19/24 00:42 Blood/Venous Blood Culture - Preliminary
No Growth in 48 hours- Final report to follow
02/15/24 23:50 Blood/Venous Blood Culture - Final
No Growth - Final Report
02/15/24 23:50 Blood/Venous Blood Culture - Final
No Growth - Final Report
02/16/24 17:54 Blood/Venous Blood Culture - Preliminary
No Growth in 4 days- Final report to follow
02/16/24 05:58 Blood/Venous Blood Culture - Preliminary
No Growth in 4 days- Final report to follow
02/18/24 19:38 Nasal Swab Influenza Types A & B (KEIKO) - Final
Negative for Influenza A & B, NAAT
Negative results must be combined with clinical observations
and patient history.
Nucleic Acid Amplification test (NAAT)performed on the
[employer] NOW platform.
02/16/24 18:58 Urine Urine Culture - Final
Enterococcus faecalis
[2024-02-21 06:26] LABS: Blood Urea Nitrogen 22 mg/dl (9-20); Calcium 8.2 mg/dl (8.4-10.2); Carbon Dioxide 26 mmol/L (22-30); Chloride 109 mmol/L (98-107); Estimated Creatinine Clearance 60 ml/min; Glucose 100 mg/dl (70-99); Potassium 4.2 mmol/L (3.5-5.1); Sodium 135 mmol/L (135-145); eGFR > 60.00
--- NOTE | 2024-02-21 06:39 | W.PN.URO.CBU ---
Today's Communication / Plan
-
advance diet prn
Assessment / Plan
-
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
---
s/p partial cystectomy will ileal loop urine diversion 02/19/24
stable
Diagnosis
-
Date of Service: February 21, 2024
-
Patient Diagnosis:
Irradiation cystitis
Intractable gross hematuria
Clot urine retention
Bladder pain
---
s/p partial cystectomy with ileal loop urinary diversion 02/19/24
Subjective
-
asleep
Objective
-
Vital Signs
Temp Pulse Resp BP Pulse Ox
98.0 F 72 22 95/41 96
02/21/24 03:26 02/21/24 05:15 02/21/24 05:15 02/21/24 05:00 02/21/24 05:15
Intake and Output
02/19/24 02/20/24 02/21/24
06:59 06:59 06:59
Intake Total 750 / 750 2003.6 / 2106.8 1343.2 / 1343.2
Output Total -6400 / -6400 320 / 320 3470 / 3470
Balance 7150 / 7150 1683.6 / 1786.8 -2126.8 / -2126.8
Intake:
Oral fluids 240 / 240 600 / 600
IV fluids (Total) 1753.6 / 1856.8 328.2 / 328.2
Nss 1,000 ml @ 100 mls/hr IV . 1600 / 1700 325 / 325
Q10H INOCENCIO Rx#:[id number]
propofol 153.6 / 156.8 3.2 / 3.2
IV piggybacks 510 / 510 240 / 240 410 / 410
Amount instilled into Urinary
Drain (Total)
Ureteral stent A
Ureteral stent B
Output:
Drain Output (Total) 220 / 220 / 220
Left Laron-Lebron 220 / 220 120 / 120
Middle 100 / 100
Urine, Sams 300 / 300
Urostomy output 625 / 625 3250 / 3250
True Urine Output from CBI -6400 / -6400 -825 / -825
Laboratory Results
02/21/24 05:09
02/21/24 05:09
Physical Exam
-
General - well developed, well nourished, no acute distress
Abdomen - dressing removed; stapled midline incision is healthy; urostomy: healthy; REAGAN - thin output
Skin - warm & dry with no rash
Neuro - AOx3, no motor deficits
Extremities - no clubbing, no cyanosis, no edema
[2024-02-21] MEDS: LIDOCAINE URO-JET 2% TOPICAL ×3 (07:13→22:22)
[2024-02-21] MEDS: SENOKOT-S PO (07:13)
[2024-02-21] MEDS: NSS (PRESERVATIVE FREE) 10 ML IV (07:35)
[2024-02-21] MEDS: PROTONIX IV 40 MG IV (07:35)
[2024-02-21] MEDS: VITAMIN D3 (cholecalciferol) 50 MCG PO (07:35)
[2024-02-21] MEDS: NOVOLOG FLEXPEN-MODERATE RESISTANCE SC ×3 (07:41→17:12)
[2024-02-21 07:53] LABS: Glucose - Point of Care 103 mg/dl (70-99)
--- NOTE | 2024-02-21 08:00 | PTCARENOTE ---
Received patient from electric fork operator, patient is sleepy, but arousable, [id number]. AAOx3. States that he does have some pack pain. Patient is generally weak but able to move all extremities. Requested that I hold the cup of water to help him drink.
Patient is on 4L nasal cannula with poor inspiratory effort. HE is sinus arrhythmia, and has been in and out of Afib today. Generalized anasarca +3 throughout. hands and feet elevated on pillows. Asked cardiology and will give 20IV lasix. SCDS
are on. Patient incision in abdomen, urostomy draining jorge/yellow urine. REAGAN drain to LLQ, serosangunious. Patient ordered clears but has minimal appetite. Will review orders, call lawler within reach.
--- NOTE | 2024-02-21 08:47 | W.PN.CARDCBS ---
Today's Communication / Plan
-
Continues to diurese with Lasix 20 mg IV daily
Creatinine is stable
Continue postop care
Impression / Plan
-
Primary Olive Knocker: Dr. Alex Pink of [facility]
Assessment:
PO #2 cystectomy
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
fevers/elev WBC
CAD with CABG
Acute on chronic heart failure with preserved ejection fraction
Mod
HTN
HLD
DM
CKD
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
GERD
PVD
ECHO 01/28/24: EF 60 to 65%, mild concentric LVH, mild MR, moderate AAS with peak/mean gradients 53/27 mmHg, MARISA 0.9 cm�, mild AR
Plan:
Clinically he continues to improve. Will continue to diurese with Lasix 20 mg IV daily. His weight is improving and creatinine remained stable
Continue to follow hemoglobin and transfuse as needed.
Hg stable at 9.1
He remains in sinus rhythm.
Continue pain control and postop care.
-Discussed with nursing
Progress Note - Olive Knocker
Subjective
Date of Service: February 21, 2024
Continues to slowly improve. Pain is tolerable.
Objective
Labs:
02/21/24 05:09
02/21/24 05:09
Labs
Hgb 9.1 g/dL (13.0-18.0) L 02/21/24 05:09
Hct 26.9 % (39.0-52.0) L 02/21/24 05:09
Plt Count 151 10^3/uL (130-400) 02/21/24 05:09
PT 14.5 Sec (11.4-14.6) 02/19/24 00:01
INR 1.13 02/19/24 00:01
APTT 31.4 Sec (23.4-35.0) 02/19/24 00:01
Sodium 135 mmol/L (135-145) 02/21/24 05:09
Potassium 4.2 mmol/L (3.5-5.1) 02/21/24 05:09
BUN 22 mg/dl (9-20) H 02/21/24 05:09
Creatinine 1.1 mg/dL (0.7-1.3) 02/21/24 05:09
Glucose 100 mg/dl (70-99) H 02/21/24 05:09
Troponins
02/19/24 02/19/24 02/19/24
08:53 09:19 17:39
Troponin I Cancelled 0.212 H* 0.171 H*
Vital Signs and I&O:
Vital Signs
Temp Pulse Resp BP Pulse Ox
97.6 F 62 22 97/54 99
02/21/24 07:51 02/21/24 08:15 02/21/24 08:15 02/21/24 08:00 02/21/24 08:32
Vital Signs
Temp Pulse Resp BP Pulse Ox
97.6 F 62 22 97/54 99
02/21/24 07:51 02/21/24 08:15 02/21/24 08:15 02/21/24 08:00 02/21/24 08:32
Intake & Output
02/19/24 02/20/24 02/21/24 02/22/24
06:59 06:59 06:59 06:59
Intake Total 750 / 750 2003.6 / 2106.8 1343.2 / 1343.2
Output Total -6400 / -6400 320 / 320 3470 / 3470
Balance 7150 / 7150 1683.6 / 1786.8 -2126.8 / -2126.8
Physical Exam
Physical Exam
GEN: No distress, awake
HEENT: supple, anicteric, mmm
LUNGS: scatt rhonchi
CV: Reg, S1/S2, 2/6 syst LSB, S3+
ABD: soft, BS+, NT/ND
EXT: No edema
NEURO: Gross non-focal
SKIN: No rash
[2024-02-21] MEDS: LASIX 20 MG IV (08:52)
--- NOTE | 2024-02-21 09:01 | W.PN.HOSP.TC ---
Today's Communication/Plan
-
Continue IV antibiotics. IV Lasix. Postop care.
Assessment / Plan
Assessment / Plan
Physical exam:
General: Acute on chronically ill
HEENT: Normocephalic, Atraumatic and Moist Mucous Membranes
Respiratory: Decreased breath sounds bilateral; Negative Wheezes, Rales or Rhonchi
Cardiac: Regular Rhythm and S1/S2, systolic ejection murmur
GI: Soft, mild postop tender and Nondistended. Postop findings with healing midline incision wound, urostomy in place, and REAGAN drain
Musculoskeletal: No Clubbing, No Cyanosis and some trace bilateral edema
Neuro: Sedated on the vent
A/P:
Gross hematuria:
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 Improved with surgery as below.
S/P partial cystectomy and ileal loop urine diversion on 02/18
PT OT eval when cleared by surgery.
Acute respiratory failure:
Status post extubated yesterday
On antibiotics and diuretics
Critical care/pulm/cardiology following
Acute diastolic congestive heart failure/moderate aortic stenosis:
IV diuretics, Lasix 20 mg IV daily
Monitor strict I/O
Monitor daily weight
Monitor renal function and electrolytes
Reviewed latest echocardiogram on our system
Continue guideline-directed medical therapy for heart failure (GDMT)
Fluid restriction
Salt restriction
Heart failure education
Follow up clinical response
Cardiology consulted and appreciated follow-up
Elevated troponin:
Elevated troponin due to non-ischemic myocardial injury
Cardiology on consult
Cardiology okay'd to proceed for surgery
Concerns for pneumonia:
Currently on IV Unasyn
Enterococcal UTI:
On IV Ampicillin and now on IV ampicillin/sulbactam.
Leukocytosis:
WBC 13.4 today
Trend
Acute blood loss anemia:
Continue to monitor Hb
Hemoglobin 9.1 today
Blood transfusion as needed
CAD/PVD:
Chest pain-free but elevated Trop
Continue cardiac monitoring
Hypertension:
Monitor blood pressure and medications accordingly
Hyperlipidemia:
Continue statins
Diabetes mellitus type 2:
Appears to be diet controlled
Holding metformin due to acute illness
HBA1c on 01/25 was 5.7
CKD stage III:
Monitor renal function
GERD:
On PPI
DVT prophylaxis:
SCDs
CODE STATUS:
Full code
Total time spent on today's encounter was 52 minutes which included time spent in counseling the patient/family regarding diagnosis and treatment plan as listed above, goals of care, and symptom management. Case was discussed with nursing staff,
specialists, and care coordinators/case management. All labs and imaging personally reviewed by me. Remainder the time spent in detailed review of previous records, lab data, imaging, and other medical provider documentation.
Anticipated Discharge: > 48 hours
Subjective/Interval History
-
Date of Service: February 21, 2024
Patient complains of mild postop discomfort. No shortness of breath. Afebrile
Objective Data
-
Labs:
Laboratory Results
02/21/24
05:09
WBC 13.4 H
Hgb 9.1 L
Hct 26.9 L
Plt Count 151
Sodium 135
Potassium 4.2
Chloride 109 H
Carbon Dioxide 26
BUN 22 H
Creatinine 1.1
Glucose 100 H
Calcium 8.2 L
Vital Signs:
Vital Signs
Temp Pulse Resp BP Pulse Ox
97.6 F 68 22 97/54 99
02/21/24 07:51 02/21/24 08:52 02/21/24 08:15 02/21/24 08:52 02/21/24 08:32
I&O
02/20/24 02/21/24 02/22/24
06:59 06:59 06:59
Intake Total 2002.6 / 2106.8 1343.2 / 1343.2
Output Total 320 / 320 3470 / 3470
Balance 1683.6 / 1786.8 -2126.8 / -2125.8
[2024-02-21 09:36] LABS: Segmented Neutrophils 78 % (42-75)
[2024-02-21 09:37] LABS: Absolute Neutrophils -Man Diff 12.3 10^3/uL (1.4-6.5); Band Neutrophils 14 % (0-3)
[2024-02-21 09:38] LABS: Lymphocytes 5 % (20-51); Metamyelocytes 1 % (-); Monocytes 1 % (2-9); Myelocytes 1 % (-); Normal RBC Morphology Yes; Platelets Checked Yes; Total Cells Counted 100
[2024-02-21 11:52] LABS: Glucose - Point of Care 84 mg/dl (70-99)
--- NOTE | 2024-02-21 14:20 | PTCARENOTE ---
Patient resting comfortably, offered warm blanket, patient has minimal appetite, fed him Jello and apple juice for lunch.
--- NOTE | 2024-02-21 16:42 | PTCARENOTE ---
No change in patient's assessment. orders for patient's PT OT eval in for tomorrow AM.
[2024-02-21 17:10] LABS: Glucose - Point of Care 119 mg/dl (70-99)
--- NOTE | 2024-02-21 20:30 | PTCARENOTE ---
Pt aox3, VSS, Sinus arrhythmia with PVCs on monitor. Pt ureter tubes flushed, urine is blood tinged. Pt also having serosanguineous discharge from penis. Left REAGAN drain with serosanguineous output. Midline incision with sandie, open to air. Ate 50%
clear liquid diet for dinner. Swallowed pills whole with apple juice. Q2hour turns with pillows, SCDs on.
[2024-02-21] MEDS: SENOKOT-S 1 TABLET PO (22:16)
[2024-02-21] MEDS: LIPITOR 40 MG PO (22:16)
[2024-02-21] MEDS: MIRALAX 17 GRAMS PO (22:16)
[2024-02-21] MEDS: DILAUDID 0.25 MG IV (22:47)
[2024-02-21 22:56] LABS: Glucose - Point of Care 157 mg/dl (70-99)
--- NOTE | 2024-02-21 23:30 | PTCARENOTE ---
Pt c/o of abdominal and lower back pain, PRN mediation given with relief. Bedtime BG 157. Assessment unchanged.
[2024-02-22] VITALS (22 sets, daily range): BP systolic 91–142; BP diastolic 39–68; PULSE 64–65; O2SAT 96–98; BMI 33.4
[2024-02-22] MEDS: UNASYN IV ×4 (00:26→17:49)
[2024-02-22 04:36] LABS: % Basophils 0.4 % (0-2); % Eosinophils 5.5 % (0-6); % Immature Granulocytes 1.1 % (0-0.5); % Lymphocytes 8.6 % (20.5-51.1); % Neutrophils 78.4 % (42.2-75.2); Absolute Eosinophils 0.5 10^3/uL (0-0.7); Absolute Immature Granulocytes 0.1 10^3/uL (0-0.05); Absolute Lymphocytes 0.7 10^3/uL (1.2-3.4); Absolute Monocytes 0.5 10^3/uL (0.1-0.6); Absolute Neutrophils 6.7 10^3/uL (1.4-6.5); Hemoglobin 8.6 g/dL (13.0-18.0); Mean Corp Hgb Conc. 31.9 g/dL (33.0-37.0); Mean Corpuscular Hgb 29.4 pg (27.0-31.0); Mean Corpuscular Volume 92.2 fL (80.0-94.0); Mean Platelet Volume 9.6 fL (7.4-10.4); Nucleated Red Blood Cells % 0.2 % (-); Platelet Count 138 10^3/uL (130-400); Red Blood Cell Count 2.93 10^6/uL (4.70-6.10); Red Cell Dist. Width 16.5 % (11.5-14.5); White Blood Cell Count 8.5 10^3/uL (4.8-10.8)
[2024-02-22 05:01] LABS: Blood Urea Nitrogen 21 mg/dl (9-20); Calcium 8.1 mg/dl (8.4-10.2); Carbon Dioxide 28 mmol/L (22-30); Chloride 106 mmol/L (98-107); Estimated Creatinine Clearance 54 ml/min; Glucose 96 mg/dl (70-99); Potassium 3.8 mmol/L (3.5-5.1); Sodium 134 mmol/L (135-145); Triglycerides 116 mg/dl (10-149); eGFR 58.89
--- NOTE | 2024-02-22 06:39 | W.PN.INTV ---
Today's Communication / Plan
Recommendations
Continue with diuresis per cardiology
Advance diet
Bowel regimen as needed
With aortic stenosis, follow blood pressures, urine output, creatinine in the setting of diuresis
Add pharmacological prophylaxis when okay per urology, continue mechanical prophylaxis
For transfer out of ICU. We will sign off. Please call with questions
Assessment
-
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
cystitis, presents with recurrent hematuria with clots. Plan for partial cystectomy and ileal loop urine diversion for 02/18. Patient transferred to ICU 02/17 because of fevers, tachycardia, shortness of breath
Recurrent hematuria, clots requiring CBI
Admitted 02/15/2024
Tx to ICU 02/19/2024 for fevers, shortness of breath
S/p Partial cystectomy with ileal loop urine diversion, 02/18
VDRF post op, intubated 02/18
Extubated 02/19
Fevers
Tachycardia, improved
Hypoxia, 70%, now improved with nasal cannula urine culture positive for Enterococcus
UTI, positive Enterococcus faecalis
Moderate aortic stenosis
valve area 0.9 cm�
Normal biventricular function, normal PA pressure
Conditions present prior to admission
S/p LCEA 07/22/23
History of falls, syncope
History of coronary disease
Bypass surgery 2004 at [facility]
Hypercholesterolemia
History of prostate cancer with radiation
Diabetes
Distant tobacco history
Plan/recommendations
At this time, patient appears to be objectively and subjectively improved
Marginal blood pressures noted, has not required pressors, despite effective diuresis
Negative fluid status noted. 98% on 4 L
Patient currently on Unasyn therapy
Status post partial cystectomy with ileal urinary diversion 02/18 without complication
Received 2 units of blood intraoperatively
Moving forward
Continue with diuresis per cardiology
EKG with nonspecific changes, mildly elevated troponin
EKG with sinus bradycardia 02/16/2024
Bradycardia is chronic per family and had to been worked up as outpatient by his coremaking machine operator (Dr. Arnold)
Patient has history of syncope in the past, falls, none recent
Significant aortic stenosis noted.
Follow hemodynamics, urine output, creatinine in the setting of diuresis follow blood sugars
Advance diet per urology
Patient on metformin, insulin
Passing gas, follow-up for bowel movement
Remains on Unasyn therapy. Blood cultures negative to date.
Continue DuoNebs as needed
Doubt acute Pulmonary process
Aspiration precautions
DVT prophylaxis: Mechanical, add pharmacological when okay per urology
GI prophylaxis: Remains on Protonix
Reviewed with critical care nursing, primary service, respiratory care
Okay for transfer out of ICU. We will sign off. Please call with questions
Subjective Dataa
Subjective Data
Date of Service:
Date of Service: February 22, 2024
Subjective:
Patient is without complaints. He is passing gas, has not had bowel movement. Denies chest pain, nausea. Appears to be fatigued
Objective Data
Data Reviewed
Vital Signs / I&O / Oxygen:
Vital Signs
Temp Pulse Resp BP Pulse Ox
98.0 F 63 23 117/55 98
02/22/24 04:09 02/22/24 06:00 02/22/24 06:00 02/22/24 06:00 02/22/24 06:00
Intake and Output
02/20/24 02/21/24 02/22/24
06:59 06:59 06:59
Intake Total 2002.6 / 2105.8 1343.2 / 1343.2 1185 / 1185
Output Total 320 / 320 3470 / 3470 3405 / 3405
Balance 1683.6 / 1786.8 -2126.8 / -2126.8 -2220 / -2220
SaO2 [CPAP/PSV] 100
SaO2 [A/C] 100
SaO2 98
Nasal Cannula flow liters per 4
minute
Physical Exam
General: Comfortable and Other (Upper extremity A-line)
HEENT: Normocephalic, Anicteric and Other (Large neck)
Cardiovascular: S1-S2, Regular Rhythm, Murmur (2/6 systolic murmur) and Peripheral Edema (1+)
Respiratory: Wheeze (n), Crackles (Few bibasilar), Rhonchi (n), Non-Labored Respirations and Stridor (N)
GI: Soft, Non Distended (Obese) and Other (Abdominal dressing in place. REAGAN drain, urostomy intact)
Neurology: Awake, Alert and No Motor Deficits (Moves all extremities)
Skin: Cyanosis (n), Jaundice (n) and Rash (n)
Labs/Micro/Reports
Lab Data
02/22/24 04:20
02/22/24 04:20
Microbiology
02/19/24 00:42 Blood/Venous Blood Culture - Preliminary
No Growth in 72 hours- Final report to follow
02/19/24 00:42 Blood/Venous Blood Culture - Preliminary
No Growth in 72 hours- Final report to follow
02/16/24 17:54 Blood/Venous Blood Culture - Final
No Growth - Final Report
02/16/24 05:58 Blood/Venous Blood Culture - Final
No Growth - Final Report
02/15/24 23:50 Blood/Venous Blood Culture - Final
No Growth - Final Report
02/15/24 23:50 Blood/Venous Blood Culture - Final
No Growth - Final Report
--- NOTE | 2024-02-22 08:22 | W.PN.URO.CBU ---
Today's Communication / Plan
-
regular diet
out of ICU d/w Dr Manning
Assessment / Plan
-
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
---
s/p partial cystectomy will ileal loop urine diversion 02/19/24
stable
Diagnosis
-
Date of Service: February 22, 2024
-
Patient Diagnosis:
Irradiation cystitis
Intractable gross hematuria
Clot urine retention
Bladder pain
---
s/p partial cystectomy with ileal loop urinary diversion 02/19/24
Subjective
-
'my back hurts'
vague responses regarding bowel activity
Objective
-
Vital Signs
Temp Pulse Resp BP Pulse Ox
99.4 F 63 23 117/55 98
02/22/24 07:10 02/22/24 06:00 02/22/24 06:00 02/22/24 06:00 02/22/24 06:00
Intake and Output
02/21/24 02/22/24 02/23/24
06:59 06:59 06:59
Intake Total 1343.2 / 1343.2 1185 / 1185
Output Total 3470 / 3470 3405 / 3405
Balance -2126.8 / -2126.8 -2220 / -2220
Intake:
Oral fluids 600 / 600 930 / 930
IV fluids (Total) 328.2 / 328.2
Nss 1,000 ml @ 100 mls/hr IV . 325 / 325
Q10H INOCENCIO Rx#:[id number]
propofol 3.2 / 3.2
IV piggybacks 410 / 410 240 / 240
Amount instilled into Urinary
Drain (Total)
Ureteral stent B
Output:
Drain Output (Total) 220 / 220 55 / 55
Left Laron-Lebron 120 / 120 55 / 55
Middle 100 / 100
Urine, Sams 2250 / 2250
Urostomy output 3250 / 3250 1100 / 1100
Laboratory Results
02/22/24 04:20
02/22/24 04:20
Physical Exam
-
General - no acute distress
Abdomen - soft, non-tender, positive bowel sounds; urostomy: healthy; midline stapled incision: healthy; REAGAN: thin output
Care Review
Data Reviewed
Discussed with: Pulmonary and Nursing
[2024-02-22] MEDS: VITAMIN D3 (cholecalciferol) 50 MCG PO (08:49)
[2024-02-22] MEDS: LIDOCAINE URO-JET 2% TOPICAL ×3 (08:49→23:51)
[2024-02-22] MEDS: SENOKOT-S 1 TABLET PO ×2 (08:49→23:45)
[2024-02-22] MEDS: DULCOLAX 10 MG RECTAL (08:49)
[2024-02-22] MEDS: PROTONIX IV 40 MG IV (08:49)
[2024-02-22] MEDS: LASIX 20 MG IV (08:50)
[2024-02-22] MEDS: NSS (PRESERVATIVE FREE) 10 ML IV (08:50)
[2024-02-22] MEDS: NOVOLOG FLEXPEN-MODERATE RESISTANCE SC ×3 (08:55→16:51)
[2024-02-22 09:05] LABS: Glucose - Point of Care 109 mg/dl (70-99)
[2024-02-22] MEDS: TYLENOL 1000 MG PO (09:17)
--- NOTE | 2024-02-22 10:32 | W.PN.HOSP.TC ---
Today's Communication/Plan
-
IV Lasix. IV antibiotics. Continue postop care. PT OT eval.
Assessment / Plan
Assessment / Plan
Physical exam:
General: Acute on chronically ill
HEENT: Normocephalic, Atraumatic and Moist Mucous Membranes
Respiratory: Decreased breath sounds bilateral; Negative Wheezes, Rales or Rhonchi
Cardiac: Regular Rhythm and S1/S2, systolic ejection murmur
GI: Soft, mild postop tender and Nondistended. Postop findings with healing midline incision wound, urostomy in place, and REAGAN drain
Musculoskeletal: No Clubbing, No Cyanosis and some trace bilateral edema
Neuro: Sedated on the vent
A/P:
Gross hematuria:
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 Improved with surgery as below.
S/P partial cystectomy and ileal loop urine diversion on 02/18
PT OT eval when cleared by surgery.
Urology and critical care okay with transferring out of ICU today.
Pain control
Discussed with grandson at bedside today
Acute respiratory failure:
Status post extubated and doing well postextubation.
On IV antibiotics and IV diuretics
Critical care/pulm/cardiology following
Acute diastolic congestive heart failure/moderate aortic stenosis:
IV diuretics, Lasix 20 mg IV daily
Monitor strict I/O
Monitor daily weight
Monitor renal function and electrolytes
Reviewed latest echocardiogram on our system
Continue guideline-directed medical therapy for heart failure (GDMT)
Fluid restriction
Salt restriction
Heart failure education
Follow up clinical response
Cardiology consulted and appreciated follow-up
Elevated troponin:
Elevated troponin due to non-ischemic myocardial injury
Cardiology on consult
Cardiology okay'd to proceed for surgery
Concerns for pneumonia:
Currently on IV Unasyn
Enterococcal UTI:
On IV Ampicillin and now on IV ampicillin/sulbactam.
Leukocytosis:
WBC 8.5 today
Trend
Acute blood loss anemia:
Continue to monitor Hb
Hemoglobin 8.6 today
Blood transfusion as needed
CAD/PVD:
Chest pain-free but elevated Trop
Continue cardiac monitoring
Hypertension:
Monitor blood pressure and medications accordingly
Hyperlipidemia:
Continue statins
Diabetes mellitus type 2:
Appears to be diet controlled
Holding metformin due to acute illness
HBA1c on 01/25 was 5.7
CKD stage III:
Monitor renal function
GERD:
On PPI
DVT prophylaxis:
SCDs
Pharmacological prophylaxis when okay with urology postop.
CODE STATUS:
Full code
Total time spent on today's encounter was 52 minutes which included time spent in counseling the patient/family regarding diagnosis and treatment plan as listed above, goals of care, and symptom management. Case was discussed with nursing staff,
specialists, and care coordinators/case management. All labs and imaging personally reviewed by me. Remainder the time spent in detailed review of previous records, lab data, imaging, and other medical provider documentation.
Anticipated Discharge: > 48 hours
Subjective/Interval History
-
Date of Service: February 22, 2024
Patient doing well overall. Does complain of postop discomfort. Afebrile
Objective Data
-
Labs:
Laboratory Results
02/22/24
04:20
WBC 8.5
Hgb 8.6 L
Hct 27.0 L
Plt Count 138
Sodium 134 L
Potassium 3.8
Chloride 106
Carbon Dioxide 28
BUN 21 H
Creatinine 1.2
Glucose 96
Calcium 8.1 L
Vital Signs:
Vital Signs
Temp Pulse Resp BP Pulse Ox
99.4 F 63 23 117/55 98
02/22/24 07:10 02/22/24 06:00 02/22/24 06:00 02/22/24 06:00 02/22/24 06:00
I&O
02/21/24 02/22/24 02/23/24
06:59 06:59 06:59
Intake Total 1343.2 / 1343.2 1185 / 1185
Output Total 3470 / 3470 3405 / 3405 50 / 50
Balance -2126.8 / -2126.8 -2220 / -2220 -50 / -50
[2024-02-22 11:49] LABS: Glucose - Point of Care 134 mg/dl (70-99)
--- NOTE | 2024-02-22 12:00 | PTCARENOTE ---
pt drowsy today. Sleeping most of the day. Sinus arrhythmia with 1st degree. Edema appears slightly improved. Good urine output. No BM yet today. PRN suppository given. Ate 75% of breakfast. Refused lunch. Turning q2h All other assessments
unchanged.
[2024-02-22 13:52] LABS: Glucose - Point of Care 113 mg/dl (70-99)
--- NOTE | 2024-02-22 16:00 | CHAP ---
Mr. Christensen was sleeping comfortably, with a family member present. Emotional and spiritual support provided.
[2024-02-22 17:00] LABS: Glucose - Point of Care 114 mg/dl (70-99)
--- NOTE | 2024-02-22 17:30 | PTCARENOTE ---
Patient admitted to at this time.
--- NOTE | 2024-02-22 17:30 | PTCARENOTE ---
Patient transferred to at this time. Family present. Currently on 2L O2. VSS. REAGAN draining serosang fluid. Urostomy draining pink urine. Midline clean/dry and NIYA. Stage 2 on sacrum covered with foam. Irregular apical pulse. Placed on tele
monitor. +3-4 edema to bilateral hands. Crackles heard at bases. Coughing up phlegm occassionally. Abdomen distended/obese. +bowel sounds Due to have BM. Attempted bed modi at this time, still no BM. Son helped feed patient dinner- tolerated well.
L hand IV and L AC present. AAOx2. No c/o pain/discomfort. Resting comfortably in room.
--- NOTE | 2024-02-22 17:42 | W.PN.CARDCBS ---
Today's Communication / Plan
-
Stable creatinine hemoglobin
Continue postop care
Diuresis with IV Lasix 20 mg daily monitor weight and output
Slowly improving
Impression / Plan
-
Primary Web Press Operator Apprentice: Dr. Alex Pink of [facility]
Assessment:
S/p cystectomy on 02/19/2024
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
fevers/elev WBC
CAD with CABG
Acute on chronic heart failure with preserved ejection fraction
Mod
HTN
HLD
DM
CKD
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
GERD
PVD
ECHO 01/28/24: EF 60 to 65%, mild concentric LVH, mild MR, moderate AAS with peak/mean gradients 53/27 mmHg, MARISA 0.9 cm�, mild AR
Plan:
Clinically he continues to improve. Continue to diurese with Lasix 20 mg IV daily. His weight is improving and creatinine remained stable
Continue to follow hemoglobin and transfuse as needed.
Hg stable at 9.1 -> 8.6
He remains in sinus rhythm.
Continue pain control and postop care.
-Discussed with nursing
Progress Note - Web Press Operator Apprentice
Subjective
Date of Service: February 22, 2024
Patient seen and examined morning. No acute overnight. Sinus rhythm PVC on telemetry. Afebrile. Patient reports improving abdominal discomfort but still present. Patient denies any chest pain, shortness of breath, edema, weakness.
Objective
Labs:
02/22/24 04:20
02/22/24 04:20
Labs
Hgb 8.6 g/dL (13.0-18.0) L 02/22/24 04:20
Hct 27.0 % (39.0-52.0) L 02/22/24 04:20
Plt Count 138 10^3/uL (130-400) 02/22/24 04:20
PT 14.5 Sec (11.4-14.6) 02/19/24 00:01
INR 1.13 02/19/24 00:01
APTT 31.4 Sec (23.4-35.0) 02/19/24 00:01
Sodium 134 mmol/L (135-145) L 02/22/24 04:20
Potassium 3.8 mmol/L (3.5-5.1) 02/22/24 04:20
BUN 21 mg/dl (9-20) H 02/22/24 04:20
Creatinine 1.2 mg/dL (0.7-1.3) 02/22/24 04:20
Glucose 96 mg/dl (70-99) 02/22/24 04:20
Troponins
02/19/24
17:39
Troponin I 0.171 H*
Vital Signs and I&O:
Vital Signs
Temp Pulse Resp BP Pulse Ox
97.9 F 65 16 120/58 96
02/22/24 17:26 02/22/24 17:26 02/22/24 17:26 02/22/24 17:26 02/22/24 17:26
Vital Signs
Temp Pulse Resp BP Pulse Ox
97.9 F 65 16 120/58 96
02/22/24 17:26 02/22/24 17:26 02/22/24 17:26 02/22/24 17:26 02/22/24 17:26
Intake & Output
02/20/24 02/21/24 02/22/24 02/23/24
06:59 06:59 06:59 06:59
Intake Total 2002.6 / 6.8 1343.2 / 1343.2 1185 / 1185 415 / 415
Output Total 320 / 320 3470 / 3470 3405 / 3405 1165 / 1165
Balance 1683.6 / 1786.8 -2126.8 / -2126.8 -2219 / -2219 - / -750
Physical Exam
Physical Exam
GEN: No distress, awake
HEENT: supple, anicteric, mmm
LUNGS: scatt rhonchi
CV: Reg, S1/S2, 2/6 syst LSB, S3+
ABD: soft, BS+, NT/ND
EXT: No edema
NEURO: Gross non-focal
SKIN: No rash
[2024-02-22 21:55] LABS: Glucose - Point of Care 140 mg/dl (70-99)
[2024-02-22] MEDS: LIPITOR 40 MG PO (23:44)
[2024-02-22] MEDS: MIRALAX 17 GRAMS PO (23:46)
[2024-02-23] MEDS: DILAUDID 0.25 MG IV (00:32)
[2024-02-23] MEDS: UNASYN IV ×5 (00:33→23:09)
[2024-02-23 03:25] VITALS: BP 133/72
[2024-02-23 05:47] LABS: % Basophils 0.4 % (0-2); % Eosinophils 6.4 % (0-6); % Monocytes 9.6 % (1.7-9.3); % Neutrophils 70.6 % (42.2-75.2); Absolute Eosinophils 0.6 10^3/uL (0-0.7); Absolute Immature Granulocytes 0.3 10^3/uL (0-0.05); Absolute Lymphocytes 0.9 10^3/uL (1.2-3.4); Absolute Monocytes 0.9 10^3/uL (0.1-0.6); Absolute Neutrophils 6.6 10^3/uL (1.4-6.5); Hematocrit 23.7 % (39.0-52.0); Hemoglobin 7.7 g/dL (13.0-18.0); Mean Corp Hgb Conc. 32.5 g/dL (33.0-37.0); Mean Corpuscular Hgb 29.8 pg (27.0-31.0); Mean Corpuscular Volume 91.9 fL (80.0-94.0); Mean Platelet Volume 9.9 fL (7.4-10.4); Nucleated Red Blood Cells % 0 % (-); Platelet Count 177 10^3/uL (130-400); Red Blood Cell Count 2.58 10^6/uL (4.70-6.10); Red Cell Dist. Width 16.2 % (11.5-14.5); White Blood Cell Count 9.3 10^3/uL (4.8-10.8)
[2024-02-23 06:00] VITALS: BMI 32.2
[2024-02-23 06:04] LABS: Blood Urea Nitrogen 22 mg/dl (9-20); Calcium 8.2 mg/dl (8.4-10.2); Carbon Dioxide 27 mmol/L (22-30); Chloride 106 mmol/L (98-107); Estimated Creatinine Clearance 65 ml/min; Glucose 97 mg/dl (70-99); Potassium 3.8 mmol/L (3.5-5.1); Sodium 137 mmol/L (135-145); eGFR > 60.00
[2024-02-23 07:50] VITALS: BP 123/61
--- NOTE | 2024-02-23 09:13 | W.PN.CARDCBS ---
Today's Communication / Plan
-
Continues to slowly improve.
Continue to diurese with Lasix 20 mg IV daily as his wt continues to come down. Not clear what his dry wt is and he does not know but would cont gentle IV diuresis for now.
His Is and Os remain negative and creatinine remains stable
Continue to follow hemoglobin and transfuse as needed.
Hemoglobin slowing coming down: 9.1 -> 8.6 -> 7.7 on February 22
Remains in sinus rhythm.
Continue pain control and postop care.
Impression / Plan
-
.
Primary Sewing Machine Operator Semiautomatic: Dr. Alex Pink of [facility]
Impression:
S/p cystectomy on 02/19/2024
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
Acute on chronic heart failure with preserved ejection fraction
CAD with CABG
Mod
HTN
HLD
DM
CKD
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
GERD
PVD
ECHO 01/28/24: EF 60 to 65%, mild concentric LVH, mild MR, moderate AAS with peak/mean gradients 53/27 mmHg, MARISA 0.9 cm�, mild AR
Plan:
Continues to slowly improve.
Continue to diurese with Lasix 20 mg IV daily as his wt continues to come down. Not clear what his dry wt is and he does not know but would cont gentle IV diuresis for now.
His Is and Os remain negative and creatinine remains stable
Continue to follow hemoglobin and transfuse as needed.
Hemoglobin slowing coming down: 9.1 -> 8.6 -> 7.7 on February 22
Remains in sinus rhythm.
Continue pain control and postop care.
Discussed with nursing
Progress Note - Sewing Machine Operator Semiautomatic
Subjective
Date of Service: February 23, 2024
Pt seen and examined. No cp or dyspnea.
Objective
Labs:
02/23/24 05:21
02/23/24 05:21
Labs
Hgb 7.7 g/dL (13.0-18.0) L 02/23/24 05:21
Hct 23.7 % (39.0-52.0) L 02/23/24 05:21
Plt Count 177 10^3/uL (130-400) D 02/23/24 05:21
PT 14.5 Sec (11.4-14.6) 02/19/24 00:01
INR 1.13 02/19/24 00:01
APTT 31.4 Sec (23.4-35.0) 02/19/24 00:01
Sodium 137 mmol/L (135-145) 02/23/24 05:21
Potassium 3.8 mmol/L (3.5-5.1) 02/23/24 05:21
BUN 22 mg/dl (9-20) H 02/23/24 05:21
Creatinine 1.0 mg/dL (0.7-1.3) 02/23/24 05:21
Glucose 97 mg/dl (70-99) 02/23/24 05:21
Vital Signs and I&O:
Vital Signs
Temp Pulse Resp BP Pulse Ox
98.2 F 79 17 123/61 97
02/23/24 07:50 02/23/24 07:50 02/23/24 07:50 02/23/24 07:50 02/23/24 07:50
Vital Signs
Temp Pulse Resp BP Pulse Ox
98.2 F 79 17 123/61 97
02/23/24 07:50 02/23/24 07:50 02/23/24 07:50 02/23/24 07:50 02/23/24 07:50
Intake & Output
02/21/24 02/22/24 02/23/24 02/24/24
06:59 06:59 06:59 06:59
Intake Total 1343.2 / 1343.2 1185 / 1185 1015 / 1015
Output Total 3470 / 3470 3405 / 3405 2420 / 2420
Balance -2126.8 / -2126.8 -2220 / -2220 -1405 / -1405
Physical Exam
Physical Exam
General: No acute distress, AAOX3
Neck: Negative JVD
Heart: Regular, Negative S3 positive S1/S2, Negative S4, No murmur
Lungs: CTA b/l, negative wheezes/rales/rhonchi
Abd: Truncal obesity. Positive BS, NT/ND, neg rebound/rigidity/guarding
Ext: Negative cyanosis/clubbing/edema
Neuro: nonfocal
[2024-02-23] MEDS: NSS (PRESERVATIVE FREE) 10 ML IV (09:22)
[2024-02-23] MEDS: LASIX 20 MG IV (09:22)
[2024-02-23] MEDS: PROTONIX IV 40 MG IV (09:23)
[2024-02-23] MEDS: VITAMIN D3 (cholecalciferol) 50 MCG PO (09:23)
[2024-02-23] MEDS: SENOKOT-S 1 TABLET PO (09:23)
[2024-02-23] MEDS: LIDOCAINE URO-JET 2% TOPICAL ×3 (09:23→22:07)
[2024-02-23] MEDS: FLUSH (NSS) 3 FLUSH IV (09:24)
[2024-02-23] MEDS: NOVOLOG FLEXPEN-MODERATE RESISTANCE SC ×3 (09:26→18:08)
[2024-02-23 09:29] LABS: Glucose - Point of Care 93 mg/dl (70-99)
[2024-02-23 11:40] VITALS: BP 135/58
--- NOTE | 2024-02-23 12:17 | W.PN.URO.CBU ---
Today's Communication / Plan
-
advance activity diet cionsult thierry managemnt and rehab and pt and woc nurse
Assessment / Plan
-
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
---
s/p partial cystectomy will ileal loop urine diversion 02/19/24
stable
Diagnosis
-
Date of Service: February 23, 2024
-
Patient Diagnosis:
Post Op Day:
Patient Diagnosis:
Irradiation cystitis
Intractable gross hematuria
Clot urine retention
Bladder pain
---
s/p partial cystectomy with ileal loop urinary diversion 02/19/24
Subjective
-
abd pain but improving tolerating fluids
Objective
-
Vital Signs
Temp Pulse Resp BP Pulse Ox
98.2 F 79 17 123/61 97
02/23/24 07:50 02/23/24 07:50 02/23/24 07:50 02/23/24 07:50 02/23/24 09:15
Intake and Output
02/22/24 02/23/24 02/24/24
06:59 06:59 06:59
Intake Total 1185 / 1185 1015 / 1015 360 / 360
Output Total 3405 / 3405 2420 / 2420
Balance -2220 / -2220 -1405 / -1405 360 / 360
Intake:
Oral fluids 930 / 930 650 / 650 360 / 360
IV piggybacks 240 / 240 360 / 360
Amount instilled into Urinary
Drain (Total)
Ureteral stent B
Output:
Drain Output (Total) 55 / 55 180 / 180
Left Laron-Lebron 55 55 180 / 180
Urine, Sams 2250 / 2250 420 / 420
Urostomy output 1100 / 1100 1820 / 1820
Other:
Number of unmeasured liquid
stools
Rectum 1
Laboratory Results
02/23/24 05:21
02/23/24 05:21
Review of Systems
-
Abdomen/GI: Abdominal Pain
Physical Exam
-
General - well developed, well nourished, no acute distress
Chest - clear bilaterally
Abdomen - soft, non-tender, positive bowel sounds, no CVAT, no incisional pain or distention
Genitalia - normal
Rectal - normal
Skin - warm & dry with no rash
Neuro - AOx3, no motor deficits
Extremities - no clubbing, no cyanosis, no edema
Incision - clean, dry
Dressing - clean, dry, intact
Counseling
-
try and get poob as much as paoosible try and ambulate as a able
Care Review
Data Reviewed
Discussed with: Nursing
CT Scan: Image Pers Reviewed
[2024-02-23 12:22] LABS: Glucose - Point of Care 112 mg/dl (70-99)
--- NOTE | 2024-02-23 13:13 | W.PN.HOSP.TC ---
Today's Communication/Plan
-
see A/P
Assessment / Plan
Assessment / Plan
A/P:
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
s/p partial cystectomy and ileal loop urine diversion on 02/18
out of ICU
Pain control, currently on IV Dilaudid PRN
PT OT eval when able
# Acute hypoxic respiratory failure
doing well postextubation.
Currently on 2L NC, cont O2 support and wean as tolerated
# Acute diastolic congestive heart failure/moderate aortic stenosis:
Cont IV Lasix 20 mg daily, Monitor strict I/O, Monitor daily weight, Monitor renal function and electrolytes
Cont fluid restriction/salt restriction
Cardiology consulted and appreciated follow-up
# Elevated troponin due to non-ischemic myocardial injury
Cardiology on consult
# Concerns for pneumonia:
Currently on IV Unasyn
resolved leucocytosis
# Enterococcal UTI:
On IV Ampicillin, now on IV ampicillin/sulbactam (to also cover pneumonia)
# Acute blood loss anemia likely related to recent surgery
Hemoglobin 7.7 today
Pt has received 4 units PRBC transfusion so far this admission
# CAD/PVD:
Chest pain-free but elevated Trop
Continue cardiac monitoring
# Hypertension:
Monitor blood pressure and medications accordingly
# Hyperlipidemia:
Continue statins
# Diabetes mellitus type 2:
Holding metformin due to acute illness
HBA1c on 01/25 was 5.7
# CKD stage III:
Monitor renal function
# GERD:
On PPI
DVT prophylaxis: SCDs. Pharmacological prophylaxis when Hgb stable and okay with urology
CODE STATUS: Full code
updated daughter on the phone
total time spent 51 min
Anticipated Discharge: > 48 hours
Subjective/Interval History
-
Date of Service: February 23, 2024
Objective Data
-
Labs:
Laboratory Results
02/23/24
05:21
WBC 9.3
Hgb 7.7 L
Hct 23.7 L
Plt Count 177 D
Sodium 137
Potassium 3.8
Chloride 106
Carbon Dioxide 27
BUN 22 H
Creatinine 1.0
Glucose 97
Calcium 8.2 L
Vital Signs:
Vital Signs
Temp Pulse Resp BP Pulse Ox
36.3 C 81 18 135/58 93
02/23/24 11:40 02/23/24 11:40 02/23/24 11:40 02/23/24 11:40 02/23/24 11:40
I&O
02/22/24 02/23/24 02/24/24
06:59 06:59 06:59
Intake Total 1185 / 1185 1015 / 1015 360 / 360
Output Total 3405 / 3405 2420 / 2420
Balance -2220 / -2220 -1405 / -1405 360 / 360
Review of Systems
-
All other systems: Reviewed and negative
Physical Exam
-
General: Well Developed, Comfortable and Appears Chronically Ill
HEENT: Normocephalic, Atraumatic, Moist Mucous Membranes and Oxygen (2L NC)
Respiratory: Clear to Auscultation and Non Labored Respirations; Negative Accessory Resp Muscle Use
Cardiac: Regular Rhythm and S1/S2
GI: Soft, Nontender and Nondistended
Rectal: Deferred by Provider
Genito-urinary: Other (healing midline incision wound, urostomy in place, and REAGAN drain)
Musculoskeletal: No Clubbing, No Cyanosis and No Edema
Neuro: Awake and Other (lethargic)
Psych: Calm
Data Reviewed
-
Labs: Labs Reviewed by me
--- NOTE | 2024-02-23 14:31 | CM ---
Reviewed the chart notes. Referral with [facility] sent to [facility]. CM continues to be available to patient/family and is monitoring medical plan for needs at discharge.
Plan: Discharge to SNF/rehab when medically stable and bed found.
--- NOTE | 2024-02-23 15:15 | WOUNDNOTE ---
RLQ (patient sitting up in bed)
--- NOTE | 2024-02-23 15:15 | WOUNDNOTE ---
OSTOMY PREPARED APPLIANCE.
[2024-02-23 16:05] VITALS: BP 123/65
--- NOTE | 2024-02-23 16:16 | WOUNDNOTE ---
[facility] RN Note: Patient's urostomy appliance changed using [place]ress wafer # [id number], Celi seal with extra piece of Celi seal at 3 o'clock deep skin dip. Peristomal skin intact. There is a very small intact serous blister just R of midline incision
near wafer paper tape border. Scabbed previous adhesive related (and edema related) skin tears noted on R abdomen. L facial cheek dry scab with local erythema noted suspect from previous adhesive (ETT tatum adhesive?). Coccyx with pinpoint pink
superficial opening suspect MASD. R inner buttocks stage 2/MASD scabbed. Patient was incontinent of large loose brown stool as per MONO Chaparro. Silicone border foam changed on sacral/buttocks. MONO Chaparro and RN Parker applied air overlay. Heels off bed with
pillow. Next appliance change . MONO Chaparro stated was not in to see patient today. Suspect patient will not be able to learn appliance change d/t he cannot visualize stoma RLQ d/t body habitus. Stoma pink and budded with stents intact.
Deep peristomal skin crease at 3 o'clock. Ostomy supplies in room. [facility] texted Dr. Pardo earlier this afternoon re: ostomy order numbers in discharge instructions; if/when patient goes home from SNF rehab, or SNF can order ostomy supplies
through a DME and DME will fax script for physician signature for ostomy supplies.
[2024-02-23 18:02] LABS: Glucose - Point of Care 100 mg/dl (70-99)
[2024-02-23 19:40] VITALS: BP 112/51
[2024-02-23] MEDS: SENOKOT-S PO (20:36)
[2024-02-23] MEDS: TYLENOL 1000 MG PO (20:37)
[2024-02-23] MEDS: MIRALAX PO ×2 (22:00→23:00)
[2024-02-23 23:00] VITALS: BP 130/62
[2024-02-23] MEDS: LIPITOR 40 MG PO (23:00)
[2024-02-23 23:25] LABS: Glucose - Point of Care 140 mg/dl (70-99)
[2024-02-24] VITALS (8 sets, daily range): BP systolic 79–154; BP diastolic 31–86; BMI 32.2
[2024-02-24] MEDS: UNASYN IV ×3 (05:04→18:54)
[2024-02-24 05:15] LABS: Hematocrit 27.6 % (39.0-52.0); Hemoglobin 8.9 g/dL (13.0-18.0); Mean Corp Hgb Conc. 32.2 g/dL (33.0-37.0); Mean Corpuscular Hgb 29.8 pg (27.0-31.0); Mean Corpuscular Volume 92.3 fL (80.0-94.0); Mean Platelet Volume 9.8 fL (7.4-10.4); Platelet Count 177 10^3/uL (130-400); Red Blood Cell Count 2.99 10^6/uL (4.70-6.10); White Blood Cell Count 9.8 10^3/uL (4.8-10.8)
[2024-02-24 05:39] LABS: Blood Urea Nitrogen 22 mg/dl (9-20); Calcium 8.4 mg/dl (8.4-10.2); Carbon Dioxide 29 mmol/L (22-30); Chloride 104 mmol/L (98-107); Estimated Creatinine Clearance 54 ml/min; Glucose 113 mg/dl (70-99); Magnesium 1.8 mg/dl (1.6-2.3); Potassium 3.5 mmol/L (3.5-5.1); Sodium 138 mmol/L (135-145); eGFR 58.89
[2024-02-24 07:20] LABS: Glucose - Point of Care 95 mg/dl (70-99)
[2024-02-24] MEDS: KCL 40 MEQ PO (07:38)
[2024-02-24] MEDS: NOVOLOG FLEXPEN-MODERATE RESISTANCE SC ×3 (08:59→18:54)
[2024-02-24] MEDS: LASIX 20 MG IV (09:00)
[2024-02-24] MEDS: NSS (PRESERVATIVE FREE) 10 ML IV (09:01)
[2024-02-24] MEDS: VITAMIN D3 (cholecalciferol) 50 MCG PO (09:01)
[2024-02-24] MEDS: PROTONIX IV 40 MG IV (09:01)
[2024-02-24] MEDS: SENOKOT-S PO ×3 (09:01→21:09)
[2024-02-24] MEDS: LIDOCAINE URO-JET 2% TOPICAL ×3 (09:02→21:20)
--- NOTE | 2024-02-24 09:02 | W.PN.HOSP.TC ---
Today's Communication/Plan
-
see A/P
Assessment / Plan
Assessment / Plan
A/P:
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
s/p partial cystectomy and ileal loop urine diversion on 02/18
out of ICU
Pain control, currently on IV Dilaudid PRN
PT OT eval when able
# Acute hypoxic respiratory failure
doing well postextubation.
Currently on 2L NC, cont O2 support and wean as tolerated
# Acute diastolic congestive heart failure/moderate aortic stenosis:
Cont IV Lasix 20 mg daily, Monitor strict I/O, Monitor daily weight, Monitor renal function and electrolytes
Cont fluid restriction/salt restriction
Cardiology consulted and appreciated follow-up
# Elevated troponin due to non-ischemic myocardial injury
Cardiology on consult
# Concerns for pneumonia:
Currently on IV Unasyn
resolved leucocytosis
# Enterococcal UTI:
On IV Ampicillin, now on IV ampicillin/sulbactam (to also cover pneumonia), plan for 14 days total
# Diarrhea, watery per RN
Check C diff given pt on Abx for several days, can also check Norovirus and stool cx at the same time
# Acute blood loss anemia likely related to recent surgery
Pt received 4 units PRBC transfusion so far this admission
Hemoglobin improved to 8.9 today
# CAD/PVD:
Chest pain-free but elevated Trop
Continue cardiac monitoring
# Hypertension:
Monitor blood pressure and medications accordingly
# Hyperlipidemia:
Continue statins
# Diabetes mellitus type 2:
Holding metformin due to acute illness
HBA1c on 01/25 was 5.7
# CKD stage III:
Monitor renal function
# GERD:
On PPI
DVT prophylaxis: SCDs. Pharmacological prophylaxis when Hgb stable and okay with urology
CODE STATUS: Full code
Dispo: SNF
DW RN
updated daughter on the phone
Anticipated Discharge: > 48 hours
Subjective/Interval History
-
Date of Service: February 24, 2024
Objective Data
-
Labs:
Laboratory Results
02/24/24
04:59
WBC 9.8
Hgb 8.9 L
Hct 27.6 L
Plt Count 177
Sodium 138
Potassium 3.5
Chloride 104
Carbon Dioxide 29
BUN 22 H
Creatinine 1.2
Glucose 113 H
Calcium 8.4
Vital Signs:
Vital Signs
Temp Pulse Resp BP Pulse Ox
36.4 C 68 20 154/86 95
02/24/24 04:15 02/24/24 04:15 02/24/24 04:15 02/24/24 04:15 02/24/24 04:15
I&O
02/23/24 02/24/24 02/25/24
06:59 06:59 06:59
Intake Total 1015 / 1015 1610 / 1610
Output Total 2420 / 2420 2290 / 2290
Balance -1405 / -1405 -680 / -680
Review of Systems
-
All other systems: Reviewed and negative
Physical Exam
-
General: Well Developed, Comfortable and Appears Chronically Ill
HEENT: Normocephalic, Atraumatic, Moist Mucous Membranes and Oxygen (2L NC)
Respiratory: Clear to Auscultation and Non Labored Respirations; Negative Accessory Resp Muscle Use
Cardiac: Regular Rhythm and S1/S2
GI: Soft, Nontender and Nondistended
Rectal: Deferred by Provider
Genito-urinary: Other (healing midline incision wound, urostomy in place, and REAGAN drain)
Musculoskeletal: No Clubbing, No Cyanosis and No Edema
Neuro: Awake
Psych: Calm
Data Reviewed
-
Labs: Labs Reviewed by me
--- NOTE | 2024-02-24 09:19 | W.PN.CARDCBS ---
Today's Communication / Plan
-
Continues to slowly improve.
Continue to diurese with Lasix 20 mg IV daily and will give additional lasix 20 mg IV to equal 40 mg IV as wt plateaued last 24 hrs. Not clear what his dry wt is and he does not know, would cont gentle IV diuresis for now.
His Is and Os remain negative and creatinine remains stable
Impression / Plan
-
.
Primary Shuttle Threader: Dr. Alex Pink of [facility]
Impression:
S/p cystectomy on 02/19/2024
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
Acute on chronic heart failure with preserved ejection fraction
CAD with CABG
Mod
HTN
HLD
DM
CKD
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
GERD
PVD
ECHO 01/28/24: EF 60 to 65%, mild concentric LVH, mild MR, moderate AAS with peak/mean gradients 53/27 mmHg, MARISA 0.9 cm�, mild AR
Plan:
Continues to slowly improve.
Continue to diurese with Lasix 20 mg IV daily and will give additional lasix 20 mg IV to equal 40 mg IV as wt plateaued last 24 hrs. Not clear what his dry wt is and he does not know, would cont gentle IV diuresis for now.
His Is and Os remain negative and creatinine remains stable
Continue to follow hemoglobin and transfuse as needed.
Hemoglobin slowing coming down: 9.1 -> 8.6 -> 7.7 -> 8.9 on February 23
Remains in sinus rhythm.
Continue pain control and postop care. Some diarrhea he stated.
Discussed with nursing
Progress Note - Shuttle Threader
Subjective
Date of Service: February 24, 2024
Pt seen and examined. Complaints of diarrhea. No chest pain or shortness of breath.
Objective
Labs:
02/24/24 04:59
02/24/24 04:59
Labs
Hgb 8.9 g/dL (13.0-18.0) L 02/24/24 04:59
Hct 27.6 % (39.0-52.0) L 02/24/24 04:59
Plt Count 177 10^3/uL (130-400) 02/24/24 04:59
PT 14.5 Sec (11.4-14.6) 02/19/24 00:01
INR 1.13 02/19/24 00:01
APTT 31.4 Sec (23.4-35.0) 02/19/24 00:01
Sodium 138 mmol/L (135-145) 02/24/24 04:59
Potassium 3.5 mmol/L (3.5-5.1) 02/24/24 04:59
BUN 22 mg/dl (9-20) H 02/24/24 04:59
Creatinine 1.2 mg/dL (0.7-1.3) 02/24/24 04:59
Glucose 113 mg/dl (70-99) H 02/24/24 04:59
Vital Signs and I&O:
Vital Signs
Temp Pulse Resp BP Pulse Ox
97.5 F 68 20 154/86 95
02/24/24 04:15 02/24/24 04:15 02/24/24 04:15 02/24/24 04:15 02/24/24 04:15
Vital Signs
Temp Pulse Resp BP Pulse Ox
97.5 F 68 20 154/86 95
02/24/24 04:15 02/24/24 04:15 02/24/24 04:15 02/24/24 04:15 02/24/24 04:15
Intake & Output
02/22/24 02/23/24 02/24/24 02/25/24
06:59 06:59 06:59 06:59
Intake Total 1185 / 1185 1015 / 1015 1610 / 1610
Output Total 3405 / 3405 2420 / 2420 2290 / 2290
Balance -2220 / -2220 -1405 / -1405 -680 / -680
Physical Exam
Physical Exam
General: No acute distress, AAOX3
Neck: Negative JVD
Heart: Regular, Negative S3 positive S1/S2, Negative S4, No murmur
Lungs: CTA b/l, negative wheezes/rales/rhonchi
Abd: Positive BS, NT. mild distention, neg rebound/rigidity/guarding
Ext: Negative cyanosis/clubbing/edema
Neuro: nonfocal
[2024-02-24 12:05] LABS: Glucose - Point of Care 114 mg/dl (70-99)
[2024-02-24] MEDS: ProAmatine 5 MG PO (15:05)
--- NOTE | 2024-02-24 16:01 | CM ---
CM reviewed chart- ADC >48 hours
Pt accepted for readmission pending bed availability per [facility]
CM will continue to follow for dc planning
Discharge Disposition- return to [facility] SNF pending bed
--- NOTE | 2024-02-24 17:27 | W.PN.URO.CBU ---
Today's Communication / Plan
-
try and encourage fluids
Assessment / Plan
-
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
---
s/p partial cystectomy will ileal loop urine diversion 02/19/24
stable but edema low bp
Diagnosis
-
Date of Service: February 24, 2024
-
Patient Diagnosis:
Post Op Day:
Patient Diagnosis:
Post Op Day:
Patient Diagnosis:
Irradiation cystitis
Intractable gross hematuria
Clot urine retention
Bladder pain
---
s/p partial cystectomy with ileal loop urinary diversion 02/19/24
Subjective
-
tired no sob some abd pain no fever
Objective
-
Vital Signs
Temp Pulse Resp BP Pulse Ox
98.9 F 70 18 113/57 99
02/24/24 15:00 02/24/24 15:00 02/24/24 15:00 02/24/24 15:00 02/24/24 15:00
Intake and Output
02/23/24 02/24/24 02/25/24
06:59 06:59 06:59
Intake Total 1015 / 1015 1610 / 1610
Output Total 2420 / 2420 2290 / 2290
Balance -1405 / -1405 -680 / -680
Intake:
Oral fluids 650 / 650 1080 / 1080
IV fluids (Total) 50 / 50
IV piggybacks 360 / 360 480 / 480
Amount instilled into Urinary 5 5
Drain (Total)
Ureteral stent B
Output:
Drain Output (Total) 180 / 180 140 / 140
Left Laron-Lebron 180 / 180 140 / 140
Urine, Sams 420 / 420
Urostomy output 1820 / 1822149 / 2149
Other:
Number of unmeasured liquid
stools
Rectum 1
Laboratory Results
02/24/24 04:59
02/24/24 04:59
Review of Systems
-
Abdomen/GI: Abdominal Pain
: No Symptoms
Physical Exam
-
General - well developed, well nourished, no acute distress
Chest - clear bilaterally
Abdomen - soft, non-tender, positive bowel sounds, no CVAT, no incisional pain or distention
Genitalia - normal
Rectal - normal
Skin - warm & dry with no rash
Neuro - AOx3, no motor deficits
Extremities - no clubbing, no cyanosis, no edema
Incision - clean, dry
Dressing - clean, dry, intact
Care Review
Data Reviewed
Discussed with: Hospitalist
[2024-02-24 18:03] LABS: Glucose - Point of Care 139 mg/dl (70-99)
[2024-02-24] MEDS: MIRALAX PO (21:10)
[2024-02-24] MEDS: LIPITOR 40 MG PO (21:10)
--- NOTE | 2024-02-24 22:00 | PTCARENOTE ---
Upon rounds IV abx due at 1800 was found to be hanging full. contacted and reviewed with pharmacist. pharmacist told to skip 0000 dose and give 0600 dose. Notified and reviewed with house DOCUMENTUM CONSULTANT. 0000 dose will be skipped and will give 0600 dose.
[2024-02-25] VITALS (7 sets, daily range): BP systolic 108–136; BP diastolic 55–75; PULSE 78; O2SAT 94; BMI 31.9
[2024-02-25] MEDS: UNASYN IV ×5 (03:31→23:05)
--- NOTE | 2024-02-25 04:41 | DOWNTIME ---
There was a [employer] Client Development Writer Downtime on 02/24/2024 from 0100 to 02/25/2024 at 0300. Downtime documentation of patient's care, including medication administrations, has been reconciled in the electronic record per guidelines. Refer to the
patient's paper chart under the miscellaneous tab to see printed paper medication records and downtime forms.
[2024-02-25 07:03] LABS: Hematocrit 24.6 % (39.0-52.0); Mean Corp Hgb Conc. 32.5 g/dL (33.0-37.0); Mean Corpuscular Hgb 30.2 pg (27.0-31.0); Mean Corpuscular Volume 92.8 fL (80.0-94.0); Mean Platelet Volume 9.7 fL (7.4-10.4); Platelet Count 212 10^3/uL (130-400); Red Blood Cell Count 2.65 10^6/uL (4.70-6.10); Red Cell Dist. Width 16.5 % (11.5-14.5); White Blood Cell Count 9.5 10^3/uL (4.8-10.8)
[2024-02-25 07:35] LABS: Blood Urea Nitrogen 23 mg/dl (9-20); Carbon Dioxide 32 mmol/L (22-30); Chloride 104 mmol/L (98-107); Estimated Creatinine Clearance 58 ml/min; Glucose 119 mg/dl (70-99); Magnesium 1.8 mg/dl (1.6-2.3); Potassium 3.9 mmol/L (3.5-5.1); Sodium 139 mmol/L (135-145); eGFR > 60.00
--- NOTE | 2024-02-25 08:37 | W.PN.URO.CBU ---
Today's Communication / Plan
-
encourage p tryand get to [facility]air even ambulate if staedy on feet
Assessment / Plan
-
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
---
s/p partial cystectomy will ileal loop urine diversion 02/19/24
stable but edema resolving has diarrhea await c diff but definite improvemt will consider emoval daniel drain try and get oopb to [facility] goal to ambulate
Diagnosis
-
Date of Service: February 25, 2024
-
Patient Diagnosis:
Post Op Day:
Patient Diagnosis:
Post Op Day:
Patient Diagnosis:
Post Op Day:
Patient Diagnosis:
Irradiation cystitis
Intractable gross hematuria
Clot urine retention
Bladder pain
---
s/p partial cystectomy with ileal loop urinary diversion 02/19/24
Subjective
-
diarrhea no v[fevar has incisional ain
Objective
-
Vital Signs
Temp Pulse Resp BP Pulse Ox
97.4 F 67 16 136/71 95
02/25/24 07:42 02/25/24 07:42 02/25/24 07:42 02/25/24 07:42 02/25/24 07:42
Intake and Output
02/24/24 02/25/24 02/26/24
06:59 06:59 06:59
Intake Total 1610 / 1610 620 / 620
Output Total 2290 / 2290 1605 / 1605
Balance -680 / -680 -985 / -985
Intake:
Oral fluids 1080 / 1080 380 / 380
IV fluids (Total) 50 / 50
IV piggybacks 480 / 480 240 / 240
Output:
Drain Output (Total) 140 / 140 205 / 205
Left Laron-Lebron 140 / 140
Urostomy output 2150 / 2150 1400 / 1400
Laboratory Results
02/25/24 06:28
02/25/24 06:28
Review of Systems
-
Abdomen/GI: Abdominal Pain and Diarrhea
: No Symptoms
Physical Exam
-
General - well developed, well nourished, no acute distress
Chest - clear bilaterally
Abdomen - soft, non-tender, positive bowel sounds, no CVAT, no incisional pain or distention
Genitalia - normal
Rectal - normal
Skin - warm & dry with no rash
Neuro - AOx3, no motor deficits
Extremities - no clubbing, no cyanosis, no edema
Incision - clean, dry
Dressing - clean, dry, intact
Care Review
Data Reviewed
Discussed with: Nursing
CT Scan: Image Pers Reviewed
[2024-02-25 08:54] LABS: Glucose - Point of Care 135 mg/dl (70-99)
[2024-02-25] MEDS: NOVOLOG FLEXPEN-MODERATE RESISTANCE SC ×3 (09:00→17:39)
[2024-02-25] MEDS: SENOKOT-S PO ×2 (09:00→20:06)
[2024-02-25] MEDS: NSS (PRESERVATIVE FREE) 10 ML IV (09:01)
[2024-02-25] MEDS: VITAMIN D3 (cholecalciferol) 50 MCG PO (09:01)
[2024-02-25] MEDS: LASIX 20 MG IV (09:01)
[2024-02-25] MEDS: PROTONIX IV 40 MG IV (09:02)
[2024-02-25] MEDS: LIDOCAINE URO-JET 2% 1 SYRINGE TOPICAL ×3 (09:02→20:53)
--- NOTE | 2024-02-25 10:16 | PTCARENOTE ---
Patient taken off of enhanced precautions due to stool sample coming back negative for c-diff
--- NOTE | 2024-02-25 10:33 | W.PN.CARDCBS ---
Today's Communication / Plan
-
Continue gentle diuresis
Follow renal function and daily weights
Wean O2 as able
Impression / Plan
-
Primary Torch Straightener And Heater: Dr. Alex Pink of [facility]
Impression:
S/p cystectomy on 02/19/2024
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
Acute on chronic heart failure with preserved ejection fraction
CAD with CABG
Mod
HTN
HLD
DM
CKD
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
GERD
PVD
ECHO 01/28/24: EF 60 to 65%, mild concentric LVH, mild MR, moderate AAS with peak/mean gradients 53/27 mmHg, MARISA 0.9 cm�, mild AR
Plan:
Renal function and weight are stable
Still requiring supplemental O2, wean as able
Continue gentle diuresis with Lasix 20 mg IV daily
Remains in sinus rhythm
Discussed with nursing
Progress Note - Torch Straightener And Heater
Subjective
Date of Service: February 25, 2024
No acute overnight events. Patient tells me he is tired this morning. No no chest discomfort or shortness of breath..
Objective
Labs:
02/25/24 06:28
02/25/24 06:28
Labs
Hgb 8.0 g/dL (13.0-18.0) L 02/25/24 06:28
Hct 24.6 % (39.0-52.0) L 02/25/24 06:28
Plt Count 212 10^3/uL (130-400) 02/25/24 06:28
PT 14.5 Sec (11.4-14.6) 02/19/24 00:01
INR 1.13 02/19/24 00:01
APTT 31.4 Sec (23.4-35.0) 02/19/24 00:01
Sodium 139 mmol/L (135-145) 02/25/24 06:28
Potassium 3.9 mmol/L (3.5-5.1) 02/25/24 06:28
BUN 23 mg/dl (9-20) H 02/25/24 06:28
Creatinine 1.1 mg/dL (0.7-1.3) 02/25/24 06:28
Glucose 119 mg/dl (70-99) H 02/25/24 06:28
Vital Signs and I&O:
Vital Signs
Temp Pulse Resp BP Pulse Ox
97.4 F 67 16 136/71 95
02/25/24 07:42 02/25/24 07:42 02/25/24 07:42 02/25/24 07:42 02/25/24 07:42
Vital Signs
Temp Pulse Resp BP Pulse Ox
97.4 F 67 16 136/71 95
02/25/24 07:42 02/25/24 07:42 02/25/24 07:42 02/25/24 07:42 02/25/24 07:42
Intake & Output
02/23/24 02/24/24 02/25/24 02/26/24
06:59 06:59 06:59 06:59
Intake Total 1015 / 1015 1610 / 1610 620 / 620
Output Total 2420 / 2420 2290 / 2290 1605 / 1605
Balance -1405 / -1405 -680 / -680 -985 / -985
Physical Exam
Physical Exam
Gen: NAD, AA
HEENT: NC/AT, sclera anicteric
Neck: No JVD
CV: RRR, NL s1/s2
Lungs: No increased work of breathing on 2 L nasal cannula
Abd: S/ND
Ext: 1+ pitting/nonpitting LE edema
Skin: Warm, dry
Neuro: Non-focal
[2024-02-25 11:04] LABS: Glucose - Point of Care 112 mg/dl (70-99)
--- NOTE | 2024-02-25 11:11 | W.PN.HOSP.TC ---
Today's Communication/Plan
-
see A/P
Assessment / Plan
Assessment / Plan
A/P:
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
s/p partial cystectomy and ileal loop urine diversion on 02/18
out of ICU
Pain control with IV morphine
Added midodrine PRN for BP support post op
PT OT eval when able
# Acute hypoxic respiratory failure
doing well postextubation.
Currently on 2L NC, cont O2 support and wean as tolerated
# Acute diastolic congestive heart failure/moderate aortic stenosis:
Cont IV Lasix 20 mg daily, Monitor strict I/O, Monitor daily weight, Monitor renal function and electrolytes
Cont fluid restriction/salt restriction
Cardiology consulted and appreciated follow-up
# Elevated troponin due to non-ischemic myocardial injury
# Concerns for pneumonia:
Currently on IV Unasyn
resolved leucocytosis
# Enterococcal UTI:
On IV Ampicillin, now on IV ampicillin/sulbactam (to also cover pneumonia), plan for 14 days total
# Diarrhea likely due to Abx S/E
C diff negative, can follow up Norovirus and stool cx
Added probiotic
# Acute blood loss anemia likely related to recent surgery
Pt received 4 units PRBC transfusion so far this admission
Hemoglobin improved to 8.9 today
# CAD/PVD:
Chest pain-free but elevated Trop
Continue cardiac monitoring
# Hypertension:
Monitor blood pressure and medications accordingly
# Hyperlipidemia:
Continue statins
# Diabetes mellitus type 2:
Holding metformin due to acute illness
HBA1c on 01/25 was 5.7
# CKD stage III:
Monitor renal function
# GERD:
On PPI
DVT prophylaxis: SCDs. Pharmacological prophylaxis when Hgb stable and okay with urology
CODE STATUS: Full code
Dispo: SNF
DW RN
Anticipated Discharge: > 48 hours
Subjective/Interval History
-
Date of Service: February 25, 2024
Objective Data
-
Labs:
Laboratory Results
02/25/24
06:28
WBC 9.5
Hgb 8.0 L
Hct 24.6 L
Plt Count 212
Sodium 139
Potassium 3.9
Chloride 104
Carbon Dioxide 32 H
BUN 23 H
Creatinine 1.1
Glucose 119 H
Calcium 8.0 L
Vital Signs:
Vital Signs
Temp Pulse Resp BP Pulse Ox
36.8 C 78 18 136/63 94
02/25/24 10:48 02/25/24 10:48 02/25/24 10:48 02/25/24 10:48 02/25/24 10:48
I&O
02/24/24 02/25/24 02/26/24
06:59 06:59 06:59
Intake Total 1610 / 1610 620 / 620
Output Total 2290 / 2290 1605 / 1605
Balance -680 / -680 -985 / -985
Review of Systems
-
All other systems: Reviewed and negative
Physical Exam
-
General: Well Developed, Comfortable and Appears Chronically Ill
HEENT: Normocephalic, Atraumatic, Moist Mucous Membranes and Oxygen (2L NC)
Respiratory: Clear to Auscultation and Non Labored Respirations; Negative Accessory Resp Muscle Use
Cardiac: Regular Rhythm and S1/S2
GI: Soft, Nontender and Nondistended
Rectal: Deferred by Provider
Genito-urinary: Other (healing midline incision wound, urostomy in place, and REAGAN drain)
Musculoskeletal: No Clubbing, No Cyanosis and No Edema
Neuro: Awake
Psych: Calm and Intact Judgement/Insight (somewhat)
Data Reviewed
-
Labs: Labs Reviewed by me
[2024-02-25] MEDS: VISBIOME 1 CAP PO (13:18)
--- NOTE | 2024-02-25 14:46 | CM ---
Patient seen at bedside, Patient out of bed. Patient complaining of being weak and nurse indicated that patient was weaker than previously. Patient plan is to go to SNF at [facility] when medically appropriate. CM will continue to follow for
discharge planning needs.
Plan; SNF pending bed availability, medical stability.
[2024-02-25] MEDS: MORPHINE SULFATE 1 MG IV (16:28)
[2024-02-25 17:16] LABS: Glucose - Point of Care 110 mg/dl (70-99)
[2024-02-25 21:43] LABS: Glucose - Point of Care 166 mg/dl (70-99)
[2024-02-25] MEDS: LIPITOR 40 MG PO (22:56)
[2024-02-25] MEDS: MIRALAX 17 GRAMS PO (22:56)
[2024-02-26] VITALS (8 sets, daily range): BP systolic 93–148; BP diastolic 43–67; PULSE 77; BMI 31.9
--- NOTE | 2024-02-26 04:28 | PTCARENOTE ---
Pt had episode of incontinent stool that appeared black and tarry. This RN checked for occult blood, hemetest was positive. Notified LUTE PACKER OR APPLIER, NNO at this time.
[2024-02-26] MEDS: UNASYN IV ×4 (05:24→23:22)
[2024-02-26 06:39] LABS: Hemoglobin 7.6 g/dL (13.0-18.0); Mean Corpuscular Hgb 30.2 pg (27.0-31.0); Mean Corpuscular Volume 91.3 fL (80.0-94.0); Mean Platelet Volume 9.4 fL (7.4-10.4); Platelet Count 228 10^3/uL (130-400); Red Blood Cell Count 2.52 10^6/uL (4.70-6.10); Red Cell Dist. Width 16.2 % (11.5-14.5); White Blood Cell Count 8.2 10^3/uL (4.8-10.8)
[2024-02-26 06:50] LABS: Blood Urea Nitrogen 21 mg/dl (9-20); Calcium 7.9 mg/dl (8.4-10.2); Carbon Dioxide 32 mmol/L (22-30); Chloride 103 mmol/L (98-107); Estimated Creatinine Clearance 57 ml/min; Glucose 110 mg/dl (70-99); Magnesium 1.7 mg/dl (1.6-2.3); Potassium 3.6 mmol/L (3.5-5.1); Sodium 138 mmol/L (135-145); eGFR > 60.00
[2024-02-26] MEDS: NOVOLOG FLEXPEN-MODERATE RESISTANCE SC (07:00)
[2024-02-26] MEDS: VISBIOME 1 CAP PO (10:42)
[2024-02-26] MEDS: LASIX 20 MG IV ×2 (10:42→14:27)
[2024-02-26] MEDS: PROTONIX 40 MG PO (10:42)
[2024-02-26] MEDS: SENOKOT-S 1 TABLET PO (10:42)
[2024-02-26] MEDS: LIDOCAINE URO-JET 2% TOPICAL ×3 (10:43→21:21)
[2024-02-26] MEDS: VITAMIN D3 (cholecalciferol) 50 MCG PO (10:44)
--- NOTE | 2024-02-26 10:53 | W.PN.CARDCBS ---
Today's Communication / Plan
-
Cr remains stable. Wt appears to beginning to plateau
Cont gentle diuresis. Will plan to give additional lasix for total of 40 mg IV today
Monitor H/H and consider transfusion as needed. Hemoglobin down to 7.6 February 25 from February 24.
Wean O2 as able.
Encourage OOB
Cont post op care
Remains in sinus rhythm. Reviewed tele strips and he has sinus with PACs, PVCs.
Impression / Plan
-
Primary Rn Pool: Dr. Alex Pink of [facility]
Impression:
S/p cystectomy on 02/19/2024
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
Acute on chronic heart failure with preserved ejection fraction
CAD with CABG
Mod
HTN
HLD
DM
CKD
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
GERD
PVD
ECHO 01/28/24: EF 60 to 65%, mild concentric LVH, mild MR, moderate AAS with peak/mean gradients 53/27 mmHg, MARISA 0.9 cm�, mild AR
Plan:
Cr remains stable. Wt appears to beginning to plateau
Cont gentle diuresis. Will plan to give additional lasix for total of 40 mg IV today
Monitor H/H and consider transfusion as needed. Hemoglobin down to 7.6 February 25 from February 24.
Wean O2 as able.
Encourage OOB
Cont post op care
Remains in sinus rhythm. Reviewed tele strips and he has sinus with PACs, PVCs.
Discussed with nursing.
Progress Note - Rn Pool
Subjective
Date of Service: February 26, 2024
Pt seen and examined. No chest pain or shortness of breath.
Objective
Labs:
02/26/24 06:01
02/26/24 06:01
Labs
Hgb 7.6 g/dL (13.0-18.0) L 02/26/24 06:01
Hct 23.0 % (39.0-52.0) L 02/26/24 06:01
Plt Count 228 10^3/uL (130-400) 02/26/24 06:01
PT 14.5 Sec (11.4-14.6) 02/19/24 00:01
INR 1.13 02/19/24 00:01
APTT 31.4 Sec (23.4-35.0) 02/19/24 00:01
Sodium 138 mmol/L (135-145) 02/26/24 06:01
Potassium 3.6 mmol/L (3.5-5.1) 02/26/24 06:01
BUN 21 mg/dl (9-20) H 02/26/24 06:01
Creatinine 1.1 mg/dL (0.7-1.3) 02/26/24 06:01
Glucose 110 mg/dl (70-99) H 02/26/24 06:01
Vital Signs and I&O:
Vital Signs
Temp Pulse Resp BP Pulse Ox
98.1 F 76 16 148/67 97
02/26/24 07:15 02/26/24 07:15 02/26/24 07:15 02/26/24 07:15 02/26/24 07:15
Vital Signs
Temp Pulse Resp BP Pulse Ox
98.1 F 76 16 148/67 97
02/26/24 07:15 02/26/24 07:15 02/26/24 07:15 02/26/24 07:15 02/26/24 07:15
Intake & Output
02/24/24 02/25/24 02/26/24 02/27/24
06:59 06:59 06:59 06:59
Intake Total 1610 / 1610 620 / 620 1850 / 1850
Output Total 2290 / 2290 1605 / 1605 1770 / 1770
Balance -680 / -680 -985 / -985 80 / 80
Physical Exam
Physical Exam
General: No acute distress, AAOX3
Neck: Negative JVD
Heart: Regular, Negative S3 positive S1/S2, Negative S4, No murmur
Lungs: CTA b/l, negative wheezes/rales/rhonchi
Abd: Positive BS, NT/ND, neg rebound/rigidity/guarding
Ext: Negative cyanosis/clubbing. Mild LE b/l edema
Neuro: nonfocal
--- NOTE | 2024-02-26 11:46 | W.PN.HOSP.TC ---
Today's Communication/Plan
-
see A/P
Assessment / Plan
Assessment / Plan
A/P:
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
s/p partial cystectomy and ileal loop urine diversion on 02/18
out of ICU
Pain control with IV morphine
Added midodrine PRN for BP support post op (has not been needing)
PT OT eval
# Acute hypoxic respiratory failure
doing well postextubation.
Currently on 2L NC, cont O2 support and wean as tolerated
# Acute diastolic congestive heart failure/moderate aortic stenosis:
Cont IV Lasix 20 mg daily, Monitor strict I/O, Monitor daily weight, Monitor renal function and electrolytes
Cont fluid restriction/salt restriction
Cardiology consulted and appreciated follow-up
# Elevated troponin due to non-ischemic myocardial injury
# Concerns for pneumonia:
Currently on IV Unasyn
resolved leucocytosis
# Enterococcal UTI:
On IV Ampicillin, now on IV ampicillin/sulbactam (to also cover pneumonia), plan for 14 days total
# Diarrhea likely due to Abx S/E
C diff negative, can follow up Norovirus and stool cx
Added probiotic
# Acute blood loss anemia likely related to recent surgery
Pt received 4 units PRBC transfusion so far this admission
Hemoglobin at 7.6 today, monitor closely
# CAD/PVD:
Chest pain-free but elevated Trop
Continue cardiac monitoring
# Hypertension:
Monitor blood pressure and medications accordingly
# Hyperlipidemia:
Continue statins
# Diabetes mellitus type 2:
Holding metformin due to acute illness
HBA1c on 01/25 was 5.7
# CKD stage III:
Monitor renal function
# GERD:
On PPI
DVT prophylaxis: SCDs. Pharmacological prophylaxis when Hgb stable and okay with urology
CODE STATUS: Full code
Dispo: SNF
DW RN
Anticipated Discharge: > 48 hours
Subjective/Interval History
-
Date of Service: February 26, 2024
Objective Data
-
Labs:
Laboratory Results
02/26/24
06:01
WBC 8.2
Hgb 7.6 L
Hct 23.0 L
Plt Count 228
Sodium 138
Potassium 3.6
Chloride 103
Carbon Dioxide 32 H
BUN 21 H
Creatinine 1.1
Glucose 110 H
Calcium 7.9 L
Vital Signs:
Vital Signs
Temp Pulse Resp BP Pulse Ox
36.7 C 76 16 148/67 97
02/26/24 07:15 02/26/24 07:15 02/26/24 07:15 02/26/24 07:15 02/26/24 07:15
I&O
02/25/24 02/26/24 02/27/24
06:59 06:59 06:59
Intake Total 620 / 620 1850 / 1850
Output Total 1605 / 1605 1770 / 1770
Balance -985 / -985 80 / 80
Review of Systems
-
All other systems: Reviewed and negative
Physical Exam
-
General: Well Developed, Comfortable and Appears Chronically Ill
HEENT: Normocephalic, Atraumatic, Moist Mucous Membranes and Oxygen (2L NC)
Respiratory: Clear to Auscultation and Non Labored Respirations; Negative Accessory Resp Muscle Use
Cardiac: Regular Rhythm and S1/S2
GI: Soft, Nontender and Nondistended
Rectal: Deferred by Provider
Genito-urinary: Other (healing midline incision wound, urostomy in place, and REAGAN drain)
Musculoskeletal: No Clubbing, No Cyanosis and No Edema
Neuro: Awake
Psych: Calm and Intact Judgement/Insight (somewhat)
Data Reviewed
-
Labs: Labs Reviewed by me
--- NOTE | 2024-02-26 12:30 | CM ---
Met with patient at bedside
PT/OT evaluations pending
Plan: discharge to [facility] SNF when medically stable
--- NOTE | 2024-02-26 12:34 | CM ---
Met with patient at bedside; discussed discharge plan; patient verbalized he did not want to be discharged to [facility] over the weekend
Plan: discharge to SNF when medically stable
[2024-02-26 13:30] LABS: Glucose - Point of Care 181 mg/dl (70-99)
[2024-02-26] MEDS: NOVOLOG FLEXPEN-MODERATE RESISTANCE 1 UNITS SC ×2 (14:19→17:58)
[2024-02-26] MEDS: TYLENOL 1000 MG PO (14:22)
--- NOTE | 2024-02-26 15:05 | WOUNDNOTE ---
[facility] RN note: Patient's daughter and present to learn ostomy care. MONO Morse used to be a nurse and wanted to learn. decided she couldn't watch appliance change once the wafer was removed. Stoma pink and budded with peristomal skin crease
mostly medially. Peristomal skin slightly red proximally. Stents in place. Urine jorge yellow. Instructed Mini pouch emptying, connecting to overnight drainage, care of overnight drainage bag, changing appliance using Siletz wafer # [id number],
Celi seal with extra Celi piece medially to fill in deep crease and Kenny pouch #[id number]. Showed daughter Siletz soft convex wafer # [id number] should leakage become a problem. Patient has been having some loose stools. MONO Silverman was in. Patient
turned and anderson care given with help from MONO Silverman. He has scattered coccyx/buttocks dermal ulcers suspect from moisture and also friction/pressure. Calazime applied. Patient is on a Waffle air overlay. Heels off bed with pillow. Skin on heels
intact. Next appliance change due Friday. Nursing can assist with routine appliance changes as needed. Doubt patient will be able to do his own ostomy appliance changes. Plan is SNF rehab when discharged.
--- NOTE | 2024-02-26 16:44 | PHA.VAN.IN ---
Assessment
- Assessment
Renal Function: Appears similar to baseline ( BASELINE SCR: 1.0)
Concomitant Antimicrobials: UNASYN
- Previous Dosing Experience
Previous Regimen: NONE
AUC Dosing Plan
- Dosing Variables
Dosing Weight (kg): 100.7
Dosing CrCl (ml/min): 57
Vd coefficient (L/kg): 0.6
- Empiric Dosing
Initial / Loading Dose: 2GM
Maintenance Regimen: 1500MG IV Q24H
Estimated AUC (mcg*h/mL): 499
Estimated Peak (mcg*h/mL): 34.9
Estimated Trough (mcg/ml): 10.9
Estimated Half Life (H): 13.4
Pharmacokinetics Vancomycin I
- -
Patient Age: 88
Patient Sex: Male
Vancomycin Day #: 1
Indication: Skin And Soft Tissue (coccyx ulcer )
Requesting Provider: MICHELLE
Height / Weight:
Height 5 ft 10 in
Actual Weight 100.698 kg
- Vital Signs / Lab Results
Temp Pulse Resp BP Pulse Ox
100.4 F H 78 17 131/51 91
02/26/24 16:06 02/26/24 16:06 02/26/24 16:06 02/26/24 16:06 02/26/24 16:06
Lab Results - Hematology
02/24/24 02/25/24 02/26/24
04:59 06:28 06:01
WBC 9.8 9.5 8.2
Lab Results - Chemistry
02/24/24 02/25/24 02/26/24
04:59 06:28 06:01
BUN 22 H 23 H 21 H
Creatinine 1.2 1.1 1.1
Estimated Creat Clear 54 58 57
Microbiology Results
02/25/24 06:22 Salmonella/Shigella Culture - Preliminary
Feces/Stool Culture in Progress
Campylobacter Culture - Preliminary
Culture in Progress
Shiga Toxin Test - Final
No E. coli Shiga Toxin 1 or 2 detected.
02/25/24 06:22 - Final
Feces/Stool Negative for Norovirus GI and GII.
02/25/24 06:22 C. difficile GDH Antigen & Toxins - Final
Feces/Stool Negative for toxigenic C.difficile
--- NOTE | 2024-02-26 17:12 | W.PN.URO.CBU ---
Today's Communication / Plan
-
encourageoob and increase po
Assessment / Plan
-
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
---
s/p partial cystectomy will ileal loop urine diversion 02/19/24
stable but edema resolving c diff neg and overall improvement but py t chronic incisionalpain nl exam no inv[fection daniel out no ileus osorio try and motivate to get out of bed will try and remove sandie by next week increase pt / ot
consider nc[sg home placememt once tubes out
Diagnosis
-
Date of Service: February 26, 2024
-
Patient Diagnosis:
Post Op Day:
Patient Diagnosis:
Post Op Day:
Patient Diagnosis:
Post Op Day:
Patient Diagnosis:
Post Op Day:
Patient Diagnosis:
Irradiation cystitis
Intractable gross hematuria
Clot urine retention
Bladder pain
---
s/p partial cystectomy with ileal loop urinary diversion 02/19/24
Subjective
-
incisional pain
Objective
-
Vital Signs
Temp Pulse Resp BP Pulse Ox
100.4 F H 78 17 131/51 91
02/26/24 16:06 02/26/24 16:06 02/26/24 16:06 02/26/24 16:06 02/26/24 16:06
Intake and Output
02/25/24 02/26/24 02/27/24
06:59 06:59 06:59
Intake Total 620 / 620 1850 / 1850 560 / 560
Output Total 1605 / 1605 1770 / 1770 1125 / 1125
Balance -985 / -985 80 / 80 -565 / -565
Intake:
Oral fluids 380 / 380 1560 / 1560 560 / 560
IV fluids (Total) 50 / 50
IV piggybacks 240 / 240 240 / 240
Output:
Drain Output (Total)
Left Laron-Lebron
Urine, Voided 1125 / 1125
Suprapubic output 1200 / 1200
Urostomy output 1400 / 1400 500 / 500
Laboratory Results
02/26/24 06:01
02/26/24 06:01
Review of Systems
-
Abdomen/GI: Abdominal Pain
Physical Exam
-
General - well developed, well nourished, no acute distress
Chest - clear bilaterally
Abdomen - soft, non-tender, positive bowel sounds, no CVAT, no incisional pain or distention
Genitalia - normal
Rectal - normal
Skin - warm & dry with no rash
Neuro - AOx3, no motor deficits
Extremities - no clubbing, no cyanosis, no edema
Incision - clean, dry
Dressing - clean, dry, intact
Care Review
Data Reviewed
Discussed with: Nursing
[2024-02-26 17:14] LABS: Glucose - Point of Care 199 mg/dl (70-99)
[2024-02-26] MEDS: VANCOCIN 540 MG IV (19:57)
[2024-02-26] MEDS: SENOKOT-S PO (20:04)
[2024-02-26] MEDS: MIRALAX PO (21:20)
[2024-02-26] MEDS: LIPITOR 40 MG PO (21:21)
[2024-02-26 21:29] LABS: Glucose - Point of Care 131 mg/dl (70-99)
[2024-02-27] VITALS (8 sets, daily range): BP systolic 91–153; BP diastolic 41–64; BMI 32.0
[2024-02-27] MEDS: UNASYN IV ×4 (05:11→23:23)
[2024-02-27 05:31] LABS: Hemoglobin 7.4 g/dL (13.0-18.0); Mean Corp Hgb Conc. 32.2 g/dL (33.0-37.0); Mean Corpuscular Volume 90.2 fL (80.0-94.0); Mean Platelet Volume 9.5 fL (7.4-10.4); Platelet Count 262 10^3/uL (130-400); Red Blood Cell Count 2.55 10^6/uL (4.70-6.10); Red Cell Dist. Width 16.4 % (11.5-14.5); White Blood Cell Count 7.6 10^3/uL (4.8-10.8)
[2024-02-27] MEDS: VANCOCIN 300 ML IV (05:56)
[2024-02-27] MEDS: VANCOCIN 300 MG IV (05:56)
[2024-02-27 06:01] LABS: Blood Urea Nitrogen 21 mg/dl (9-20); Carbon Dioxide 28 mmol/L (22-30); Chloride 102 mmol/L (98-107); Estimated Creatinine Clearance 57 ml/min; Glucose 114 mg/dl (70-99); Potassium 3.6 mmol/L (3.5-5.1); Sodium 137 mmol/L (135-145); eGFR > 60.00
--- NOTE | 2024-02-27 07:46 | PHA.VAN.FU ---
Vancomycin Assessment / Plan
- Assessment
Renal Function: Stable
WBC's are: WNL
Concomitant Antimicrobials: ampicillin/sulbactam
- Dosing Plan
Continue: Vanc 1500mg Q24H
- Monitoring Plan
No level(s) ordered at this time: consider levels in next few days
- Follow Up
Pharmacy will continue to follow.
Vancomycin Follow UP
- -
Patient Age: 88
Patient Sex: Male
Vancomycin Day #: 2
Indication: Skin And Soft Tissue
Requesting Provider: Dr. Bustamante
Pertinent Antimicrobial Allergies:
NKDA
Height / Weight:
Height 5 ft 10 in
Actual Weight 101.151 kg
Pertinent Past Medical History: BMI ~32
- Vital Signs / Lab Results
Temp Pulse Resp BP Pulse Ox
98.8 F 70 18 139/53 93
02/26/24 23:50 02/26/24 23:50 02/26/24 23:50 02/26/24 23:50 02/26/24 23:50
Lab Results - Hematology
02/25/24 02/26/24 02/27/24
06:28 06:01 04:59
WBC 9.5 8.2 7.6
Lab Results - Chemistry
02/25/24 02/26/24 02/27/24
06:28 06:01 04:59
BUN 23 H 21 H 21 H
Creatinine 1.1 1.1 1.1
Estimated Creat Clear 58 57 57
Microbiology Results
02/25/24 06:22 Salmonella/Shigella Culture - Preliminary
Feces/Stool Culture in Progress
Campylobacter Culture - Preliminary
Culture in Progress
Shiga Toxin Test - Final
No E. coli Shiga Toxin 1 or 2 detected.
02/25/24 06:22 - Final
Feces/Stool Negative for Norovirus GI and GII.
02/25/24 06:22 C. difficile GD Antigen & Toxins - Final
Feces/Stool Negative for toxigenic C.difficile
[2024-02-27 08:05] LABS: Glucose - Point of Care 128 mg/dl (70-99)
[2024-02-27] MEDS: NOVOLOG FLEXPEN-MODERATE RESISTANCE SC (08:08)
--- NOTE | 2024-02-27 09:45 | W.PN.CARDCBS ---
Addendum entered and electronically signed by Millie Corado DO 02/27/24 13:21:
I saw and examined the patient.
The Registered Route Associate's note was reviewed and I agree with the note.
Comment: Patient seen and examined. States he is too tired to get out of bed today. Denies any specific complaints; plan for transfusion today.
GEN: 88-year-old gentleman in bed; no acute distress on room air
HEENT: mmm
LUNGS: Unable to sit up or roll over. Decreased breath sounds anterolaterally but otherwise clear
CV: Reg, S1/S2, 2/6 syst mumur
ABD: soft, obese, incision intact. BS+
EXT: Trace upper and lower extremity edema
: Sams with yellow urine
Plan:
Acute on chronic heart failure with preserved ejection fraction
-Continue IV Lasix another 24-48 hours
-Was not on diuretics preadmission but would discharge on Lasix 20 mg once daily
-Creatinine stable
-Plan for transfusion today; will give another dose of IV Lasix 20mg with transfusion
Abnormal troponin, peaked 0.212.
-Suspect nonischemic myocardial injury secondary to hemorrhagic cystitis, heart failure.
-Medical therapy
Remains in sinus rhythm. Reviewed tele strips and he has sinus with PACs, PVCs.
Marked deconditioning/anasarca requiring Ada lift to move him. I encouraged him to work with PT and get out of bed.
Acute on chronic anemia status post 4 units packed red blood cells with plan for 2 more units today
-Monitor H&H
-Additional IV Lasix between units of packed red blood cells
Status post partial cystectomy and ileal loop urinary diversion on 02/19/2024 with clear urine
-Urology following
-Antibiotics for enterococcal UTI
-Supportive postop care
Original Note:
Today's Communication / Plan
-
Gentle gentle diuresis
Continue antibiotics per primary service
Monitor and trend Hgb
Impression / Plan
-
Primary Edger Automatic: Dr. Alex Pink of [facility]
Impression:
Presented with gross hematuria related to hemorrhagic cystitis due to radiation for prostate cancer
S/p partial cystectomy with ileal loop urine diversion 02/19/24
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
Acute hypoxic respiratory insufficiency
Acute on chronic heart failure with preserved ejection fraction, proBNP 2610 02/18/24
CAD with CABG
Mod
HTN
HLD
DM
CKD
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
GERD
PVD
ECHO 01/28/24: EF 60 to 65%, mild concentric LVH, mild MR, moderate with peak/mean gradients 53/27 mmHg, MARISA 0.9 cm�, mild AR
Plan:
Acute on chronic heart failure with preserved ejection fraction
Undergoing gentle diuresis with improving edema
Cr remains stable, 1.1. Wt appears to beginning to plateau, although may not be accurate due to bed scale
Was not on diuresis as outpt
Monitor H/H and consider transfusion as needed. Hemoglobin down to 7.4 February 26 from 8.9 February 23.
Acute hypoxic respiratory insufficiency, improving with diuresis. Now off oxygen
Abnormal troponin, peaked 0.212. Suspect nonischemic myocardial injury secondary to hemorrhagic cystitis, heart failure.
Remains in sinus rhythm. Reviewed tele strips and he has sinus with PACs, PVCs.
Encourage OOB
Cont post op care
Discussed with nursing.
Progress Note - Edger [employer]
Subjective
Date of Service: February 27, 2024
Patient seen and examined. Patient sitting up in bed. Patient reports he is feeling fair. Notes ongoing generalized weakness. Denies chest pain, shortness of breath, dizziness or lightheadedness
Objective
Labs:
02/27/24 04:59
02/27/24 04:59
Labs
Hgb 7.4 g/dL (13.0-18.0) L 02/27/24 04:59
Hct 23.0 % (39.0-52.0) L 02/27/24 04:59
Plt Count 262 10^3/uL (130-400) 02/27/24 04:59
PT 14.5 Sec (11.4-14.6) 02/19/24 00:01
INR 1.13 02/19/24 00:01
APTT 31.4 Sec (23.4-35.0) 02/19/24 00:01
Sodium 137 mmol/L (135-145) 02/27/24 04:59
Potassium 3.6 mmol/L (3.5-5.1) 02/27/24 04:59
BUN 21 mg/dl (9-20) H 02/27/24 04:59
Creatinine 1.1 mg/dL (0.7-1.3) 02/27/24 04:59
Glucose 114 mg/dl (70-99) H 02/27/24 04:59
Vital Signs and I&O:
Vital Signs
Temp Pulse Resp BP Pulse Ox
98.1 F 74 17 123/64 88
02/27/24 08:00 02/27/24 08:00 02/27/24 08:00 02/27/24 08:00 02/27/24 08:00
Vital Signs
Temp Pulse Resp BP Pulse Ox
98.1 F 74 17 123/64 88
02/27/24 08:00 02/27/24 08:00 02/27/24 08:00 02/27/24 08:00 02/27/24 08:00
Intake & Output
02/25/24 02/26/24 02/27/24 02/28/24
06:59 06:59 06:59 06:59
Intake Total 620 / 620 1850 / 1850 1974
Output Total 1605 / 1605 1770 / 1770 1974
Balance -985 / -985 80 / 80 0 / 0
Physical Exam
Physical Exam
GEN: No distress, awake, Ox3, sitting in bed
HEENT: supple, anicteric, mmm
LUNGS: Anteriorly CTA, no wheezes/rales
CV: Reg, S1/S2, 2/6 syst no murmur loudest right sternal border
ABD: soft, BS+, NT/ND
EXT: No edema, clubbing or cyanosis of lower extremities. Trace to +1 upper extremity edema
NEURO: Gross non-focal
SKIN: No rash, warm, dry, pink
[2024-02-27] MEDS: LASIX 20 MG IV (10:33)
[2024-02-27] MEDS: LIDOCAINE URO-JET 2% TOPICAL ×3 (10:34→23:22)
[2024-02-27] MEDS: PROTONIX 40 MG PO (10:35)
[2024-02-27] MEDS: VITAMIN D3 (cholecalciferol) 50 MCG PO (10:35)
[2024-02-27] MEDS: SENOKOT-S PO (10:35)
[2024-02-27] MEDS: VISBIOME 1 CAP PO (10:35)
[2024-02-27] MEDS: TYLENOL 1000 MG PO (10:36)
--- NOTE | 2024-02-27 11:15 | W.PN.HOSP.TC ---
Today's Communication/Plan
-
transfuse 2 units pRBC
lasix in between units
consider increasing lasix dose
PT/OT
portable x-ray abdomen to look at stool burden
Assessment / Plan
Assessment / Plan
pt is an 88 year old male
weakness--therapy needs to use Ada lift to move him--multifactorial--due to anemia, edema/anasarca, deconditioning, soft BPs....cont PT/OT--transfuse 2 units pRBC--cont diuresis
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
(has not been needing)--apprec urology input
Acute hypoxic respiratory failure--doing well postextubation--Currently on 2L NC, cont O2 support and wean as tolerated
Acute diastolic congestive heart failure/moderate aortic stenosis--Cont IV Lasix 20 mg daily, consider increasing-- Monitor strict I/O, Monitor daily weight, Monitor renal function and electrolytes--Cont fluid restriction/salt
restriction--Cardiology consulted and appreciated follow-up
Elevated troponin due to non-ischemic myocardial injury
Concerns for pneumonia--Currently on IV Unasyn--resolved leucocytosis
Enterococcal UTI--On IV Ampicillin, now on IV ampicillin/sulbactam (to also cover pneumonia), plan for 14 days total
Diarrhea likely due to Abx S/E--C diff negative, can follow up Norovirus and stool cx--Added probiotic --check abdominal x-ray for fecal impaction/stool burden
Acute blood loss anemia --likely related to recent surgery, fluid retention (dilutional)--s/p 4 units pRBC--will transfuse 2 more units with lasix in between
CAD/PVD--Chest pain-free but elevated Trop--Continue cardiac monitoring
Essential Hypertension--Monitor blood pressure and medications accordingly
Hyperlipidemia--Continue statins
Diabetes mellitus type 2--Holding metformin due to acute illness--HBA1c on 01/25 was 5.7
CKD stage III--Monitor renal function
GERD--On PPI
DVT prophylaxis: SCDs. Pharmacological prophylaxis when Hgb stable and okay with urology
CODE STATUS: Full code
Dispo: SNF
Anticipated Discharge: > 48 hours
Subjective/Interval History
-
Date of Service: February 27, 2024
pt c/o loose stools, weakness
Objective Data
-
Labs:
Laboratory Results
02/27/24
04:59
WBC 7.6
Hgb 7.4 L
Hct 23.0 L
Plt Count 262
Sodium 137
Potassium 3.6
Chloride 102
Carbon Dioxide 28
BUN 21 H
Creatinine 1.1
Glucose 114 H
Calcium 8.0 L
Vital Signs:
max temp for 24 hours
02/26/24
16:06
Temp 100.4 F H
Vital Signs
Temp Pulse Resp BP Pulse Ox
98.1 F 74 17 123/64 88
02/27/24 08:00 02/27/24 08:00 02/27/24 08:00 02/27/24 08:00 02/27/24 08:00
I&O
02/26/24 02/27/24 02/28/24
06:59 06:59 06:59
Intake Total 1849
Output Total 1769
Balance 80 / 80 0 / 0
Review of Systems
-
All other systems: Reviewed and negative
Constitutional: Reports Fatigue
Abdomen/GI: Reports Diarrhea
Musculoskeletal: Reports Edema
Neuro: Reports Weakness
Physical Exam
-
General: Well Developed, Well Nourished and No Apparent Distress
HEENT: Normocephalic and Atraumatic
Respiratory: Clear to Auscultation; Negative Wheezes or Rhonchi
Cardiac: Regular Rhythm and S1/S2; Negative Murmur
GI: Soft, Nontender, Nondistended and Normal Bowel Sounds
Genito-urinary: Other (ileostomy tube)
Musculoskeletal: No Clubbing and No Cyanosis; Negative No Edema (3-4+ edema throughout)
Skin: Other (sandie in place abdominal wall--ileostomy tube)
Neuro: Awake and Alert
--- NOTE | 2024-02-27 12:20 | W.PN.URO.CBU ---
Today's Communication / Plan
-
plan per hospitaist cardiology encourage fluids oob walking etc
Assessment / Plan
-
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
---
s/p partial cystectomy will ileal loop urine diversion 02/19/24
stable but edema resolving c diff neg and overall improvement but py t chronic incisionalpain nl exam no inv[fection daniel out no ileus osorio try and motivate to get out of bed will try and remove sandie by next week increase pt / ot
consider nc[sg home placememt once tubes out
Diagnosis
-
Date of Service: February 27, 2024
-
Patient Diagnosis:
Post Op Day:
Patient Diagnosis:
Post Op Day:
Patient Diagnosis:
Post Op Day:
Patient Diagnosis:
Post Op Day:
Patient Diagnosis:
Post Op Day:
Patient Diagnosis:
Irradiation cystitis
Intractable gross hematuria
Clot urine retention
Bladder pain
---
s/p partial cystectomy with ileal loop urinary diversion 02/19/24
Subjective
-
feeling better less pain at incision
Objective
-
Vital Signs
Temp Pulse Resp BP Pulse Ox
98.1 F 74 17 123/64 93
02/27/24 08:00 02/27/24 08:00 02/27/24 08:00 02/27/24 08:00 02/27/24 08:00
Intake and Output
02/26/24 02/27/24 02/28/24
06:59 06:59 06:59
Intake Total 1849
Output Total 1769
Balance 80 / 80 0 / 0
Intake:
Oral fluids 1560 / 1560 1120 / 1120
IV fluids (Total) 50 / 50 75 / 75
IV piggybacks 240 / 240 780 / 780
Output:
Drain Output (Total) 70 /
Left Laron-Lebron 70 /
Urine, Voided 1125 / 1125
Suprapubic output 1200 / 1200
Urostomy output 500 / 500 850 / 850
Laboratory Results
02/27/24 04:59
02/27/24 04:59
Review of Systems
-
Abdomen/GI: Abdominal Pain
Physical Exam
-
General - well developed, well nourished, no acute distress
Chest - clear bilaterally
Abdomen - soft, non-tender, positive bowel sounds, no CVAT, no incisional pain or distention
Genitalia - normal
Rectal - normal
Skin - warm & dry with no rash
Neuro - AOx3, no motor deficits
Extremities - no clubbing, no cyanosis, no edema
Incision - clean, dry
Dressing - clean, dry, intact
Care Review
Data Reviewed
Discussed with: Cardiology and Nursing
CT Scan: Image Pers Reviewed
[2024-02-27] MEDS: NOVOLOG FLEXPEN-MODERATE RESISTANCE 1 UNITS SC ×2 (13:10→17:42)
[2024-02-27 13:12] LABS: Glucose - Point of Care 172 mg/dl (70-99)
--- NOTE | 2024-02-27 13:37 | CM ---
Reviewed the chart notes. CM spoke with Jennifer [employer] [facility] regarding patient. Admissions is not in over weekend and should check back on Friday to see bed availability at that time. Patient ordered 2 units PRBC for Hgb 7.4
today. CM continues to be available to patient/family and is monitoring medical plan for needs at discharge.
Plan: Discharge to SNF/rehab when medically stable and bed available.
--- NOTE | 2024-02-27 15:00 | PTCARENOTE ---
Pt instructed on plan of care during blood transfusion and signs and symptoms to report w/ blood transfusion. pt verbalized understanding of instructions. Vss, pt is afebrile, call lawler is within reach.
[2024-02-27 17:34] LABS: Glucose - Point of Care 165 mg/dl (70-99)
[2024-02-27] MEDS: LASIX 40 MG IV (17:57)
[2024-02-27] MEDS: LIPITOR 40 MG PO (23:22)
[2024-02-27] MEDS: SENOKOT-S 1 TABLET PO (23:22)
[2024-02-27] MEDS: MIRALAX 17 GRAMS PO (23:23)
[2024-02-28] MEDS: TYLENOL 1000 MG PO ×2 (04:45→23:15)
[2024-02-28] MEDS: VANCOCIN 300 MG IV (06:03)
[2024-02-28] MEDS: VANCOCIN 300 ML IV (06:03)
[2024-02-28] MEDS: UNASYN IV (06:04)
[2024-02-28 06:07] LABS: Hematocrit 26.8 % (39.0-52.0); Mean Corp Hgb Conc. 34.3 g/dL (33.0-37.0); Mean Corpuscular Hgb 30.3 pg (27.0-31.0); Mean Corpuscular Volume 88.2 fL (80.0-94.0); Mean Platelet Volume 9.6 fL (7.4-10.4); Platelet Count 284 10^3/uL (130-400); Red Blood Cell Count 3.04 10^6/uL (4.70-6.10); Red Cell Dist. Width 15.6 % (11.5-14.5); White Blood Cell Count 9.3 10^3/uL (4.8-10.8)
[2024-02-28 06:16] LABS: Hemoglobin 9.2 g/dL (13.0-18.0)
[2024-02-28 06:30] LABS: Blood Urea Nitrogen 23 mg/dl (9-20); Calcium 7.9 mg/dl (8.4-10.2); Carbon Dioxide 28 mmol/L (22-30); Chloride 102 mmol/L (98-107); Estimated Creatinine Clearance 53 ml/min; Glucose 122 mg/dl (70-99); Magnesium 1.7 mg/dl (1.6-2.3); Potassium 3.8 mmol/L (3.5-5.1); Sodium 136 mmol/L (135-145); eGFR 58.89
[2024-02-28 07:20] VITALS: BP 123/49
[2024-02-28 07:36] LABS: Glucose - Point of Care 131 mg/dl (70-99)
--- NOTE | 2024-02-28 08:00 | PHA.VAN.FU ---
Vancomycin Assessment / Plan
- Assessment
Renal Function: Stable
WBC's are: WNL
In the past 24 hrs, patient has been: Afebrile
Concomitant Antimicrobials: UNASYN
- Dosing Plan
Continue: 1500MG Q24H
- Monitoring Plan
Peak Level: 02/28 @0900
Trough Level: 03/01 @0530
- Follow Up
Pharmacy will continue to follow.
Vancomycin Follow UP
- -
Patient Age: 88
Patient Sex: Male
Vancomycin Day #: 3
Indication: Skin And Soft Tissue
Requesting Provider: Dr. Bustamante
Pertinent Antimicrobial Allergies:
NKDA
Height / Weight:
Height 5 ft 10 in
Actual Weight 101.151 kg
Pertinent Past Medical History: BMI ~32
- Vital Signs / Lab Results
Temp Pulse Resp BP Pulse Ox
98.7 F 69 18 153/64 92
02/27/24 23:40 02/27/24 23:40 02/27/24 23:40 02/27/24 23:40 02/27/24 23:40
Lab Results - Hematology
02/26/24 02/27/24 02/28/24
06:01 04:59 04:37
WBC 8.2 7.6 9.3
Lab Results - Chemistry
02/26/24 02/27/24 02/28/24
06:01 04:59 04:37
BUN 21 H 21 H 23 H
Creatinine 1.1 1.1 1.2
Estimated Creat Clear 57 57 53
Microbiology Results
02/26/24 17:35 Blood Culture - Preliminary
Blood/Venous No Growth in 24 hours- Final report to follow
02/26/24 16:54 Blood Culture - Preliminary
Blood/Venous No Growth in 24 hours- Final report to follow
02/25/24 06:22 Salmonella/Shigella Culture - Final
Feces/Stool No Salmonella, Shigella, Aeromonas or Plesiomonas species
isolated.
Campylobacter Culture - Final
No Campylobacter species isolated.
Shiga Toxin Test - Final
No E. coli Shiga Toxin 1 or 2 detected.
[2024-02-28] MEDS: NOVOLOG FLEXPEN-MODERATE RESISTANCE SC ×2 (08:03→15:29)
--- NOTE | 2024-02-28 08:26 | W.PN.URO.CBU ---
Today's Communication / Plan
-
continue UOOB
Assessment / Plan
-
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
---
s/p partial cystectomy will ileal loop urine diversion 02/19/24
pt's abd benign- KUB with just mild ileus pattern
stents to remain in place- sandie will be removed mid week
discussed with med team- to stop antibx and begin daily macrobid
diuresis and mobilitzation/PT
will follow
Diagnosis
-
Date of Service: February 28, 2024
-
Patient Diagnosis:
Irradiation cystitis
Intractable gross hematuria
Clot urine retention
Bladder pain
---
s/p partial cystectomy with ileal loop urinary diversion 02/19/24
Subjective
-
pt sitting up
reports he is tired and has rectal pain- some loose stools and flatus
wbc normal/cr stable
KUB yesterday- stents in good position- mild colon distention c/w ileus
Objective
-
Vital Signs
Temp Pulse Resp BP Pulse Ox
98.4 F 62 14 123/49 95
02/28/24 07:20 02/28/24 07:20 02/28/24 07:20 02/28/24 07:20 02/28/24 07:20
Intake and Output
02/27/24 02/28/24 02/29/24
06:59 06:59 06:59
Intake Total 1974 1050 / 1050
Output Total 1974 1800 / 1800
Balance 0 / 0 -750 / -750
Intake:
Oral fluids 1120 / 1120 800 / 800
IV fluids (Total) 75 / 75
IV piggybacks 780 / 780
Blood Product Amount Infused ( 250 / 250
mL)
Packed Rbc Leukoreduced Unit 250 / 250
[id number]
Output:
Urine, Voided 1125 / 1125 1800 / 1800
Urostomy output 850 / 850
Laboratory Results
02/28/24 04:37
02/28/24 04:37
Review of Systems
-
Constitutional: Fatigue
Respiratory: No Symptoms
Cardiac: No Symptoms
Abdomen/GI: Abdominal Pain (incisional)
Musculoskeletal: Edema
Neurological: Weakness
Physical Exam
-
General - no acute distress
Abdomen - soft, + BS- ostomy pink and healthy with stents in place
Genitalia - some blood per meatus
Neuro - AOx3, no motor deficits
Extremities - edema
Incision - clean, dry
[2024-02-28] MEDS: VISBIOME 1 CAP PO (08:55)
[2024-02-28] MEDS: VITAMIN D3 (cholecalciferol) 50 MCG PO (08:55)
[2024-02-28] MEDS: PROTONIX 40 MG PO (08:55)
[2024-02-28] MEDS: SENOKOT-S 1 TABLET PO ×2 (08:55→23:16)
[2024-02-28] MEDS: LASIX 20 MG IV (08:55)
[2024-02-28] MEDS: LIDOCAINE URO-JET 2% TOPICAL ×3 (08:56→23:16)
--- NOTE | 2024-02-28 08:58 | W.PN.HOSP.TC ---
Today's Communication/Plan
-
PT/OT--should have daily
Assessment / Plan
Assessment / Plan
pt is an 88 year old male
weakness--therapy needs to use Ada lift to move him, ordered daily PT/OT--multifactorial--due to anemia, edema/anasarca, deconditioning, soft BPs....cont PT/OT--s/p 2 units pRBC--cont diuresis--aggressive therapy
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
support post op (has not been needing)--apprec urology input
Acute hypoxic respiratory failure--doing well postextubation--Currently on 2L NC, cont O2 support and wean as tolerated
Acute diastolic congestive heart failure/moderate aortic stenosis--Cont IV Lasix 20 mg daily, consider increasing-- Monitor strict I/O, Monitor daily weight, Monitor renal function and electrolytes--Cont fluid restriction/salt
restriction--Cardiology consulted and appreciated follow-up
Elevated troponin due to non-ischemic myocardial injury
Concerns for pneumonia--Currently on IV Unasyn--resolved leucocytosis
Enterococcal UTI--On IV Ampicillin, placed on IV ampicillin/sulbactam (to also cover pneumonia), stop all abx and agree with urology for macrobid daily
Diarrhea likely due to Abx S/E--C diff negative, can follow up Norovirus and stool cx--Added probiotic -- abdominal x-ray neg for fecal impaction/stool burden or obstruction--appears to be more ileus to me--needs to do agreesive PT
Acute blood loss anemia --likely related to recent surgery, fluid retention (dilutional)--s/p 6 units pRBC total
CAD/PVD--Chest pain-free but elevated Trop--Continue cardiac monitoring
Essential Hypertension--Monitor blood pressure and medications accordingly
Hyperlipidemia--Continue statins
Diabetes mellitus type 2--Holding metformin due to acute illness--HBA1c on 01/25 was 5.7
CKD stage III--Monitor renal function
GERD--On PPI
DVT prophylaxis: SCDs. Pharmacological prophylaxis when Hgb stable and okay with urology
CODE STATUS: Full code
Dispo: SNF anticipated Friday or Friday
Anticipated Discharge: > 48 hours
Subjective/Interval History
-
Date of Service: February 28, 2024
pt feels a bit better after his blood
Objective Data
-
Labs:
Laboratory Results
02/28/24
04:37
WBC 9.3
Hgb 9.2 L D
Hct 26.8 L
Plt Count 284
Sodium 136
Potassium 3.8
Chloride 102
Carbon Dioxide 28
BUN 23 H
Creatinine 1.2
Glucose 122 H
Calcium 7.9 L
Vital Signs:
max temp for 24 hours
02/27/24
23:40
Temp 98.7 F
Vital Signs
Temp Pulse Resp BP Pulse Ox
98.4 F 62 14 123/49 95
02/28/24 07:20 02/28/24 07:20 02/28/24 07:20 02/28/24 07:20 02/28/24 07:20
I&O
02/27/24 02/28/24 02/29/24
06:59 06:59 06:59
Intake Total 1974 1050 / 1050
Output Total 1974 1800 / 1800
Balance 0 / 0 -750 / -750
Review of Systems
-
All other systems: Reviewed and negative
Physical Exam
-
General: Well Developed, Well Nourished, No Apparent Distress and Appears Chronically Ill
HEENT: Normocephalic and Atraumatic
Respiratory: Clear to Auscultation; Negative Wheezes, Rhonchi or Crackles
Cardiac: Regular Rhythm and S1/S2; Negative Murmur
GI: Soft, Nondistended, Normal Bowel Sounds and Tender (incisional tenderness)
Genito-urinary: Other (ileostomy with clear urine)
Musculoskeletal: No Clubbing and No Cyanosis; Negative No Edema (upper arm edema improving)
Neuro: Awake and Alert
[2024-02-28] MEDS: MAGNESIUM SULFATE 100 IV (09:21)
[2024-02-28] MEDS: MACROBID 100 MG PO (09:21)
--- NOTE | 2024-02-28 09:33 | W.PN.CARDCBS ---
Today's Communication / Plan
-
Continues to do well. Will switch Lasix to 40 mg p.o. daily. Creatinine is stable.
Hemoglobin is improved and up to 9.2.
Continue atorvastatin.
Continue postop care.
Will sign off. Please call with questions.
Follow-up with outpatient airfield operations specialist
Impression / Plan
-
Primary Linoleum Layer Helper: Dr. Alex Pink of [facility]
Impression:
Presented with gross hematuria related to hemorrhagic cystitis due to radiation for prostate cancer
S/p partial cystectomy with ileal loop urine diversion 02/19/24
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
Acute hypoxic respiratory insufficiency
Acute on chronic heart failure with preserved ejection fraction, proBNP 2610 02/18/24
CAD with CABG
Mod
HTN
HLD
DM
CKD
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
GERD
PVD
ECHO 01/28/24: EF 60 to 65%, mild concentric LVH, mild MR, moderate with peak/mean gradients 53/27 mmHg, MARISA 0.9 cm�, mild AR
Plan:
Volume status overall is improved. Will switch to Lasix 40 mg p.o. daily. Creatinine is stable.
Hemoglobin stable and up to 9.2. Continue to follow.
Acute hypoxic respiratory insufficiency, improving with diuresis. Now off oxygen
Abnormal troponin, peaked 0.212. Suspect nonischemic myocardial injury secondary to hemorrhagic cystitis, heart failure.
Remains in sinus rhythm. Reviewed tele strips and he has sinus with PACs, PVCs.
Encourage OOB
Cont post op care
Will sign off. Please call with questions.
Progress Note - Linoleum Layer Helper
Subjective
Date of Service: February 28, 2024
Denies chest pains or shortness of breath.
Objective
Labs:
02/28/24 04:37
02/28/24 04:37
Labs
Hgb 9.2 g/dL (13.0-18.0) L D 02/28/24 04:37
Hct 26.8 % (39.0-52.0) L 02/28/24 04:37
Plt Count 284 10^3/uL (130-400) 02/28/24 04:37
PT 14.5 Sec (11.4-14.6) 02/19/24 00:01
INR 1.13 02/19/24 00:01
APTT 31.4 Sec (23.4-35.0) 02/19/24 00:01
Sodium 136 mmol/L (135-145) 02/28/24 04:37
Potassium 3.8 mmol/L (3.5-5.1) 02/28/24 04:37
BUN 23 mg/dl (9-20) H 02/28/24 04:37
Creatinine 1.2 mg/dL (0.7-1.3) 02/28/24 04:37
Glucose 122 mg/dl (70-99) H 02/28/24 04:37
Vital Signs and I&O:
Vital Signs
Temp Pulse Resp BP Pulse Ox
98.4 F 62 14 123/49 95
02/28/24 07:20 02/28/24 07:20 02/28/24 07:20 02/28/24 07:20 02/28/24 07:20
Vital Signs
Temp Pulse Resp BP Pulse Ox
98.4 F 62 14 123/49 95
02/28/24 07:20 02/28/24 07:20 02/28/24 07:20 02/28/24 07:20 02/28/24 07:20
Intake & Output
02/26/24 02/27/24 02/28/24 02/29/24
06:59 06:59 06:59 06:59
Intake Total 1849 / 18490 / 1050
Output Total 1769 1800 / 1799
Balance 80 / 80 0 / 0 -750 / -750
Physical Exam
Physical Exam
GEN: No distress, awake, Ox3
HEENT: supple, anicteric, mmm
LUNGS:scatt rhonchi
CV: Reg, S1/S2, 2/6 syst LSB, no gallop
ABD: soft, BS+, NT/ND
EXT: No edema
NEURO: Gross non-focal
SKIN: No rash
[2024-02-28 11:42] LABS: Glucose - Point of Care 161 mg/dl (70-99)
[2024-02-28] MEDS: NOVOLOG FLEXPEN-MODERATE RESISTANCE 1 UNITS SC (11:47)
--- NOTE | 2024-02-28 15:09 | PTCARENOTE ---
Patient having lul red blood from penis. Skin around penis looked intact. Dr. Samuel made aware. Stated that this was normal. No new orders taken.
[2024-02-28 15:27] LABS: Glucose - Point of Care 147 mg/dl (70-99)
[2024-02-28 15:33] VITALS: BP 141/68
[2024-02-28 17:38] VITALS: BMI 32.0
[2024-02-28] MEDS: MIRALAX 17 GRAMS PO (23:16)
[2024-02-28] MEDS: LIPITOR 40 MG PO (23:16)
[2024-02-28 23:24] LABS: Glucose - Point of Care 137 mg/dl (70-99)
[2024-02-28 23:32] VITALS: BP 112/52
[2024-02-29 05:06] LABS: Hematocrit 28.1 % (39.0-52.0); Hemoglobin 9.2 g/dL (13.0-18.0); Mean Corp Hgb Conc. 32.7 g/dL (33.0-37.0); Mean Corpuscular Hgb 30.1 pg (27.0-31.0); Mean Corpuscular Volume 91.8 fL (80.0-94.0); Mean Platelet Volume 9.1 fL (7.4-10.4); Platelet Count 311 10^3/uL (130-400); Red Blood Cell Count 3.06 10^6/uL (4.70-6.10); Red Cell Dist. Width 15.8 % (11.5-14.5); White Blood Cell Count 9.6 10^3/uL (4.8-10.8)
[2024-02-29 05:29] LABS: Blood Urea Nitrogen 25 mg/dl (9-20); Calcium 7.9 mg/dl (8.4-10.2); Carbon Dioxide 32 mmol/L (22-30); Chloride 103 mmol/L (98-107); Estimated Creatinine Clearance 53 ml/min; Glucose 115 mg/dl (70-99); Potassium 3.6 mmol/L (3.5-5.1); Sodium 137 mmol/L (135-145); eGFR 58.89
[2024-02-29 06:00] VITALS: BMI 31.2
--- NOTE | 2024-02-29 07:58 | W.PN.URO.CBU ---
Today's Communication / Plan
-
mobilization
Assessment / Plan
-
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
---
s/p partial cystectomy will ileal loop urine diversion 02/19/24
pt's abd benign- KUB with just mild ileus pattern
stents to remain in place- sandie will be removed mid week
on daily macrobid
diuresis and mobilitzation/PT- critical at this juncture
will follow
Diagnosis
-
Date of Service: February 29, 2024
-
Patient Diagnosis:
Irradiation cystitis
Intractable gross hematuria
Clot urine retention
Bladder pain
---
s/p partial cystectomy with ileal loop urinary diversion 02/19/24
Subjective
-
pt awake
c/o of mild rectal pain and some incisional pain
is UOOB- but requiring lift and not standing or ambulating
Objective
-
Vital Signs
Temp Pulse Resp BP Pulse Ox
99.0 F 71 18 112/52 90
02/28/24 23:32 02/28/24 23:32 02/28/24 23:32 02/28/24 23:32 02/28/24 23:32
Intake and Output
02/28/24 02/29/24 03/01/24
06:59 06:59 06:59
Intake Total 1050 / 1050 845 / 845
Output Total 1800 / 1800 1300 / 1300
Balance -750 / -750 -455 / -455
Intake:
Oral fluids 800 / 800 840 / 840
Amount instilled into Urinary
Drain (Total)
Ureteral stent B
Blood Product Amount Infused ( 250 / 250
mL)
Packed Rbc Leukoreduced Unit 250 / 250
[id number]
Output:
Urine, Sams 550 / 550
Urine, Voided 1800 / 1800
Urostomy output 750 / 750
Laboratory Results
02/29/24 04:57
02/29/24 04:57
Physical Exam
-
General - no acute distress
Abdomen - soft, non-tender, ostomy healthy- stents in place
Genitalia - some blood drainage from penis- not unexpected
Neuro - AOx3, no motor deficits
Extremities - edema
Incision - clean, dry
[2024-02-29 08:00] VITALS: BP 122/63
[2024-02-29 08:01] LABS: Glucose - Point of Care 124 mg/dl (70-99)
[2024-02-29] MEDS: NOVOLOG FLEXPEN-MODERATE RESISTANCE SC ×2 (08:09→17:43)
[2024-02-29] MEDS: LIDOCAINE URO-JET 2% TOPICAL ×2 (08:09→16:15)
[2024-02-29] MEDS: LASIX 40 MG PO (08:16)
[2024-02-29] MEDS: PROTONIX 40 MG PO (08:16)
[2024-02-29] MEDS: SENOKOT-S 1 TABLET PO ×2 (08:16→20:54)
[2024-02-29] MEDS: VITAMIN D3 (cholecalciferol) 50 MCG PO (08:16)
[2024-02-29] MEDS: VISBIOME 1 CAP PO (08:16)
[2024-02-29] MEDS: MACROBID 100 MG PO (08:16)
--- NOTE | 2024-02-29 09:19 | W.PN.HOSP.TC ---
Today's Communication/Plan
-
cont therapy
hopeful d/c to SNF in 1-2 days if all consultants agree
Assessment / Plan
Assessment / Plan
pt is an 88 year old male
weakness--therapy needs to use Ada lift to move him, ordered daily PT/OT--multifactorial--due to anemia, edema/anasarca, deconditioning, soft BPs...s/p 2 units pRBC--cont diuresis--aggressive physical therapy
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
urine diversion on 02/18--Pain control with IV morphine--Added midodrine PRN for BP support post op (has not been needing)--apprec urology input
Acute hypoxic respiratory failure--doing well postextubation--on room air
Acute diastolic congestive heart failure/moderate aortic stenosis--Cont IV Lasix 20 mg daily, consider increasing-- Monitor strict I/O, Monitor daily weight, Monitor renal function and electrolytes--Cont fluid restriction/salt
restriction--Cardiology consulted and appreciated follow-up
Elevated troponin due to non-ischemic myocardial injury
Concerns for pneumonia--Currently on IV Unasyn--resolved leucocytosis
Enterococcal UTI--On IV Ampicillin, placed on IV ampicillin/sulbactam (to also cover pneumonia), stop all abx and agree with urology for macrobid daily
Diarrhea likely due to Abx S/E--C diff negative-Added probiotic -- abdominal x-ray neg for fecal impaction/stool burden or obstruction--appears to be more ileus to me--needs to do aggressive PT
Acute blood loss anemia --likely related to recent surgery, fluid retention (dilutional)--s/p 6 units pRBC total--HGB holding
CAD/PVD--Chest pain-free but elevated Trop--Continue cardiac monitoring
Essential Hypertension--Monitor blood pressure and medications accordingly
Hyperlipidemia--Continue statins
Diabetes mellitus type 2--Holding metformin due to acute illness--HBA1c on 01/25 was 5.7
CKD stage III--Monitor renal function
GERD--On PPI
DVT prophylaxis: SCDs. Pharmacological prophylaxis when Hgb stable and okay with urology
CODE STATUS: Full code
Dispo: SNF anticipated Friday or Friday
Anticipated Discharge: 24 - 48 hours
Subjective/Interval History
-
Date of Service: February 29, 2024
pt concerned about inability to poop and bleeding from his penis
Objective Data
-
Labs:
Laboratory Results
02/29/24
04:57
WBC 9.6
Hgb 9.2 L
Hct 28.1 L
Plt Count 311
Sodium 137
Potassium 3.6
Chloride 103
Carbon Dioxide 32 H
BUN 25 H
Creatinine 1.2
Glucose 115 H
Calcium 7.9 L
Vital Signs:
max temp for 24 hours
02/10/24
19:13 02/28/24
23:32 02/29/24
06:00
Temp 99.0 F
Actual Weight 103.6 kg 98.656 kg
Vital Signs
Temp Pulse Resp BP Pulse Ox
97.7 F 64 16 122/63 93
02/29/24 08:00 02/29/24 08:00 02/29/24 08:00 02/29/24 08:00 02/29/24 08:00
I&O
02/28/24 02/29/24 03/01/24
06:59 06:59 06:59
Intake Total 1050 / 1050 845 / 845
Output Total 1800 / 1800 1300 / 1300
Balance -750 / -750 -455 / -455
Review of Systems
-
All other systems: Reviewed and negative
Abdomen/GI: Reports Constipated
Genitourinary: Reports Bleeding
Physical Exam
-
General: Well Developed, Well Nourished and No Apparent Distress
HEENT: Normocephalic and Atraumatic
Respiratory: Clear to Auscultation; Negative Wheezes or Rhonchi
Cardiac: Regular Rhythm and S1/S2; Negative Murmur
GI: Soft, Nontender, Nondistended and Normal Bowel Sounds
Genito-urinary: Other (has ileostomy)
Musculoskeletal: No Clubbing and No Cyanosis; Negative No Edema (improving)
Skin: Warm
Neuro: Awake
[2024-02-29] MEDS: TYLENOL 1000 MG PO ×2 (10:36→18:40)
[2024-02-29] MEDS: DULCOLAX 10 MG RECTAL (10:37)
[2024-02-29 12:55] VITALS: BP 114/54; PULSE 66
[2024-02-29 13:12] LABS: Glucose - Point of Care 205 mg/dl (70-99)
[2024-02-29] MEDS: NOVOLOG FLEXPEN-MODERATE RESISTANCE 3 UNITS SC (13:12)
--- NOTE | 2024-02-29 14:38 | CM ---
CM reviewed chart.
Pt recc today remains for SNF.
CM to follow up tomorrow/Thursday 03/01 with [facility] admissions on bed availability.
--- NOTE | 2024-02-29 14:55 | PTCARENOTE ---
Patient having blood and moderate sized blood clots coming from penis. Increased when moved OOB. Dr. aSmuel made aware. Stated this was expected. No no orders taken. Patient made aware that the doctor was aware and reassured him that it was
expected.
[2024-02-29 15:45] VITALS: BP 127/63
[2024-02-29 17:43] LABS: Glucose - Point of Care 146 mg/dl (70-99)
[2024-02-29] MEDS: LIDOCAINE URO-JET 2% 1 SYRINGE TOPICAL (21:01)
[2024-02-29] MEDS: LIPITOR 40 MG PO (21:03)
[2024-02-29] MEDS: MIRALAX 17 GRAMS PO (21:03)
[2024-02-29 22:42] LABS: Glucose - Point of Care 155 mg/dl (70-99)
[2024-02-29 23:45] VITALS: BP 118/50
[2024-03-01 05:20] LABS: Hematocrit 27.4 % (39.0-52.0); Hemoglobin 9.2 g/dL (13.0-18.0); Mean Corp Hgb Conc. 33.6 g/dL (33.0-37.0); Mean Corpuscular Hgb 30.3 pg (27.0-31.0); Mean Corpuscular Volume 90.1 fL (80.0-94.0); Mean Platelet Volume 9.3 fL (7.4-10.4); Platelet Count 343 10^3/uL (130-400); Red Blood Cell Count 3.04 10^6/uL (4.70-6.10); White Blood Cell Count 9.8 10^3/uL (4.8-10.8)
[2024-03-01 05:41] LABS: Blood Urea Nitrogen 26 mg/dl (9-20); Calcium 8.1 mg/dl (8.4-10.2); Carbon Dioxide 31 mmol/L (22-30); Chloride 101 mmol/L (98-107); Estimated Creatinine Clearance 48 ml/min; Glucose 105 mg/dl (70-99); Magnesium 1.8 mg/dl (1.6-2.3); Potassium 3.6 mmol/L (3.5-5.1); Sodium 136 mmol/L (135-145)
[2024-03-01 06:00] VITALS: BMI 31.3
--- NOTE | 2024-03-01 07:18 | W.PN.URO.CBU ---
Today's Communication / Plan
-
continue to increase activity
Assessment / Plan
-
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
---
s/p partial cystectomy will ileal loop urine diversion 02/19/24
pt's abd benign- KUB with just mild ileus pattern
stents to remain in place- sandie will be removed mid week
on daily macrobid
diuresis and mobilitzation/PT- critical at this juncture
will follow
Diagnosis
-
Date of Service: March 01, 2024
-
Patient Diagnosis:
Irradiation cystitis
Intractable gross hematuria
Clot urine retention
Bladder pain
---
s/p partial cystectomy with ileal loop urinary diversion 02/19/24
Subjective
-
working on mobility
pt has had old blood expressed from penis- normal
no fevers and labs stable
urine clear
abd benign
on regular diet
Objective
-
Vital Signs
Temp Pulse Resp BP Pulse Ox
98.2 F 62 18 118/50 98
02/29/24 23:45 02/29/24 23:45 02/29/24 23:45 02/29/24 23:45 02/29/24 23:45
Intake and Output
02/29/24 03/01/24 03/02/24
06:59 06:59 06:59
Intake Total 845 / 845 485 / 485
Output Total 1300 / 1300
Balance -455 / -455 485 / 485
Intake:
Oral fluids 840 / 840 480 / 480
Amount instilled into Urinary
Drain (Total)
Ureteral stent B
Output:
Urine, Sams 550 / 550
Urostomy output 750 / 750
Laboratory Results
03/01/24 05:00
03/01/24 05:00
Physical Exam
-
General - no acute distress
Abdomen - soft, non-tender,ostomy pink with stent in place
Genitalia - normal- some old blood at meatus
Incision - clean, dry
[2024-03-01 08:00] VITALS: BP 104/41
[2024-03-01] MEDS: PROTONIX 40 MG PO (08:10)
[2024-03-01] MEDS: LASIX 40 MG PO (08:10)
[2024-03-01] MEDS: VITAMIN D3 (cholecalciferol) 50 MCG PO (08:10)
[2024-03-01] MEDS: MACROBID 100 MG PO (08:10)
[2024-03-01] MEDS: LIDOCAINE URO-JET 2% TOPICAL ×2 (08:10→17:06)
[2024-03-01] MEDS: VISBIOME 1 CAP PO (08:10)
[2024-03-01] MEDS: SENOKOT-S 1 TABLET PO ×2 (08:10→19:51)
[2024-03-01] MEDS: NOVOLOG FLEXPEN-MODERATE RESISTANCE SC ×3 (08:30→17:05)
[2024-03-01 08:32] LABS: Glucose - Point of Care 123 mg/dl (70-99)
--- NOTE | 2024-03-01 08:54 | W.PN.HOSP.TC ---
Today's Communication/Plan
-
Pain control. Supportive care. Discharge planning in progress
Assessment / Plan
Assessment / Plan
Physical exam:
General: Well Developed, Well Nourished and No Apparent Distress
HEENT: Normocephalic, Atraumatic and Moist Mucous Membranes
Respiratory: Clear to Auscultation; Negative Wheezes, Rales or Rhonchi
Cardiac: Regular Rhythm and S1/S2
GI: Soft, Nontender and Nondistended
Musculoskeletal: No Clubbing, No Cyanosis and No Edema
Neuro: Awake, Alert and Oriented
Psych: Calm
A/P:
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
urine diversion on 02/18--Pain control with IV morphine and now added tramadol more so for sacral pain--Added midodrine PRN for BP support post op (has not been needing)--apprec urology input.
weakness--therapy needs to use Ada lift to move him, ordered daily PT/OT--multifactorial--due to anemia, edema/anasarca, deconditioning, soft BPs...s/p 2 units pRBC--cont diuresis--aggressive physical therapy. Plan for skilled rehab upon
discharge.
Acute hypoxic respiratory failure--doing well postextubation--on room air
Acute diastolic congestive heart failure/moderate aortic stenosis--on Lasix 40 mg p.o. daily now-- Monitor strict I/O, Monitor daily weight, Monitor renal function and electrolytes--Cont fluid restriction/salt restriction--Cardiology consulted and
appreciated follow-up
Elevated troponin due to non-ischemic myocardial injury
Concerns for pneumonia--finished course of Unasyn. Currently on nitrofurantoin from perspective.
Enterococcal UTI--On IV Ampicillin, placed on IV ampicillin/sulbactam (to also cover pneumonia), stop all abx and agree with urology for macrobid daily.
Diarrhea likely due to Abx S/E--C diff negative-Added probiotic -- abdominal x-ray neg for fecal impaction/stool burden or obstruction--appears to be more ileus to me--needs to do aggressive PT
Acute blood loss anemia --likely related to recent surgery, fluid retention (dilutional)--s/p 6 units pRBC total--HGB holding. Hemoglobin 9.2 today
CAD/PVD--Chest pain-free but elevated Trop--discontinue cardiac monitoring
Essential Hypertension--Monitor blood pressure and medications accordingly
Hyperlipidemia--Continue statins
Diabetes mellitus type 2--Holding metformin due to acute illness--HBA1c on 01/25 was 5.7
CKD stage III--Monitor renal function
GERD--On PPI
DVT prophylaxis: SCDs.
CODE STATUS: Full code
Dispo: SNF anticipated for the next 24 hours-discussed with case management today.
Anticipated Discharge: 24 - 48 hours
Subjective/Interval History
-
Date of Service: March 01, 2024
Patient concern of some of the blood from the penis although urology reassure him today. He tells me he is okay in terms of passing gas/bowel movement today. Complains of some pain in the sacral area and pressure ulcer present. Denies chest pain
or shortness of breath. There is peripheral edema.
Objective Data
-
Labs:
Laboratory Results
03/01/24
05:00
WBC 9.8
Hgb 9.2 L
Hct 27.4 L
Plt Count 343
Sodium 136
Potassium 3.6
Chloride 101
Carbon Dioxide 31 H
BUN 26 H
Creatinine 1.3
Glucose 105 H
Calcium 8.1 L
Vital Signs:
Vital Signs
Temp Pulse Resp BP Pulse Ox
98.2 F 62 18 118/50 98
02/29/24 23:45 02/29/24 23:45 02/29/24 23:45 02/29/24 23:45 02/29/24 23:45
I&O
02/29/24 03/01/24 03/02/24
06:59 06:59 06:59
Intake Total 845 / 845 490 / 490
Output Total 1300 / 1300 980 / 980
Balance -455 / -455 -490 / -490
[2024-03-01] MEDS: MORPHINE SULFATE 1 MG IV (09:00)
[2024-03-01 09:45] VITALS: BP 117/42; PULSE 69
--- NOTE | 2024-03-01 12:50 | WOUNDNOTE ---
[facility] RN Note: Patient having bleeding from his penile meatus. ABD Pad changed. Urojet lidocaine gel ordered TID prn penis pain. Patient having pain from his coccyx. His buttocks breakdown has improved however, his center coccyx ulcer is larger. Gricel
care given. Silicone border foam changed on sacral/coccyx. Instructed patient he needs to stay off his back when the nursing staff turn him. MONO Avendano stated he tends to roll back after being turned onto side. Waffle air overlay in place. Patient
incontinent of large soft dark brown stool. Gricel/groin MASD. Gricel care given. MONO Avendano ordered Miconazole powder. Peristomal skin slightly red. Changed urostomy appliance using [facility] soft cut to fit convex wafer #[id number] with an Celi seal and
Kenny pouch # [id number]. Patient turned to R semi side lying position with help from MONO Avendano. Heels off bed with pillow. Skin on heels intact. Air chair cushion in room. Next appliance change is due or Friday. Patient for possible SNF
transfer tomorrow.
--- NOTE | 2024-03-01 12:50 | WOUNDNOTE ---
[facility] RN Note: Patient having bleeding from his penile meatus. ABD Pad changed. Urojet lidocaine gel ordered TID prn penis pain. Patient having pain from his coccyx. His buttocks breakdown has improved however, his center coccyx ulcer is larger. Gricel
care given. Silicone border foam changed on sacral/coccyx. Instructed patient he needs to stay off his back when the nursing staff turn him. OMNO Avendano stated he tends to roll back after being turned onto side. Waffle air overlay in place. Patient
incontinent of large soft dark brown stool. Gricel/groin MASD. Gricel care given. MONO Avendano ordered Miconazole powder. Peristomal skin slightly red. Changed urostomy appliance using Kenny soft cut to fit convex wafer #[id number] with an Celi seal and
Kenny pouch # [id number]. Patient turned to R semi side lying position with help from MONO Avendano. Heels off bed with pillow. Skin on heels intact. Air chair cushion in room. Next appliance change is due or Friday. Patient for possible SNF
transfer tomorrow.
[2024-03-01 12:58] LABS: Glucose - Point of Care 131 mg/dl (70-99)
--- NOTE | 2024-03-01 14:00 | CM ---
Addendum entered by Tara Bui RN 03/01/24 16:12:
IMM placed on chart.
Original Note:
Reviewed the chart notes and spoke with the patient at the bedside. [facility] had bed today. Will need to contact tomorrow for bed availability. CM continues to be available to patient/family and is monitoring medical plan for needs at
discharge.
Plan: Discharge to SNF/rehab when medically stable.
--- NOTE | 2024-03-01 14:27 | WOUNDNOTE ---
[facility] RN Note: Coccyx and penis tip update given to Dr. Platt who approved local care including may also apply 2% lidocaine gel TID prn coccyx ulcer pain. Care plan and discharge instructions updated. Anton Bui re: recommend air
mattress at SNF; patient has a stage 2 coccyx pressure injury.
[2024-03-01 15:00] VITALS: BP 118/43
[2024-03-01 16:59] LABS: Glucose - Point of Care 99 mg/dl (70-99)
--- NOTE | 2024-03-01 17:42 | WOUNDNOTE ---
[facility] RN Note: t/c Spoke with Alex from [employer], ostomy secure starter kit ordered. Daughter had previously gave this insurance underwriter verbal permission to order patient a ostomy starter kit from [employer].
[2024-03-01] MEDS: ULTRAM 50 MG PO (17:49)
[2024-03-01] MEDS: MIRALAX 17 GRAMS PO (19:51)
[2024-03-01] MEDS: DESENEX/MITRAZOL/ZEASORB 1 APPLIC TOPICAL (19:51)
[2024-03-01] MEDS: LIPITOR 40 MG PO (19:52)
[2024-03-01] MEDS: LIDOCAINE URO-JET 2% 1 SYRINGE TOPICAL (20:00)
[2024-03-01 21:39] LABS: Glucose - Point of Care 124 mg/dl (70-99)
[2024-03-01 23:00] VITALS: BP 133/56
[2024-03-02 05:10] LABS: Hematocrit 27.9 % (39.0-52.0); Hemoglobin 9.2 g/dL (13.0-18.0); Mean Corpuscular Hgb 30.5 pg (27.0-31.0); Mean Corpuscular Volume 92.4 fL (80.0-94.0); Mean Platelet Volume 9.2 fL (7.4-10.4); Platelet Count 340 10^3/uL (130-400); Red Blood Cell Count 3.02 10^6/uL (4.70-6.10); Red Cell Dist. Width 15.9 % (11.5-14.5); White Blood Cell Count 9.9 10^3/uL (4.8-10.8)
[2024-03-02 05:35] VITALS: BMI 30.1
[2024-03-02 05:41] LABS: Blood Urea Nitrogen 26 mg/dl (9-20); Calcium 8.4 mg/dl (8.4-10.2); Carbon Dioxide 30 mmol/L (22-30); Chloride 102 mmol/L (98-107); Estimated Creatinine Clearance 56 ml/min; Glucose 106 mg/dl (70-99); Potassium 4.4 mmol/L (3.5-5.1); Sodium 137 mmol/L (135-145); eGFR > 60.00
[2024-03-02 08:00] VITALS: BP 142/61
--- NOTE | 2024-03-02 08:02 | W.PN.HOSP.TC ---
Today's Communication/Plan
-
IV Lasix. Ultrasound left upper extremity.
Assessment / Plan
Assessment / Plan
Physical exam:
General: Well Developed, Well Nourished and No Apparent Distress
HEENT: Normocephalic, Atraumatic and Moist Mucous Membranes
Respiratory: Clear to Auscultation; Negative Wheezes, Rales or Rhonchi
Cardiac: Regular Rhythm and S1/S2
GI: Soft, Nontender and Nondistended
Musculoskeletal: No Clubbing, No Cyanosis and No Edema
Neuro: Awake, Alert and Oriented
Psych: Calm
A/P:
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
urine diversion on 02/18--Pain control with IV morphine and now added tramadol more so for sacral pain--Added midodrine PRN for BP support post op (has not been needing)--apprec urology input.
weakness--therapy needs to use Ada lift to move him, ordered daily PT/OT--multifactorial--due to anemia, edema/anasarca, deconditioning, soft BPs...s/p 2 units pRBC--cont diuresis--aggressive physical therapy. Plan for skilled rehab upon
discharge.
Acute hypoxic respiratory failure--doing well postextubation--on room air
Acute diastolic congestive heart failure/moderate aortic stenosis--on Lasix 40 mg p.o. daily now but given his increased peripheral edema will use IV Lasix 40 mg today and reevaluate-- Monitor strict I/O, Monitor daily weight, Monitor renal function
and electrolytes--Cont fluid restriction/salt restriction--Cardiology consulted and appreciated follow-up. Will do ultrasound of left upper extremity today.
Elevated troponin due to non-ischemic myocardial injury
Concerns for pneumonia--finished course of Unasyn. Currently on nitrofurantoin from perspective.
Enterococcal UTI--On IV Ampicillin, placed on IV ampicillin/sulbactam (to also cover pneumonia), stop all abx and agree with urology for macrobid daily.
Diarrhea likely due to Abx S/E--C diff negative-Added probiotic -- abdominal x-ray neg for fecal impaction/stool burden or obstruction--appears to be more ileus to me--needs to do aggressive PT
Acute blood loss anemia --likely related to recent surgery, fluid retention (dilutional)--s/p 6 units pRBC total--HGB holding. Hemoglobin 9.2 today
CAD/PVD--Chest pain-free but elevated Trop--discontinue cardiac monitoring
Essential Hypertension--Monitor blood pressure and medications accordingly
Hyperlipidemia--Continue statins
Diabetes mellitus type 2--Holding metformin due to acute illness--HBA1c on 01/25 was 5.7
CKD stage III--Monitor renal function
GERD--On PPI
DVT prophylaxis: SCDs.
CODE STATUS: Full code
Dispo: SNF anticipated but hold off on discharge yet.
Anticipated Discharge: 24 - 48 hours
Subjective/Interval History
-
Date of Service: March 02, 2024
Patient has more swelling today in arms and legs, more pronounced in his left upper extremity. No shortness of breath. He still complains of penile discomfort. Afebrile
Objective Data
-
Labs:
Laboratory Results
03/02/24
04:49
WBC 9.9
Hgb 9.2 L
Hct 27.9 L
Plt Count 340
Sodium 137
Potassium 4.4
Chloride 102
Carbon Dioxide 30
BUN 26 H
Creatinine 1.1
Glucose 106 H
Calcium 8.4
Vital Signs:
Vital Signs
Temp Pulse Resp BP Pulse Ox
98.1 F 67 16 133/56 94
03/01/24 23:00 03/01/24 23:00 03/01/24 23:00 03/01/24 23:00 03/01/24 23:00
I&O
03/01/24 03/02/24 03/03/24
06:59 06:59 06:59
Intake Total 490 / 490 965 / 965
Output Total 980 / 980 2024
Balance -490 / -490 -1060 / -1060
[2024-03-02 08:27] LABS: Glucose - Point of Care 110 mg/dl (70-99)
[2024-03-02] MEDS: NOVOLOG FLEXPEN-MODERATE RESISTANCE SC ×3 (08:32→16:20)
[2024-03-02] MEDS: SENOKOT-S 1 TABLET PO ×2 (08:43→20:03)
[2024-03-02] MEDS: PROTONIX 40 MG PO (08:43)
[2024-03-02] MEDS: VITAMIN D3 (cholecalciferol) 50 MCG PO (08:43)
[2024-03-02] MEDS: LASIX 40 MG PO (08:43)
[2024-03-02] MEDS: VISBIOME 1 CAP PO (08:43)
[2024-03-02] MEDS: MACROBID 100 MG PO (08:43)
[2024-03-02] MEDS: DESENEX/MITRAZOL/ZEASORB 1 APPLIC TOPICAL ×2 (08:51→20:03)
[2024-03-02] MEDS: LIDOCAINE URO-JET 2% TOPICAL ×2 (08:51→16:20)
--- NOTE | 2024-03-02 08:55 | W.PN.URO.CBU ---
Today's Communication / Plan
-
Stop antibiotics
48 hours of po fluconazole
Assessment / Plan
-
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
---
s/p partial cystectomy will ileal loop urine diversion 02/19/24: Hgb stable
---
Stop nitrofurantoin
Fluconazole x 2 days
stents to remain in place- sandie will be removed mid week
diuresis and mobilitzation/PT- critical at this juncture
will follow
Diagnosis
-
Date of Service: March 02, 2024
-
Patient Diagnosis:
Irradiation cystitis
Intractable gross hematuria
Clot urine retention
Bladder pain
---
s/p partial cystectomy with ileal loop urinary diversion 02/19/24
Subjective
-
Comfortable
No flank pain
No SP pain
Objective
-
Vital Signs
Temp Pulse Resp BP Pulse Ox
98.1 F 67 16 133/56 94
03/01/24 23:00 03/01/24 23:00 03/01/24 23:00 03/01/24 23:00 03/01/24 23:00
Intake and Output
03/01/24 03/02/24 03/03/24
06:59 06:59 06:59
Intake Total 490 / 490 965 / 965
Output Total 980 / 980 2024
Balance -490 / -490 -1060 / -1060
Intake:
Oral fluids 480 / 480 960 / 960
Amount instilled into Urinary 10 5 / 5
Drain (Total)
Ureteral stent B 5 / 5
Output:
Urine, Sams 480 / 480
Urostomy output 500 / 500 2024
Laboratory Results
03/02/24 04:49
03/02/24 04:49
Review of Systems
-
Constitutional: Fatigue
Respiratory: No Symptoms
Cardiac: No Symptoms
Abdomen/GI: Abdominal Pain (incisional)
Physical Exam
-
General - well nourished, no acute distress
Abdomen - soft, non-tender, positive bowel sounds, no CVAT, stoma healthy, incision clean
Genitalia - normal with old liquified blood at meatus
Incision - clean, dry
[2024-03-02] MEDS: DIFLUCAN 100 MG PO (10:40)
[2024-03-02] MEDS: LASIX 40 MG IV (11:53)
[2024-03-02 12:02] LABS: Glucose - Point of Care 131 mg/dl (70-99)
[2024-03-02 16:26] LABS: Glucose - Point of Care 134 mg/dl (70-99)
[2024-03-02 16:47] VITALS: BP 128/66; PULSE 73
[2024-03-02] MEDS: LIDOCAINE URO-JET 2% 1 SYRINGE TOPICAL (20:03)
[2024-03-02] MEDS: LIPITOR 40 MG PO (20:03)
[2024-03-02] MEDS: MIRALAX PO (20:04)
[2024-03-02] MEDS: MORPHINE SULFATE 1 MG IV (20:55)
[2024-03-02 21:43] LABS: Glucose - Point of Care 148 mg/dl (70-99)
[2024-03-02 22:58] VITALS: BP 124/57
[2024-03-03 05:09] LABS: Hematocrit 29.5 % (39.0-52.0); Hemoglobin 9.5 g/dL (13.0-18.0); Mean Corp Hgb Conc. 32.2 g/dL (33.0-37.0); Mean Corpuscular Hgb 30.4 pg (27.0-31.0); Mean Corpuscular Volume 94.2 fL (80.0-94.0); Mean Platelet Volume 9.1 fL (7.4-10.4); Platelet Count 321 10^3/uL (130-400); Red Blood Cell Count 3.13 10^6/uL (4.70-6.10); Red Cell Dist. Width 16.1 % (11.5-14.5); White Blood Cell Count 8.7 10^3/uL (4.8-10.8)
[2024-03-03 05:38] LABS: Blood Urea Nitrogen 28 mg/dl (9-20); Calcium 8.2 mg/dl (8.4-10.2); Carbon Dioxide 32 mmol/L (22-30); Chloride 100 mmol/L (98-107); Estimated Creatinine Clearance 51 ml/min; Glucose 113 mg/dl (70-99); Potassium 4.2 mmol/L (3.5-5.1); Sodium 137 mmol/L (135-145); eGFR 58.89
[2024-03-03 06:00] VITALS: BMI 30.1
[2024-03-03 07:55] VITALS: BP 113/52
[2024-03-03 08:00] LABS: Glucose - Point of Care 117 mg/dl (70-99)
[2024-03-03] MEDS: NOVOLOG FLEXPEN-MODERATE RESISTANCE SC ×3 (08:14→16:42)
--- NOTE | 2024-03-03 08:31 | W.PN.URO.CBU ---
Today's Communication / Plan
-
Fluconazole today (final dose)
Stents and sandie out tomorrow
Assessment / Plan
-
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
---
s/p partial cystectomy will ileal loop urine diversion 02/19/24: Hgb stable. Pathology pending
---
Stop nitrofurantoin
Fluconazole x 2 days (last dose today)
Guy and stents to be removed tomorrow
diuresis and mobilitzation/PT- critical at this juncture
will follow
Diagnosis
-
Date of Service: March 03, 2024
-
Patient Diagnosis:
Irradiation cystitis
Intractable gross hematuria
Clot urine retention
Bladder pain
---
s/p partial cystectomy with ileal loop urinary diversion 02/19/24
Subjective
-
Tolerating regular diet
Moving bowels
Objective
-
Vital Signs
Temp Pulse Resp BP Pulse Ox
97.2 F 69 16 113/52 91
03/03/24 07:55 03/03/24 07:55 03/03/24 07:55 03/03/24 07:55 03/03/24 07:55
Intake and Output
03/02/24 03/03/24 03/04/24
06:59 06:59 06:59
Intake Total 965 / 965 485 / 485
Output Total 2024 625 / 625
Balance -1060 / -1060 -140 / -140
Intake:
Oral fluids 960 / 960 480 / 480
Amount instilled into Urinary
Drain (Total)
Ureteral stent B
Output:
Urostomy output 2024 625 / 625
Laboratory Results
03/03/24 04:51
03/03/24 04:51
Review of Systems
-
Constitutional: Fatigue
Respiratory: No Symptoms
Cardiac: No Symptoms
Abdomen/GI: No Symptoms
Physical Exam
-
General - no acute distress
Abdomen - soft, non-tender, no CVAT, no incisional pain, stoma healthy
Genitalia - normal with scan blood at meatus
--- NOTE | 2024-03-03 08:48 | W.PN.HOSP.TC ---
Today's Communication/Plan
-
IV Lasix. Fluconazole.
Assessment / Plan
Assessment / Plan
Physical exam:
General: Well Developed, Well Nourished and No Apparent Distress
HEENT: Normocephalic, Atraumatic and Moist Mucous Membranes
Respiratory: Clear to Auscultation; Negative Wheezes, Rales or Rhonchi
Cardiac: Regular Rhythm and S1/S2
GI: Soft, Nontender and Nondistended
Musculoskeletal: No Clubbing, No Cyanosis and No Edema
Neuro: Awake, Alert and Oriented
Psych: Calm
A/P:
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
urine diversion on 02/18--Pain control with IV morphine and now added tramadol more so for sacral pain--Added midodrine PRN for BP support post op (has not been needing)--apprec urology input.
weakness--therapy needs to use Ada lift to move him, ordered daily PT/OT--multifactorial--due to anemia, edema/anasarca, deconditioning, soft BPs...s/p 2 units pRBC--cont diuresis--aggressive physical therapy. Plan for skilled rehab upon
discharge.
Acute hypoxic respiratory failure--doing well postextubation--on room air
Acute diastolic congestive heart failure/moderate aortic stenosis--on Lasix 40 mg p.o. daily now but given his increased peripheral edema although improving still needs IV diuresis so will use IV Lasix 40 mg again today and reevaluate-- Monitor
strict I/O, Monitor daily weight, Monitor renal function and electrolytes--Cont fluid restriction/salt restriction--Cardiology consulted and appreciated follow-up. Bilateral ultrasound of the upper extremities negative for DVT.
Elevated troponin due to non-ischemic myocardial injury
Concerns for pneumonia--finished course of Unasyn. Currently on nitrofurantoin from perspective.
Enterococcal UTI--On IV Ampicillin, placed on IV ampicillin/sulbactam (to also cover pneumonia), stop all abx including macrobid per urology and given some fluconazole. Anticipate removal of sandie tomorrow by urology.
Diarrhea likely due to Abx S/E--C diff negative-Added probiotic -- abdominal x-ray neg for fecal impaction/stool burden or obstruction--appears to be more ileus to me--needs to do aggressive PT
Acute blood loss anemia --likely related to recent surgery, fluid retention (dilutional)--s/p 6 units pRBC total--HGB holding. Hemoglobin 9.2 today
CAD/PVD--Chest pain-free but elevated Trop--discontinue cardiac monitoring
Essential Hypertension--Monitor blood pressure and medications accordingly
Hyperlipidemia--Continue statins
Diabetes mellitus type 2--Holding metformin due to acute illness--HBA1c on 01/25 was 5.7
CKD stage III--Monitor renal function
GERD--On PPI
DVT prophylaxis: SCDs.
CODE STATUS: Full code
Dispo: SNF anticipated but hold off on discharge yet.
Anticipated Discharge: 24 - 48 hours
Subjective/Interval History
-
Date of Service: March 03, 2024
Patient peripheral edema significant but decreasing. Afebrile
Objective Data
-
Labs:
Laboratory Results
03/03/24
04:51
WBC 8.7
Hgb 9.5 L
Hct 29.5 L
Plt Count 321
Sodium 137
Potassium 4.2
Chloride 100
Carbon Dioxide 32 H
BUN 28 H
Creatinine 1.2
Glucose 113 H
Calcium 8.2 L
Vital Signs:
Vital Signs
Temp Pulse Resp BP Pulse Ox
97.2 F 69 16 113/52 91
03/03/24 07:55 03/03/24 07:55 03/03/24 07:55 03/03/24 07:55 03/03/24 07:55
I&O
03/02/24 03/03/24 03/04/24
06:59 06:59 06:59
Intake Total 965 / 965 485 / 485
Output Total 2024 625 / 625
Balance -1060 / -1060 -140 / -140
[2024-03-03] MEDS: SENOKOT-S PO (08:57)
[2024-03-03] MEDS: DIFLUCAN 100 MG PO (09:01)
[2024-03-03] MEDS: LIDOCAINE URO-JET 2% 1 SYRINGE TOPICAL ×2 (09:01→15:30)
[2024-03-03] MEDS: VISBIOME 1 CAP PO (09:01)
[2024-03-03] MEDS: VITAMIN D3 (cholecalciferol) 50 MCG PO (09:01)
[2024-03-03] MEDS: PROTONIX 40 MG PO (09:01)
[2024-03-03] MEDS: DESENEX/MITRAZOL/ZEASORB 1 APPLIC TOPICAL ×2 (09:02→21:16)
[2024-03-03] MEDS: LASIX 40 MG PO (09:02)
[2024-03-03 12:05] VITALS: BP 115/51; PULSE 68; O2SAT 92
[2024-03-03 12:09] LABS: Glucose - Point of Care 147 mg/dl (70-99)
[2024-03-03 12:20] VITALS: BP 115/51; PULSE 68; O2SAT 92
--- NOTE | 2024-03-03 12:50 | WOUNDNOTE ---
WOC RN note: Brief visit to assess urostomy appliance. Patient's urostomy appliance intact without leakage. Stoma pink, stents intact. Urine yellow. Patient is on a Waffle air overlay. Elevated heels off bed with pillow. Skin on heels intact.
Ostomy supplies and urostomy teaching folder in room. Plan to change urostomy appliance tomorrow or [place] if still hospitalized. Plan is SNF transfer when discharged.
[2024-03-03 14:55] VITALS: BP 113/44
[2024-03-03] MEDS: LASIX 40 MG IV (15:30)
--- NOTE | 2024-03-03 16:16 | CM ---
Reviewed the chart notes. Updated information sent to [facility] via [facility]. CM continues to be available to patient/family and is monitoring medical plan for needs at discharge.
Plan: Discharge to SNF once medically stable. Hopefully [facility] to have bed. Will require air mattress at SNF per motorized squad lieutenant.
[2024-03-03 16:41] LABS: Glucose - Point of Care 124 mg/dl (70-99)
--- NOTE | 2024-03-03 18:36 | PTCARENOTE ---
Patient refusing to participate in care throughout this shift; Intermittently refusing Q2 turns, patient educated on pressure ulcer prevention; Patient refusing to get out of bed throughout shift; Patient refused to perform oral hygiene but did
allow for perineal care and for sheets to be changed
[2024-03-03] MEDS: SENOKOT-S 1 TABLET PO (20:00)
[2024-03-03] MEDS: MIRALAX 17 GRAMS PO (20:00)
[2024-03-03] MEDS: LIPITOR 40 MG PO (21:16)
[2024-03-03] MEDS: LIDOCAINE URO-JET 2% TOPICAL (21:17)
[2024-03-03 21:37] LABS: Glucose - Point of Care 145 mg/dl (70-99)
[2024-03-03 23:07] VITALS: BP 114/57
[2024-03-04] MEDS: TYLENOL 1000 MG PO ×2 (01:54→20:13)
[2024-03-04 05:24] LABS: Hematocrit 27.9 % (39.0-52.0); Hemoglobin 9.1 g/dL (13.0-18.0); Mean Corp Hgb Conc. 32.6 g/dL (33.0-37.0); Mean Corpuscular Hgb 30.4 pg (27.0-31.0); Mean Corpuscular Volume 93.3 fL (80.0-94.0); Mean Platelet Volume 9.5 fL (7.4-10.4); Platelet Count 302 10^3/uL (130-400); Red Blood Cell Count 2.99 10^6/uL (4.70-6.10); Red Cell Dist. Width 16.1 % (11.5-14.5); White Blood Cell Count 7.4 10^3/uL (4.8-10.8)
[2024-03-04 05:53] LABS: Blood Urea Nitrogen 31 mg/dl (9-20); Calcium 8.3 mg/dl (8.4-10.2); Carbon Dioxide 29 mmol/L (22-30); Chloride 98 mmol/L (98-107); Estimated Creatinine Clearance 44 ml/min; Glucose 110 mg/dl (70-99); Potassium 4.3 mmol/L (3.5-5.1); Sodium 134 mmol/L (135-145); eGFR 48.95
[2024-03-04 06:00] VITALS: BMI 30.2
[2024-03-04 08:25] VITALS: BP 137/68
--- NOTE | 2024-03-04 08:37 | W.PN.HOSP.TC ---
Today's Communication/Plan
-
Discharge planning today.
Assessment / Plan
Assessment / Plan
Physical exam:
General: Well Developed, Well Nourished and No Apparent Distress
HEENT: Normocephalic, Atraumatic and Moist Mucous Membranes
Respiratory: Clear to Auscultation; Negative Wheezes, Rales or Rhonchi
Cardiac: Regular Rhythm and S1/S2
GI: Soft, Nontender and Nondistended
Musculoskeletal: No Clubbing, No Cyanosis and No Edema
Neuro: Awake, Alert and Oriented
Psych: Calm
A/P:
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
urine diversion on 02/18--Pain control with IV morphine and now added tramadol more so for sacral pain--Added midodrine PRN for BP support post op (has not been needing)--apprec urology input.
weakness--therapy needs to use Ada lift to move him, ordered daily PT/OT--multifactorial--due to anemia, edema/anasarca, deconditioning, soft BPs...s/p 2 units pRBC--cont diuresis--aggressive physical therapy. Plan for skilled rehab upon
discharge.
Renal insufficiency-hold diuretics today and can restart in one day or 2.
Acute hypoxic respiratory failure--doing well postextubation--on room air
Acute diastolic congestive heart failure/moderate aortic stenosis--on Lasix 40 mg p.o. daily now but given his increased peripheral edema although improving still needs IV diuresis so will use IV Lasix 40 mg again today and reevaluate-- Monitor
strict I/O, Monitor daily weight, Monitor renal function and electrolytes--Cont fluid restriction/salt restriction--Cardiology consulted and appreciated follow-up. Bilateral ultrasound of the upper extremities negative for DVT.
Elevated troponin due to non-ischemic myocardial injury
Concerns for pneumonia--finished course of Unasyn. Currently on nitrofurantoin from perspective.
Enterococcal UTI--On IV Ampicillin, placed on IV ampicillin/sulbactam (to also cover pneumonia), stop all abx including macrobid per urology and given some fluconazole. Anticipate removal of sandie tomorrow by urology.
Diarrhea likely due to Abx S/E--C diff negative-Added probiotic -- abdominal x-ray neg for fecal impaction/stool burden or obstruction--appears to be more ileus to me--needs to do aggressive PT
Acute blood loss anemia --likely related to recent surgery, fluid retention (dilutional)--s/p 6 units pRBC total--HGB holding. Hemoglobin 9.2 today
CAD/PVD--Chest pain-free but elevated Trop--discontinue cardiac monitoring
Essential Hypertension--Monitor blood pressure and medications accordingly
Hyperlipidemia--Continue statins
Diabetes mellitus type 2--Holding metformin due to acute illness--HBA1c on 01/25 was 5.7
CKD stage III--Monitor renal function
GERD--On PPI
DVT prophylaxis: SCDs.
CODE STATUS: Full code
Dispo: SNF anticipated and okay to discharge today.
Anticipated Discharge: Today
Subjective/Interval History
-
Date of Service: March 04, 2024
No new complaints. He does complain of his chronic penile discomfort
Objective Data
-
Labs:
Laboratory Results
03/04/24
04:42
WBC 7.4
Hgb 9.1 L
Hct 27.9 L
Plt Count 302
Sodium 134 L
Potassium 4.3
Chloride 98
Carbon Dioxide 29
BUN 31 H
Creatinine 1.4 H
Glucose 110 H
Calcium 8.3 L
Vital Signs:
Vital Signs
Temp Pulse Resp BP Pulse Ox
98.3 F 73 16 114/57 95
03/03/24 23:07 03/03/24 23:07 03/03/24 23:07 03/03/24 23:07 03/03/24 23:07
I&O
03/03/24 03/04/24 03/05/24
06:59 06:59 06:59
Intake Total 485 / 485 440 / 440
Output Total 625 / 625 2250 / 2250
Balance -140 / -140 -1810 / -1810
[2024-03-04] MEDS: LIDOCAINE URO-JET 2% 1 SYRINGE TOPICAL ×2 (08:55→21:37)
[2024-03-04 08:56] LABS: Glucose - Point of Care 99 mg/dl (70-99)
[2024-03-04] MEDS: SENOKOT-S 1 TABLET PO ×2 (08:56→20:15)
[2024-03-04] MEDS: VITAMIN D3 (cholecalciferol) 50 MCG PO (08:56)
[2024-03-04] MEDS: VISBIOME 1 CAP PO (08:56)
[2024-03-04] MEDS: DIFLUCAN 100 MG PO (08:56)
[2024-03-04] MEDS: PROTONIX 40 MG PO (08:56)
[2024-03-04] MEDS: LASIX PO (08:57)
[2024-03-04] MEDS: NOVOLOG FLEXPEN-MODERATE RESISTANCE SC ×2 (08:57→12:25)
[2024-03-04] MEDS: DESENEX/MITRAZOL/ZEASORB 1 APPLIC TOPICAL ×2 (08:58→20:16)
--- NOTE | 2024-03-04 10:41 | CHAP ---
Father Nathan Cheng of [facility] in [place] anointed Adriel and gave him Holy Communion.
--- NOTE | 2024-03-04 11:09 | WOUNDNOTE ---
[facility] RN note: Spoke with MONO Avendano who stated she recently changed patient's coccyx foam dressing and reports ulcer about the same as Friday. Called daughter earlier this am with ostomy and skin update. Daughter stated she cannot come in to see the
appliance change today or tomorrow. Plan to change patient's urostomy appliance tomorrow.
[2024-03-04 12:22] LABS: Glucose - Point of Care 131 mg/dl (70-99)
--- NOTE | 2024-03-04 12:45 | W.PN.URO.CBU ---
Today's Communication / Plan
-
Stents removed intact at bedside 03/04/24
Assessment / Plan
-
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
---
s/p partial cystectomy will ileal loop urine diversion 02/19/24: Hgb stable. Pathology pending
---
No further antimicrobrial medications
[place] and stents removed
diuresis and mobilitzation/PT- critical at this juncture
will follow
Diagnosis
-
Date of Service: March 04, 2024
-
Patient Diagnosis:
Irradiation cystitis
Intractable gross hematuria
Clot urine retention
Bladder pain
---
s/p partial cystectomy with ileal loop urinary diversion 02/19/24
Subjective
-
Comfortable
Moving bowels
Tolerating regular diet
Objective
-
Vital Signs
Temp Pulse Resp BP Pulse Ox
97.7 F 60 17 137/68 94
03/04/24 08:25 03/04/24 08:25 03/04/24 08:25 03/04/24 08:25 03/04/24 08:25
Intake and Output
03/03/24 03/04/24 03/05/24
06:59 06:59 06:59
Intake Total 485 / 485 440 / 440
Output Total 625 / 625 2250 / 2250
Balance -140 / -140 -1810 / -1810
Intake:
Oral fluids 480 / 480 440 / 440
Amount instilled into Urinary
Drain (Total)
Ureteral stent B
Output:
Urostomy output 625 / 625 2250 / 2250
Laboratory Results
03/04/24 04:42
03/04/24 04:42
Review of Systems
-
Constitutional: Fatigue
Respiratory: No Symptoms
Cardiac: No Symptoms
Abdomen/GI: No Symptoms
Physical Exam
-
General - no acute distress
Abdomen - soft, stoma healthy, incision clean/dry: sandie and bilateral urinary diversion stents removed intact at bedside. Seri-strips applied
Genitalia - normal with liquified blood at meatus
--- NOTE | 2024-03-04 13:43 | CM ---
Addendum entered by Tara Bui RN 03/04/24 16:13:
[facility] is able to accept tomorrow (Friday) after 3pm. Covid screen required on day of discharge. Attending and RN updated.
Call report to: [phone]
Fax report to: [phone]
Original Note:
Reviewed the chart notes. IMM placed on chart. CM spoke with Joanie from [facility]. No bed today, she will call back and let CM know if a bed would be available tomorrow. CM continues to be available to patient/family and is monitoring medical
plan for needs at discharge.
Plan: Discharge to SNF/rehab once bed found. No precert required.
[2024-03-04 16:00] VITALS: BP 105/54; PULSE 79
[2024-03-04 16:14] VITALS: BP 106/56
[2024-03-04] MEDS: ULTRAM 50 MG PO (16:42)
[2024-03-04] MEDS: LIDOCAINE URO-JET 2% TOPICAL (17:01)
[2024-03-04 18:10] LABS: Glucose - Point of Care 154 mg/dl (70-99)
[2024-03-04] MEDS: NOVOLOG FLEXPEN-MODERATE RESISTANCE 300 UNITS SC (18:18)
[2024-03-04] MEDS: LIPITOR 40 MG PO (21:37)
[2024-03-04] MEDS: MELATONIN 3 MG PO (21:37)
[2024-03-04] MEDS: MIRALAX 17 GRAMS PO (21:37)
[2024-03-04 21:42] LABS: Glucose - Point of Care 198 mg/dl (70-99)
[2024-03-04 23:30] VITALS: BP 112/62
[2024-03-05 05:19] LABS: Hematocrit 28.4 % (39.0-52.0); Hemoglobin 9.3 g/dL (13.0-18.0); Mean Corp Hgb Conc. 32.7 g/dL (33.0-37.0); Mean Corpuscular Hgb 30.6 pg (27.0-31.0); Mean Corpuscular Volume 93.4 fL (80.0-94.0); Mean Platelet Volume 9.3 fL (7.4-10.4); Platelet Count 273 10^3/uL (130-400); Red Blood Cell Count 3.04 10^6/uL (4.70-6.10); Red Cell Dist. Width 16.1 % (11.5-14.5)
[2024-03-05 05:51] LABS: Blood Urea Nitrogen 32 mg/dl (9-20); Calcium 8.2 mg/dl (8.4-10.2); Carbon Dioxide 31 mmol/L (22-30); Chloride 100 mmol/L (98-107); Estimated Creatinine Clearance 44 ml/min; Glucose 104 mg/dl (70-99); Potassium 4.4 mmol/L (3.5-5.1); Sodium 135 mmol/L (135-145); eGFR 48.95
[2024-03-05 07:00] VITALS: BP 127/61
[2024-03-05 08:03] LABS: Glucose - Point of Care 124 mg/dl (70-99)
[2024-03-05] MEDS: NOVOLOG FLEXPEN-MODERATE RESISTANCE SC ×2 (08:04→12:00)
--- NOTE | 2024-03-05 08:25 | W.PN.HOSP.TC ---
Today's Communication/Plan
-
Discharge planning today.
Assessment / Plan
Assessment / Plan
Physical exam:
General: Well Developed, Well Nourished and No Apparent Distress
HEENT: Normocephalic, Atraumatic and Moist Mucous Membranes
Respiratory: Clear to Auscultation; Negative Wheezes, Rales or Rhonchi
Cardiac: Regular Rhythm and S1/S2
GI: Soft, Nontender and Nondistended
Musculoskeletal: No Clubbing, No Cyanosis and No Edema
Neuro: Awake, Alert and Oriented
Psych: Calm
A/P:
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
urine diversion on 02/18--Pain control with IV morphine and now added tramadol more so for sacral pain--Added midodrine PRN for BP support post op (has not been needing)--apprec urology input.
weakness--therapy needs to use Ada lift to move him, ordered daily PT/OT--multifactorial--due to anemia, edema/anasarca, deconditioning, soft BPs...s/p 2 units pRBC--cont diuresis--aggressive physical therapy. Plan for skilled rehab upon
discharge.
Renal insufficiency-hold diuretics today and can restart in one day or 2 and have follow-up creatinine as outpatient. Cr 1.4
Acute hypoxic respiratory failure--doing well postextubation--on room air
Acute diastolic congestive heart failure/moderate aortic stenosis--on Lasix 40 mg p.o. daily now but given his increased peripheral edema although improving still needs IV diuresis so will use IV Lasix 40 mg again today and reevaluate-- Monitor
strict I/O, Monitor daily weight, Monitor renal function and electrolytes--Cont fluid restriction/salt restriction--Cardiology consulted and appreciated follow-up. Bilateral ultrasound of the upper extremities negative for DVT.
Elevated troponin due to non-ischemic myocardial injury
Concerns for pneumonia--finished course of Unasyn. Currently on nitrofurantoin from perspective.
Enterococcal UTI--On IV Ampicillin, placed on IV ampicillin/sulbactam (to also cover pneumonia), stop all abx including macrobid per urology and given some fluconazole. Anticipate removal of sandie tomorrow by urology.
Diarrhea likely due to Abx S/E--C diff negative-Added probiotic -- abdominal x-ray neg for fecal impaction/stool burden or obstruction--appears to be more ileus to me--needs to do aggressive PT
Acute blood loss anemia --likely related to recent surgery, fluid retention (dilutional)--s/p 6 units pRBC total--HGB holding. Hemoglobin 9.2 today
CAD/PVD--Chest pain-free but elevated Trop--discontinue cardiac monitoring
Essential Hypertension--Monitor blood pressure and medications accordingly
Hyperlipidemia--Continue statins
Diabetes mellitus type 2--Holding metformin due to acute illness--HBA1c on 01/25 was 5.7
CKD stage III--Monitor renal function
GERD--On PPI
DVT prophylaxis: SCDs.
CODE STATUS: Full code
Dispo: SNF anticipated and okay to discharge today.
Anticipated Discharge: Today
Subjective/Interval History
-
Date of Service: March 05, 2024
Patient does not have any new complaints.
Objective Data
-
Labs:
Laboratory Results
03/05/24
04:52
WBC 6.0
Hgb 9.3 L
Hct 28.4 L
Plt Count 273
Sodium 135
Potassium 4.4
Chloride 100
Carbon Dioxide 31 H
BUN 32 H
Creatinine 1.4 H
Glucose 104 H
Calcium 8.2 L
Vital Signs:
Vital Signs
Temp Pulse Resp BP Pulse Ox
98.5 F 83 16 127/61 95
03/05/24 07:00 03/05/24 07:00 03/05/24 07:00 03/05/24 07:00 03/05/24 07:00
I&O
03/04/24 03/05/24 03/06/24
06:59 06:59 06:59
Intake Total 440 / 440 1045 / 1045
Output Total 2250 / 2250 1050 / 1050
Balance -1810 / -1810 -5 / -5
[2024-03-05] MEDS: DESENEX/MITRAZOL/ZEASORB 1 APPLIC TOPICAL (08:30)
[2024-03-05] MEDS: LIDOCAINE URO-JET 2% 1 SYRINGE TOPICAL (08:32)
[2024-03-05] MEDS: PROTONIX 40 MG PO (08:33)
[2024-03-05] MEDS: DIFLUCAN 100 MG PO (08:33)
[2024-03-05] MEDS: VISBIOME 1 CAP PO (08:33)
[2024-03-05] MEDS: VITAMIN D3 (cholecalciferol) 50 MCG PO (08:33)
[2024-03-05] MEDS: SENOKOT-S 1 TABLET PO (08:33)
[2024-03-05 09:14] LABS: COVID-19 Antigen Negative (Negative)
--- NOTE | 2024-03-05 09:40 | WOUNDNOTE ---
[facility] RN Note: Patient's stoma pink and functioning for yellow urine. Stents and abdominal sandie where removed by surgeon yesterday. Stoma 1 1/8 x 1 3/8inches, budded with peristomal dip medially and inferiorly. No leakage under wafer. Changed
urostomy appliance using [place] wafer # [id number], Celi seal and Kenny pouch # [id number] with help from [facility] RN student Xena. Miconazole powder followed by no sting barrier wipe applied to mild peristomal red skin. R heel blanchable mild red and
intact. L heel skin intact. Coccyx stage 2 ulcer/masd much improved since Friday. Calazime and ABD pad applied. Less bleeding from penis tip noted. PO intake fair. Patient for possible transfer to [facility] SNF. Ostomy supplies in room. Air chair
cushion on chair. Patient on a Waffle air overlay. Next appliance change due Friday or Friday and as needed for leakage. Nursing can change urostomy appliance going forward.
--- NOTE | 2024-03-05 09:52 | W.PN.URO.CBU ---
Today's Communication / Plan
-
Cleared for discharge from standpoint
Assessment / Plan
-
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
---
s/p partial cystectomy will ileal loop urine diversion 02/19/24: Hgb stable. Pathology pending
---
No further antimicrobrial medications
[place] and stents removed
diuresis and mobilitzation/PT- critical at this juncture
will follow
Diagnosis
-
Date of Service: March 05, 2024
-
Patient Diagnosis:
Irradiation cystitis
Intractable gross hematuria
Clot urine retention
Bladder pain
---
s/p partial cystectomy with ileal loop urinary diversion 02/19/24
Subjective
-
Comfortable
Tolerating diet
Moving bowels/flatus
Objective
-
Vital Signs
Temp Pulse Resp BP Pulse Ox
98.5 F 83 16 127/61 95
03/05/24 07:00 03/05/24 07:00 03/05/24 07:00 03/05/24 07:00 03/05/24 07:00
Intake and Output
03/04/24 03/05/24 03/06/24
06:59 06:59 06:59
Intake Total 440 / 440 1045 / 1045
Output Total 2250 / 2250 1050 / 1050
Balance -1810 / -1810 -5 / -5
Intake:
Oral fluids 440 / 440 1040 / 1040
Amount instilled into Urinary
Drain (Total)
Ureteral stent B
Output:
Urine, Voided 650 / 650
Urostomy output 2250 / 2250 400 / 400
Laboratory Results
03/05/24 04:52
03/05/24 04:52
Review of Systems
-
Constitutional: Fatigue
Physical Exam
-
General - no acute distress
Abdomen - soft, non-tender, positive bowel sounds, no CVAT, stoma healthy, urine clear
Genitalia - normal
Skin - warm & dry with no rash
--- NOTE | 2024-03-05 11:14 | W.DCSUMMARY ---
Discharge Summary
Discharge Data
Date of Admission: 02/15/24
Date of Discharge: 03/05/24
-
Pending Results: No
Hospital Course
Patient 88-year-old male with multiple comorbidities and a prolonged hospital stay with history of hypertension, hyperlipidemia, CAD, aortic stenosis, diabetes mellitus, CKD, prostate cancer s/p radiation in the past, PVD, severe phimosis s/p
circumcision and January 2024, presented to the hospital with recurrent gross hematuria. He had multiple episodes of hematuria and it was felt that it was related to his radiation treatment in the past. Urology consulted. He received blood
transfusion and supportive care. Cardiology consulted and evaluated patient for cardiac clearance. Urology took him to the OR on 02/18 and he underwent partial cystectomy and ileal loop urinary diversion. Patient course complicated with acute blood
loss anemia with blood transfusions, active infection from enterococcal urinary tract infection and aspiration pneumonia. He also had elevated troponins that were felt to be related to elevated troponin due to non-ischemic myocardial injury.
Patient was transferred to ICU preop. Subsequently he also was in heart failure from excessive fluid and blood from his active infection and blood loss. He was diuresed intravenously. PT and OT aggressively to work with the patient and he was
slowly to improve and requires rehabilitation upon discharge. His creatinine bumped slightly so diuretics on hold and can restart it upon discharge with very close follow-up of renal function as outpatient. Urology follow him along the way and
sandie and stents were removed and urology cleared him for discharge. Pathology pending from surgery. Otherwise, patient hemodynamically stable. He is going to be discharged to rehab today.
Discharge duration: 42 minutes
Discharge Plan
-
Patient Disposition: Fdc/SNF
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 Acute diastolic congestive heart failure. Moderate aortic stenosis. Elevated troponin due to non-ischemic myocardial injury. Enterococcal urinary
tract infection. Aspiration pneumonia. Renal insufficiency. Chronic kidney disease stage III. Hypertension. Hyperlipidemia. Diabetes mellitus type 2. Gastroesophageal reflux disease.
Diet: Low Cholesterol, Low Sodium and Diabetic, Carb Controlled
Activity: As tolerated
Blood Work: Please PCP to order CBC, BMP within 3 days
Specialty Instructions: Weigh Daily- Call MD for wt gain/loss 3 lbs overnight/5 lbs in 1 week
Activity Restrictions/Additional Instructions:
Urostomy supplies: Kenny wafer # [id number], Celi seal and Kenny pouch # [id number]. Apply 2% miconazole powder followed by no sting barrier wipe as needed for peristomal red skin with each wafer change. Connect to straight drainage overnight. Rinse
overnight urinary drainage bag daily with water and weekly with white vinegar and water solution (1 part vinegar to 2 parts water). Change appliance 2 times a week and as needed for leakage. Can also add Kenny ostomy belt #[id number].
Call supply company (list in folder provided) for monthly Ostomy supplies after discharge (ask VN to order supplies while on service).
Follow up with surgeon.
Call [facility] RN nurse for ostomy pouching concerns or leakage problems [phone] or [phone] or [phone].
Wound Care Instructions
Penis tip-clean gently with soap and water or anderson cleansing wipe, apply 2% lidocaine gel TID prn pain. Cover penis with ABD pad and change daily and prn drainage.
Sacral/ buttock: Clean with soap and water, apply 2% lidocaine gel TID prn local pain, miconazole powder prn yeasty red periwound skin followed by no sting barrier wipe, apply silicone border foam (cut notch along distal tape border to avoid anal
area), change daily and prn soilage (add alginate prn large amount of drainage). If foam dressing ineffective, apply miconazole powder, zinc barrier ointment, ABD pad with minimal silicone tape daily and prn incontinence instead.
Miconazole powder to groin/anderson skin bid. Add zinc barrier on top of powder as needed for incontinence.
Air mattress
Turning schedule
Elevate heels off bed with pillows.
Pressure redistributing chair cushion (i.e. Air or Roho).
Referrals:
Cyndi Manning MD [Active] - in three to four weeks
Alex Flores MD [Active] - in two to three weeks
Ryland Hutson DO [Active] - in two to four weeks
Logan Burks MD [Family Provider] - in less than 1 week
Prescriptions:
New
furosemide 40 mg Tablet
40 mg PO DAILY 30 Days Qty: 30 0RF
ipratropium-albuterol 0.5 mg-3 mg(2.5 mg base)/3 mL Solution For Nebulization
3 ml inhalation R Q4HPRN PRN (Reason: SOB or wheezing) 7 Days Qty: 90 0RF
loperamide 2 mg Capsule
2 mg PO Q4HPRN PRN (Reason: diarrhea) 10 Days Qty: 7 0RF
miconazole nitrate [Miconazorb AF] 2 % Powder
1 applic topical BID 10 Days Qty: 85 0RF
midodrine 5 mg Tablet
5 mg PO TID@0800,1300,1800 PRN (Reason: SBP < 100) 10 Days Qty: 10 0RF
tramadol 50 mg Tablet
50 mg PO Q6HPRN PRN (Reason: severe pain) Qty: 4 0RF
pantoprazole 40 mg Tablet,Delayed Release (Dr/Ec)
40 mg PO DAILY 30 Days Qty: 30 0RF
Continued
atorvastatin 40 MG tablet
40 mg PO HS
omeprazole magnesium [Prilosec OTC] 20 mg Tablet,Delayed Release (Dr/Ec)
40 mg PO DAILY
cholecalciferol (vitamin D3) 50 mcg (2,000 unit) Tablet
50 mcg PO DAILY
polyethylene glycol 3350 [Miralax] 17 gram powder in packet
17 g PO HS
metformin 500 mg Tablet
500 mg PO BID Qty: 0 0RF
acetaminophen [Tylenol Extra Strength] 500 mg Tablet
1,000 mg PO Q8HPRN PRN (Reason: MILD PAIN)
bisacodyl [Dulcolax (bisacodyl)] 10 mg Suppository
10 mg WI DAILYPRN PRN (Reason: IF NO BM AFTR MOM)
Polysporin 500-10,000 unit/gram ointment in packet
1 applic topical TID
sennosides-docusate sodium [Stool Softener-Stimulant Laxat] 8.6-50 mg Tablet
1 tab PO BID Qty: 60 0RF
magnesium citrate Solution
300 ml PO ONCE PRN (Reason: constipation) Qty: 296 0RF
magnesium hydroxide [Milk of Magnesia] 400 mg/5 mL Suspension
2,400 mg PO DAILY Qty: 0 0RF
Fleet Enema 19-7 gram/118 mL Enema
118 ml WI PRN PRN (Reason: if no BM after suppository)
lidocaine HCl [Glydo] 2 % Jelly In Applicator
1 applic TOPICAL TID
Discontinued
phenazopyridine 200 mg Tablet
200 mg PO Q8HPRN PRN (Reason: URETHRAL BURNING) 7 Days Qty: 21 0RF
Discharge Orders:
Discharge Patient (As Directed); Ordered 03/05/24
Ordered By: Keith Platt
Discharge Date and Time
Discharge Date/Time: 03/05/24 15:15
Print Language: LIBERIAN
--- NOTE | 2024-03-05 11:41 | CM ---
CM spoke with Elinor from [facility], able to accept patient today. Ambulance scheduled for 3:30 p.m. Covid test negative. Per wound care nurse, patient will need an air mattress at [facility], updated Elinor at [facility]. CM will continue to follow for
discharge planning needs.
Plan; [facility], 3:30 ambulance transport.
Call report to: [phone]
Fax report to: [phone]
[2024-03-05 11:53] LABS: Glucose - Point of Care 99 mg/dl (70-99)
[2024-03-05 14:57] VITALS: BP 111/66
== END 2024-03-05 15:15 | DRG 653 ==
LOC: 2 SOUTH 23:27
PROVIDERS: Internal Medicine; Internal Medicine Cardiovascular Disease; Nurse Practitioner Family; Nurse Practitioner Primary Care; Specialist; ADMITTING PHYSICIAN Hospitalist; CONSULT PHYSICIAN Internal Medicine Critical Care Medicine; CONSULT PHYSICIAN Nuclear Medicine Nuclear Cardiology; CONSULT PHYSICIAN Specialist; EMERGENCY PHYSICIAN Emergency Medicine; FAMILY PHYSICIAN Family Medicine
PROC: 30233N1 Transfusion of Nonautologous Red Blood Cells into Peripheral Vein, Percutaneous Approach (ICD-10-PCS; 2024-02-16)
PROC: 0TBB0ZZ Excision of Bladder, Open Approach (ICD-10-PCS; 2024-02-19)
PROC: 0T180ZC Bypass Bilateral Ureters to Ileocutaneous, Open Approach (ICD-10-PCS; 2024-02-19)
DX: N30.41 Irradiation cystitis with hematuria (principal); I50.31 Acute diastolic (congestive) heart failure; T83.511A Infection and inflammatory reaction due to indwelling urethral catheter, initial encounter; J69.0 Pneumonitis due to inhalation of food and vomit; J96.01 Acute respiratory failure with hypoxia; D62 Acute posthemorrhagic anemia; I13.0 Hypertensive heart and chronic kidney disease with heart failure and stage 1 through stage 4 chronic kidney disease, or unspecified chronic kidney disease; I5A Non-ischemic myocardial injury (non-traumatic); I25.10 Atherosclerotic heart disease of native coronary artery without angina pectoris; N18.30 Chronic kidney disease, stage 3 unspecified; E11.22 Type 2 diabetes mellitus with diabetic chronic kidney disease; Y84.2 Radiological procedure and radiotherapy as the cause of abnormal reaction of the patient, or of later complication, without mention of misadventure at the time of the procedure; I35.0 Nonrheumatic aortic (valve) stenosis; R33.8 Other retention of urine; E11.51 Type 2 diabetes mellitus with diabetic peripheral angiopathy without gangrene; E78.00 Pure hypercholesterolemia, unspecified; B95.2 Enterococcus as the cause of diseases classified elsewhere; L89.312 Pressure ulcer of right buttock, stage 2; R19.7 Diarrhea, unspecified; Y84.6 Urinary catheterization as the cause of abnormal reaction of the patient, or of later complication, without mention of misadventure at the time of the procedure; K21.9 Gastro-esophageal reflux disease without esophagitis; F41.9 Anxiety disorder, unspecified; N40.1 Benign prostatic hyperplasia with lower urinary tract symptoms; R29.6 Repeated falls; I65.23 Occlusion and stenosis of bilateral carotid arteries; Z11.52 Encounter for screening for COVID-19; Z79.84 Long term (current) use of oral hypoglycemic drugs; Z79.899 Other long term (current) drug therapy; Z85.46 Personal history of malignant neoplasm of prostate; Z87.891 Personal history of nicotine dependence; Z91.81 History of falling; Z92.3 Personal history of irradiation; Z95.1 Presence of aortocoronary bypass graft
CPT/HCPCS: 88307; 36600; 51702; 71045; 74018; 80048; 80053; 81003; 81015; 82330; 82805; 82962; 83605; 83735; 83880; 84132; 84145; 84302; 84478; 84484; 85014; 85018; 85025; 85027; 85610; 85730; 86850; 86900; 86901; 86920; 87040; 87045; 87046; 87070; 87077; 87086; 87186; 87324; 87427; 87449; 87502; 87798; 87811; 88341; 88342; 93005; 93970; 94002; 94003; 94640; 97110; 97163; 97167; 97530; 97535; 99285; C1729; C1758; C2617; P9016; P9051

== ENCOUNTER 2024-04-05 14:20 | Inpatient (IN) | payer MEDICARE, BC, SELFPAY ==
[2024-04-05] VITALS (9 sets, daily range): BP systolic 101–140; BP diastolic 58–83; BMI 29.4
[2024-04-05 10:16] LABS: % Basophils 0.6 % (0-2); % Eosinophils 1.9 % (0-6); % Immature Granulocytes 0.7 % (0-0.5); % Lymphocytes 38.2 % (20.5-51.1); % Monocytes 8.9 % (1.7-9.3); % Neutrophils 49.7 % (42.2-75.2); Absolute Basophils 0.1 10^3/uL (0-0.2); Absolute Eosinophils 0.2 10^3/uL (0-0.7); Absolute Immature Granulocytes 0.1 10^3/uL (0-0.05); Absolute Lymphocytes 3.9 10^3/uL (1.2-3.4); Absolute Monocytes 0.9 10^3/uL (0.1-0.6); Absolute Neutrophils 5.1 10^3/uL (1.4-6.5); Hemoglobin 12.6 g/dL (13.0-18.0); Mean Corp Hgb Conc. 34.1 g/dL (33.0-37.0); Mean Corpuscular Hgb 31.4 pg (27.0-31.0); Mean Corpuscular Volume 92.3 fL (80.0-94.0); Mean Platelet Volume 9.4 fL (7.4-10.4); Nucleated Red Blood Cells % 0 % (-); Platelet Count 184 10^3/uL (130-400); Red Blood Cell Count 4.01 10^6/uL (4.70-6.10); Red Cell Dist. Width 19.3 % (11.5-14.5); White Blood Cell Count 10.3 10^3/uL (4.8-10.8)
[2024-04-05 10:17] LABS: Urine Albumin Negative (Neg - Trace); Urine Bilirubin Negative (Negative); Urine Character Slightly Cloudy (Clear); Urine Color Yellow; Urine Glucose Negative (Negative); Urine Ketone Negative (Negative); Urine Leukocyte 2+ (Negative); Urine Nitrite Negative (Negative); Urine Occult Blood 1+ (Negative); Urine Specific Gravity 1.005 (<1.030); Urine Urobilinogen Negative (Neg - 1+)
[2024-04-05 10:34] LABS: Blood Urea Nitrogen 73 mg/dl (9-20); Calcium 9.6 mg/dl (8.4-10.2); Carbon Dioxide 26 mmol/L (22-30); Chloride 100 mmol/L (98-107); Estimated Creatinine Clearance 30 ml/min; Glucose 96 mg/dl (70-99); Sodium 135 mmol/L (135-145); eGFR 38.78
[2024-04-05] MEDS: NSS 500 IV (10:44)
[2024-04-05 10:45] LABS: Urine White Cell >100 /HPF (0-5)
[2024-04-05 10:46] LABS: Urine Calcium Oxalate Crystals Present
[2024-04-05 10:47] LABS: Urine Bacteria Many (Negative)
--- NOTE | 2024-04-05 10:52 | ED.GENMED ---
History of Present Illness
<Kalina Lebron PA-C - Last Filed: 04/05/24 16:21>
General
Chief Complaint: Male Genito-Urinary Symptoms
Source: patient
Exam Limitations: none
Time Seen by Provider: 04/05/24 10:28
Nursing documentation reviewed up to this point in time: agreed with
History of Present Illness
History of Present Illness:
88 y/o M with history of hypertension, hyperlipidemia, CAD, aortic stenosis, chronic kidney disease, prostate CA status postradiation in the past, severe phimosis s/p circumcision in January 2024 presented today for blood from his penis noticed in his
diaper this morning by staff at his facility. Patient was here 5-5 to 5-24 after having recurrent gross hematuria likely related to the radiation treatment in the past. He ultimately needed a blood transfusion and on 5�9 Dr. Sandoval took him to the
OR for a partial cystectomy and ileal loop urinary diversion. Course was complicated by acute blood loss anemia requiring transfusions, and enterococcal UTI and aspiration pneumonia. Patient also had an NSTEMI. As well as acute CHF which was
improved with diuresis. Patient's sandie and stents were removed by urology and cleared him for discharge on 5�24.
Patient says he has been having some pain near his rectum for the last a couple of weeks. He is not really mobile. He denies any fevers or chills, vomiting. Patient says he feels really dehydrated and he has not been eating or drinking much over
the last couple of days. Despite feeling like his mouth is super dry.
Past History
<Kalina Lebron PA-C - Last Filed: 04/05/24 16:21>
Past History
ED Past Medical History: Cancer (Prostate), GERD, HTN, NIDDM, Psychiatric (Anxiety) and Other (Anemia, PVD, BPH)
ED Past Surgical History: Cardiac (CABG, Stents) and Tonsilectomy
Social History
Tobacco: Former smoker
Alcohol: None
Drug: None
Personal:
Living: with family
Employment: Retired
Family History
Family History: Negative Early CAD
Phy Exam
<Kalina Lebron PA-C - Last Filed: 04/05/24 16:21>
Physical Exam
Physical Exam:
GENERAL: sleeping, arousable, dry in appearance; weak
EYE: pupils equal and reactive
NECK: Supple
ENT: o/p clr, VERY DRY
CARDIAC: bradycardic
LUNGS: dimninished, no acute respiratory distress, no wheezes/rales/rhonchi
ABDOMEN: Soft, without focal tenderness, no r/g, no cvat, normal bowel sounds
urostomy draining yellow urine; no blood in bag
stoma pink
: 1 small clot tip of penis; phimosis
NEUROLOGICAL: Alert and oriented, no focal neuro deficits
SKIN: Warm and dry, dry
MUSCULOSKELETAL: mild edema
PSYCH: Normal and appropriate interaction.
Course
<Kalina Lebron PA-C - Last Filed: 04/05/24 16:21>
Orders/Labs/Results
Orders:
Orders
04/05/24 Breakfast
2200 calorie (18 carb) Diabetic
At Your Request: Non-Participating
04/05/24 09:57
Basic Metabolic Panel Urgent
Complete Blood Count/With Diff Urgent
TSH Reflex To Free T4 Urgent
Comment: TSH REFLEX ADDED ON BY FLOOR 2PM 04-05-24
Urinalysis Reflex To Culture Urgent
Date Specimen was Collected: 04/05/24
Time Specimen was Collected: 09:56
Urine Microscopic Reflex Cult Urgent
Urine Culture Urgent
FANNIE Source: U
Specimen Description:
Date Specimen was Collected: 04/05/24
Time Specimen was Collected: 09:56
04/05/24 10:38
CT Abd/pel Without Iv Or Oral Urgent
Comment:
Reason For Exam: hematuria kerwin
04/05/24 10:43
0.9% Sodium Chloride 500 ml [Nss] 500 ml IV BOLUS
04/05/24 10:45
Potassium Urgent
04/05/24 13:57
Admit/Transfer Patient As Directed
Co-Sign Provider:
Level of Care: Inpatient admission
Assign to:: Telemetry
Physician / Group: Eric Wallis
Diagnosis: KERWIN, UTI
Reason for Telemetry: Arrhythmia
Date to Stop Telemetry: 04/08/24
Time to Stop Telemetry: 11:00
Reason for Hospitalization: IVFs, IV abx
Expected length of stay greater than two midnights?: Yes
ELOS- Estimated Length of Stay in days: 3
I certify the patient meets the requirements for IP care: Yes
04/05/24 14:04
Code Status As Directed
Resuscitation Status: Full Code
04/05/24 14:07
Add On- LAB Urgent
Tests Added?: TSH w/Reflex
04/05/24 14:45
Blood Culture Q30M
FANNIE Source: Blood/Venous
Specimen Description:
04/05/24 15:41
0.9% Sodium Chloride 1000 ml [Nss] 1,000 ml IV 60 mls/hr
Acetaminophen [Tylenol] 650 mg PO Q4HPRN PRN
Dextrose 50%-Water [Dextrose 50% Syringe] 12.5 grams IV [id number] PRN
Glucagon [GlucaGen] 1 mg IM PRN PRN
04/05/24 15:41
UROLOGY CONSULT Routine
Consulting Provider: Arturo Pardo
Was physician already notified: Yes
WOUND/OSTOMY CONSULT Routine
Reason for Consult: Buttock Wound
Activity As Directed
Activity Level: Out of Bed- Chair
Bedside Glucose Monitoring As Directed
Frequency: AC&HS
Additional Instructions:: Change to q6h if pt on TPN, tube feeding or not eating
I&O [Intake/ Output] As Directed
Frequency: q12h
Pneumatic Compression Sleeves As Directed
Type: Knee high
Vital Signs As Directed
Frequency: Per unit guidelines
Weight As Directed
Frequency: Daily
DX Deep Vein Thrombosis Video Routine
04/05/24 15:55
Blood Culture Q30M
FANNIE Source: Blood/Venous
Specimen Description:
04/05/24 16:00
CefTRIAXone [Rocephin] 1,000 mg IV Q24H
04/05/24 16:30
Insulin Aspart Corrective Low [Novolog Flexpen-Low Resistance] See Protocol SC AC
04/05/24 20:00
Sennosides [Senokot] 17.2 mg PO BID
04/05/24 22:00
Atorvastatin [Lipitor] 40 mg PO HS
Polyethylene Glycol Powder [Miralax] 17 grams PO HS
04/06/24 06:00
Basic Metabolic Panel IN AM
Complete Blood Count/No Diff IN AM
04/06/24 08:00
Cholecalciferol (Vitamin D3) [VITAMIN D3 (cholecalciferol)] 50 mcg PO DAILY
Escitalopram Oxalate [Lexapro] 10 mg PO DAILY
Pantoprazole [Protonix] 40 mg PO DAILY
04/08/24 11:00
DC Protocol for Telemetry ONCE
Abnormal Lab Results
04/05/24
09:57
RBC 4.01 L 10^6/uL
(4.70-6.10)
Hgb 12.6 L g/dL
(13.0-18.0)
Hct 37.0 L %
(39.0-52.0)
MCH 31.4 H pg
(27.0-31.0)
RDW 19.3 H %
(11.5-14.5)
Abs Immat Gran (auto) 0.1 H 10^3/uL
(0-0.05)
Absolute Lymphs (auto) 3.9 H 10^3/uL
(1.2-3.4)
Absolute Monos (auto) 0.9 H 10^3/uL
(0.1-0.6)
Immature Gran % 0.7 H %
(0-0.5)
BUN 73 H mg/dl
(9-20)
Creatinine 1.7 H mg/dL
(0.7-1.3)
Ur Occult Blood Reflex 1+ A
(Negative)
Leukocyte Esterase Rfl 2+ A
(Negative)
Urine RBC 3-6 A /HPF
(0-2)
Urine WBC (Reflex) >100 A /HPF
(0-5)
Urine Bacteria (Reflex) Many A
(Negative)
04/05/24 09:57
04/05/24 10:45
Vital Signs
Initial and Last Documented VS:
Initial Vital Signs
Temp Pulse Resp BP Pulse Ox
97.5 F 62 20 108/61 94
04/05/24 09:57 04/05/24 09:57 04/05/24 09:57 04/05/24 09:57 04/05/24 09:57
Last Documented Vital Signs
Temp Pulse Resp BP Pulse Ox
97.6 F 55 16 121/59 91
04/05/24 13:35 04/05/24 15:00 04/05/24 15:00 04/05/24 14:00 04/05/24 14:45
<Noah Diaz, - Last Filed: 04/05/24 13:23>
Orders/Labs/Results
Orders:
Orders
04/05/24 Breakfast
2200 calorie (18 carb) Diabetic
At Your Request: Non-Participating
04/05/24 09:57
Basic Metabolic Panel Urgent
Complete Blood Count/With Diff Urgent
TSH Reflex To Free T4 Urgent
Comment: TSH REFLEX ADDED ON BY FLOOR 2PM 04-05-24
Urinalysis Reflex To Culture Urgent
Date Specimen was Collected: 04/05/24
Time Specimen was Collected: 09:56
Urine Microscopic Reflex Cult Urgent
Urine Culture Urgent
FANNIE Source: U
Specimen Description:
Date Specimen was Collected: 04/05/24
Time Specimen was Collected: 09:56
04/05/24 10:38
CT Abd/pel Without Iv Or Oral Urgent
Comment:
Reason For Exam: hematuria kerwin
04/05/24 10:43
0.9% Sodium Chloride 500 ml [Nss] 500 ml IV BOLUS
04/05/24 10:45
Potassium Urgent
04/05/24 13:57
Admit/Transfer Patient As Directed
Co-Sign Provider:
Level of Care: Inpatient admission
Assign to:: Telemetry
Physician / Group: Eric Wallis
Diagnosis: KERWIN, UTI
Reason for Telemetry: Arrhythmia
Date to Stop Telemetry: 04/08/24
Time to Stop Telemetry: 11:00
Reason for Hospitalization: IVFs, IV abx
Expected length of stay greater than two midnights?: Yes
ELOS- Estimated Length of Stay in days: 3
I certify the patient meets the requirements for IP care: Yes
04/05/24 14:04
Code Status As Directed
Resuscitation Status: Full Code
04/05/24 14:07
Add On- LAB Urgent
Tests Added?: TSH w/Reflex
04/05/24 14:45
Blood Culture Q30M
FANNIE Source: Blood/Venous
Specimen Description:
04/05/24 15:41
0.9% Sodium Chloride 1000 ml [Nss] 1,000 ml IV 60 mls/hr
Acetaminophen [Tylenol] 650 mg PO Q4HPRN PRN
Dextrose 50%-Water [Dextrose 50% Syringe] 12.5 grams IV [id number] PRN
Glucagon [GlucaGen] 1 mg IM PRN PRN
04/05/24 15:41
UROLOGY CONSULT Routine
Consulting Provider: Arturo Pardo
Was physician already notified: Yes
WOUND/OSTOMY CONSULT Routine
Reason for Consult: Buttock Wound
Activity As Directed
Activity Level: Out of Bed- Chair
Bedside Glucose Monitoring As Directed
Frequency: AC&HS
Additional Instructions:: Change to q6h if pt on TPN, tube feeding or not eating
I&O [Intake/ Output] As Directed
Frequency: q12h
Pneumatic Compression Sleeves As Directed
Type: Knee high
Vital Signs As Directed
Frequency: Per unit guidelines
Weight As Directed
Frequency: Daily
DX Deep Vein Thrombosis Video Routine
04/05/24 15:55
Blood Culture Q30M
FANNIE Source: Blood/Venous
Specimen Description:
04/05/24 16:00
CefTRIAXone [Rocephin] 1,000 mg IV Q24H
04/05/24 16:30
Insulin Aspart Corrective Low [Novolog Flexpen-Low Resistance] See Protocol SC AC
04/05/24 20:00
Sennosides [Senokot] 17.2 mg PO BID
04/05/24 22:00
Atorvastatin [Lipitor] 40 mg PO HS
Polyethylene Glycol Powder [Miralax] 17 grams PO HS
04/06/24 06:00
Basic Metabolic Panel IN AM
Complete Blood Count/No Diff IN AM
04/06/24 08:00
Cholecalciferol (Vitamin D3) [VITAMIN D3 (cholecalciferol)] 50 mcg PO DAILY
Escitalopram Oxalate [Lexapro] 10 mg PO DAILY
Pantoprazole [Protonix] 40 mg PO DAILY
04/08/24 11:00
DC Protocol for Telemetry ONCE
Abnormal Lab Results
04/05/24
09:57
RBC 4.01 L 10^6/uL
(4.70-6.10)
Hgb 12.6 L g/dL
(13.0-18.0)
Hct 37.0 L %
(39.0-52.0)
MCH 31.4 H pg
(27.0-31.0)
RDW 19.3 H %
(11.5-14.5)
Abs Immat Gran (auto) 0.1 H 10^3/uL
(0-0.05)
Absolute Lymphs (auto) 3.9 H 10^3/uL
(1.2-3.4)
Absolute Monos (auto) 0.9 H 10^3/uL
(0.1-0.6)
Immature Gran % 0.7 H %
(0-0.5)
BUN 73 H mg/dl
(9-20)
Creatinine 1.7 H mg/dL
(0.7-1.3)
Ur Occult Blood Reflex 1+ A
(Negative)
Leukocyte Esterase Rfl 2+ A
(Negative)
Urine RBC 3-6 A /HPF
(0-2)
Urine WBC (Reflex) >100 A /HPF
(0-5)
Urine Bacteria (Reflex) Many A
(Negative)
04/05/24 09:57
04/05/24 10:45
Vital Signs
Initial and Last Documented VS:
Initial Vital Signs
Temp Pulse Resp BP Pulse Ox
97.5 F 62 20 108/61 94
04/05/24 09:57 04/05/24 09:57 04/05/24 09:57 04/05/24 09:57 04/05/24 09:57
Last Documented Vital Signs
Temp Pulse Resp BP Pulse Ox
97.6 F 55 16 121/59 91
04/05/24 13:35 04/05/24 15:00 04/05/24 15:00 04/05/24 14:00 04/05/24 14:45
<Kalina Lebron PA-C - Last Filed: 04/05/24 16:21>
MDM/Problems Addressed
Differential Diagnosis Includes:
kerwin, dehydration, cystitis, uti, radiation cystitis; kidney stpone
MDM/Problems Addressed:
88 y/o M h/o partial cystectomy and ileal conduit 02/18 ruenes; gross hematuria from penis today (h/o radiation cystitis), no anticoagulation; small blood from penis, a few clots; stable vitals, stable hg;
admitted for KERWIN, bun from 20s to 70s and cr 1.3--> 1.7; pt is very weak and had very dry MM and isn't eating at [facility]; questionnable LLL pna on the CTAP i ordered but no cough, fever; normal wbc;
CT NEG FOR OBSTRUCTIVE UROPATHY
went into CHF last month so giving fluids more slowly;
perked up some with fluids but will admit for continued fluids
<Kalina Lebron PA-C - Last Filed: 04/05/24 16:21>
*Critical Care Note
Total Time (30-74mins, 75-104mins- exclusive of procedures): Not Applicable
ED Attending Note
<Kalina Lebron PA-C - Last Filed: 04/05/24 16:21>
-
Portions of this chart may have been created with voice recognition software.� Occasional wrong word or��sound alike� substitutions may have occurred due to the inherent limitations of voice recognition software.
<Noah Diaz DO - Last Filed: 04/05/24 13:23>
ED Attending Note
Patient seen and examined by attending physician: Yes
I performed the substantive portion of visit, reviewed & personally made and approve the management plan that is documented in note by myself or LORE.: Yes
I performed a history and physical exam of patient and discussed management with resident, I reviewed resident's note and agree with documented findings and plan of care.: Yes
ED Attending Note:
I evaluated the patient at bedside. The patient's BUN to creatinine ratio continues to worsen. He was given IV fluids. CT imaging suggest the possibly of pneumonia in the left side.
Discharge Plan
Departure
Patient Disposition: Admit
Date of Disposition: 04/05/24
Time of Disposition: 13:03
Admit to: Med/Surg
Presentation/result/management discussed w/ accepting MD/DO: Hospitalist
Condition: Fair
Covid-19: Not Applicable
Discharge Problem:
KERWIN (acute kidney injury)
Interventions
Interventions:
*Risk Screen - Suicide Last Done: 04/05/24 09:57
*General Assessment Last Done: 04/05/24 09:57
*Neglect/Abuse Screening Last Done: 04/05/24 09:57
ED- Fall Risk Assessment Last Done: 04/05/24 09:57
*ED COVID-19 Vaccine History Last Done: 04/05/24 09:57
*Nursing Disposition Last Done: 04/05/24 15:20
ED-Male Genitourinary Assessment Last Done: 04/05/24 09:57
Discharge Date and Time
Discharge Date/Time: 04/05/24 15:20
[2024-04-05 11:20] LABS: Potassium 4.8 mmol/L (3.5-5.1)
--- NOTE | 2024-04-05 14:09 | HPS.HSE ---
Addendum entered and electronically signed by Eric Wallis MD 04/05/24 14:32:
see my update note for addendum
Original Note:
Family Physician
-
Family Physician: Tam Yi
Chief Complaint
-
Hematuria
History of Present Illness
Patient 88-year-old male past medical history of bladder cancer status post recent partial cystectomy and ileal loop urinary diversion who presents with hematuria. Staff at the [facility] noted clots of blood in patient's diaper, with
notable blood coming from his penis. This prompted them to send him to the emergency department for evaluation. Urine from urostomy is noted to be clear. Workup in the emergency department revealed evidence of acute kidney injury. Patient
reports very poor appetite, noting in particular does not like the food at the facility. He admits to mild constipation. He denies nausea, vomiting or abdominal pain. He denies fever, sweats or chills.
Medical History
Past Medical History
Past Medical History: Reports Other
Additional Past Medical History:
Coronary Artery Disease s/p CABG
Chronic HFpEF
Moderate Aortic Stenosis
Essential Hypertension
Hyperlipidemia
Diabetes Mellitus, Type II
CKD Stage II
GERD
Anxiety
Bladder CA s/p Partial Cystectomy
Prostate CA s/p XRT
Past Surgical History: Reports Other
Additional Past Surgical History:
CABG
Left Carotid Endarterectomy
Partial Cystectomy with Ileal Loop Urinary Diversion
Social History
Tobacco: Non-smoker
Alcohol: None
Drug: None
Family History
Family History: Not pertinent
Allergies / Home Medications
Allergies reflects when Allergies were last updated in [facility].
Home Medications with original date entered in [facility]
Allergy/Medication List:
Allergies
Allergy/AdvReac Type Severity Reaction Status Date / Time
No Known Allergies Allergy Verified 02/15/24 23:11
Home Medications
atorvastatin 40 mg tablet 40 mg PO HS High cholesterol 02/05/17
cholecalciferol (vitamin D3) 50 mcg (2,000 unit) tablet 50 mcg PO DAILY Supplement 11/26/23
polyethylene glycol 3350 17 gram oral powder packet (Miralax) 17 g PO HS Constipation 11/26/23
metformin 500 mg tablet 500 mg PO BID Diabetes #0 tabs 02/06/24
acetaminophen 500 mg tablet (Tylenol Extra Strength) 1,000 mg PO Q8HPRN PRN MILD PAIN 02/10/24
escitalopram oxalate 10 mg tablet 10 mg PO DAILY Mental Health 04/05/24
furosemide 40 mg tablet 40 mg PO DAILY Fluid Retention/Swelling 04/05/24
omeprazole 20 mg capsule,delayed release 40 mg PO DAILY Gastrointestinal Issue 04/05/24
sennosides 8.6 mg tablet (senna) 17.2 mg PO BID Constipation 04/05/24
zinc oxide-cod liver oil 40 % topical paste (Desitin) 1 applic topical DAILY PRN sacral area 04/05/24
zinc oxide-cod liver oil 40 % topical paste (Desitin) 1 applic topical TID sacral area 04/05/24
Review of Systems
-
A 12 point ROS was completed and negative except as noted: Yes
Constitutional: Denies Fever or Chills
Respiratory: Denies Cough or Trouble Breathing
Cardiac: Denies Chest Pain or Palpitations
Abdomen/GI: Reports See HPI
: Reports See HPI
Physical Exam
Vital Signs
Vital Signs
Temp Pulse Resp BP Pulse Ox
97.6 F 50 14 105/83 97
04/05/24 13:35 04/05/24 13:35 04/05/24 13:35 04/05/24 13:35 04/05/24 13:35
Physical Exam
General: Comfortable and Conversant
HEENT: Anicteric and Other (Lips are quite dry)
Respiratory: Clear and Non Labored Respirations
Cardiac: S1/S2, Regular Rhythm, Bradycardia and Murmur (2/6 systolic murmur)
GI: Soft, Non Tender and Other (Incision sites are healing well)
Genito-urinary: Other (Urostomy bag with large amount of mucus present, but overall clear appearing urine)
Musculoskeletal: No Clubbing, No Cyanosis and No Edema
Skin: Warm and Dry
Neuro: Awake, Alert, Oriented and Nonfocal/grossly intact
Laboratory Results
-
04/05/24 09:57
04/05/24 10:45
Laboratory Results
Total Bilirubin Cancelled 04/05/24 09:57
AST Cancelled 04/05/24 09:57
ALT Cancelled 04/05/24 09:57
Alkaline Phosphatase Cancelled 04/05/24 09:57
Data Reviewed
-
Lab Data: Labs Reviewed by me
Old Records: Reviewed
Impression/Plan
-
KERWIN on CKD Stage II
-Hold Furosemide
-Hold Metformin
-Give 1L of NSS overnight and recheck labs in AM
Abnormal Urinalysis possible UTI
-Start empiric Rocephin
-Await urine and blood culture
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
-Consult Urology
-Continue to monitor
Chronic HFpEF
Moderate Aortic Stenosis
-Furosemide on hold due to KERWIN
-Monitor Is&Os and Daily Weights
Hyperlipidemia
-Continue atorvastatin
Diabetes Mellitus, Type II
-Metformin on hold due to KERWIN
-Monitor sugars and continue coverage insulin
Constipation
-Continue Miralax and Senna
GERD
-Continue Protonix
Anxiety
-Continue Lexapro
Bladder CA s/p Partial Cystectomy
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
ASCVD s/p CABG and Left CEA
DVT proph: SCDs
Code Status: Full Code
--- NOTE | 2024-04-05 14:27 | W.PN.UPDATE ---
Update Note
Progress Note Update
I saw and examined the patient.
The DYLLAN Black's note was reviewed and I agree with the note.
Comment: Briefly, 88 y/o M, hx of bladder cancer s/p recent partial cystectomy and ileal loop urinary diversion presents with hematuria, clots passage into diaper and blood from penis. He was sent to ER from [facility] in ER, he was found to have KERWIN from
poor appetite in setting of also being on IV Lasix. He offers no other complaints.
Physical Exam
General: Comfortable and Conversant
HEENT: Anicteric and Other (Lips are quite dry)
Respiratory: Clear and Non Labored Respirations
Cardiac: S1/S2, Regular Rhythm, Bradycardia and Murmur (2/6 systolic murmur)
GI: Soft, Non Tender and Other (Incision sites are healing well)
Genito-urinary: Other (Urostomy bag with large amount of mucus present, but overall clear appearing urine)
Musculoskeletal: No Clubbing, No Cyanosis and No Edema
Skin: Warm and Dry
Neuro: Awake, Alert, Oriented and Nonfocal/grossly intact
Assessment:
KERWIN on CKD Stage II
- check urine studies
- cautious IVF overnight x 1 bag
- hold Lasix/Metformin
Abnormal Urinalysis possible UTI
- start empiric Rocephin
- await urine and blood culture
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
- consult Urology
- continue to monitor
Chronic HFpEF
Moderate Aortic Stenosis
- Furosemide on hold due to KERWIN
- Monitor Is&Os and Daily Weights
Hyperlipidemia
- continue atorvastatin
Diabetes Mellitus, Type II
- Metformin on hold due to KERWIN
- Monitor sugars and continue coverage insulin
Constipation
- continue Miralax and Senna
GERD
- continue Protonix
Anxiety
- continue Lexapro
Bladder CA s/p Partial Cystectomy
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
ASCVD s/p CABG and Left CEA
DVT proph: SCDs
Code Status: Full Code
[2024-04-05] MEDS: ROCEPHIN 1000 MG IV (16:10)
[2024-04-05] MEDS: STERILE WATER FOR INJECTION 10 ML IV (16:11)
[2024-04-05] MEDS: NSS 1000 IV (16:11)
[2024-04-05 17:40] LABS: Glucose - Point of Care 88 mg/dl (70-99)
--- NOTE | 2024-04-05 17:56 | W.PN.URO.CBU ---
Today's Communication / Plan
-
NO INTERVENTION
Assessment / Plan
-
KERWIN BUT NO OBVIOUS OBSTRUCTION HAS USUAL BACTERURIA OF ILEAL CONDIUT AND ELEVATED WBC 10K CANNOT ARGUE WITH RATIONALE TO TX FOR [POSSIBLR[E UTI WHILE HYDRATING WILL FOL DOES HAVE BLOOD PER URE[facility] WGICH WILL CONTINUE FOREVER DOES
HAVE [place] BLADDER WITH RADIATIOINDUCED H=CYSTIS BUT THIS BLOD POSES NO THRAT TO PT AND IS NOT INDICATIVE OF BLADDER CANCER NOR UTILOW
Diagnosis
-
Date of Service: April 05, 2024
-
Patient Diagnosis:KERWIN CREAT 1. 2 TO 1.7 pT S/P ILEAL LOOP AND HAS NATIVEBLADDER BUT WITH LIFE LONG RADIATIONCYSTITIS WITHBLOOD EXPECTED FROM [facility] [place] BY [facility] [place] [facility] [place] [facility] AND FOUND TO HAVE KI
Post Op Day:
Subjective
-
NO FEVR CHILLS FLAMNK PAIN HEMATUIR A DOES ADMI TO BLOOD E=A ALWAYS VIA [facility]
Objective
-
Vital Signs
Temp Pulse Resp BP Pulse Ox
97.7 F 53 17 140/64 97
04/05/24 15:45 04/05/24 15:45 04/05/24 15:45 04/05/24 15:45 04/05/24 15:45
Intake and Output
04/04/24 04/05/24 04/06/24
06:59 06:59 06:59
Intake Total 240 / 240
Output Total 500 / 500
Balance -260 / -260
Intake:
Oral fluids 240 / 240
Output:
Urostomy output 500 / 500
Laboratory Results
04/05/24 09:57
04/05/24 10:45
Review of Systems
-
Abdomen/GI: No Symptoms
: Bleeding
Physical Exam
-
General - well developed, well nourished, no acute distress
Chest - clear bilaterally
Abdomen - soft, non-tender, positive bowel sounds, no CVAT, no incisional pain or distention
Genitalia - normal
Rectal - normal
Skin - warm & dry with no rash
Neuro - AOx3, no motor deficits
Extremities - no clubbing, no cyanosis, no edema
Incision - clean, dry
Dressing - clean, dry, intact
Care Review
Data Reviewed
Discussed with: Hospitalist and Nursing
CT Scan: Image Pers Reviewed
[2024-04-05 17:58] LABS: TSH Reflex To Free T4 0.76 uIU/ml (0.47-4.68)
[2024-04-05 21:48] LABS: Glucose - Point of Care 115 mg/dl (70-99)
[2024-04-05] MEDS: LIPITOR 40 MG PO (21:56)
[2024-04-05] MEDS: MIRALAX 17 GRAMS PO (21:56)
[2024-04-05] MEDS: SENOKOT 17.1999999999999993 MG PO (21:56)
[2024-04-06 03:12] VITALS: BP 111/53
[2024-04-06 03:18] VITALS: BMI 28.9
[2024-04-06 06:00] VITALS: BMI 28.9
[2024-04-06 06:41] LABS: Hematocrit 34.7 % (39.0-52.0); Hemoglobin 11.4 g/dL (13.0-18.0); Mean Corp Hgb Conc. 32.9 g/dL (33.0-37.0); Mean Corpuscular Hgb 31.1 pg (27.0-31.0); Mean Corpuscular Volume 94.6 fL (80.0-94.0); Mean Platelet Volume 9.4 fL (7.4-10.4); Platelet Count 161 10^3/uL (130-400); Red Blood Cell Count 3.67 10^6/uL (4.70-6.10); Red Cell Dist. Width 18.6 % (11.5-14.5); White Blood Cell Count 8.1 10^3/uL (4.8-10.8)
[2024-04-06 06:58] LABS: Blood Urea Nitrogen 63 mg/dl (9-20); Calcium 9.5 mg/dl (8.4-10.2); Carbon Dioxide 24 mmol/L (22-30); Chloride 104 mmol/L (98-107); Estimated Creatinine Clearance 39 ml/min; Glucose 85 mg/dl (70-99); Potassium 4.2 mmol/L (3.5-5.1); Sodium 135 mmol/L (135-145)
[2024-04-06 07:50] VITALS: BP 113/58
[2024-04-06 08:08] LABS: Glucose - Point of Care 91 mg/dl (70-99)
--- NOTE | 2024-04-06 08:26 | W.PN.HOSP.TC ---
Today's Communication/Plan
-
cap IVF
continue IV abx pending cultures, follow Urology recs
AM labs
PT/OT
Assessment / Plan
Assessment / Plan
Assessment:
KERWIN on CKD Stage II
- improving with IVF
- hold Lasix/Metformin
Abnormal Urinalysis possible UTI
- continue empiric Rocephin, day 2
- await urine and blood culture
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
- Urology following. they state this bleeding is expected to be lifelong
- continue to monitor
Chronic HFpEF
Moderate Aortic Stenosis
- Furosemide on hold due to KERWIN
- Monitor Is&Os and Daily Weights
Hyperlipidemia
- continue atorvastatin
Diabetes Mellitus, Type II
- Metformin on hold due to KERWIN
- Monitor sugars and continue coverage insulin
Constipation
- continue Miralax and Senna
GERD
- continue Protonix
Anxiety
- continue Lexapro
Bladder CA s/p Partial Cystectomy
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
ASCVD s/p CABG and Left CEA
DVT proph: SCDs
Code Status: Full Code
Anticipated Discharge: > 48 hours
Subjective/Interval History
-
Date of Service: April 06, 2024
no acute overnight events
bloody output which is expected continues intermittently
Objective Data
-
Labs:
Laboratory Results
04/06/24
06:19
WBC 8.1
Hgb 11.4 L
Hct 34.7 L
Plt Count 161
Sodium 135
Potassium 4.2
Chloride 104
Carbon Dioxide 24
BUN 63 H
Creatinine 1.3
Glucose 85
Calcium 9.5
Vital Signs:
Vital Signs
Temp Pulse Resp BP Pulse Ox
97.6 F 54 13 113/58 96
04/06/24 03:12 04/06/24 07:50 04/06/24 07:50 04/06/24 07:50 04/06/24 07:50
I&O
04/05/24 04/06/24 04/07/24
06:59 06:59 06:59
Intake Total 960 / 960
Output Total 1300 / 1300
Balance -340 / -340
Physical Exam
-
General: No Apparent Distress
HEENT: Normocephalic and Atraumatic
Respiratory: Negative Wheezes
Cardiac: Regular Rhythm and S1/S2
Genito-urinary: Other (Urostomy bag with large amount of mucus present, but overall clear appearing urine)
Neuro: AO x 3
Psych: Calm
Data Reviewed
-
Total Time Spent with Patient (in minutes): 42
Labs: Labs Reviewed by me
[2024-04-06] MEDS: LEXAPRO 10 MG PO (08:49)
[2024-04-06] MEDS: VITAMIN D3 (cholecalciferol) 50 MCG PO (08:49)
[2024-04-06] MEDS: SENOKOT 17.1999999999999993 MG PO (08:49)
[2024-04-06] MEDS: PROTONIX 40 MG PO (08:49)
--- NOTE | 2024-04-06 09:04 | W.PN.URO.CBU ---
Today's Communication / Plan
-
per hospitalist but possible d/c today
Assessment / Plan
-
KERWIN BUT NO OBVIOUS OBSTRUCTION HAS USUAL BACTERURIA OF ILEAL CONDIUT AND ELEVATED now resolved and kerwin resolved would discharge when a]=stable per hospitalist but uroogically baseline Doubt uti
Diagnosis
-
Date of Service: April 06, 2024
-
Patient Diagnosis:
Post Op Day:
Patient Diagnosis:KERWIN CREAT 1. 2 TO 1.7 pT S/P ILEAL LOOP AND HAS NATIVEBLADDER BUT WITH LIFE LONG RADIATIONCYSTITIS WITHBLOOD EXPECTED FROM URETRA sENT BY [facility] [place] [facility] FOR BLOOD PER U[facility] AND FOUND TO HAVE KI
Post Op Day:
Subjective
-
feels baseline no fevr chills min bleeding
Objective
-
Vital Signs
Temp Pulse Resp BP Pulse Ox
97.6 F 54 13 113/58 96
04/06/24 03:12 04/06/24 07:50 04/06/24 07:50 04/06/24 07:50 04/06/24 07:50
Intake and Output
04/05/24 04/06/24 04/07/24
06:59 06:59 06:59
Intake Total 960 / 960
Output Total 1300 / 1300
Balance -340 / -340
Intake:
Oral fluids 240 / 240
IV fluids (Total) 720 / 720
Output:
Urine, Sams 800 / 800
Urostomy output 500 / 500
Laboratory Results
04/06/24 06:19
04/06/24 06:19
Review of Systems
-
: Bleeding
Physical Exam
-
General - well developed, well nourished, no acute distress
Chest - clear bilaterally
Abdomen - soft, non-tender, positive bowel sounds, no CVAT, no incisional pain or distention
Genitalia - normal
Rectal - normal
Skin - warm & dry with no rash
Neuro - AOx3, no motor deficits
Extremities - no clubbing, no cyanosis, no edema
Incision - clean, dry
Dressing - clean, dry, intact
Care Review
Data Reviewed
Discussed with: Hospitalist
[2024-04-06 11:46] LABS: Glucose - Point of Care 101 mg/dl (70-99)
--- NOTE | 2024-04-06 11:51 | WOUNDNOTE ---
L HIP AND FLANK BLISTERS
--- NOTE | 2024-04-06 11:52 | WOUNDNOTE ---
L LATERAL PROXIMAL THIGH AND L FLANK BLISTERS
--- NOTE | 2024-04-06 11:54 | WOUNDNOTE ---
WON RN note: Patient admitted with acute kidney injury.
Patient lives at [facility].
PMH: Frequent admissions for hematuria/retention, anemia, radiation induced cystitis, history of severe phimosis s/p cystoscopy, 02/03 circumcision, prostate ca with radiation therapy, BPH, CABG, DM, ambulation dysfunction, CKD3, L CEA for carotid
stenosis and urostomy (ileal conduit) last admission in February.
Wound Location and type/assessment: Patient recently seen on 03/05/24 for abrasions of R morton and Coccyx/R buttocks stage 2 pressure/friction related injuries. Asked to see patient for buttock wounds and urostomy needs. Patient thinks appliance
changed yesterday before admission, no reports of leakage or skin issues. No leakage noted, supplies ordered from [facility] and brought 2 convex wafers #[id number] to bedside, used last admission. Sacrum with maroon redness suspect chronic rather than
pressure. Scarring from old healed PI visible. R hip with blanchable red james. L upper lateral thigh and flank with tiny open and serous filled blisters. Patient does not recall how he got those, suspect he came in with them. Patient able to turn
self to sides with assist. R morton intact. Heels are boggy and blanchable red.
Appetite: good.
Pressure redistribution devices in place: Versa care Air, air cushion if sitting and applied pillow under calves.
Plan: Silicone border foams applied to blisters on L upper lateral thigh and flank. Adhesive foams applied to heels. Nurse Shannon made aware that nursing can change urostomy due Friday or Friday. Supplies at bedside, fungal powder/3m, prn rash to
peristomal skin. Will confirm orders with hospitalist. Care plan to be updated and will follow as needed.
--- NOTE | 2024-04-06 11:59 | CM ---
Reviewed chart, received message from attending that patient is medically cleared and can be discharged. Placed a call to patient's son, Celestine, who confirmed that patient is from the [facility] and family is choosing for him to return there. IMM
reviewed and is now on chart.
Placed a call to [facility] and spoke with one of patient's RNs, New, who confirmed that patient can come back today.
#For report [phone] and
Will complete medical necessity and transfer sheet.
Plan: Case management will continue to follow and assist with discharge planning. Transfer back to [facility].
[2024-04-06 12:05] VITALS: BP 133/64; PULSE 57; O2SAT 96
[2024-04-06 12:10] VITALS: BP 133/64; PULSE 57; O2SAT 96
[2024-04-06 12:31] VITALS: BP 133/64; PULSE 57; O2SAT 96
--- NOTE | 2024-04-06 12:54 | W.DS.TRANS ---
DC Summary - Co Founder
-
Discharge Instructions:
Discharge Diagnosis/Procedures chronic expected hematuria in [place] bladder
that has suffered radiation injury, KERWIN from
dehydration.
Diet Diabetic, Carb Controlled
Activity As tolerated
Bathing Restrictions None
Instructions:
Stand-Alone Forms:
Changes to Home Medications: Yes
Discharge Medications:
DC Medications w/original date entered in [facility]
atorvastatin 40 mg tablet 40 mg PO HS High cholesterol 02/05/17
cholecalciferol (vitamin D3) 50 mcg (2,000 unit) tablet 50 mcg PO DAILY Supplement 11/26/23
polyethylene glycol 3350 17 gram oral powder packet (Miralax) 17 g PO HS Constipation 11/26/23
metformin 500 mg tablet 500 mg PO BID Diabetes #0 tabs 02/06/24
acetaminophen 500 mg tablet (Tylenol Extra Strength) 1,000 mg PO Q8HPRN PRN MILD PAIN 02/10/24
escitalopram oxalate 10 mg tablet 10 mg PO DAILY Mental Health 04/05/24
omeprazole 20 mg capsule,delayed release 40 mg PO DAILY Gastrointestinal Issue 04/05/24
sennosides 8.6 mg tablet (senna) 17.2 mg PO BID Constipation 04/05/24
zinc oxide-cod liver oil 40 % topical paste (Desitin) 1 applic topical DAILY PRN sacral area 04/05/24
zinc oxide-cod liver oil 40 % topical paste (Desitin) 1 applic topical TID sacral area 04/05/24
furosemide 20 mg tablet (Lasix) 20 mg PO DAILY #30 tabs 04/06/24
Home Medication Changes
Lasix to 20mg from 40mg
Pending Results: No
Total time spent discharging patient (in min): 41
[2024-04-06 15:00] VITALS: BP 118/58
[2024-04-06] MEDS: ROCEPHIN 1000 MG IV (16:00)
[2024-04-06] MEDS: STERILE WATER FOR INJECTION 10 ML IV (16:01)
[2024-04-06 16:13] LABS: Glucose - Point of Care 100 mg/dl (70-99)
== END 2024-04-06 18:49 | disposition home or self-care (01) | DRG 699 ==
LOC: 3 WEST ACU 14:20
PROVIDERS: Physician Assistant; Physician Assistant Medical; ADMITTING PHYSICIAN Internal Medicine; CONSULT PHYSICIAN Specialist; EMERGENCY PHYSICIAN Emergency Medicine; FAMILY PHYSICIAN Family Medicine
DX: N30.41 Irradiation cystitis with hematuria (principal); I13.0 Hypertensive heart and chronic kidney disease with heart failure and stage 1 through stage 4 chronic kidney disease, or unspecified chronic kidney disease; N17.9 Acute kidney failure, unspecified; I50.32 Chronic diastolic (congestive) heart failure; Y84.2 Radiological procedure and radiotherapy as the cause of abnormal reaction of the patient, or of later complication, without mention of misadventure at the time of the procedure; E86.0 Dehydration; E11.22 Type 2 diabetes mellitus with diabetic chronic kidney disease; N18.2 Chronic kidney disease, stage 2 (mild); I25.10 Atherosclerotic heart disease of native coronary artery without angina pectoris; Z79.84 Long term (current) use of oral hypoglycemic drugs; Z85.51 Personal history of malignant neoplasm of bladder; Z85.46 Personal history of malignant neoplasm of prostate; Z95.1 Presence of aortocoronary bypass graft
CPT/HCPCS: 74176; 80048; 81003; 81015; 82962; 84132; 84443; 85025; 85027; 87040; 87070; 87077; 87086; 87186; 96360; 97163; 97166; 99285